=== PATIENT | male | born 1960 | race Caucasian/White ===

== ENCOUNTER 2019-06-29 22:23 | Inpatient (IN) | payer MEDICARE, SELFPAY ==
--- NOTE | ~2019-06-29 | US_ITS ---
EXAMINATION: US right upper quadrant DATE: 07/01/2019 13:09 INDICATION: Elevated liver function tests TECHNIQUE: Multiple grayscale and Doppler ultrasound images of the abdomen were obtained. COMPARISON: CT abdomen and pelvis dated 04/02/2013 FINDINGS: The region of the pancreas is obscured by shadowing gas in the stomach and bowels. Liver has normal e chogenicity and contour, with a smooth surface. No liver lesion identified. No intrahepatic biliary d uct dilation suspected. Portal venous flow was seen in the hepatopetal, normal direction and has norm al Doppler waveform. The gallbladder is not visualized and reportedly surgically absent. The common b ile duct measures 4 mm which is normal. The visualized proximal inferior vena cava is normal. IMPRESSION: 1. Status post cholecystectomy. Otherwise unremarkable right upper quadrant ultrasound. Reviewed, dictated and finalized at location A. IMPRESSION: 1. Status post cholecystectomy. Otherwise unremarkable right upper quadrant ult rasound.
--- NOTE | ~2019-06-29 | XR_ITS ---
EXAMINATION: XR chest 1V portable DATE: 06/29/2019 22:51 INDICATION: Shortness of breath TECHNIQUE: frontal view of the chest was obtained. COMPARISON: Chest radiograph dated 04/20/2019 FINDINGS: Megaly with pulmonary vascular congestion. Resolution of prior basilar pulmonary edema. Calcified nod ules in the left lower lung zone consistent with old granulomatous disease. No new airspace opacities , pleural effusion or pneumothorax. Median sternotomy wires and mediastinal surgical clips are seen, likely from prior coronary artery bypass grafting. IMPRESSION: 1. Cardiomegaly with pulmonary vascular congestion but without jose luis pulmonary edema. Reviewed, dictated and finalized at location A.
[2019-06-29 22:28] VITALS: BP 173/118; PULSE 117; RESP 40; TEMP 36.2; O2SAT 83
--- NOTE | 2019-06-29 22:33 | ECG_ITS ---
Measurements Intervals [place] Rate: 114 P: [place]: 0 QRS: -54 QRSD: 186 T: 144 QT: 306 QTc: 422 Interpretive Statements ATRIAL FLUTTER/TACHYCARDIA WITH RAPID VENTRICULAR RESPONSE LEFT BUNDLE BRANCH BLOCK BASELINE ARTIFACT- I, II, III, AVR, AVL, AVF, V1-V6 ABNORMAL ECG Electronically Signed On 06-30-2019 9:48:19 CDT by Ben Patton D.O.
--- NOTE | 2019-06-29 22:35 | ED.SOB ---
HPI - SOB/Dyspnea General Chief Complaint: Shortness of Breath/Dyspnea Stated Complaint: sob/extremitites going numb Time Seen by Provider: 06/29/19 22:33 Source: patient, family and RN notes reviewed Mode of arrival: other Limitations: no limitations History of Present Illness HPI Narrative: Pt is a 58 y/o male who presents to the ED with c/o dyspnea that worsened today. Pt states that his sx have improved when he came into the ED. Pt states that he does not feel well. Pt has been breathing 40 times per minute. Pt is a dialysis pt and his last treatment was on Sunday (06/27/19). Pt states that his diabetes mellitus is controlled by his diet so he does not check his blood glucose regularly. Pt states that his blood glucose will run high whenever he is in A-fib. Pt's family states the pt has had insurance troubles to refill his medication that helps the pt sleep. Pt has not taken the medication in about a week. Pt also reports difficulty sleeping for the past week and numbness in his extremities, but denies fever, cough, and chest pain. Pt's mine deputy is Dr. Graf and pt's industrial engineering intern is Dr. Marie. elicited complaint: shortness of breath Onset (ago): hour(s) Timing: constant Associated symptoms: other (difficulty sleeping, numbness in his extremities) Related Data Home Medications Medication Instructions Recorded Confirmed aspirin 81 mg PO DAILY 04/20/19 06/29/19 atorvastatin 20 mg PO DAILY 04/20/19 06/29/19 calcium acetate(phosphat bind) 667 mg PO TID 04/20/19 06/29/19 cholecalciferol (vitamin D3) 125 mcg PO DAILY 04/20/19 06/29/19 [Vitamin D3] lidocaine-prilocaine 1 applic TOPICAL ONCE 04/20/19 06/29/19 metoprolol tartrate 50 mg PO BID 04/20/19 06/29/19 polyethylene glycol 3350 [Miralax] 17 g PO DAILY 04/20/19 06/29/19 sennosides-docusate sodium 1 tab-cap PO HS 04/20/19 06/29/19 [Senna-S] amiodarone 200 mg tablet 200 mg PO DAILY 06/06/19 06/29/19 Allergies Allergy/AdvReac Type Severity Reaction Status Date / Time salmon oil Allergy Anaphylaxis Verified 06/29/19 23:24 Review of Systems Review of Systems: All systems reviewed & are unremarkable except as noted in HPI and below Constitutional: Constitutional: Reports difficulty sleeping and Denies fever(s) Cardiovascular: Cardiovascular: Denies chest pain Respiratory: Respiratory: Denies cough and Reports dyspnea Neurologic: Reports numbness (in his extremities) [facility] Social History Social History Smoking status: Never smoker Alcohol intake: current Drinks per week: 1 Substance use: never Gender identity (if verbalized by the patient): Male Spiritual care concerns: No Agree to blood products: Yes Exam Const: General: alert and ill appearing acutely and chronically Nutritional Appearance: well nourished Orientation/consciousness: patient oriented x3 HENMT: Head: normal to inspection Resp: Effort & Inspection: tachypneic Auscultation: clear to auscultation bilaterally Cardio: Rate: tachycardic Rhythm: abnormal rhythm irregularly irregular GI: GI Palp: Yes Soft to palpation and No Tenderness to palpation present (GI) Skin: Wounds: no wounds Neuro: General: patient oriented x3, moves all extremities and no focal motor deficits Speech: normal speech Extrem: General: edema bilateral (mild) Psych: Mental Status: mental status grossly normal Course Consultations Consultation #1: Discussed case with Dr. Hunter (Hospitalist). Accepts admission. Date: 06/29/19 Time: 23:04 Consultation #2: Discussed case with Dr. Bush (Nephrology). Accepts consult. Date: 06/30/19 Time: 00:22 Vital Signs Vital signs: Vital Signs Temperature 36.2 C L 06/29/19 22:28 Pulse Rate 117 H 06/29/19 22:28 Respiratory Rate 40 H 06/29/19 22:28 Blood Pressure 173/118 H 06/29/19 22:28 Pulse Oximetry 83 L 06/29/19 22:28 Temperature 36.7 C 06/30/19 01:10 Pulse Rate 94 06/29
[2019-06-29] MEDS: CALCIUM GLUCONATE 1,000 MG/10 ML VIAL 1000 MG (22:42)
[2019-06-29 22:43] LABS: Basophils Percent Auto 0.1 % (0.2-1.2); Eosinophils Percent Auto 0.1 % (0-4.4); Immature Granulocyte Absolute 0.09 K/mm3 (0.00-0.031); Immature Granulocyte Percent A 0.7 % (0-0.5); Lymphocytes Absolute Auto 0.53 K/mm3 (0.9-3.2); Lymphocytes Percent Auto 3.8 % (18.3-44.2); Mean Corpuscular HGB Conc 29.3 g/dl (32-36); Mean Corpuscular Hemoglobin 31.5 pg (26-34); Mean Corpuscular Volume 107.6 fl (80-100); Mean Platelet Volume 11.3 fl (7.4-10.4); Monocytes Absolute Auto 1.2 K/mm3 (0.1-0.6); Monocytes Percent Auto 8.9 % (2.6-8.5); Neutrophils Absolute Auto 11.9 K/mm3 (1.3-6.7); Neutrophils Percent Auto 86.4 % (45.5-73.1); Platelet Count Result 192 k/mm3 (150-375); Red Blood Count 3.81 M/mm3 (4.6-6.20); White Blood Count 13.8 K/mm3 (4.5-10.0)
[2019-06-29 22:53] LABS: INR 2.1; Prothrombin Time 23.5 Seconds (11.1-14.7)
[2019-06-29 22:54] LABS: Partial Thromboplastin Time 36.5 SECONDS (22.3-36.8)
[2019-06-29 22:58] LABS: Blood Urea Nitrogen 56 mg/dL (9-20); Calcium 10.6 mg/dL (8.4-10.2); Carbon Dioxide 14 mmol/L (22-30); Chloride 92 mmol/L (98-107); Estimated Glomerular Filt Rate 4; Glucose 118 mg/dL (75-110); Magnesium 2.5 mg/dL (1.6-2.3); Potassium 6.9 mmol/L (3.4-5.0); Sodium 139 mmol/L (137-145)
--- NOTE | 2019-06-29 23:10 | ECG_ITS ---
Measurements Intervals [place] Rate: 75 P: [place]: 0 QRS: -80 QRSD: 179 T: 93 QT: 509 QTc: 570 Interpretive Statements SINUS OR ECTOPIC ATRIAL RHYTHM WITH FIRST DEGREE AV BLOCK ATRIAL PREMATURE COMPLEX LEFT AXIS DEVIATION LEFT BUNDLE BRANCH BLOCK ANTEROSEPTAL INFARCT OR DUE TO LBBB BASELINE WANDER- I ABNORMAL ECG Electronically Signed On 06-30-2019 7:35:02 CDT by Ben Patton D.O.
[2019-06-29] MEDS: DEXTROSE 50% 25 GM/50 ML SYRINGE IV PUSH (23:14)
[2019-06-29 23:15] LABS: NT Pro B Type Natriuretic Pept > 35000 PG/ML (5-100)
[2019-06-29] MEDS: ALBUTEROL SULFATE NEB 2.5 MG/0.5 ML INH 10 MG INHALATION (23:18)
[2019-06-29] MEDS: SODIUM BICARBONATE 8.4% 50 MEQ/50 ML VIAL IV PUSH (23:19)
[2019-06-29] MEDS: INSULIN HUMAN REGULAR (*BKC) 100 UNITS/ML 10 UNITS IV PUSH (23:22)
[2019-06-29 23:23] VITALS: BP 136/70; PULSE 86; RESP 30; O2SAT 99
[2019-06-29 23:26] VITALS: PULSE 80; RESP 22
[2019-06-30] VITALS (34 sets, daily range): BP systolic 116–165; BP diastolic 66–109; PULSE 79–117; RESP 16–26; TEMP 36–36.8; O2SAT 94–100; BMI 34.8; BMI 35.1
--- NOTE | 2019-06-30 01:17 | ADMGEN ---
This patient, Beck Carney, was admitted to IMU Room 231-01. Patient/family oriented to hospital policies and general routines including ID bracelet, bed and alarms, visiting hours, pain management, procedures, bathroom and other care routines, personal items, smoking policy, room service/diet, and visiting hours. Valuables list has been completed. Information on how to activate the Rapid Response Team has been discussed. Patient/Family are encouraged to report perceived risks to care and to ask questions if they do not understand what they are told or what they should do.
--- NOTE | 2019-06-30 02:30 | PM.IMHP ---
H&P: HPI History of Present Illness Chief complaint: Shortness of breath+ Narrative: This is a 58 year old Diabetic male with known history of atrial flutter, CHF, and ESRD on HD on // for approximately 1 year now and presented to the hospital this evening with a complaint of severe shortness of breath. He states that his severe shortness of breath started just today. He denies any fever. He complains of a chronic dry cough that he has had for over 1 year now since he underwent a CABG x 3. He denies missing any dialysis sessions. He believes he is on dialysis because of taking nephrotoxic medications in the past. The patient was previously on Eliquis although he is no longer on any anticoagulants. Tonight in the ER the patient was found to have significant hyperkalemia and was treated in the ER w/ Sodium Bicarbonate, Insulin and Dextrose. ER provider has consulted the patient's video coordinator, Dr. Graf. The patient tonight is only complaining of insomnia and claims he hasn't been able to sleep for 4 days now. On further questioning he denies any palpitations, abdominal pain, dysuria, hematuria, nausea, vomiting, headache, focal neurological symptoms, lower extremity redness, pain or swelling. No other complaints. Review of Systems Review of Systems: All systems reviewed & are unremarkable except as noted in HPI and below PMFSH Past Medical History Medical History (Updated 06/30/19 @ 02:55 by Marcello Hunter MD) Anemia Anxiety Arthritis Atrial flutter CAD (coronary artery disease) CHF (congestive heart failure) Depression Diabetes Dialysis patient Diverticulitis Fistula HLD (hyperlipidemia) HTN (hypertension) Kidney failure Leg fracture bilateral, 2016 Myocardial infarct Surgical History Surgical History H/O heart bypass surgery end of July 2018 History of cholecystectomy History of orthopedic surgery 2016 Family History Family History Mother Family history of diabetes mellitus in first degree relative Family history of malignant neoplasm of breast in first degree relative Patient's mother is in good health Sibling Patient's sister is in good health Patient's brother is in good health Father Patient's father is Social History Social History Smoking status: Never smoker Alcohol intake: current Drinks per week: 1 Substance use: never Gender identity (if verbalized by the patient): Male Spiritual care concerns: No Agree to blood products: Yes Meds Home Medications and Allergies Home Medications Medication Instructions Recorded Confirmed Type aspirin 81 mg PO DAILY 04/20/19 06/29/19 History atorvastatin 20 mg PO DAILY 04/20/19 06/29/19 History calcium acetate(phosphat bind) 667 mg PO TID 04/20/19 06/29/19 History cholecalciferol (vitamin D3) 125 mcg PO DAILY 04/20/19 06/29/19 History [Vitamin D3] lidocaine-prilocaine 1 applic TOPICAL ONCE 04/20/19 06/29/19 History metoprolol tartrate 50 mg PO BID 04/20/19 06/29/19 History polyethylene glycol 3350 [Miralax] 17 g PO DAILY 04/20/19 06/29/19 History sennosides-docusate sodium 1 tab-cap PO HS 04/20/19 06/29/19 History [Senna-S] amiodarone 200 mg tablet 200 mg PO DAILY 06/06/19 06/29/19 History lisinopril 20 mg tablet 20 mg PO DAILY #90 tablet 06/06/19 06/29/19 Rx temazepam 15 mg capsule 15 mg PO ONCE #30 cap 06/06/19 06/29/19 Rx Allergies Allergy/AdvReac Type Severity Reaction Status Date / Time salmon oil Allergy Anaphylaxis Verified 06/29/19 23:24 Vital Signs Vital Signs - 24 hr 06/29/19 22:28 06/29/19 23:23 06/29/19 23:26 Temperature 36.2 C L Pulse Rate 117 H 86 80 Respiratory Rate 40 H 30 H 22 H Blood Pressure 173/118 H 136/70 Pulse Oximetry 83 L 99 06/30/19 00:24 06/30/19 00:32 06/30/19 00:55 Temperature Pulse
[2019-06-30] MEDS: METOPROLOL TARTRATE 50 MG TAB PO ×3 (03:02→20:28)
[2019-06-30 03:06] LABS: Blood Urea Nitrogen 65 mg/dL (9-20); Calcium 10.7 mg/dL (8.4-10.2); Carbon Dioxide 21 mmol/L (22-30); Chloride 93 mmol/L (98-107); Estimated CRCL calculation 7 ml/min; Estimated Glomerular Filt Rate 4; Glucose 208 mg/dL (75-110); Potassium 6.6 mmol/L (3.4-5.0); Sodium 137 mmol/L (137-145)
[2019-06-30 04:12] LABS: Hepatitis B Surface Antigen Negative (Negative)
[2019-06-30 04:17] LABS: HAV RESULT Negative (Negative); Hepatitis B Core IgM Result Negative (Negative)
[2019-06-30 04:29] LABS: Hepatitis B Surface Anti Res Negative; Hepatitis C Virus Antibody Negative (Negative)
--- NOTE | 2019-06-30 05:12 | PC.NURSE ---
Gave pt semaj to try to sleep at 033. He pushed his call light at 033 upset that he was given sleep medicine an 1.5hr before and still couldn't sleep. I reassured him it had only been 30min to try and get some rest. He was very Irate that a nurse would tell him to rest when he needs more sleeping medicine and had been waiting an 1.5hrs
[2019-06-30] MEDS: SODIUM BICARBONATE 8.4% 50 MEQ/50 ML VIAL IV PUSH (05:54)
[2019-06-30] MEDS: CALCIUM GLUCONATE 1,000 MG/10 ML VIAL 1000 MG IV PUSH (05:54)
[2019-06-30] MEDS: DEXTROSE 50% 25 GM/50 ML SYRINGE IV PUSH (05:54)
[2019-06-30] MEDS: INSULIN HUMAN REGULAR (*BKC) 100 UNITS/ML 10 UNITS IV PUSH (05:55)
[2019-06-30 07:15] LABS: Basophils Percent Auto 0.1 % (0.2-1.2); Eosinophils Percent Auto 0.1 % (0-4.4); Hematocrit 32.8 % (42.0-52.0); Hemoglobin 10.3 g/dL (14.0-18.0); Immature Granulocyte Absolute 0.04 K/mm3 (0.00-0.031); Immature Granulocyte Percent A 0.4 % (0-0.5); Lymphocytes Absolute Auto 0.87 K/mm3 (0.9-3.2); Lymphocytes Percent Auto 7.7 % (18.3-44.2); Mean Corpuscular HGB Conc 31.4 g/dl (32-36); Mean Corpuscular Hemoglobin 31.7 pg (26-34); Mean Corpuscular Volume 100.9 fl (80-100); Mean Platelet Volume 11.5 fl (7.4-10.4); Monocytes Absolute Auto 0.9 K/mm3 (0.1-0.6); Neutrophils Absolute Auto 9.4 K/mm3 (1.3-6.7); Neutrophils Percent Auto 83.7 % (45.5-73.1); Platelet Count Result 131 k/mm3 (150-375); Red Blood Count 3.25 M/mm3 (4.6-6.20); White Blood Count 11.3 K/mm3 (4.5-10.0)
[2019-06-30 07:31] LABS: Blood Urea Nitrogen 70 mg/dL (9-20); Calcium 10.5 mg/dL (8.4-10.2); Carbon Dioxide 24 mmol/L (22-30); Chloride 90 mmol/L (98-107); Estimated CRCL calculation 7 ml/min; Estimated Glomerular Filt Rate 4; Glucose 214 mg/dL (75-110); Potassium 6.6 mmol/L (3.4-5.0); Sodium 137 mmol/L (137-145)
[2019-06-30 07:42] LABS: Troponin I 0.206 ng/mL (0.000-0.034)
[2019-06-30 07:55] LABS: Glucose Point of Care 179 (65-105)
[2019-06-30 07:56] LABS: Glucose Point of Care 183 (65-105)
[2019-06-30] MEDS: LIDOCAINE/PRILOCAINE 2.5-2.5% KIT 1 EACH TOPICAL (07:59)
--- NOTE | 2019-06-30 08:00 | PC.NURSE ---
Pt to dialysis via bed
--- NOTE | 2019-06-30 08:42 | PM.CNNEP ---
Assessment and Plan Assessment and plan (1) End-stage renal disease (ESRD): Code(s): N18.6 - End stage renal disease Status: Chronic Assessment and Plan: Patient is end-stage renal disease. This is due to his diabetes and hypertension. He has been on dialysis. Does have some trouble with his diet, especially with phosphorus. Potassium has been a problem in the past as well. He does very well with the diabetic part of his diet. He is getting dialysis today (2) Essential hypertension with goal blood pressure less than 130/80: Code(s): I10 - Essential (primary) hypertension Status: Chronic Assessment and Plan: His blood pressure is pretty well controlled. (3) Secondary hyperparathyroidism, renal: Code(s): N25.81 - Secondary hyperparathyroidism of renal origin Status: Chronic Assessment and Plan: His phosphorus is chronically elevated. He cannot afford non calcium binders. And HIS Calcium limits how much he can take for phosphorus binding purposes. His income is limited in so it is hard for him to buy low phosphorus foods as well. Dietitian social human services assistants have been working with him at the dialysis unit to try to resolve or at least manage some of these problems. (4) Type 2 diabetes mellitus without complication, with no history of insulin use: Code(s): E11.9 - Type 2 diabetes mellitus without complications Status: Chronic Assessment and Plan: He is on Accu-Cheks and sliding-scale insulin His sugars are generally really good without any diabetic medications. (5) Hyperkalemia: Code(s): E87.5 - Hyperkalemia Status: Acute Assessment and Plan: Potassium is high. He is getting dialyzed today. He did receive meds yesterday to temporize. History of Present Illness Reason for Consult Consult date: 06/30/19 Chief Complaint Chief complaint: Shortness of breath+ History of Present Illness Narrative: Beck is a very pleasant 58-year-old gentleman who has multiple medical problems including end-stage renal disease on dialysis 3 times a week, hypertension, renal osteodystrophy, coronary disease status post bypass, who was fine until yesterday when he became short of breath. He came to the hospital. He was evaluated in the emergency room and found to have high potassium. He was treated with insulin and glucose his potassium came down from 6.9 to 6.6. Dialysis has been called. The patient says that he ate lots of tater tots over the weekend. He knows he should need them but they were left over from his ex 's meal when she was there visiting. His ex is very supportive in drops by every day to help take care of him. Patient does not have any fevers or chills. No cough or shortness of breath. Review of Systems Constitutional: Constitutional: Reports no additional constitutional complaints Eyes: Eyes: Reports no additional eye complaints ENT: Reports system reviewed and no additional complaints, except as documented Cardiovascular: Cardiovascular: Reports no additional cardiovascular complaints Respiratory: Respiratory: Reports no additional respiratory complaints Gastrointestinal: Gastrointestinal: Reports no additional gastrointestinal complaints Genitourinary: Genitourinary: Reports no additional male genitourinary complaints Musculoskeletal: Musculoskeletal: Reports no additional musculoskeletal complaints Integumentary/Breasts: Skin/Breast: Reports system reviewed and no additional complaints, except as docu Neurologic: Reports system reviewed and no additional complaints, except as documented Psychiatric: Psychiatric: Reports no additional psychiatric complaints PMFSH Past Medical History Medical History Anemia Anxiety Arthritis Atrial flutter CAD (coronary artery disease) CHF (congestive heart failure) Depression Diabetes Dialysis patient Divertic
--- NOTE | 2019-06-30 08:51 | PM.EVENT ---
Event Note Event Note Event Note: The patient is on dialysis and tolerating it well. We are removing some fluid. He is on a low-potassium bath. He was seen at 8:15 a.m.
--- NOTE | 2019-06-30 12:30 | PC.NURSE ---
Pt returned from dialysis
[2019-06-30 12:38] LABS: Glucose Point of Care 65 (65-105)
[2019-06-30] MEDS: CALCIUM ACETATE 667 MG TABLET PO ×2 (12:46→17:15)
[2019-06-30] MEDS: lisinopriL 20 MG TABLET PO (12:47)
[2019-06-30] MEDS: AMIODARONE HCL 200 MG TABLET PO (12:47)
[2019-06-30] MEDS: CHOLECALCIFEROL 1,000 UNIT TABLET 5000 UNITS PO (12:47)
[2019-06-30] MEDS: ATORVASTATIN 20 MG TABLET PO (12:47)
[2019-06-30] MEDS: ASPIRIN 81 MG ENTERIC TABLET PO (12:48)
[2019-06-30 13:09] LABS: Blood Urea Nitrogen 31 mg/dL (9-20); Calcium 10.7 mg/dL (8.4-10.2); Carbon Dioxide 32 mmol/L (22-30); Chloride 95 mmol/L (98-107); Estimated CRCL calculation 12 ml/min; Estimated Glomerular Filt Rate 8; Glucose 77 mg/dL (75-110); Potassium 4.4 mmol/L (3.4-5.0); Sodium 138 mmol/L (137-145)
[2019-06-30] MEDS: polyethylene glycoL 3350 17 GM POWD.PACK PO (13:24)
--- NOTE | 2019-06-30 14:04 | PM.IMPN ---
Progress Note: A&P Assessment and Plan (1) Hyperkalemia: Code(s): E87.5 - Hyperkalemia Status: Acute Assessment and Plan: Likely secondary to acute on chronic renal failure. Pt had sodium bicarbonate, dextrose and insulin. Pt had emergent dialysis this morning. Potassium is NL. Pt is feeling better. No specific compliants (2) Dyspnea: Qualifiers: Dyspnea type: unspecified Qualified Code(s): R06.00 - Dyspnea, unspecified Code(s): R06.00 - Dyspnea, unspecified Status: Acute Assessment and Plan: Pt is for dialysis today. Pt is on oxygen for fluid overload. (3) Acute on chronic renal failure: Qualifiers: Acute renal failure type: unspecified Chronic kidney disease stage: on chronic dialysis Qualified Code(s): N17.9 - Acute kidney failure, unspecified; N18.9 - Chronic kidney disease, unspecified; Z99.2 - Dependence on renal dialysis Code(s): N17.9 - Acute kidney failure, unspecified; N18.9 - Chronic kidney disease, unspecified Status: Acute Assessment and Plan: Continue nephrology recommendations. The patient is on dialysis on //.Creat is 7.2 today. (4) End-stage renal disease (ESRD): Code(s): N18.6 - End stage renal disease Status: Chronic Assessment and Plan: Continue Nephrology recommendations. (5) Type 2 diabetes mellitus without complication, with no history of insulin use: Code(s): E11.9 - Type 2 diabetes mellitus without complications Status: Chronic Assessment and Plan: Accuchecks, SSI Coverage, Hypoglycemic agents. Order hbaic, order dietican consultation for DM and renal diet. Pt states he does not have a good diet at home. (6) Anemia in stage 4 chronic kidney disease: Code(s): N18.4 - Chronic kidney disease, stage 4 (severe); D63.1 - Anemia in chronic kidney disease Status: Chronic Assessment and Plan: Anemia of chronic disease (7) Essential hypertension with goal blood pressure less than 130/80: Code(s): I10 - Essential (primary) hypertension Status: Chronic Assessment and Plan: Continue home antihypertensives. (8) HFrEF (heart failure with reduced ejection fraction): Qualifiers: Heart failure chronicity: chronic Qualified Code(s): I50.22 - Chronic systolic (congestive) heart failure Code(s): I50.20 - Unspecified systolic (congestive) heart failure Status: Chronic Assessment and Plan: Daily weights. (9) Hyperlipidemia LDL goal <70: Code(s): E78.5 - Hyperlipidemia, unspecified Status: Chronic Assessment and Plan: Continue atorvastatin PO. (10) Secondary hyperparathyroidism, renal: Code(s): N25.81 - Secondary hyperparathyroidism of renal origin Status: Chronic Assessment and Plan: Continue home meds. (11) Atrial flutter: Qualifiers: Atrial flutter type: unspecified Qualified Code(s): I48.92 - Unspecified atrial flutter Code(s): I48.92 - Unspecified atrial flutter Status: Chronic Assessment and Plan: Stable. Continue Amiodarone. The patient is not on any anticoagulants. Continue ASA therapy. Subjective Date/time seen: 06/30/19 14:04 Interval history: Pt admitted this morning seen history and physical. 58 year old Diabetic male with known history of atrial flutter, CAD, CHF, and ESRD on HD on M/W/ for approximately 1 year now and presented to the hospital this evening with a complaint of severe shortness of breath. Pt potassium was high on admission. Pt states he has been going for dialysis. Pt is not good with his diet and will need dietican counselling prior to discharge. Pt seen by nephrology, potassium has normalised after dialysis. Review of Systems Review of Systems: All systems reviewed & are unremarkable except as noted in HPI and below Cardiovascular: Cardiovascular: Denies no additional cardiovascular complaints Respi
[2019-06-30 17:02] LABS: Glucose Point of Care 119 (65-105)
[2019-06-30] MEDS: SENNA/DOCUSATE SODIUM TABLET 1 TAB PO (20:27)
[2019-06-30 20:38] LABS: Glucose Point of Care 135 (65-105)
[2019-07-01] VITALS (31 sets, daily range): BP systolic 106–159; BP diastolic 55–98; PULSE 69–117; RESP 14–20; TEMP 35.9–37; O2SAT 96–99
[2019-07-01 05:39] LABS: Albumin Level 4.5 g/dL (3.5-5.1); Alkaline Phosphatase 194 U/L (38-126); Bilirubin,Total 1.5 mg/dL (0.2-1.3); Blood Urea Nitrogen 56 mg/dL (9-20); Calcium 10.9 mg/dL (8.4-10.2); Carbon Dioxide 29 mmol/L (22-30); Chloride 91 mmol/L (98-107); Estimated CRCL calculation 9 ml/min; Estimated Glomerular Filt Rate 6; Glucose 116 mg/dL (75-110); Potassium 6.8 mmol/L (3.4-5.0); Sodium 133 mmol/L (137-145)
[2019-07-01 06:19] LABS: Glucose Point of Care 113 (65-105)
[2019-07-01] MEDS: DEXTROSE 50% 25 GM/50 ML SYRINGE IV PUSH (06:26)
[2019-07-01] MEDS: INSULIN HUMAN REGULAR (*BKC) 100 UNITS/ML 10 UNITS IV PUSH (06:29)
[2019-07-01 06:30] LABS: Aspartate Amino Transferase 2041 U/L (17-59)
[2019-07-01 06:31] LABS: Alanine Aminotransferase 3140 U/L (4-50)
--- NOTE | 2019-07-01 06:36 | PC.NURSE ---
[address] DR[address] JOHNSON AND DR. CENTENO INFORMED OF K+ OF 6.8 AND ORDERS RECEIVED TO TRANSFER TO IMU. PATIENT INFORMED.
--- NOTE | 2019-07-01 06:37 | PC.NURSE ---
0600 REPORT CALLED TO U SALOMON MARTIN.
--- NOTE | 2019-07-01 06:38 | PC.NURSE ---
pt transfered over from room 253. Report recieved from
--- NOTE | 2019-07-01 06:38 | PC.NURSE ---
0605 PATIENT TRANSFERRED TO ROOM 231 WITH BELONGINGS VERIFIED.
[2019-07-01 07:05] LABS: Potassium 6.5 mmol/L (3.4-5.0)
[2019-07-01 07:58] LABS: Glucose Point of Care 165 (65-105)
[2019-07-01] MEDS: LIDOCAINE/PRILOCAINE 2.5-2.5% KIT 1 EACH TOPICAL (08:04)
--- NOTE | 2019-07-01 08:05 | PC.NURSE ---
Pt to dialysis via bed
[2019-07-01 09:01] LABS: Basophils Percent Auto 0.2 % (0.2-1.2); Eosinophils Absolute Auto 0.1 K/mm3 (0-0.3); Eosinophils Percent Auto 0.8 % (0-4.4); Hematocrit 33.7 % (42.0-52.0); Hemoglobin 10.6 g/dL (14.0-18.0); Immature Granulocyte Absolute 0.05 K/mm3 (0.00-0.031); Immature Granulocyte Percent A 0.5 % (0-0.5); Lymphocytes Absolute Auto 0.61 K/mm3 (0.9-3.2); Lymphocytes Percent Auto 6.6 % (18.3-44.2); Mean Corpuscular HGB Conc 31.5 g/dl (32-36); Mean Corpuscular Hemoglobin 31.6 pg (26-34); Mean Corpuscular Volume 100.6 fl (80-100); Mean Platelet Volume 11.1 fl (7.4-10.4); Monocytes Absolute Auto 0.8 K/mm3 (0.1-0.6); Monocytes Percent Auto 8.3 % (2.6-8.5); Neutrophils Absolute Auto 7.7 K/mm3 (1.3-6.7); Neutrophils Percent Auto 83.6 % (45.5-73.1); Nucleated Red Blood Cells Perc 0.3 % (0.0-0.2); Platelet Count Result 118 k/mm3 (150-375); Red Blood Count 3.35 M/mm3 (4.6-6.20); Red Cell Distribution Width 14.7 % (11.5-14.5); White Blood Count 9.2 K/mm3 (4.5-10.0)
[2019-07-01 09:17] LABS: Creatine Kinase 79 U/L (55-170)
--- NOTE | 2019-07-01 09:57 | PM.PNNEP ---
Progress Note: A&P Assessment and Plan (1) End-stage renal disease (ESRD): Code(s): N18.6 - End stage renal disease Status: Chronic Assessment and Plan: Patient is end-stage renal disease. This is due to his diabetes and hypertension. He is getting dialysis again today. (2) Essential hypertension with goal blood pressure less than 130/80: Code(s): I10 - Essential (primary) hypertension Status: Chronic Assessment and Plan: His blood pressure is pretty well controlled. (3) Secondary hyperparathyroidism, renal: Code(s): N25.81 - Secondary hyperparathyroidism of renal origin Status: Chronic Assessment and Plan: His phosphorus is chronically elevated. Will check a phosphorus in the morning. He is getting calcium acetate. Calcium is high today. This could be because of his calcium supplements to try binding phosphorus or it could be because he got some calcium in the emergency room yesterday. Will change to sevelamer while here. (4) Type 2 diabetes mellitus without complication, with no history of insulin use: Code(s): E11.9 - Type 2 diabetes mellitus without complications Status: Chronic Assessment and Plan: He is on Accu-Cheks and sliding-scale insulin His sugars are generally really good without any diabetic medications. (5) Hyperkalemia: Code(s): E87.5 - Hyperkalemia Status: Acute Assessment and Plan: Potassium is high again today. I do not think we can blame it on the diet. He is on a renal diet. Apparently a low-potassium diet is even lower in potassium so we are switching to this as well. Will check a haptoglobin, CPK, and stool guaiacs look for endogenous sources of potassium. Subjective Date/time seen: 07/01/19 09:57 Interval history: Patient is alert. On dialysis and tolerating it well. He is on a low-potassium bath. He was seen at 9:30 a.m.. Potassium went back up again, mysteriously. He only ate hospital food. He is on a low-potassium diet. There are no visitors allowed because of covid. The patient has no chest pain or shortness of breath. No nausea or vomiting. He has not had a bowel movement but feels like he is going to today. Review of Systems Cardiovascular: Cardiovascular: Reports no additional cardiovascular complaints Respiratory: Respiratory: Reports no additional respiratory complaints Gastrointestinal: Gastrointestinal: Reports no additional gastrointestinal complaints Genitourinary: Genitourinary: Reports no additional male genitourinary complaints Exam Narrative: Exam Narrative: Well developed well-nourished in no acute distress Lungs clear Heart regular without rub Abdomen bowel sounds positive soft nontender Extremities no edema Skin no rash Objective Data Vital Signs Vital Signs: Vital Signs - 24 hr 06/30/19 10:00 06/30/19 10:15 06/30/19 10:30 Temperature Pulse Rate 115 H 114 H 115 H Respiratory Rate Blood Pressure 137/79 140/82 140/79 Pulse Oximetry 06/30/19 10:45 06/30/19 11:00 06/30/19 11:15 Temperature Pulse Rate 117 H 115 H 117 H Respiratory Rate Blood Pressure 120/94 H 143/96 H 136/66 Pulse Oximetry 06/30/19 11:30 06/30/19 11:45 06/30/19 12:00 Temperature Pulse Rate 111 H 117 H 115 H Respiratory Rate Blood Pressure 133/91 H 161/96 H Pulse Oximetry 06/30/19 12:16 06/30/19 12:40 06/30/19 12:47 Temperature 36.6 C 36.6 C Pulse Rate 116 H 114 H 117 H Respiratory Rate 18 20 Blood Pressure 141/96 H 116/68 Pulse Oximetry 98 06/30/19 14:00 06/30/19 14:21 06/30/19 16:00 Temperature Pulse Rate 104 H 79 116 H Respiratory Rate 16 Blood Pressure Pulse Oximetry 94 06/30/19 16:30 06/30/19 20:28 06/30/19 21:44 Temperature 36.6 C 36.7 C Pulse Rate 106 H 115 H 115 H Respiratory Rate 24 H 20 Blood Pressure 130/84 120/83 Pulse Oximetry 97 97 07/01/19 06:14 07/01/19 06:29 07/01/19 08:
--- NOTE | 2019-07-01 10:52 | PM.IMPN ---
Progress Note: A&P Assessment and Plan (1) Hyperkalemia: Code(s): E87.5 - Hyperkalemia Status: Acute Assessment and Plan: Likely secondary to diet and renal failure. Pt has received sodium bicarbonate, dextrose and insulin mutliple times. Pt had emergent dialysis on 06/30/19 and again this morning. Dietary to see. Continue to monitor potassium levels after HD. Potassium 4.6 now. (2) Elevated transaminase level: Code(s): R74.0 - Nonspecific elevation of levels of transaminase and lactic acid dehydrogenase [LDH] Status: Acute Assessment and Plan: Markedly elevated AST and ALT. Viral? Passive congestion? Medication? Atorvastatin already on hold. Check Echo. RUQ essentially normal. (3) End-stage renal disease (ESRD): Code(s): N18.6 - End stage renal disease Status: Chronic Assessment and Plan: Patient with fluid overload and hyperkalemia. Continue HD per nephrology instructions to improve these markers. Appreciate Nephrology input. (4) Dyspnea: Qualifiers: Dyspnea type: unspecified Qualified Code(s): R06.00 - Dyspnea, unspecified Code(s): R06.00 - Dyspnea, unspecified Status: Acute Assessment and Plan: BNP >35K. CXR showing CMG with pulmonary cascular congestion. Dyspnea related to the CHF/fluid overload. Continue HD to control fluid status. Wean O2 as tolerated. (5) Diabetes: Qualifiers: Chronic kidney disease stage: on chronic dialysis Diabetes mellitus complication detail: with chronic kidney disease Diabetes mellitus complication status: with kidney complications Diabetes mellitus half-way insulin use: without half-way use Diabetes mellitus type: type 2 Qualified Code(s): E11.22 - Type 2 diabetes mellitus with diabetic chronic kidney disease; N18.6 - End stage renal disease; Z99.2 - Dependence on renal dialysis Code(s): E11.9 - Type 2 diabetes mellitus without complications Status: Acute Assessment and Plan: Glucose reviewed on 07/01/19. Glucose well controlled Continue Accuchecks covering with SSI. Hypoglycemia protocol available as well. Research Chemist consultation for hyperkalemia, DM, ESRD. (6) Essential hypertension with goal blood pressure less than 130/80: Code(s): I10 - Essential (primary) hypertension Status: Chronic Assessment and Plan: BP reviewed on 07/01/19. BP well controlled. Continue home antihypertensives. (7) Atrial flutter: Qualifiers: Atrial flutter type: unspecified Qualified Code(s): I48.92 - Unspecified atrial flutter Code(s): I48.92 - Unspecified atrial flutter Status: Chronic Assessment and Plan: [id number] 4. Heart rate overall stable. Currently on Amiodarone and Lopressor. The patient is not on any anticoagulants for unclear reasons. Continue ASA therapy. (8) HFrEF (heart failure with reduced ejection fraction): Qualifiers: Heart failure chronicity: chronic Qualified Code(s): I50.22 - Chronic systolic (congestive) heart failure Code(s): I50.20 - Unspecified systolic (congestive) heart failure Status: Chronic Assessment and Plan: Fluid status better controlled with HD. No Echo listed in the chart. Continue HD to maintain euvolemia. (9) Hyperlipidemia LDL goal <70: Code(s): E78.5 - Hyperlipidemia, unspecified Status: Chronic Assessment and Plan: LFTs elevated. Atorvastatin on hold. Subjective Date/time seen: 07/01/19 10:52 Interval history: 58yo male with ESRD on HD here for SOB. Assuming care. Chart reviewed. Patient denies any chest pain or shortness of breath currently. He denies any nausea or vomiting. Has mild abdominal pain. He believes the abdominal pain is related to hernias. Abdominal pain is chronic. Patient complains of insomnia and states he has not slept for the past month. Patient was aga
[2019-07-01 13:16] LABS: Glucose Point of Care 85 (65-105)
--- NOTE | 2019-07-01 13:19 | PC.NURSE ---
Pt returned from dialysis and ultrasound
[2019-07-01] MEDS: AMIODARONE HCL 200 MG TABLET PO (13:20)
[2019-07-01] MEDS: CALCIUM ACETATE 667 MG TABLET PO ×2 (13:20→17:32)
[2019-07-01] MEDS: ASPIRIN 81 MG ENTERIC TABLET PO (13:21)
[2019-07-01] MEDS: METOPROLOL TARTRATE 50 MG TAB PO ×2 (13:21→21:02)
[2019-07-01] MEDS: CHOLECALCIFEROL 1,000 UNIT TABLET 5000 UNITS PO (13:21)
[2019-07-01] MEDS: lisinopriL 20 MG TABLET PO (13:22)
[2019-07-01] MEDS: polyethylene glycoL 3350 17 GM POWD.PACK PO (13:22)
[2019-07-01 16:47] LABS: Glucose Point of Care 173 (65-105)
[2019-07-01 16:49] LABS: Blood Urea Nitrogen 27 mg/dL (9-20); Calcium 9.8 mg/dL (8.4-10.2); Carbon Dioxide 31 mmol/L (22-30); Chloride 94 mmol/L (98-107); Estimated CRCL calculation 15 ml/min; Estimated Glomerular Filt Rate 10; Glucose 182 mg/dL (75-110); Potassium 4.6 mmol/L (3.4-5.0); Sodium 134 mmol/L (137-145)
[2019-07-01 17:37] LABS: IFOB Positive Control Positive; Immunochemical Fecal Occult Bl Negative (N)
[2019-07-01 20:21] LABS: Glucose Point of Care 119 (65-105)
[2019-07-01] MEDS: SENNA/DOCUSATE SODIUM TABLET 1 TAB PO (21:02)
[2019-07-01] MEDS: MELATONIN 3 MG TABLET PO (21:02)
[2019-07-01 21:42] LABS: Potassium 4.7 mmol/L (3.4-5.0)
[2019-07-02] VITALS (30 sets, daily range): BP systolic 103–153; BP diastolic 61–87; PULSE 42–112; RESP 14–22; TEMP 36–37.4; O2SAT 97–100; BMI 34.8
--- NOTE | 2019-07-02 | ECHO_ITS ---
Patient Info Name: Beck Carney Age: 58 years : 1960 Gender: Male Ht: 69 in Wt: 236 lbs BSA: 2.32 m2 HR: 79 bpm BP: 137 / 73 mmHg Heart Rhythm: Atrial Fibrillation Technical Quality: Good Exam Date: 07/02/2019 2:10 PM Exam Location: [facility] Patient Status: Inpatient Admit Date: 07/02/2019 Staff Ordering Physician: Schuyler Bowie MD Auto Clocks Repairer: Nathan Restrepo YING Attending Provider: Marcello Hunter MD Exam Type: CA echo dop color flow w con Study Info Indications I50.9 - Heart failure, unspecified Complete two-dimensional, color flow and Doppler transthoracic echocardiogram is performed with contrast to opacify the left ventrical and to improve the deliniation of the left ventrical endocarial boarders. Contrast/Agitated Saline Contrast/Ag. Saline: Definity Amount: 2.00 ml Administered By: Dona Barrera RN Existing IV Access: Yes History/Risk Factors Congestive heart failure; atrial flutter, CAD s/p 3vCABG, DM, HLD, HTN. Summary 1. Global left ventricular systolic function is severely reduced, estimated EF 25-30%, measured EF 27% with no focal wall motion abnormalities. There is moderate concentric hypertrophy present but no enlargement. Diastolic dysfunction is present. 2. Right is not clearly seen but appears moderate to severelyenlarged with severe global hypokinesis.. 3. Left atrial chamber dimension is moderately enlarged. 4. There is mild tricuspid valve regurgitation. 5. Mild pulmonary hypertension, estimated pulmonary arterial systolic pressure is 37 mmHg. 6. Dilated inferior vena cava with <50% collapse upon inspiration consistent with elevated right atrial pressure, 10 mmHg. 7. There is mild aortic atherosclerosis. 8. Technically difficult study, definity echo contrast used. 9. Underlying rhythm appears to be atrial fibrillation. Left Ventricle Left ventricular chamber dimension is normal. Global left ventricular systolic function is severely reduced, estimated EF 25-30%, measured EF 27% with no focal wall motion abnormalities. There is moderate concentric hypertrophy present but no enlargement. Diastolic dysfunction is present. There is moderately increased left ventricular wall thickness. Left ventricular septal wall motion is normal. The left ventricular diastolic function is abnormal. Right Ventricle Right is not clearly seen but appears moderate to severelyenlarged with severe global hypokinesis.. Right ventricular systolic function is reduced. Left Atria Left atrial chamber dimension is moderately enlarged. Right Atria Right atrial chamber dimension is normal. Aortic Valve The aortic valve is trileaflet. There is mild aortic valve sclerosis. There is no aortic valve stenosis. There is no aortic valve regurgitation. Pulmonic Valve The pulmonic valve is normal. There is no pulmonic valve stenosis. There is trace pulmonic regurgitation. Mitral Valve The mitral valve has thickened leaflets and calcified annulus. There is no mitral valve stenosis. There is no mitral valve regurgitation. Tricuspid Valve The tricuspid valve leaflets are normal. There is no significant tricuspid valve stenosis. There is mild tricuspid valve regurgitation. Mild pulmonary hypertension, estimated pulmonary arterial systolic pressure is 37 mmHg. Pericardium/Pleural The pericardium appears normal. There is no pericardial effusion. Inferior Vena Cava
[2019-07-02 04:52] LABS: Hematocrit 34.3 % (42.0-52.0); Hemoglobin 10.9 g/dL (14.0-18.0); Mean Corpuscular HGB Conc 31.8 g/dl (32-36); Mean Corpuscular Hemoglobin 31.7 pg (26-34); Mean Corpuscular Volume 99.7 fl (80-100); Mean Platelet Volume 11.5 fl (7.4-10.4); Platelet Count Result 134 k/mm3 (150-375); Red Blood Count 3.44 M/mm3 (4.6-6.20); Red Cell Distribution Width 14.6 % (11.5-14.5); White Blood Count 8.1 K/mm3 (4.5-10.0)
[2019-07-02 05:01] LABS: Hemoglobin A1C 6.4 % (<5.7)
[2019-07-02 05:08] LABS: Alkaline Phosphatase 178 U/L (38-126); Bilirubin,Total 1.5 mg/dL (0.2-1.3); Blood Urea Nitrogen 41 mg/dL (9-20); Calcium 9.9 mg/dL (8.4-10.2); Carbon Dioxide 30 mmol/L (22-30); Chloride 93 mmol/L (98-107); Estimated CRCL calculation 12 ml/min; Estimated Glomerular Filt Rate 7; Glucose 121 mg/dL (75-110); Phosphorus 6.7 mg/dL (2.5-4.5); Potassium 5.2 mmol/L (3.4-5.0); Sodium 133 mmol/L (137-145)
[2019-07-02 05:16] LABS: Alanine Aminotransferase 2180 U/L (4-50); Aspartate Amino Transferase 759 U/L (17-59)
[2019-07-02] MEDS: LIDOCAINE/PRILOCAINE 2.5-2.5% KIT 1 EACH TOPICAL (07:40)
[2019-07-02 08:16] LABS: Glucose Point of Care 126 (65-105)
--- NOTE | 2019-07-02 08:30 | PC.NURSE ---
Pt to dialysis via bed
--- NOTE | 2019-07-02 10:41 | PM.PNNEP ---
Progress Note: A&P Assessment and Plan (1) End-stage renal disease (ESRD): Code(s): N18.6 - End stage renal disease Status: Chronic Assessment and Plan: Patient is end-stage renal disease. This is due to his diabetes and hypertension. He is getting dialysis again today. Then back to Sunday schedule hopefully. (2) Essential hypertension with goal blood pressure less than 130/80: Code(s): I10 - Essential (primary) hypertension Status: Chronic Assessment and Plan: His blood pressure is pretty well controlled. (3) Secondary hyperparathyroidism, renal: Code(s): N25.81 - Secondary hyperparathyroidism of renal origin Status: Chronic Assessment and Plan: His phosphorus is chronically elevated. Phosphorus 6.7 today. On sevelamer (4) Type 2 diabetes mellitus without complication, with no history of insulin use: Code(s): E11.9 - Type 2 diabetes mellitus without complications Status: Chronic Assessment and Plan: He is on Accu-Cheks and sliding-scale insulin His sugars are generally really good without any diabetic medications. (5) Hyperkalemia: Code(s): E87.5 - Hyperkalemia Status: Acute Assessment and Plan: Potassium is high again today. But not quite as bad at 5.2. Dietitian is seeing the patient. CPK is okay. Haptoglobin is pending. Liver enzymes are better. Possibly related to volume overload. Hepatitis studies are pending. Ultrasound was unremarkable Discussed with Dr. Bowie Subjective Date/time seen: 07/02/19 10:41 Interval history: Patient is alert. On dialysis and tolerating it well. He was seen at 8:45 a.m. His fistula seems to look okay. Flows are good. Exam Narrative: Exam Narrative: Well developed well-nourished in no acute distress Lungs clear bilaterally Heart regular without rub Abdomen bowel sounds positive soft nontender Extremities no edema Skin no rash or subcu nodules Objective Data Vital Signs Vital Signs: Vital Signs - 24 hr 07/01/19 10:45 07/01/19 11:00 07/01/19 11:15 Temperature Pulse Rate 117 H 92 107 H Respiratory Rate Blood Pressure 142/78 H 152/65 H 154/70 H Pulse Oximetry 07/01/19 11:45 07/01/19 12:00 07/01/19 12:15 Temperature Pulse Rate 94 113 H 83 Respiratory Rate Blood Pressure 138/67 144/78 H 121/63 Pulse Oximetry 07/01/19 12:20 07/01/19 13:20 07/01/19 13:21 Temperature 36.6 C Pulse Rate 75 73 73 Respiratory Rate 16 Blood Pressure 145/84 H Pulse Oximetry 07/01/19 14:00 07/01/19 16:00 07/01/19 16:36 Temperature 35.9 C L Pulse Rate 77 71 72 Respiratory Rate 14 Blood Pressure 106/55 L Pulse Oximetry 98 07/01/19 18:00 07/01/19 20:00 07/01/19 20:22 Temperature 36.4 C Pulse Rate 74 74 69 Respiratory Rate 18 Blood Pressure 116/74 Pulse Oximetry 97 07/01/19 21:02 07/01/19 22:00 07/01/19 23:59 Temperature 36.2 C L Pulse Rate 73 79 77 Respiratory Rate 18 Blood Pressure 128/72 Pulse Oximetry 96 07/02/19 00:00 07/02/19 02:00 07/02/19 04:00 Temperature 36.4 C L Pulse Rate 68 65 68 Respiratory Rate 18 Blood Pressure 124/78 Pulse Oximetry 99 07/02/19 06:00 07/02/19 08:00 07/02/19 08:37 Temperature 36.6 C 36.7 C Pulse Rate 70 87 45 L Respiratory Rate 20 18 Blood Pressure 137/73 136/79 Pulse Oximetry 97 07/02/19 08:49 07/02/19 09:00 07/02/19 09:15 Temperature Pulse Rate 55 L 57 L 93 Respiratory Rate Blood Pressure 107/68 103/65 107/79 Pulse Oximetry 07/02/19 09:45 07/02/19 10:15 07/02/19 10:30 Temperature Pulse Rate 72 54 L 76 Respiratory Rate Blood Pressure 137/75 146/75 H 131/77 Pulse Oximetry Intake/Output Intake/Output: Intake & Output 06/29/19 06/30/19 07/01/19 07/02/19 23:59 23:59 23:59 23:59 Intake Total 1350 870 592 Output Total 3200 0 Balance -1850 870 592 Meds/Results Medica
--- NOTE | 2019-07-02 10:53 | PCDIET ---
Patient out of room at this time. Left informational handouts at bedside table with RD contact information. Will reattempt education at a later time. Would also suggest change from to non-calcium based phosphorus binder.
[2019-07-02 12:09] LABS: Blood Urea Nitrogen < 2 mg/dL (9-20)
--- NOTE | 2019-07-02 13:10 | PC.NURSE ---
Pt returned from diaysis
[2019-07-02] MEDS: CHOLECALCIFEROL 1,000 UNIT TABLET 5000 UNITS PO (13:11)
[2019-07-02] MEDS: CALCIUM ACETATE 667 MG TABLET PO ×2 (13:11→17:08)
[2019-07-02] MEDS: polyethylene glycoL 3350 17 GM POWD.PACK PO (13:12)
[2019-07-02] MEDS: AMIODARONE HCL 200 MG TABLET PO (13:12)
[2019-07-02] MEDS: METOPROLOL TARTRATE 50 MG TAB PO ×2 (13:12→21:13)
[2019-07-02] MEDS: ASPIRIN 81 MG ENTERIC TABLET PO (13:12)
[2019-07-02] MEDS: lisinopriL 20 MG TABLET PO (13:12)
[2019-07-02 13:17] LABS: Glucose Point of Care 91 (65-105)
--- NOTE | 2019-07-02 15:18 | PM.IMPN ---
Progress Note: A&P Assessment and Plan (1) Hyperkalemia: Code(s): E87.5 - Hyperkalemia Status: Acute Assessment and Plan: Likely secondary to diet and renal failure. Pt has received sodium bicarbonate, dextrose and insulin multiple times. Pt had emergent dialysis on 06/30/19 and 07/01/19. Potassium normal overnight but 5.2 this morning. He underwent HD today per his routine schedule. Dietary to see. Repeat potassium tonight. Continue to monitor potassium levels. Home tomorrow if potassium remains stable. Potassium 4.4 now. (2) Elevated transaminase level: Code(s): R74.0 - Nonspecific elevation of levels of transaminase and lactic acid dehydrogenase [LDH] Status: Acute Assessment and Plan: Markedly elevated AST and ALT to 2040 and 314 respectfully. Viral? Passive congestion? Medication? Atorvastatin already on hold. RUQ essentially normal. Levels better with aggressive HD. Suspect related to the fluid overload. Continue to monitor. (3) End-stage renal disease (ESRD): Code(s): N18.6 - End stage renal disease Status: Chronic Assessment and Plan: Patient with fluid overload and hyperkalemia. Continue HD per nephrology instructions to improve these markers. Appreciate Nephrology input. (4) HFrEF (heart failure with reduced ejection fraction): Qualifiers: Heart failure chronicity: acute on chronic Qualified Code(s): I50.23 - Acute on chronic systolic (congestive) heart failure Code(s): I50.20 - Unspecified systolic (congestive) heart failure Status: Chronic Assessment and Plan: BNP >35K. CXR showing CMG with pulmonary cascular congestion. Dyspnea related to the CHF/fluid overload. Fluid status better controlled with HD. Echo pending. Continue HD to maintain euvolemia. Weaned to room air. (5) Dyspnea: Qualifiers: Dyspnea type: unspecified Qualified Code(s): R06.00 - Dyspnea, unspecified Code(s): R06.00 - Dyspnea, unspecified Status: Acute Assessment and Plan: As above. (6) Diabetes: Qualifiers: Chronic kidney disease stage: on chronic dialysis Diabetes mellitus complication detail: with chronic kidney disease Diabetes mellitus complication status: with kidney complications Diabetes mellitus prison insulin use: without intermediate designer use Diabetes mellitus type: type 2 Qualified Code(s): E11.22 - Type 2 diabetes mellitus with diabetic chronic kidney disease; N18.6 - End stage renal disease; Z99.2 - Dependence on renal dialysis Code(s): E11.9 - Type 2 diabetes mellitus without complications Status: Acute Assessment and Plan: Glucose reviewed on 07/02/19. Glucose well controlled. Continue Accuchecks covering with SSI. Hypoglycemia protocol available as well. Glove Cleaner consultation for hyperkalemia, DM, and ESRD. (7) Essential hypertension with goal blood pressure less than 130/80: Code(s): I10 - Essential (primary) hypertension Status: Chronic Assessment and Plan: BP reviewed on 07/02/19. BP well controlled. Continue home Lopressor and lisinopril. Lisinopril should not cause hyperkalemia since he is ESRD. (8) Atrial flutter: Qualifiers: Atrial flutter type: unspecified Qualified Code(s): I48.92 - Unspecified atrial flutter Code(s): I48.92 - Unspecified atrial flutter Status: Chronic Assessment and Plan: [id number] 4. Heart rate overall stable. Currently on Amiodarone and Lopressor. The patient is not on any anticoagulantion. He states he was at [facility] one year ago when he had his bypass. He was tried on different anticoagulation medications but it caued a blood test to run 'dangerously high'. He denies that he was anemic. Continue ASA therapy. Requesst records but may not be able to obtain prir to discharge so I did encourage him to talk with his doctor about this fu
[2019-07-02 16:03] LABS: Blood Urea Nitrogen 22 mg/dL (9-20); Calcium 9.8 mg/dL (8.4-10.2); Carbon Dioxide 31 mmol/L (22-30); Chloride 94 mmol/L (98-107); Estimated CRCL calculation 19 ml/min; Estimated Glomerular Filt Rate 13; Glucose 174 mg/dL (75-110); Potassium 4.4 mmol/L (3.4-5.0); Sodium 135 mmol/L (137-145)
[2019-07-02 16:27] LABS: Glucose Point of Care 176 (65-105)
[2019-07-02 19:55] LABS: Haptoglobin 166 mg/dL (43-212)
[2019-07-02 20:17] LABS: Glucose Point of Care 186 (65-105)
[2019-07-02] MEDS: MELATONIN 3 MG TABLET PO (21:13)
[2019-07-03] VITALS (11 sets, daily range): BP systolic 104–151; BP diastolic 79–100; PULSE 68–110; RESP 18–20; TEMP 35.9–37.3; O2SAT 93–98
[2019-07-03 05:21] LABS: Albumin Level 4.1 g/dL (3.5-5.1); Alkaline Phosphatase 197 U/L (38-126); Aspartate Amino Transferase 298 U/L (17-59); Blood Urea Nitrogen 39 mg/dL (9-20); Calcium 9.8 mg/dL (8.4-10.2); Carbon Dioxide 29 mmol/L (22-30); Chloride 94 mmol/L (98-107); Estimated CRCL calculation 13 ml/min; Estimated Glomerular Filt Rate 8; Glucose 129 mg/dL (75-110); Phosphorus 5.4 mg/dL (2.5-4.5); Potassium 4.8 mmol/L (3.4-5.0); Sodium 133 mmol/L (137-145)
[2019-07-03 05:29] LABS: Alanine Aminotransferase 1546 U/L (4-50)
[2019-07-03] MEDS: ACETAMINOPHEN 325 MG TABLET 650 MG PO (07:45)
--- NOTE | 2019-07-03 09:16 | PM.PNNEP ---
Progress Note: A&P Assessment and Plan (1) End-stage renal disease (ESRD): Code(s): N18.6 - End stage renal disease Status: Chronic Assessment and Plan: Patient is end-stage renal disease. This is due to his diabetes and hypertension. Potassium was okay today so we can wait till tomorrow for dialysis. His fistula seems to look okay. Flows are good. However his pre post BUN ratio was less than 50%. I will try to get him set up for a fistulogram as an outpatient. (2) Essential hypertension with goal blood pressure less than 130/80: Code(s): I10 - Essential (primary) hypertension Status: Chronic Assessment and Plan: His blood pressure is pretty well controlled. (3) Secondary hyperparathyroidism, renal: Code(s): N25.81 - Secondary hyperparathyroidism of renal origin Status: Chronic Assessment and Plan: His phosphorus is chronically elevated. Phosphorus is better today on binders. On sevelamer (4) Type 2 diabetes mellitus without complication, with no history of insulin use: Code(s): E11.9 - Type 2 diabetes mellitus without complications Status: Chronic Assessment and Plan: He is on Accu-Cheks and sliding-scale insulin His sugars are generally really good without any diabetic medications. (5) Hyperkalemia: Code(s): E87.5 - Hyperkalemia Status: Acute Assessment and Plan: Potassium is normal today. I think we should start Kayexalate 15 g daily and keep him on this after discharge until he can get the fistulogram. Liver enzymes continue to improve. Subjective Date/time seen: 07/03/19 09:16 Interval history: Patient is alert. Feels okay. He had a mild headache this morning which was relieved by Review of Systems Cardiovascular: Cardiovascular: Reports no additional cardiovascular complaints Respiratory: Respiratory: Reports no additional respiratory complaints Gastrointestinal: Gastrointestinal: Reports no additional gastrointestinal complaints Genitourinary: Genitourinary: Reports no additional male genitourinary complaints Exam Narrative: Exam Narrative: Well developed well-nourished in no acute distress Lungs clear to auscultation Heart regular without rub or gallop. Abdomen bowel sounds positive soft nontender Extremities no edema Skin no rash Objective Data Vital Signs Vital Signs: Vital Signs - 24 hr 07/02/19 09:45 07/02/19 10:00 07/02/19 10:15 Temperature Pulse Rate 72 76 54 L Respiratory Rate Blood Pressure 137/75 146/75 H Pulse Oximetry 07/02/19 10:30 07/02/19 10:45 07/02/19 11:00 Temperature Pulse Rate 76 45 L 42 L Respiratory Rate Blood Pressure 131/77 148/67 H 142/61 H Pulse Oximetry 07/02/19 11:15 07/02/19 11:30 07/02/19 11:45 Temperature Pulse Rate 63 63 62 Respiratory Rate Blood Pressure 133/68 148/73 H 124/79 Pulse Oximetry 07/02/19 12:00 07/02/19 12:15 07/02/19 12:30 Temperature 36.7 C Pulse Rate 78 80 77 Respiratory Rate 16 Blood Pressure 130/77 143/73 H 153/77 H Pulse Oximetry 07/02/19 13:12 07/02/19 13:58 07/02/19 14:00 Temperature 36.0 C L Pulse Rate 87 82 80 Respiratory Rate 14 Blood Pressure 146/87 H Pulse Oximetry 97 07/02/19 16:00 07/02/19 19:57 07/02/19 20:00 Temperature 36.6 C 37.4 C Pulse Rate 81 99 109 H Respiratory Rate 20 22 H Blood Pressure 126/83 138/68 Pulse Oximetry 100 97 07/02/19 21:13 07/02/19 22:00 07/03/19 00:00 Temperature 37.1 C Pulse Rate 101 H 112 H 100 Respiratory Rate 18 Blood Pressure 104/88 Pulse Oximetry 94 07/03/19 02:00 07/03/19 04:00 07/03/19 08:00 Temperature 37.3 C 37.3 C Pulse Rate 97 99 110 H Respiratory Rate 18 20 Blood Pressure 148/82 H 151/100 H Pulse Oximetry 98 96 Intake/Output Intake/Output: Intake & Output 06/30/19 07/01/19 07/02/19 07/03/19 23:59 23:59 23:59 23:59 Intake Total 9230 072 2863 500 Outpu
[2019-07-03] MEDS: SODIUM POLYSTYRENE SULFONONATE 15 GM/60 ML BTL PO (09:41)
[2019-07-03] MEDS: CALCIUM ACETATE 667 MG TABLET PO ×3 (09:41→17:28)
[2019-07-03] MEDS: CHOLECALCIFEROL 1,000 UNIT TABLET 5000 UNITS PO (09:41)
[2019-07-03] MEDS: polyethylene glycoL 3350 17 GM POWD.PACK PO (09:41)
[2019-07-03] MEDS: lisinopriL 20 MG TABLET PO (09:41)
[2019-07-03] MEDS: METOPROLOL TARTRATE 50 MG TAB PO ×2 (09:42→21:07)
[2019-07-03] MEDS: ASPIRIN 81 MG ENTERIC TABLET PO (09:42)
[2019-07-03] MEDS: AMIODARONE HCL 200 MG TABLET PO (09:42)
--- NOTE | 2019-07-03 11:21 | PM.DS ---
DS: Diagnosis Admitting Diagnosis Admitting Diagnosis: Hyperkalemia Discharge Diagnosis (1) Hyperkalemia: Code(s): E87.5 - Hyperkalemia Status: Acute Assessment and Plan: Likely secondary to diet and renal failure. Pt has received sodium bicarbonate, dextrose and insulin multiple times. Pt had emergent dialysis on 06/30/19 and 07/01/19. Potassium normal after HD last night and potassium 4.8 this morning. Okay to hold HD and repeat HD tomorrow per his schedule. Kayexalate scheduled for daily. Risks/benefits discussed with the patient. All questions answered. He was instructed to hold Miralax if he develops diarrhea. (2) Elevated transaminase level: Code(s): R74.0 - Nonspecific elevation of levels of transaminase and lactic acid dehydrogenase [LDH] Status: Acute Assessment and Plan: Markedly elevated AST and ALT to 2041 and 3140 respectfully. Viral? Passive congestion? Medication? Atorvastatin already on hold. RUQ essentially normal. Levels better with aggressive HD with AST 298 and ALT 1546. Suspect related to the fluid overload. Continue to monitor as outpatient. (3) End-stage renal disease (ESRD): Code(s): N18.6 - End stage renal disease Status: Chronic Assessment and Plan: Patient with fluid overload and hyperkalemia. We continued HD per nephrology instructions that improved these markers. Appreciate Nephrology input. Continue HD -. BUN did not decrease by more than half after HD so concern for possibly clot in the fistula. Fistulogram planned as outpatient. (4) HFrEF (heart failure with reduced ejection fraction): Qualifiers: Heart failure chronicity: acute on chronic Qualified Code(s): I50.23 - Acute on chronic systolic (congestive) heart failure Code(s): I50.20 - Unspecified systolic (congestive) heart failure Status: Chronic Assessment and Plan: BNP >35K. CXR showing CMG with pulmonary cascular congestion. Dyspnea related to the CHF/fluid overload. Fluid status better controlled with HD. Echo showing EF 25-30% with diastolic dysfunction and severer right global hypokinesis but only mild pulmonary HTN. Continue HD to maintain euvolemia. Weaned to room air. Continue Lisinopril and Lopressor. No plans for spironolactone until hyperkalemia improved. (5) Dyspnea: Qualifiers: Dyspnea type: unspecified Qualified Code(s): R06.00 - Dyspnea, unspecified Code(s): R06.00 - Dyspnea, unspecified Status: Acute Assessment and Plan: As above. (6) Diabetes: Qualifiers: Chronic kidney disease stage: on chronic dialysis Diabetes mellitus complication detail: with chronic kidney disease Diabetes mellitus complication status: with kidney complications Diabetes mellitus residential insulin use: without residential use Diabetes mellitus type: type 2 Qualified Code(s): E11.22 - Type 2 diabetes mellitus with diabetic chronic kidney disease; N18.6 - End stage renal disease; Z99.2 - Dependence on renal dialysis Code(s): E11.9 - Type 2 diabetes mellitus without complications Status: Acute Assessment and Plan: A1c 6.4. Glucose monitored closely. Glucose well controlled. He was monitored with Accuchecks covering with SSI. Hypoglycemia protocol available as well. Chart Picker consultation for hyperkalemia, DM, and ESRD. (7) Essential hypertension with goal blood pressure less than 130/80: Code(s): I10 - Essential (primary) hypertension Status: Chronic Assessment and Plan: BP monitored closely. BP elevated at times but overall well controlled. Continue home Lopressor and lisinopril. Lisinopril should not cause hyperkalemia since he is ESRD. (8) Atrial flutter: Qualifiers: Atrial flutter type: unspecified Qualified Code(s): I48.92 - Unspecified atrial flutter Code(s): I48.92 - Unspecified atrial flutter
[2019-07-03 12:17] LABS: Glucose Point of Care 135 (65-105)
[2019-07-03 12:23] LABS: Glucose Point of Care 153 (65-105)
[2019-07-03] MEDS: CALCIUM CARBONATE (TUMS) 500 MG (200 MG ELEMENTAL) PO (14:16)
[2019-07-03 17:28] LABS: Glucose Point of Care 129 (65-105)
--- NOTE | 2019-07-03 17:35 | PC.NURSE ---
Pt has been discharged by Dr. Bowie. Pt does not have a ride until his gets off of work at 23:00. Dr. Bowie and Abeba Valentine, senior bi developer aware. IV and tele box have been removed per discharge protocol.
[2019-07-03] MEDS: SENNA/DOCUSATE SODIUM TABLET 1 TAB PO (21:07)
== END 2019-07-03 23:00 | disposition home or self-care (01) | DRG 291 ==
LOC: ANHED 06-30 00:13 → ANHIMU 06-30 02:32 → ANH2MED 06-30 20:13 → ANHIMU 07-01 06:29
PROVIDERS: Emergency Medicine; Family Medicine; Internal Medicine Nephrology; Admitting Provider Family Medicine; Emergency Provider Emergency Medicine; PCP Internal Medicine; Visit Provider Internal Medicine
DX: I13.2 Hypertensive heart and chronic kidney disease with heart failure and with stage 5 chronic kidney disease, or end stage renal disease (principal); N18.6 End stage renal disease; I50.23 Acute on chronic systolic (congestive) heart failure; I48.92 Unspecified atrial flutter; N17.9 Acute kidney failure, unspecified; N25.81 Secondary hyperparathyroidism of renal origin; E87.5 Hyperkalemia; E11.22 Type 2 diabetes mellitus with diabetic chronic kidney disease; D63.1 Anemia in chronic kidney disease; R74.0 Nonspecific elevation of levels of transaminase and lactic acid dehydrogenase [LDH]; E78.5 Hyperlipidemia, unspecified; F41.8 Other specified anxiety disorders; I25.10 Atherosclerotic heart disease of native coronary artery without angina pectoris; I25.2 Old myocardial infarction; Z99.2 Dependence on renal dialysis; Z90.49 Acquired absence of other specified parts of digestive tract; Z95.1 Presence of aortocoronary bypass graft
CPT/HCPCS: 36415; 71045; 76705; 80048; 80053; 80069; 80074; 80076; 82274; 82550; 83010; 83036; 83735; 83880; 84132; 84443; 84484; 84520; 85025; 85027; 85610; 85730; 86706; 93005; 93306; 94640; 96374; 96375; 99285; A9270; C8929; G0257; G0378; J0610; J1815; J7030; Q9957

== ENCOUNTER 2019-10-08 09:01 | Inpatient (IN) | payer MEDICARE, MEDICAID, SELFPAY ==
[2019-10-08] VITALS (32 sets, daily range): BP systolic 116–156; BP diastolic 73–117; PULSE 81–131; RESP 12–24; TEMP 36.5–37.3; O2SAT 90–98; BMI 31.1
--- NOTE | ~2019-10-08 | CT_ITS ---
EXAMINATION: CT brain wo con DATE: 10/08/2019 09:46 INDICATION: Weakness post dialysis TECHNIQUE: Computed tomography (CT) of the head was performed without intravenous contrast. Sagittal and coronal reconstructions were performed. The mA was adjusted according to patient size. Iterative reconstruction technique was employed. The dose-length product was 605.33 mGy-cm. COMPARISON: None FINDINGS: No acute intracranial hemorrhage, acute infarction or abnormal extra axial fluid collection. There is mild scattered white matter hypoattenuation consistent with chronic small vessel ischemic disease. S ymmetric prominence of the sulci consistent with mild age-appropriate diffuse cerebral volume loss. Ventricles are normal and symmetric. No mass/mass effect. The orbits, paranasal sinuses and mastoid a ir cells are normal. Intracranial calcified cerebral atherosclerosis is noted. IMPRESSION: 1. No acute intracranial process. 2. Age-related changes including mild diffuse volume loss and mild scattered white matter hypoattenua tion consistent with chronic small vessel ischemic disease. Reviewed, dictated and finalized at location A. IMPRESSION: 1. No acute intracranial process. 2. Age-related changes including mild diffuse volume loss and mild scattered wh ite matter hypoattenuation consistent with chronic small vessel ischemic diseas e.
--- NOTE | ~2019-10-08 | XR_ITS ---
XR chest 1V portable DATE: 10/08/2019 15:59 INDICATION: Fever TECHNIQUE: Portable upright AP chest on 10/08/2019 at 1546 hours COMPARISON: 06/29/2019 portable AP chest at 2246 hours FINDINGS: Status post sternotomy. Cardiomegaly. Aortic calcification. No pulmonary infiltrate or consolidation, pleural effusion or pulmonary vascular congestion or pneumo thorax is evident. Diffuse osteopenia. IMPRESSION: Cardiomegaly Aortic atherosclerosis. Reviewed, dictated and finalized at location B.
--- NOTE | ~2019-10-08 | US_ITS ---
EXAMINATION: US venous doppler [facility] DATE: 10/10/2019 14:07 INDICATION: Lower limb edema. TECHNIQUE: Grayscale ultrasound images without and with compression and Doppler ultrasound images of the bilateral lower extremity veins were obtained. COMPARISON: None. FINDINGS: The visualized portions of right common femoral vein, profunda (deep) femoral vein, femoral vein, pop liteal vein, peroneal veins, posterior tibial veins, and greater saphenous vein outflow are patent. The visualized portions of left common femoral vein, profunda femoral vein, femoral vein, popliteal v ein, peroneal veins, posterior tibial veins, and greater saphenous vein outflow are patent. IMPRESSION: 1. No deep venous thrombosis. Reviewed, dictated and finalized at location A.
[2019-10-08 09:19] LABS: Glucose Point of Care 83 (65-105)
--- NOTE | 2019-10-08 09:19 | ECG_ITS ---
Measurements Intervals [place] Rate: 128 P: OR: 0 QRS: 94 QRSD: 112 T: 75 QT: 351 QTc: 513 Interpretive Statements ATRIAL FLUTTER/TACHYCARDIA WITH RAPID VENTRICULAR RESPONSE RIGHT AXIS DEVIATION INCOMPLETE RIGHT BUNDLE BRANCH BLOCK CANNOT RULE OUT SEPTAL INFARCT, AGE INDETERMINATE BORDERLINE ST-T WAVE ABNORMALITY- INF/LAT LEADS BASELINE ARTIFACT- I, III, AVL ABNORMAL ECG Electronically Signed On 10-08-2019 9:28:44 CDT by Ben Patton D.O.
[2019-10-08 09:40] LABS: Basophils Percent Auto 0.2 % (0.2-1.2); Eosinophils Percent Auto 0.1 % (0-4.4); Hematocrit 34.6 % (42.0-52.0); Hemoglobin 10.4 g/dL (14.0-18.0); Immature Granulocyte Absolute 0.07 K/mm3 (0.00-0.031); Immature Granulocyte Percent A 0.7 % (0-0.5); Lymphocytes Absolute Auto 0.71 K/mm3 (0.9-3.2); Lymphocytes Percent Auto 6.7 % (18.3-44.2); Mean Corpuscular HGB Conc 30.1 g/dl (32-36); Mean Corpuscular Hemoglobin 29.7 pg (26-34); Mean Corpuscular Volume 98.9 fl (80-100); Mean Platelet Volume 10.9 fl (7.4-10.4); Neutrophils Absolute Auto 8.9 K/mm3 (1.3-6.7); Neutrophils Percent Auto 83.3 % (45.5-73.1); Platelet Count Result 202 k/mm3 (150-375); White Blood Count 10.6 K/mm3 (4.5-10.0)
[2019-10-08 09:51] LABS: Albumin Level 4.2 g/dL (3.5-5.1); Alkaline Phosphatase 138 U/L (38-126); Aspartate Amino Transferase 46 U/L (17-59); Bilirubin,Total 1.6 mg/dL (0.2-1.3); Blood Urea Nitrogen 27 mg/dL (9-20); Calcium 9.8 mg/dL (8.4-10.2); Carbon Dioxide 34 mmol/L (22-30); Chloride 86 mmol/L (98-107); Estimated CRCL calculation 15 ml/min; Estimated Glomerular Filt Rate 10; Glucose 88 mg/dL (75-110); INR 1.6; Potassium 5.2 mmol/L (3.4-5.0); Prothrombin Time 18.2 Seconds (11.1-14.7); Sodium 137 mmol/L (137-145)
[2019-10-08 09:57] LABS: Alanine Aminotransferase 23 U/L (4-50)
[2019-10-08 10:02] LABS: NT Pro B Type Natriuretic Pept > 35000 PG/ML (5-100); Troponin I 0.171 ng/mL (0.000-0.034)
[2019-10-08 10:44] LABS: Add Urine Microscopic? YES; Appearance Urine Clear (Clear); Bilirubin Urine Negative (Negative); Blood Urine Negative (Negative); Color Urine Yellow (Yellow); Glucose Urine UA 2+ mg/dL (Negative); Ketones Urine Negative (Negative); Leukocyte Esterase Ur Negative LEU/UL (Negative); Nitrate Urine Negative (Negative); Protein Urine 2+ mg/dL (Negative); RBC Urine 0-2 /hpf (0-2); Specific Grav Ur 1.013 (1.001-1.035); Squamous Epithelial Cell Urine Rare /hpf (Few); Urobilinogen Urine Negative mg/dL (<2.0); WBC Urine 0-3 /hpf
--- NOTE | 2019-10-08 11:21 | ED.GENADULT ---
HPI - General Adult General Chief complaint: Weakness Stated complaint: elevated hr/weak Time Seen by Provider: 10/08/19 09:08 Source: patient and family Mode of arrival: EMS Limitations: no limitations History of Present Illness HPI narrative: 58-year-old with a history of hypertension, Afib ,diabetes, ESRD on hemodialysis who was sent from dialysis center with complaints of sudden onset of chills associated with marked weakness. Patient states that he was unable to hold objects in his hand and also felt extremely shaky in his lower extremities. He denied any headache, chest pain, shortness of breath. However as per Dr. Graf at the dialysis center patient had a temperature of 101.2 patient denies any cough no history of nausea or vomiting Onset (ago): day(s) (1) Severity: moderate Exacerbating factors: none Associated symptoms: fever/chills Treatments prior to arrival: none Related Data Home Medications Medication Instructions Recorded Confirmed aspirin 81 mg PO DAILY 04/20/19 06/29/19 atorvastatin 20 mg PO DAILY 04/20/19 06/29/19 cholecalciferol (vitamin D3) 125 mcg PO DAILY 04/20/19 06/29/19 [Vitamin D3] lidocaine-prilocaine 1 applic TOPICAL ONCE 04/20/19 06/29/19 metoprolol tartrate 50 mg PO BID 04/20/19 06/29/19 sennosides-docusate sodium 1 tab-cap PO HS 04/20/19 06/29/19 [Senna-S] amiodarone 200 mg tablet 200 mg PO DAILY 06/06/19 06/29/19 Allergies Allergy/AdvReac Type Severity Reaction Status Date / Time salmon oil Allergy Anaphylaxis Verified 06/29/19 23:24 Review of Systems Review of Systems: All systems reviewed & are unremarkable except as noted in HPI and below Constitutional: Constitutional: Reports as per HPI Eyes: Eyes: Reports as per HPI ENT: Reports system reviewed and no additional complaints, except as documented Cardiovascular: Cardiovascular: Reports no additional cardiovascular complaints Respiratory: Respiratory: Reports no additional respiratory complaints Gastrointestinal: Gastrointestinal: Reports no additional gastrointestinal complaints Musculoskeletal: Musculoskeletal: Reports no additional musculoskeletal complaints Neurologic: Reports system reviewed and no additional complaints, except as documented [facility] Past Medical History Medical History Anemia Anxiety Arthritis Atrial flutter CAD (coronary artery disease) CHF (congestive heart failure) Depression Diabetes Dialysis patient Diverticulitis Fistula HLD (hyperlipidemia) HTN (hypertension) Kidney failure Leg fracture bilateral, 2016 Myocardial infarct Surgical History Surgical History H/O heart bypass surgery end of July 2018 History of cholecystectomy History of orthopedic surgery 2016 Family History Family History Mother Family history of diabetes mellitus in first degree relative Family history of malignant neoplasm of breast in first degree relative Patient's mother is in good health Sibling Patient's sister is in good health Patient's brother is in good health Father Patient's father is Social History Social History Smoking status: Never smoker Alcohol intake: current Drinks per week: 1 Substance use: never Gender identity (if verbalized by the patient): Male Spiritual care concerns: No Agree to blood products: Yes Exam Narrative: Exam Narrative: GENERAL: Well-appearing, well-nourished, and in no acute distress. HEAD: Normocephalic, atraumatic. EYES: PERRLA and EOMI. ENT: Nares clear, no rhinorrhea or epistaxis. Mucous membranes moist. NECK: Supple. CHEST: Clear to auscultation. No respiratory distress. HEART: Regular rate and rhythm. No murmur heard. Normal peripheral pulses. ABDOMEN: Soft, nontender, nondistended, normal a
--- NOTE | 2019-10-08 13:17 | PC.NURSE ---
This patient, Beck Carney, was admitted to Intensive Care Unit-1. Patient/family oriented to hospital policies and general routines including ID bracelet, bed and alarms, visiting hours, pain management, procedures, bathroom and other care routines, personal items, smoking policy, room service/diet, and visiting hours. Valuables list has been completed. Information on how to activate the Rapid Response Team has been discussed. Patient/Family are encouraged to report perceived risks to care and to ask questions if they do not understand what they are told or what they should do.
--- NOTE | 2019-10-08 15:11 | PM.IMHP ---
H&P: HPI History of Present Illness Chief complaint: Fever/weakness Narrative: Beck Carney is a 58 year old male the patient has a history of end-stage renal disease, atrial fibrillation and diet-controlled diabetes. The patient stated that his legs felt weak when he went to dialysis and then he sat for several hours. His dialysis treatment was cut IM hour today. He said that he could not get up out of the chair his legs were too weak. Patient was noted to have a 101.2 temperature. He has no cough no fever at home no chills that he was aware. The patient has not had any covid 19 exposure. His white count was noted to be 10.6. Potassium was 5.2. No acute intracranial process. Age-related changes including mild diffuse volume loss and mild scattered white matter hypoattenuation consistent with chronic small-vessel ischemic disease. Zofran and Tylenol in the emergency room he is now afebrile. Date of service 10/08/2019 Review of Systems Review of Systems: All systems reviewed & are unremarkable except as noted in HPI and below Constitutional: Constitutional: Reports as per HPI and Reports no additional constitutional complaints Eyes: Eyes: Reports as per HPI and Reports no additional eye complaints ENT: Reports system reviewed and no additional complaints, except as documented and Reports Normal hearing present Cardiovascular: Cardiovascular: Reports no additional cardiovascular complaints Respiratory: Respiratory: Reports no additional respiratory complaints and Reports no additional respiratory complaints Gastrointestinal: Gastrointestinal: Reports as per HPI and Reports no additional gastrointestinal complaints Musculoskeletal: Musculoskeletal: Reports no additional musculoskeletal complaints Integumentary/Breasts: Skin/Breast: Reports system reviewed and no additional complaints, except as docu and Reports as per HPI Neurologic: Reports system reviewed and no additional complaints, except as documented, Reports as per HPI and Reports Normal hearing present Psychiatric: Psychiatric: Reports no additional psychiatric complaints and Reports as per HPI Endocrine: Endocrine: Reports no additional endocrine complaints Hematologic/Lymphatic: Hematologic/Lymphatic: Reports no additional hematologic/lymphatic complaints Allergic/Immunologic: Allergic/Immunologic: Reports no additional allergic/immunologic complaints [facility] Past Medical History Medical History (Updated 10/08/19 @ 11:30 by Luc Michael MD) Anemia Anxiety Arthritis Atrial flutter CAD (coronary artery disease) CHF (congestive heart failure) Depression Diabetes Dialysis patient Diverticulitis Fistula HLD (hyperlipidemia) HTN (hypertension) Kidney failure Leg fracture bilateral, 2016 Myocardial infarct Surgical History Surgical History (Updated 10/08/19 @ 15:22 by Naa Walton NP) H/O heart bypass surgery end of July 2018 History of cholecystectomy History of orthopedic surgery 2016 bilateral legs that were fractured. Family History Family History (Updated 10/08/19 @ 15:23 by Naa Walton NP) Mother Family history of diabetes mellitus in first degree relative Family history of malignant neoplasm of breast in first degree relative Sibling Patient's sister is in good health Patient's brother is in good health Father Patient's father is Diabetes mellitus Social History Social History (Updated 10/08/19 @ 15:24 by Naa Walton NP) Social History: He lives alone and has 2 children 2 boys. His ex- is the durable power field sales associate for healthcare. The patient is disabled lifelong nonsmoker and denies any marijuana or illicit drugs. Smoking status: Never smoker Second hand tobacco smoke exposure: Yes Alcohol intake: current Drinks per week: 8 Substance use: never Gender identity (if verbalized by the patient): Male Spiritual care concerns: No Agree to blood products: Yes
--- NOTE | 2019-10-08 16:36 | PC.NURSE ---
Notified Naa Walton NP of elevated BP's. New order to give 2100 dose of metoprolol now.
[2019-10-08] MEDS: SEVELAMER CARBONATE 800 MG TABLET 3200 MG PO (17:23)
[2019-10-08] MEDS: METOPROLOL TARTRATE 50 MG TAB PO (17:24)
[2019-10-08 18:22] LABS: Glucose Point of Care 130 (65-105)
[2019-10-08] MEDS: INSULIN ASPART (*BKC) 100 UNITS/ML SUB-Q (19:13)
[2019-10-08] MEDS: TEMAZEPAM 15 MG CAPSULE PO (20:33)
[2019-10-08] MEDS: SENNA/DOCUSATE SODIUM TABLET 1 TAB PO (20:33)
[2019-10-08 22:55] LABS: SARS-CoV-2 RNA PCR Negative
[2019-10-09] VITALS (24 sets, daily range): BP systolic 98–172; BP diastolic 41–104; PULSE 56–113; RESP 12–22; TEMP 35.8–37; O2SAT 95–100; BMI 31.3
--- NOTE | 2019-10-09 | PC.NURSE ---
Patient transferred to Room 207 IMU. Patient already IMU status. Reprot given to Leola MARTIN. No further questions. Patient has all belongings.
--- NOTE | 2019-10-09 00:40 | PC.NURSE ---
This patient, Beck Carney, was received from [ICU 1 ] on 10/09/19 at 0000. Personal belongings list checked and signed. Patient/family oriented to unit policies and routines
[2019-10-09 06:45] LABS: Blood Urea Nitrogen 40 mg/dL (9-20); Calcium 9.8 mg/dL (8.4-10.2); Carbon Dioxide 33 mmol/L (22-30); Chloride 86 mmol/L (98-107); Estimated CRCL calculation 11 ml/min; Estimated Glomerular Filt Rate 7; Glucose 87 mg/dL (75-110); Potassium 4.9 mmol/L (3.4-5.0); Sodium 133 mmol/L (137-145)
[2019-10-09 07:17] LABS: Hemoglobin A1C 5.6 % (<5.7)
[2019-10-09 08:28] LABS: Glucose Point of Care 89 (65-105)
[2019-10-09 08:58] LABS: Hepatitis B Surface Antigen Negative (Negative)
[2019-10-09] MEDS: EPOETIN ALFA-EPBX 10,000 UNITS/ML VIAL 10000 UNITS IV PUSH (10:51)
--- NOTE | 2019-10-09 11:34 | PM.EVENT ---
Event Note Event Note Event Note: Patient is on dialysis and tolerating it well. At 1st he refused because he had some dialysis yesterday. It turns out he only had about an hour and a half yesterday. So he would agree to a 2 hour treatment. His blood pressure is doing well. He was seen at 10:50 a.m.
--- NOTE | 2019-10-09 11:35 | PM.CNNEP ---
Assessment and Plan Assessment and plan (1) End-stage renal disease (ESRD): Code(s): N18.6 - End stage renal disease Status: Chronic Assessment and Plan: the patient has end-stage renal disease due to diabetes. He is due for dialysis today Because he only got an hour and a half yesterday. He agreed to a 2 hour treatment today. (2) Fever: Qualifiers: Fever type: unspecified Qualified Code(s): R50.9 - Fever, unspecified Code(s): R50.9 - Fever, unspecified Status: Acute Assessment and Plan: The patient had a fever yesterday. COVID test is negative. Blood cultures are pending. (3) Weakness: Code(s): R53.1 - Weakness Status: Acute Assessment and Plan: Patient is generally weak yesterday. This might have been the fever or might have been his low sugar. (4) Diabetes: Qualifiers: Diabetes mellitus type: type 2 Diabetes mellitus exterminator termite insulin use: without residential use Diabetes mellitus complication status: with kidney complications Diabetes mellitus complication detail: with chronic kidney disease Chronic kidney disease stage: on chronic dialysis Qualified Code(s): E11.22 - Type 2 diabetes mellitus with diabetic chronic kidney disease; N18.6 - End stage renal disease; Z99.2 - Dependence on renal dialysis Code(s): E11.9 - Type 2 diabetes mellitus without complications Status: Acute Assessment and Plan: On Accu-Cheks and sliding-scale insulin. (5) Essential hypertension with goal blood pressure less than 130/80: Code(s): I10 - Essential (primary) hypertension Status: Chronic Assessment and Plan: His blood pressure is under pretty good control (6) Elevated transaminase level: Code(s): R74.0 - Nonspecific elevation of levels of transaminase and lactic acid dehydrogenase [LDH] Status: Acute Assessment and Plan: liver enzymes are a bit high. It is unclear why. Possibly fluid overload? We will remove fluid on dialysis today. (7) Anemia: Code(s): D64.9 - Anemia, unspecified Status: Acute Assessment and Plan: The patient has anemia. We will give him EPO on dialysis. History of Present Illness Reason for Consult Consult date: 10/09/19 Chief Complaint Chief complaint: Fever/weakness History of Present Illness Narrative: Beck is a very pleasant 59-year-old gentleman who has multiple medical problems including end-stage renal disease on dialysis 3 times a week, coronary disease status post bypass, diabetes, hypertension, anxiety, depression, hyperlipidemia, anemia of chronic kidney disease, vitamin-D deficiency, renal osteodystrophy. Beck came into dialysis yesterday. He was acting of bit strangely. They checked his blood sugar it was only 71 and so they gave him a half an amp of D50. He improved but did not get back to his usual. His sugar did come up to over 100. Later in the dialysis the patient started chilling. He had a temperature of 101.2 so they took him off dialysis after about 90 minutes and sent him to the emergency room. In the emergency room he looked better. His fever was better. His labs and x-rays were okay. However because of the chill and the high fever at [facility] he had blood cultures and a COVID test and was admitted. The patient did fairly well overnight And he feels better today. he denies any cough or shortness of breath. No skin rash, pain with urination, ear nose or throat issues. Review of Systems Constitutional: Constitutional: Reports no additional constitutional complaints Eyes: Eyes: Reports no additional eye complaints ENT: Reports system reviewed and no additional complaints, except as documented Cardiovascular: Cardiovascular: Reports no additional cardiovascular complaints Respiratory: Respiratory: Reports no additional respiratory complaints Gastrointestinal: Gastrointestinal: Reports no additi
[2019-10-09 12:39] LABS: Glucose Point of Care 86 (65-105)
[2019-10-09 12:47] LABS: D Dimer 0.98 ug/mL (<0.48)
[2019-10-09] MEDS: SEVELAMER CARBONATE 800 MG TABLET 3200 MG PO ×2 (13:04→17:53)
[2019-10-09 13:05] LABS: CRP 7.6 mg/dL (<1.0)
[2019-10-09] MEDS: ATORVASTATIN 20 MG TABLET PO (13:05)
[2019-10-09] MEDS: CHOLECALCIFEROL 1,000 UNIT TABLET 1000 UNITS PO (13:05)
[2019-10-09] MEDS: lisinopriL 20 MG TABLET PO (13:05)
[2019-10-09] MEDS: ASPIRIN 81 MG ENTERIC TABLET PO (13:05)
[2019-10-09] MEDS: AMIODARONE HCL 200 MG TABLET PO (13:05)
[2019-10-09] MEDS: METOPROLOL TARTRATE 50 MG TAB PO ×2 (13:06→22:16)
[2019-10-09] MEDS: polyethylene glycoL 3350 17 GM POWD.PACK PO (13:06)
--- NOTE | 2019-10-09 15:45 | PC.NURSE ---
This patient, Beck Carney, was received from IMU on 10/09/19 at 1545. Personal belongings list checked and signed. Patient/family oriented to unit policies and routines. Report received from VERONICA Madison.
--- NOTE | 2019-10-09 15:46 | PC.NURSE ---
This patient, Beck Carney, was transferred to [facility] on 10/09/19 at 1540. Personal belongings sent with patient. Belongings list checked and signed with receiving. Report given to VERONICA Thomas. Appropriate documentation sent with patient.
[2019-10-09 17:59] LABS: Glucose Point of Care 153 (65-105)
--- NOTE | 2019-10-09 18:04 | PM.IMPN ---
Progress Note: A&P Assessment and Plan (1) Weakness: Code(s): R53.1 - Weakness Status: Acute Assessment and Plan: PT OT evaluation. Unsure of the cause of the weakness. They did a straight cath urine that was negative. The patient did have a fever when he came in 101.1 unsure of etiology. Will get a chest x-ray as well. His potassium was slightly high he did have dialysis today. 10/09/19 18:04 Patient is a 59-year-old male with history of end-stage renal disease while getting his dialysis yesterday he developed the fever of 101.1 and fell chills as well as tremoring his lower extremity and shaking failed weak and tired, patient was brought to the ER for further evaluation, concern the patient may be positive COVID-19 which is negative, patient states is feeling much better the fever is resolved, still feels tired and weak in his lower extremities. Patient was seen by Dr. Graf patient had dialysis today, etiology of the fever is unclear his white count the slightly elevated, chest x-ray is benign so is his urine is clear, his fever has resolved will follow-up on the blood culture, will have a PT OT evaluate the patient, his D-dimer is slightly elevated, he does not appear to be short of breath unlikely pulmonary emboli however will do lower extremity Doppler to rule out DVT. (2) Fever: Qualifiers: Fever type: unspecified Qualified Code(s): R50.9 - Fever, unspecified Code(s): R50.9 - Fever, unspecified Status: Acute Assessment and Plan: Patient was to check for COVID and I ordered a chest x-ray patient's lungs sound clear [place] not been coughing. His fever is down now with the Tylenol. Blood cultures are pending in his urine is negative I did order chest x-ray. (3) Diabetes: Qualifiers: Diabetes mellitus type: type 2 Diabetes mellitus intermediate project manager insulin use: without residential use Diabetes mellitus complication status: with kidney complications Diabetes mellitus complication detail: with chronic kidney disease Chronic kidney disease stage: on chronic dialysis Qualified Code(s): E11.22 - Type 2 diabetes mellitus with diabetic chronic kidney disease; N18.6 - End stage renal disease; Z99.2 - Dependence on renal dialysis Code(s): E11.9 - Type 2 diabetes mellitus without complications Status: Acute Assessment and Plan: He is typically controlled with food with diet and I did Accu-Cheks AC and HS instructed A1c. He is not on any medication at this time. (4) Atrial flutter: Qualifiers: Atrial flutter type: unspecified Qualified Code(s): I48.92 - Unspecified atrial flutter Code(s): I48.92 - Unspecified atrial flutter Status: Chronic Assessment and Plan: With amiodarone (5) Hyperkalemia: Code(s): E87.5 - Hyperkalemia Status: Acute Assessment and Plan: Recheck basic metabolic panel and give Kayexalate and his potassium still remains high. He did have dialysis today he has not Sunday and his AV fistula right forearm had positive bruit and thrill. (6) End-stage renal disease (ESRD): Code(s): N18.6 - End stage renal disease Status: Chronic Assessment and Plan: Dr. Graf has been consulted he is on dialysis Sunday. Continue with his sevelamer. (7) BPH w/o urinary obs/LUTS: Code(s): N40.0 - Benign prostatic hyperplasia without lower urinary tract symptoms Status: Acute Assessment and Plan: Patient rarely urinates. He is on dialysis now. (8) Essential hypertension with goal blood pressure less than 130/80: Code(s): I10 - Essential (primary) hypertension Status: Chronic Assessment and Plan: Continue with lisinopril and metoprolol a and amiodarone. (9) HFrEF (heart failure with reduced ejection fraction): Qualifiers: Heart failure chronicity: acute on chronic Qualified Code(s): I50.23 - Acute on chronic
[2019-10-09] MEDS: SENNA/DOCUSATE SODIUM TABLET 1 TAB PO (22:16)
[2019-10-09] MEDS: TEMAZEPAM 15 MG CAPSULE PO (22:16)
[2019-10-10] VITALS (22 sets, daily range): BP systolic 114–153; BP diastolic 51–81; PULSE 68–88; RESP 16–20; TEMP 36.1–37; O2SAT 94–99
[2019-10-10 04:10] LABS: Glucose Point of Care 109 (65-105)
[2019-10-10 05:51] LABS: Hematocrit 30.7 % (42.0-52.0); Hemoglobin 9.3 g/dL (14.0-18.0); Mean Corpuscular HGB Conc 30.3 g/dl (32-36); Mean Corpuscular Hemoglobin 29.4 pg (26-34); Mean Corpuscular Volume 97.2 fl (80-100); Mean Platelet Volume 10.4 fl (7.4-10.4); Platelet Count Result 210 k/mm3 (150-375); Red Blood Count 3.16 M/mm3 (4.6-6.20); Red Cell Distribution Width 19.6 % (11.5-14.5); White Blood Count 8.9 K/mm3 (4.5-10.0)
[2019-10-10 06:09] LABS: Alanine Aminotransferase 20 U/L (4-50); Albumin Level 3.4 g/dL (3.5-5.1); Alkaline Phosphatase 125 U/L (38-126); Aspartate Amino Transferase 24 U/L (17-59); Bilirubin,Total 1.1 mg/dL (0.2-1.3); Blood Urea Nitrogen 35 mg/dL (9-20); Calcium 9.7 mg/dL (8.4-10.2); Carbon Dioxide 32 mmol/L (22-30); Chloride 89 mmol/L (98-107); Estimated CRCL calculation 12 ml/min; Estimated Glomerular Filt Rate 8; Glucose 118 mg/dL (75-110); Phosphorus 4.1 mg/dL (2.5-4.5); Potassium 4.3 mmol/L (3.4-5.0); Sodium 134 mmol/L (137-145)
[2019-10-10 07:47] LABS: Glucose Point of Care 118 (65-105)
--- NOTE | 2019-10-10 08:55 | PC.NURSE ---
Patient to dialysis via hospital bed.
[2019-10-10] MEDS: EPOETIN ALFA-EPBX 10,000 UNITS/ML VIAL 10000 UNITS IV PUSH (12:02)
--- NOTE | 2019-10-10 13:20 | PC.NURSE ---
Patient returned from dialysis via hospital bed.
[2019-10-10] MEDS: SEVELAMER CARBONATE 800 MG TABLET 3200 MG PO ×2 (14:31→17:32)
[2019-10-10] MEDS: polyethylene glycoL 3350 17 GM POWD.PACK PO (14:32)
[2019-10-10] MEDS: CHOLECALCIFEROL 1,000 UNIT TABLET 1000 UNITS PO (14:32)
[2019-10-10] MEDS: AMIODARONE HCL 200 MG TABLET PO (14:32)
[2019-10-10] MEDS: ASPIRIN 81 MG ENTERIC TABLET PO (14:33)
[2019-10-10] MEDS: METOPROLOL TARTRATE 50 MG TAB PO ×2 (14:33→21:05)
[2019-10-10] MEDS: ATORVASTATIN 20 MG TABLET PO (14:33)
[2019-10-10] MEDS: lisinopriL 20 MG TABLET PO (14:33)
--- NOTE | 2019-10-10 14:33 | WPDINFPN2 ---
Progress Note: A&P Assessment and Plan (1) Fever: Qualifiers: Fever type: unspecified Qualified Code(s): R50.9 - Fever, unspecified Code(s): R50.9 - Fever, unspecified Status: Acute Assessment and Plan: fever and rigors, suspect transient CNSS bacteremia as cause REC Vanc today, repeat next Sunday and Sunday -- see orders. Ok discharge. Subjective Date/time seen: 10/10/19 14:33 Objective Data Vital Signs Vital Signs: Vital Signs - 24 hr 10/09/19 22:00 10/09/19 22:16 10/10/19 05:50 Temperature 36.8 C 36.4 C Pulse Rate 109 H 110 H 82 Respiratory Rate 16 16 Blood Pressure 123/82 124/64 Pulse Oximetry 96 97 10/10/19 09:40 10/10/19 09:50 10/10/19 10:00 Temperature 36.9 C Pulse Rate 80 78 79 Respiratory Rate 20 Blood Pressure 135/78 140/65 130/74 Pulse Oximetry 10/10/19 10:15 10/10/19 10:30 10/10/19 10:45 Temperature Pulse Rate 81 81 86 Respiratory Rate Blood Pressure 153/71 H 153/71 H 142/74 H Pulse Oximetry 10/10/19 11:00 10/10/19 11:15 10/10/19 11:30 Temperature Pulse Rate 76 76 74 Respiratory Rate Blood Pressure 134/75 135/77 140/81 Pulse Oximetry 10/10/19 11:46 10/10/19 12:00 10/10/19 12:15 Temperature Pulse Rate 72 75 75 Respiratory Rate Blood Pressure 122/70 143/72 H 124/68 Pulse Oximetry 10/10/19 12:30 10/10/19 12:45 10/10/19 12:50 Temperature 36.8 C Pulse Rate 78 77 78 Respiratory Rate 20 Blood Pressure 120/65 118/66 136/57 L Pulse Oximetry Intake/Output Intake/Output: Intake & Output 10/07/19 10/08/19 10/09/19 10/10/19 23:59 23:59 23:59 23:59 Intake Total 360 1030 640 Output Total 2000 2500 Balance [phone] Meds/Results Medications: Active Medications Generic Name Dose Route Start Last Admin Trade Name Freq PRN Reason Stop Dose Admin Acetaminophen 650 mg 10/08/19 11:31 Tylenol Tablet PO Q4H PRN Mild Pain (1-3) or Fever Amiodarone HCl 200 mg 10/09/19 09:00 10/09/19 13:05 Pacerone PO 200 mg DAILY SUDHA Administration Aspirin 81 mg 10/09/19 09:00 10/09/19 13:05 Aspirin Ec PO 81 mg DAILY SUDHA Administration Atorvastatin Calcium 20 mg 10/09/19 09:00 10/09/19 13:05 Lipitor PO 20 mg DAILY SUDHA Administration Dextrose 12.5 gm 10/08/19 15:25 Dextrose 50% Syringe IV PUSH PRN PRN Hypoglycemia Protocol Glucagon 1 mg 10/08/19 15:25 Glucagon For Inj IM PRN PRN Hypoglycemia Protocol Glucose 15 gm 10/08/19 15:25 Glutose 15 PO PRN PRN Hypoglycemia Protocol Dextrose 1,000 mls @ 100 mls/hr 10/08/19 15:25 Dextrose 5% 1,000 Ml IVPB PRN PRN Hypoglycemia Protocol Insulin Aspart 3 - 6 units 10/08/19 12:00 10/10/19 08:07 Novolog SUB-Q Not Given TIDWM [facility] Protocol Lidocaine/Prilocaine 1 each 10/08/19 15:56 Emla/Tegaderm TOPICAL ONCE PRN Pain Lisinopril 20 mg 10/09/19 09:00 10/09/19 13:05 Prinivil PO 20 mg DAILY SUDHA Administration Metoprolol Tartrate 50 mg 10/08/19 21:00 10/09/19 22:16 Lopressor PO 50 mg Q12HR SUDHA Administration Ondansetron HCl 4 mg 10/08/19 11:31 Zofran Inj IV PUSH Q4H PRN Nausea Polyethylene Glycol 17 gm 10/09/19 09:00 10/09/19 13:06 Miralax PO 17 gm DAILY SUDHA Administration Senna/Docusate Sodium 1 tab 10/08/19 21:00 10/09/19 22:16 Senokot S Tablet PO 1 tab HS SUDHA Administration Sevelamer Carbonate 3,200 mg 10/08/19 17:00 10/10/19 14:31 Renvela PO Not Given TIDWM SUDHA Temazepam 15 mg 10/08/19 21:00 10/09/19 22:16 Restoril PO 15 mg HS SUDHA Administration Vancomycin HCl 750 mg 10/10/19 14:28 Vancomycin Hcl XX 10/10/19 14:29 ONCE ONE Vitamin D 1,000 unit 10/09/19 09:00 10/09/19 13:05 Vitamin D PO 1,000 unit DAILY SUDHA Administration Radiology Results: ITS Impressions Head CT 10/07
[2019-10-10 14:44] LABS: Glucose Point of Care 119 (65-105)
--- NOTE | 2019-10-10 15:54 | PM.IMPN ---
Progress Note: A&P Assessment and Plan (1) Weakness: Code(s): R53.1 - Weakness Status: Acute Assessment and Plan: 10/10/19 15:54 Patient is a 59-year-old male with history of end-stage renal disease while getting his dialysis yesterday he developed the fever of 101.1 and fell chills as well as tremoring his lower extremity and shaking failed weak and tired, patient was brought to the ER for further evaluation, concern the patient may be positive COVID-19 which is negative, patient states is feeling much better the fever is resolved, still feels tired and weak in his lower extremities. Patient was seen by Dr. Graf patient had dialysis today, etiology of the fever is unclear his white count the slightly elevated, chest x-ray is benign so is his urine is clear, his fever has resolved will follow-up on the blood culture, will have a PT OT evaluate the patient, his D-dimer is slightly elevated, he does not appear to be short of breath unlikely pulmonary emboli however will do lower extremity Doppler to rule out DVT. Today patient lower extremity Doppler is negative for DVT, patient blood culture is growing coagulase-negative staph patient was seen by Dr. Reid patient presentation with fever and regular and now blood culture is positive coagulase negative staph suspect transient CNSS bacteremia as cause, recommending vancomycin today Sunday and Sunday, will monitor patient overnight and may discharge the patient home, patient is participating in PT OT (2) Fever: Qualifiers: Fever type: unspecified Qualified Code(s): R50.9 - Fever, unspecified Code(s): R50.9 - Fever, unspecified Status: Acute Assessment and Plan: Patient was to check for COVID and I ordered a chest x-ray patient's lungs sound clear [place] not been coughing. His fever is down now with the Tylenol. Blood cultures are pending in his urine is negative I did order chest x-ray. (3) Diabetes: Qualifiers: Diabetes mellitus type: type 2 Diabetes mellitus custodial insulin use: without certification officer use Diabetes mellitus complication status: with kidney complications Diabetes mellitus complication detail: with chronic kidney disease Chronic kidney disease stage: on chronic dialysis Qualified Code(s): E11.22 - Type 2 diabetes mellitus with diabetic chronic kidney disease; N18.6 - End stage renal disease; Z99.2 - Dependence on renal dialysis Code(s): E11.9 - Type 2 diabetes mellitus without complications Status: Acute Assessment and Plan: He is typically controlled with food with diet and I did Accu-Cheks AC and HS instructed A1c. He is not on any medication at this time. (4) Atrial flutter: Qualifiers: Atrial flutter type: unspecified Qualified Code(s): I48.92 - Unspecified atrial flutter Code(s): I48.92 - Unspecified atrial flutter Status: Chronic Assessment and Plan: With amiodarone (5) Hyperkalemia: Code(s): E87.5 - Hyperkalemia Status: Acute Assessment and Plan: Recheck basic metabolic panel and give Kayexalate and his potassium still remains high. He did have dialysis today he has not Sunday and his AV fistula right forearm had positive bruit and thrill. (6) End-stage renal disease (ESRD): Code(s): N18.6 - End stage renal disease Status: Chronic Assessment and Plan: Dr. Graf has been consulted he is on dialysis Sunday. Continue with his sevelamer. (7) BPH w/o urinary obs/LUTS: Code(s): N40.0 - Benign prostatic hyperplasia without lower urinary tract symptoms Status: Acute Assessment and Plan: Patient rarely urinates. He is on dialysis now. (8) Essential hypertension with goal blood pressure less than 130/80: Code(s): I10 - Essential (primary) hypertension Status: Chronic Assessment and Plan: Continue with lisinopril and metoprolol a and amiodarone. (
--- NOTE | 2019-10-10 15:56 | PM.PNNEP ---
Progress Note: A&P Assessment and Plan (1) End-stage renal disease (ESRD): Code(s): N18.6 - End stage renal disease Status: Chronic Assessment and Plan: the patient has end-stage renal disease due to diabetes. He received his usual dialysis today. He tolerated this well. (2) Fever: Qualifiers: Fever type: unspecified Qualified Code(s): R50.9 - Fever, unspecified Code(s): R50.9 - Fever, unspecified Status: Acute Assessment and Plan: The patient had a fever yesterday. COVID test is negative. Blood cultures are positive for coag-negative staph. He is getting vancomycin. Dr. dial saw the patient and I discussed this with him. (3) Weakness: Code(s): R53.1 - Weakness Status: Acute Assessment and Plan: Patient is generally weak yesterday. Probably from the infection. However his sugar was low as well. Possibly low sugar was a sign of the infection. (4) Diabetes: Qualifiers: Diabetes mellitus type: type 2 Diabetes mellitus equipment operator intermodal yard insulin use: without equipment operator intermodal yard use Diabetes mellitus complication status: with kidney complications Diabetes mellitus complication detail: with chronic kidney disease Chronic kidney disease stage: on chronic dialysis Qualified Code(s): E11.22 - Type 2 diabetes mellitus with diabetic chronic kidney disease; N18.6 - End stage renal disease; Z99.2 - Dependence on renal dialysis Code(s): E11.9 - Type 2 diabetes mellitus without complications Status: Acute Assessment and Plan: On Accu-Cheks and sliding-scale insulin. (5) Essential hypertension with goal blood pressure less than 130/80: Code(s): I10 - Essential (primary) hypertension Status: Chronic Assessment and Plan: His blood pressure is under pretty good control (6) Elevated transaminase level: Code(s): R74.0 - Nonspecific elevation of levels of transaminase and lactic acid dehydrogenase [LDH] Status: Acute Assessment and Plan: liver enzymes are a bit high. Possibly due to the systemic effect of his infection. This has improved to normal. (7) Anemia: Code(s): D64.9 - Anemia, unspecified Status: Acute Assessment and Plan: The patient has anemia. He received EPO today. Subjective Date/time seen: 10/10/19 15:56 Interval history: Patient is alert. He feels better. Ex- is in the room. He grew coag negative staphylococci us in his blood. He is getting vancomycin. White count is okay and he is afebrile. He is eager for discharge. Review of Systems Cardiovascular: Cardiovascular: Reports no additional cardiovascular complaints Respiratory: Respiratory: Reports no additional respiratory complaints Gastrointestinal: Gastrointestinal: Reports no additional gastrointestinal complaints Genitourinary: Genitourinary: Reports no additional male genitourinary complaints Exam Narrative: Exam Narrative: WDWN in NAD skin no rash head ncat lungs clear cor reg no rub abd BS+ nontender and soft ext no edema. Objective Data Vital Signs Vital Signs: Vital Signs - 24 hr 10/09/19 22:00 10/09/19 22:16 10/10/19 05:50 Temperature 36.8 C 36.4 C Pulse Rate 109 H 110 H 82 Respiratory Rate 16 16 Blood Pressure 123/82 124/64 Pulse Oximetry 96 97 10/10/19 09:40 10/10/19 09:50 10/10/19 10:00 Temperature 36.9 C Pulse Rate 80 78 79 Respiratory Rate 20 Blood Pressure 135/78 140/65 130/74 Pulse Oximetry 10/10/19 10:15 10/10/19 10:30 10/10/19 10:45 Temperature Pulse Rate 81 81 86 Respiratory Rate Blood Pressure 153/71 H 153/71 H 142/74 H Pulse Oximetry 10/10/19 11:00 10/10/19 11:15 10/10/19 11:30 Temperature Pulse Rate 76 76 74 Respiratory Rate Blood Pressure 134/75 135/77 140/81 Pulse Oximetry 10/10/19 11:46 10/10/19 12:00 10/10/19 12:15 Temperature Pulse Rate 72 75 75 Respiratory Rate
[2019-10-10 17:26] LABS: Glucose Point of Care 145 (65-105)
--- NOTE | 2019-10-10 18:52 | CONS_ITS ---
DATE OF CONSULTATION: 10/10/2019 REASON FOR CONSULTATION: Fever and bacteremia. HISTORY OF PRESENT ILLNESS: The patient is a 59-year-old male with chronic renal failure. He has had a fistula in place in right upper extremity for several years. When he was here in the hospital in July with hyperkalemia, there was a concern over fistula malfunction and low flow. However, follow up with his vascular surgeon indicated no problems and the patient knows of no problems subjectively with the fistula or surrounding soft tissue. He was in dialysis 2 days ago when he had malaise followed by a fever into the 38 range along with rigors. He was evaluated and admitted to the hospital. Blood cultures were collected, are now positive and consult requested. He has been on no antibiotics today nor any received as an outpatient in recent weeks for any purpose. He has been on no immunosuppressants. The rigors have improved. Fever curve as noted below. No nausea, vomiting, skin rash, dyspnea, right arm edema. He also noted on the day of admission, marked weakness in both his legs such that he could barely control their use. However, today he is able to walk with minimal assist and feels like his leg strength is back to normal or nearly so. ALLERGIES: SALMON OIL. PRESENT MEDICATIONS: List reviewed. No immunosuppressants. HABITS: No tobacco. Social drinker. PAST MEDICAL HISTORY: In addition to the above, he fell off a loading dock years ago and had comminuted fractures in both his right and left lower extremities with metallic hardware still in place. He had a previous CABG, cholecystectomy, NE, hypertension, hyperlipidemia, distant past diverticulitis with incisional hernias now, diabetes, past depression, heart failure, AF, arthritis, anxiety, anemia. REVIEW OF SYSTEMS: A 14-point review otherwise negative. He does not urinate in general. FAMILY HISTORY: Not pertinent to his present illness. SOCIAL HISTORY: He is . Lives locally and disabled. PHYSICAL EXAMINATION: GENERAL: This is a pleasant male, appears his actual age. No acute distress. Family at the bedside. VITAL SIGNS: He has been afebrile here as an inpatient. 136/57, 78, 20. SKIN: The patient has noted a 1-month-old subcentimeter crusted papule over the nape of his neck. Exam today reveals no evidence of infection. Skin is warm and dry. No rashes. EENT: The pupils equal, round, and reactive to light. No conjunctival injection. The oropharynx, oral mucosa normal. NECK: No meningismus, mass, abnormal contour, thyromegaly. LUNGS: Clear to auscultation and percussion. CHEST: Equal expansion. Normal AP diameter. No indwelling vascular devices. CARDIAC: Regular rate and rhythm. No murmur, gallop, or rub. Pulses are 2+. ABDOMEN: Retraction scar over the abdominal wall. Longitudinal midline. Easily reducible hernias are present on either side. The abdomen is obese. No tenderness. No masses. EXTREMITIES: No clubbing, cyanosis, edema. He has a left antecubital Hep-Lock. He has a fistula in right upper extremity which is bandaged. No erythema, tenderness, warmth. LABORATORY DATA: Blood cultures 1 of 2 sets coagulase-negative Staph species. His white count 8.9, hemoglobin 9.3, platelets are 210. He has mild hyponatremia. BUN 35, creatinine 7.1. Liver function tests normal except for an albumin 3.4. RADIOLOGY: I personally reviewed his chest x-ray. He has left lower lobe atelectasis. Sternotomy changes. No active disease. He has just completed a venous Doppler study which showed no DVT in lower extremities. ASSESSMENT: 1. Fever and rigors with lower extremity weakness, suspect due to infection and not due to hypoglycemia by itself or other etiologies. Despite his single posit
[2019-10-10] MEDS: SENNA/DOCUSATE SODIUM TABLET 1 TAB PO (21:06)
[2019-10-10] MEDS: TEMAZEPAM 15 MG CAPSULE PO (21:09)
[2019-10-10 23:12] LABS: Glucose Point of Care 119 (65-105)
[2019-10-11 05:28] LABS: Mean Corpuscular HGB Conc 30.3 g/dl (32-36); Mean Corpuscular Hemoglobin 29.4 pg (26-34); Mean Corpuscular Volume 97.1 fl (80-100); Mean Platelet Volume 10.3 fl (7.4-10.4); Platelet Count Result 211 k/mm3 (150-375); Red Cell Distribution Width 20.1 % (11.5-14.5); White Blood Count 10.1 K/mm3 (4.5-10.0)
[2019-10-11 05:40] LABS: Albumin Level 3.5 g/dL (3.5-5.1); Blood Urea Nitrogen 32 mg/dL (9-20); Calcium 9.7 mg/dL (8.4-10.2); Carbon Dioxide 31 mmol/L (22-30); Chloride 90 mmol/L (98-107); Estimated CRCL calculation 15 ml/min; Estimated Glomerular Filt Rate 10; Glucose 115 mg/dL (75-110); Phosphorus 3.7 mg/dL (2.5-4.5); Potassium 4.4 mmol/L (3.4-5.0); Sodium 132 mmol/L (137-145)
[2019-10-11 06:00] VITALS: BP 137/84; PULSE 71; RESP 16; TEMP 36.2; O2SAT 98
[2019-10-11 07:49] LABS: Glucose Point of Care 117 (65-105)
[2019-10-11 08:40] VITALS: PULSE 86
[2019-10-11] MEDS: polyethylene glycoL 3350 17 GM POWD.PACK PO (08:40)
[2019-10-11] MEDS: ATORVASTATIN 20 MG TABLET PO (08:40)
[2019-10-11] MEDS: lisinopriL 20 MG TABLET PO (08:40)
[2019-10-11] MEDS: SEVELAMER CARBONATE 800 MG TABLET 3200 MG PO ×2 (08:40→11:37)
[2019-10-11] MEDS: AMIODARONE HCL 200 MG TABLET PO (08:40)
[2019-10-11 08:42] VITALS: PULSE 86
[2019-10-11] MEDS: CHOLECALCIFEROL 1,000 UNIT TABLET 1000 UNITS PO (08:42)
[2019-10-11] MEDS: METOPROLOL TARTRATE 50 MG TAB PO (08:42)
[2019-10-11] MEDS: ASPIRIN 81 MG ENTERIC TABLET PO (08:42)
--- NOTE | 2019-10-11 11:49 | PM.DS ---
DS: Admitting Diagnosis Admitting Diagnosis Admitting Diagnosis: Fever, unspecified DS: Discharge Diagnosis Discharge Diagnosis (1) Weakness: Code(s): R53.1 - Weakness Status: Acute Assessment and Plan: 10/10/19 15:54 Patient is a 59-year-old male with history of end-stage renal disease while getting his dialysis yesterday he developed the fever of 101.1 and fell chills as well as tremoring his lower extremity and shaking failed weak and tired, patient was brought to the ER for further evaluation, concern the patient may be positive COVID-19 which is negative, patient states is feeling much better the fever is resolved, still feels tired and weak in his lower extremities. Patient was seen by Dr. Graf patient had dialysis today, etiology of the fever is unclear his white count the slightly elevated, chest x-ray is benign so is his urine is clear, his fever has resolved will follow-up on the blood culture, will have a PT OT evaluate the patient, his D-dimer is slightly elevated, he does not appear to be short of breath unlikely pulmonary emboli however will do lower extremity Doppler to rule out DVT. Today patient lower extremity Doppler is negative for DVT, patient blood culture is growing coagulase-negative staph patient was seen by Dr. Reid patient presentation with fever and regular and now blood culture is positive coagulase negative staph suspect transient CNSS bacteremia as cause, recommending vancomycin today Sunday and Sunday, will monitor patient overnight and may discharge the patient home, patient is participating in PT OT (2) Fever: Qualifiers: Fever type: unspecified Qualified Code(s): R50.9 - Fever, unspecified Code(s): R50.9 - Fever, unspecified Status: Acute Assessment and Plan: Patient was to check for COVID and I ordered a chest x-ray patient's lungs sound clear [place] not been coughing. His fever is down now with the Tylenol. Blood cultures are pending in his urine is negative I did order chest x-ray. (3) Diabetes: Qualifiers: Diabetes mellitus type: type 2 Diabetes mellitus fci insulin use: without intermission coordinator use Diabetes mellitus complication status: with kidney complications Diabetes mellitus complication detail: with chronic kidney disease Chronic kidney disease stage: on chronic dialysis Qualified Code(s): E11.22 - Type 2 diabetes mellitus with diabetic chronic kidney disease; N18.6 - End stage renal disease; Z99.2 - Dependence on renal dialysis Code(s): E11.9 - Type 2 diabetes mellitus without complications Status: Acute Assessment and Plan: He is typically controlled with food with diet and I did Accu-Cheks AC and HS instructed A1c. He is not on any medication at this time. (4) Atrial flutter: Qualifiers: Atrial flutter type: unspecified Qualified Code(s): I48.92 - Unspecified atrial flutter Code(s): I48.92 - Unspecified atrial flutter Status: Chronic Assessment and Plan: With amiodarone (5) Hyperkalemia: Code(s): E87.5 - Hyperkalemia Status: Acute Assessment and Plan: Recheck basic metabolic panel and give Kayexalate and his potassium still remains high. He did have dialysis today he has not Sunday and his AV fistula right forearm had positive bruit and thrill. (6) End-stage renal disease (ESRD): Code(s): N18.6 - End stage renal disease Status: Chronic Assessment and Plan: Dr. Graf has been consulted he is on dialysis Sunday. Continue with his sevelamer. (7) BPH w/o urinary obs/LUTS: Code(s): N40.0 - Benign prostatic hyperplasia without lower urinary tract symptoms Status: Acute Assessment and Plan: Patient rarely urinates. He is on dialysis now. (8) Essential hypertension with goal blood pressure less than 130/80: Code(s): I10 - Essential (primary) hypertension Status:
[2019-10-11 12:01] LABS: Glucose Point of Care 140 (65-105)
--- NOTE | 2019-10-11 12:28 | PM.PNNEP ---
Progress Note: A&P Assessment and Plan (1) End-stage renal disease (ESRD): Code(s): N18.6 - End stage renal disease Status: Chronic Assessment and Plan: the patient has end-stage renal disease due to diabetes. He received his usual dialysis yesterday. Next dose tomorrow. (2) Fever: Qualifiers: Fever type: unspecified Qualified Code(s): R50.9 - Fever, unspecified Code(s): R50.9 - Fever, unspecified Status: Acute Assessment and Plan: The patient had a fever yesterday. COVID test is negative. Blood cultures are positive for coag-negative staph. He is getting vancomycin. Dr. dial saw the patient and I discussed this with him. He will get vancomycin after Mondays and Fridays dialyses as an outpatient. I called in the orders already. (3) Weakness: Code(s): R53.1 - Weakness Status: Acute Assessment and Plan: Patient is generally weak yesterday. He is feeling better.. (4) Diabetes: Qualifiers: Diabetes mellitus type: type 2 Diabetes mellitus continuous churn buttermaker insulin use: without continuous churn buttermaker use Diabetes mellitus complication status: with kidney complications Diabetes mellitus complication detail: with chronic kidney disease Chronic kidney disease stage: on chronic dialysis Qualified Code(s): E11.22 - Type 2 diabetes mellitus with diabetic chronic kidney disease; N18.6 - End stage renal disease; Z99.2 - Dependence on renal dialysis Code(s): E11.9 - Type 2 diabetes mellitus without complications Status: Acute Assessment and Plan: On Accu-Cheks and sliding-scale insulin. (5) Essential hypertension with goal blood pressure less than 130/80: Code(s): I10 - Essential (primary) hypertension Status: Chronic Assessment and Plan: His blood pressure is under pretty good control (6) Elevated transaminase level: Code(s): R74.0 - Nonspecific elevation of levels of transaminase and lactic acid dehydrogenase [LDH] Status: Acute Assessment and Plan: liver enzymes are a bit high. Possibly due to the systemic effect of his infection. This has improved to normal. (7) Anemia: Code(s): D64.9 - Anemia, unspecified Status: Acute Assessment and Plan: The patient has anemia. He received EPO yesterday Subjective Date/time seen: 10/11/19 12:28 Interval history: Patient is alert. He feels better. Ex- is in the room. Hoping for discharge. He had dialysis yesterday and did well. Review of Systems Cardiovascular: Cardiovascular: Reports no additional cardiovascular complaints Respiratory: Respiratory: Reports no additional respiratory complaints Gastrointestinal: Gastrointestinal: Reports no additional gastrointestinal complaints Genitourinary: Genitourinary: Reports no additional male genitourinary complaints Exam Narrative: Exam Narrative: WDWN in NAD skin no rash or subcu nodules head ncat lungs clear bilaterally cor reg no rub abd BS+ nontender and soft ext no edema. Objective Data Vital Signs Vital Signs: Vital Signs - 24 hr 10/10/19 12:30 10/10/19 12:45 10/10/19 12:50 Temperature 36.8 C Pulse Rate 78 77 78 Respiratory Rate 20 Blood Pressure 120/65 118/66 136/57 L Pulse Oximetry 10/10/19 14:30 10/10/19 14:32 10/10/19 14:33 Temperature 36.7 C Pulse Rate 76 88 88 Respiratory Rate 18 Blood Pressure 139/51 L Pulse Oximetry 98 10/10/19 17:46 10/10/19 21:05 10/10/19 22:00 Temperature 36.1 C L Pulse Rate 68 73 Respiratory Rate 16 Blood Pressure 114/66 Pulse Oximetry 94 99 10/11/19 06:00 10/11/19 08:40 10/11/19 08:42 Temperature 36.2 C L Pulse Rate 71 86 86 Respiratory Rate 16 Blood Pressure 137/84 Pulse Oximetry 98 Intake/Output Intake/Output: Intake & Output 10/08/19 10/09/19 10/10/19 10/11/19 23:59 23:59 23:59 23:59 Intake Total 360 1030 1690 450 Output T
== END 2019-10-11 13:08 | disposition home or self-care (01) | DRG 871 ==
LOC: ANHED 11:48 → ANHICU 12:10 → ANHIMU 23:55 → ANH2MED 10-09 15:45
PROVIDERS: Internal Medicine Nephrology; Nurse Practitioner; Admitting Provider Family Medicine; Emergency Provider Family Medicine; PCP Internal Medicine; Visit Provider Family Medicine
DX: R78.81 Bacteremia (principal); N18.6 End stage renal disease; I50.23 Acute on chronic systolic (congestive) heart failure; I48.92 Unspecified atrial flutter; I13.2 Hypertensive heart and chronic kidney disease with heart failure and with stage 5 chronic kidney disease, or end stage renal disease; E11.22 Type 2 diabetes mellitus with diabetic chronic kidney disease; Z99.2 Dependence on renal dialysis; D63.1 Anemia in chronic kidney disease; Z20.828 Contact with and (suspected) exposure to other viral communicable diseases; E87.5 Hyperkalemia; N40.0 Benign prostatic hyperplasia without lower urinary tract symptoms; E78.5 Hyperlipidemia, unspecified
CPT/HCPCS: 36415; 51701; 70450; 71045; 80048; 80053; 80069; 80076; 81001; 82948; 83036; 83880; 84443; 84484; 85025; 85027; 85380; 85610; 86140; 87040; 87077; 87186; 87340; 87635; 93005; 93970; 97161; 97165; 99285; A9270; C9803; G0257; G0378; J1644; J1815; J3370; J7030; Q5106; U0003

== ENCOUNTER 2019-11-02 13:12 | Emergency (ER) | payer MEDICARE, MEDICAID, SELFPAY ==
--- NOTE | ~2019-11-02 | XR_ITS ---
EXAMINATION: XR wrist RT min 3V EXAM DATE: 11/02/2019 14:13 INDICATION: Initial encounter following injury, with pain of the right wrist. TECHNIQUE: Right wrist frontal, frontal with ulnar deviation, oblique and lateral projections obtain ed and reviewed. There is no prior study for comparison. FINDINGS: There is acute closed posttraumatic fracture of the right radial distal metaphysis without displacement. Probably mild comminution with fracture line suspected into the radiocarpal joint. Slig ht dorsal angulation. There is acute closed posttraumatic right ulnar styloid base avulsion fracture with a few millimeters of displacement. There is disruption of the scapholunate ligament and probably volar intercalated segmental instabilit y (VISI). Extensive vascular calcifications. Scaphoid subchondral cyst. There is mild polyarticular p rimary osteoarthritis. IMPRESSION: 1. Acute right radial distal metaphyseal fracture probably into joints. 2. Acute ulnar styloid base fracture. 3. Disrupted scapholunate ligament and probably VISI. Reviewed, dictated and finalized at location A.
[2019-11-02 13:19] VITALS: BP 132/72; PULSE 89; RESP 16; TEMP 37.2; O2SAT 100
[2019-11-02] MEDS: ACETAMINOPHEN 500 MG TABLET 1000 MG PO (14:09)
--- NOTE | 2019-11-02 14:12 | PC.NURSE ---
Pt to XRAY via [facility].
[2019-11-02] MEDS: traMADol HCL 50 MG TABLET PO (15:02)
[2019-11-02 15:25] VITALS: BP 159/69; PULSE 85; RESP 16; TEMP 36.8; O2SAT 96
--- NOTE | 2019-11-02 16:17 | ED.UPPEXIN ---
HPI - Extremity Injury (Upper) General Chief Complaint: Extremity Injury, Upper <Lizzeth Collins PA-C - Last Filed: 11/02/19 16:25> Stated Complaint: right wrist pain <Lizzeth Collins PA-C - Last Filed: 11/02/19 16:25> Time Seen by Provider: 11/02/19 13:35 <Lizzeth Collins PA-C - Last Filed: 11/02/19 16:25> Source: patient and family <HERO Houser Last Filed: 11/02/19 16:25> Mode of arrival: wheelchair <HERO Houser Last Filed: 11/02/19 16:25> Limitations: no limitations <HERO Houser Last Filed: 11/02/19 16:25> History of Present Illness HPI narrative: Patient presents with chief complaint of right wrist pain that began prior to arrival after he slipped in mud and put out his wrist to brace his fall. Patient reports pain to the dorsal aspect of the right wrist that worsens when he tries to push with his hand or open and close his hand. He also reports discomfort with flexion of the wrist. Patient denies loss of sensation or range of motion to the fingers. Patient denies hitting his head, loss of consciousness, chest pain, shortness of breath or any other symptoms. Patient is requesting medication for pain. <Lizzeth Collins PA-C - Last Filed: 11/02/19 16:25> Related Data Home Medications: Home Medications Medication Instructions Recorded Confirmed aspirin 81 mg PO DAILY 04/20/19 10/08/19 atorvastatin 20 mg PO DAILY 04/20/19 10/08/19 cholecalciferol (vitamin D3) 125 mcg PO DAILY 04/20/19 10/08/19 [Vitamin D3] lidocaine-prilocaine 1 applic TOPICAL DIRECTED PRN 04/20/19 10/08/19 metoprolol tartrate 50 mg PO Q12H 04/20/19 10/08/19 sennosides-docusate sodium 1 tab-cap PO HS 04/20/19 10/08/19 [Senna-S] amiodarone 200 mg tablet 200 mg PO DAILY 06/06/19 10/08/19 sevelamer carbonate 3,200 mg PO TIDWM 10/08/19 10/08/19 <Lizzeth Collins PA-C - Last Filed: 11/02/19 16:25> Allergies/Adverse Reactions: Allergies Allergy/AdvReac Type Severity Reaction Status Date / Time salmon oil Allergy Anaphylaxis Verified 11/02/19 13:53 <Lizzeth Collins PA-C - Last Filed: 11/02/19 16:25> Review of Systems Review of Systems: Narrative: CONSTITUTIONAL: Denies fever, chills, or sweats. EYES: Denies visual changes, redness, or discharge. ENT: Denies rhinorrhea, congestion, sore throat, or otalgia. CARDIOVASCULAR: Denies chest pain, palpitations, or edema. RESPIRATORY: Denies cough or dyspnea. GASTROINTESTINAL: Denies abdominal pain, nausea, vomiting, or diarrhea. GENITOURINARY: Denies dysuria or hematuria. SKIN: Denies rash or itching. MUSCULOSKELETAL: Reports wrist pain denies back pain, joint pain, or myalgia. NEUROLOGIC: Denies headache, numbness, dizziness, or weakness. PSYCHIATRIC: Denies anxiety or depression. <Lizzeth Collins PA-C - Last Filed: 11/02/19 16:25> PMFSH Social History Social History: Social History Social History: He lives alone and has 2 children 2 boys. His ex- is the durable power reinforcing steel worker wire mesh for healthcare. The patient is disabled lifelong nonsmoker and denies any marijuana or illicit drugs. Smoking status: Never smoker Second hand tobacco smoke exposure: Yes Alcohol intake: current Drinks per week: 8 Substance use: never Gender identity (if verbalized by the patient): Male Spiritual care concerns: No Agree to blood products: Yes <Lizzeth Collins PA-C - Last Filed: 11/02/19 16:25> Exam Narrative: Exam Narrative: GENERAL: Well-appearing, well-nourished, and in no acute distress. HEAD: Normocephalic, atraumatic. EYES: PERRLA and EOMI. ENT: Nares clear, no rhinorrhea or epistaxis. Mucous membranes moist. Oropharynx without tonsillar hypertrophy exudate or other lesions. Bilateral TMs pearly charles nonbulging NECK: Supple. No adenopathy or masses. No carotid bruits or JVD CHEST: No respiratory distress or tachypnea. EXTREMITIES: Minimal brisin
[2019-11-02 16:24] VITALS: BP 159/69; PULSE 80; RESP 15; O2SAT 97
== END 2019-11-02 16:26 | disposition home or self-care (01) ==
PROVIDERS: Emergency Provider Emergency Medicine; PCP Internal Medicine
DX: S59.291A Other physeal fracture of lower end of radius, right arm, initial encounter for closed fracture (principal); S52.611A Displaced fracture of right ulna styloid process, initial encounter for closed fracture; Z79.82 Long term (current) use of aspirin; W01.0XXA Fall on same level from slipping, tripping and stumbling without subsequent striking against object, initial encounter
CPT/HCPCS: 29125; 73110; 99284; A4565; A9270

== ENCOUNTER 2019-11-06 | Inpatient (IN) | payer MEDICARE, MEDICAID, SELFPAY ==
[2019-11-06] VITALS (23 sets, daily range): BP systolic 93–162; BP diastolic 64–120; PULSE 61–132; RESP 14–22; TEMP 36.3–37.6; O2SAT 94–100; BMI 31.6
--- NOTE | ~2019-11-06 | XR_ITS ---
EXAMINATION: XR abdomen/kub 1V DATE: 11/09/2019 00:28 INDICATION: Nausea and vomiting TECHNIQUE: A supine view of the abdomen on 3 radiographs was obtained. COMPARISON: CT dated 11/06/2019 FINDINGS: Multiple dilated loops of small bowel consistent with bowel obstruction. Multiple surgical clips scat tered throughout the abdomen and pelvis including cholecystectomy clips in the right upper quadrant. Epicardial pacemaker leads projecting over the base of the heart. IMPRESSION: 1. Small bowel obstruction. Reviewed, dictated and finalized at location A. IMPRESSION: 1. Small bowel obstruction.
--- NOTE | ~2019-11-06 | CT_ITS ---
EXAMINATION: CT abdomen pelvis wo con DATE: 11/06/2019 02:16 INDICATION: Scrotal abscess TECHNIQUE: Computed tomography (CT) of the abdomen and pelvis was performed without intravenous contr ast. The dose-length product (DLP) was 1241.41 mGy-cm. Automated exposure control and iterative recon struction technique were employed. COMPARISON: 04/02/2013; ultrasound, 11/04/2015 FINDINGS: Minimal dependent atelectasis is present in the lung bases. The heart size is enlarged. A c alcified nodule of the left lower lobe is consistent with old granulomatous disease. Punctate calcifi cations in an otherwise normal spleen likely represent healed granulomatous disease. The liver, pancr eas, and adrenal glands are normal. The gallbladder is surgically absent. There is severe atrophy of the kidneys. There is calcified atherosclerosis of the aorta and many of the other arteries. There ar e multiple ventral hernias containing large and small bowel. Some small bowel loops are mildly disten ded and demonstrates air-fluid levels. There is no free intraperitoneal gas. No pathologically enlarg ed abdominal or pelvic lymph nodes are identified. There is moderate lumbar spondylosis. There is a complex right hydrocele containing multiple internal septations as well as a rim calcified component. A simple appearing left hydrocele is also present. Evaluation is somewhat limited by the absence of intravenous contrast. No definite scrotal abscess is identified. IMPRESSION: 1. Complex right hydrocele containing multiple internal septations and a rim calcified component, no definite scrotal abscess identified. 2. Moderate to large simple appearing left hydrocele. 3. Multiple ventral hernias containing large and small bowel with mild distention and air-fluid level seen in several of the small bowel loops, consistent with partial obstruction. Reviewed, dictated and finalized at location A. IMPRESSION: 1. Complex right hydrocele containing multiple internal septations and a rim ca lcified component, no definite scrotal abscess identified. 2. Moderate to large simple appearing left hydrocele. 3. Multiple ventral hernias containing large and small bowel with mild distenti on and air-fluid level seen in several of the small bowel loops, consistent wit h partial obstruction.
--- NOTE | ~2019-11-06 | XR_ITS ---
EXAMINATION: XR abdomen NG/feed tube insert DATE: 11/12/2019 14:54 INDICATION: Nasogastric tube placement. TECHNIQUE: An upright view of the abdomen was obtained. COMPARISON: Small bowel series 11/10/2019 FINDINGS: The lower abdomen is excluded. There is dilated small bowel in the upper abdomen. The nasog astric tube tip is in the stomach. Median sternotomy wires and mediastinal surgical clips are seen, l ikely from prior coronary artery bypass grafting. There is oral contrast in the colon, which is quinn l in caliber. IMPRESSION: 1. Nasogastric tube tip in the stomach. 2. Small bowel obstruction. Reviewed, dictated and finalized at location B.
--- NOTE | ~2019-11-06 | XR_ITS ---
EXAMINATION: XR UGI water soluble w sbs EXAM DATE: 11/10/2019 17:25 INDICATION: TECHNIQUE: Limited upper GI performed by Dr. Dinero, radiologist. Small bowel follow-through was then p erformed. The DAP for this procedure was70.1 Gycm2. FINDINGS: Esophagus has normal appearance, no stricture or diverticulum. No sizable gastroesophageal hiatal hernia. Unremarkable stomach. On the 15 minute image contrast is seen within mildly dilated proximal jejunum. On the 30 minute imag e, contrast has entered moderately distended segment of jejunum, with slow interval progression to a loop in the right upper quadrant which is severely distended. This severely distended loop of jejunum is the most severely dilated small bowel loop on CT, the 1st segment to enter a hernia. On the 2 hour and 30 minute image, some other loops of normal calibered small bowel have opacified. O n a 5 hour image, a much larger amount of contrast has made it to normal calibered ileal loops, and t he amount of distention of the severely dilated right right upper quadrant loop has decreased. On a 6 hour image, contrast has reached the rectum. The right upper quadrant loop of small bowel agai n severely distended, again up to 8-10 cm in size. IMPRESSION: High-grade, but incomplete, partial small bowel obstruction, with severely delayed transi t time about 5-6 hours and a right upper quadrant loop of jejunum that transiently dilates up to 8-10 cm. Reviewed, dictated and finalized at location A. IMPRESSION: High-grade, but incomplete, partial small bowel obstruction, with s everely delayed transit time about 5-6 hours and a right upper quadrant loop of jejunum that transiently dilates up to 8-10 cm.
--- NOTE | ~2019-11-06 | XR_ITS ---
EXAMINATION: XR abdomen NG/feed tube insert DATE: 11/09/2019 06:13 INDICATION: Nausea and vomiting. Nasogastric tube placement. TECHNIQUE: A supine view of the abdomen and lower chest was obtained for evaluation of feeding tube placement. COMPARISON: 11/09/2019 at 12:23 AM FINDINGS: Interval placement of a nasogastric tube with tip in proximal side port in the body of the stomach. D ilated gas-filled loops of small bowel in the visualized upper abdomen consistent with small bowel ob struction. Cholecystectomy clips in the right upper quadrant. Cardiomegaly. Median sternotomy wires a nd mediastinal surgical clips are seen, likely from prior coronary artery bypass grafting. Retained e picardial pacemaker leads projecting over the base of the heart. IMPRESSION: 1. Nasogastric tube in the stomach. 2. Small bowel obstruction. 3. Cardiomegaly. Reviewed, dictated and finalized at location A.
--- NOTE | ~2019-11-06 | CT_ITS ---
EXAMINATION: CT abdomen pelvis wo con DATE: 11/09/2019 07:21 INDICATION: Nausea, vomiting and abdominal pain TECHNIQUE: Computed tomography (CT) of the abdomen and pelvis was performed without intravenous contr ast. Automated exposure control and iterative reconstruction technique were employed. The dose-length product was 1205.86 mGy-cm. COMPARISON: 11/06/2019 FINDINGS: Scattered atelectasis in the bilateral lower lungs. Cardiomegaly. Atherosclerotic coronary artery charli cifications unchanged prior median sternotomy and coronary artery bypass grafting. Cholecystectomy cl ips at the gallbladder fossa. Liver, pancreas and bilateral adrenal glands are normal. Several spleni c calcifications consistent with old granulomatous disease. Severe bilateral renal atrophy. 1.5 cm le ft renal cyst. Bladder is decompressed around a Waddell catheter which limits evaluation. Prostatomegal y. No free intraperitoneal gas or fluid. No pathologically enlarged abdominal or pelvic lymphadenopat hy. There is extensive circumferential calcification of the rand of the aorta and numerous other art eries. Prominent skin thickening and edema at the incompletely visualized scrotum. There is some gas surrounding a partially visualized surgical drain at the right side of the scrotum. Moderate thoracol umbar spondylosis. Nasogastric tube tip in the distended stomach. There are 3 larger hernias situated to the left, right and cephalad to a small to moderate sized umbilical hernia, each containing segments of small bowel. Extending is more distal along the small bowel from the stomach a segment of dilated jejunum extends into the largest and widest mouthed hernia which is on the left. There is no obstruction at this poi nt with dilated bowel continuing to enter a second ventral hernia on the right side of the abdomen. T his point the bowel immediately proximal to the entrance of the hernia is dilated to 8.0 cm. A very s hort segment is present within the hernia but obstructs where it makes a 180 degrees turn as it exits the hernia sac with the remainder of the more distal small bowel remaining decompressed. 2 loops of the more distal decompressed small bowel 3 into the hernia sac on the right, a short segment of decom pressed bowel extends into the umbilical hernia and distal loops of small bowel extend into the large st on the right as well as the fourth moderate-sized ventral hernia near the midline immediately ceph alad to the umbilical hernia. Status post partial colectomy with anastomotic suture line along the si gmoid colon. The portion of the transverse colon extends into the largest left-sided hernia sac witho ut obstruction. Appendix is normal. IMPRESSION: 1. Umbilical and 3 separate additional ventral hernias each containing small bowel with high-grade ob struction occurring is one of the loops of bowel exits the hernia to the right of the umbilical herni a. 2. Cardiomegaly. 3. Severe bilateral renal atrophy. 4. Cellulitis and cast surrounding a surgical drain at the right side of the scrotum. Reviewed, dictated and finalized at location A. IMPRESSION: 1. Umbilical and 3 separate additional ventral hernias each containing small lynnette wel with high-grade obstruction occurring is one of the loops of bowel exits th e hernia to the right of the umbilical hernia. 2. Cardiomegaly. 3. Severe bilateral renal atrophy. 4. Cellulitis and cast surrounding a surgical drain at the right side of the sc rotum.
--- NOTE | 2019-11-06 00:34 | ED.GENADULT ---
HPI - General Adult General Chief complaint: Urogenital-Male Stated complaint: hole in bottom of testicle Time Seen by Provider: 11/06/19 00:06 History of Present Illness HPI narrative: He reports that his scrotum has been swollen for years. He thinks that he had it drained here in the distant past. He came in tonight because he believes that his testicle has a hole in it. He is not sure what happened but he believes that something tore a hole and it is now draining brown fluid. Related Data Home Medications Medication Instructions Recorded Confirmed aspirin 81 mg PO DAILY 04/20/19 10/08/19 atorvastatin 20 mg PO DAILY 04/20/19 10/08/19 cholecalciferol (vitamin D3) 125 mcg PO DAILY 04/20/19 10/08/19 [Vitamin D3] lidocaine-prilocaine 1 applic TOPICAL DIRECTED PRN 04/20/19 10/08/19 metoprolol tartrate 50 mg PO Q12H 04/20/19 10/08/19 sennosides-docusate sodium 1 tab-cap PO HS 04/20/19 10/08/19 [Senna-S] amiodarone 200 mg tablet 200 mg PO DAILY 06/06/19 10/08/19 sevelamer carbonate 3,200 mg PO TIDWM 10/08/19 10/08/19 temazepam [Restoril] 30 mg PO HS 11/06/19 Allergies Allergy/AdvReac Type Severity Reaction Status Date / Time salmon oil Allergy Anaphylaxis Verified 11/05/19 10:58 Review of Systems Review of Systems: All systems reviewed & are unremarkable except as noted in HPI and below Constitutional: Constitutional: Denies fever(s) ENT: Denies sore throat Cardiovascular: Cardiovascular: Denies chest pain Respiratory: Respiratory: Denies dyspnea Gastrointestinal: Gastrointestinal: Denies abdominal pain Genitourinary: Genitourinary: Reports testicular pain PMFSH Past Medical History Medical History Anemia Anxiety Arthritis Atrial flutter CAD (coronary artery disease) CHF (congestive heart failure) Depression Diabetes Dialysis patient Distal radius fracture, right Diverticulitis Fistula Food allergy HLD (hyperlipidemia) HTN (hypertension) Kidney failure Leg fracture bilateral, 2016 Myocardial infarct Seasonal allergies Shortness of breath Surgical History Surgical History H/O heart bypass surgery end of July 2018 History of cholecystectomy History of orthopedic surgery 2016 bilateral legs that were fractured. Family History Family History Mother Family history of diabetes mellitus in first degree relative Family history of malignant neoplasm of breast in first degree relative Sibling Patient's sister is in good health Patient's brother is in good health Father Patient's father is Diabetes mellitus Social History Social History Social History: He lives alone and has 2 children 2 boys. His ex- is the durable power commercial attorney for healthcare. The patient is disabled lifelong nonsmoker and denies any marijuana or illicit drugs. Smoking status: Never smoker Second hand tobacco smoke exposure: Yes Alcohol intake: current Drinks per week: 8 Substance use: never Gender identity (if verbalized by the patient): Male Spiritual care concerns: No Agree to blood products: Yes Exam Const: General: no acute distress, alert and ill appearing Orientation/consciousness: patient oriented x3 HENMT: Head: normal to inspection Resp: Effort & Inspection: normal respiratory effort Auscultation: clear to auscultation bilaterally, no rales, no rhonchi and no wheezes Cardio: Jugular venous distension: no JVD Rhythm: regular rhythm and abnormal rhythm irregularly irregular Heart sounds: no murmurs GI: Inspection: non-distended GI Palp: Yes Soft to palpation and No Tenderness to palpation present (GI) : Other: Scrotum very swollen and firm, especially on the right. Small area of purulent drainage on the posterior scrotu
[2019-11-06 01:19] LABS: Basophils Percent Auto 0.1 % (0.2-1.2); Eosinophils Absolute Auto 0.1 K/mm3 (0-0.3); Eosinophils Percent Auto 1.4 % (0-4.4); Hematocrit 30.1 % (42.0-52.0); Hemoglobin 9.2 g/dL (14.0-18.0); Immature Granulocyte Absolute 0.03 K/mm3 (0.00-0.031); Immature Granulocyte Percent A 0.4 % (0-0.5); Lymphocytes Absolute Auto 0.96 K/mm3 (0.9-3.2); Lymphocytes Percent Auto 12.5 % (18.3-44.2); Mean Corpuscular HGB Conc 30.6 g/dl (32-36); Mean Corpuscular Volume 101.3 fl (80-100); Mean Platelet Volume 10.3 fl (7.4-10.4); Monocytes Percent Auto 12.5 % (2.6-8.5); Neutrophils Absolute Auto 5.6 K/mm3 (1.3-6.7); Neutrophils Percent Auto 73.1 % (45.5-73.1); Platelet Count Result 170 k/mm3 (150-375); Red Blood Count 2.97 M/mm3 (4.6-6.20); Red Cell Distribution Width 20.2 % (11.5-14.5); White Blood Count 7.7 K/mm3 (4.5-10.0)
[2019-11-06 01:24] LABS: INR 1.4; Prothrombin Time 16.7 Seconds (11.1-14.7)
[2019-11-06 01:27] LABS: Alanine Aminotransferase 13 U/L (4-50); Albumin Level 3.4 g/dL (3.5-5.1); Alkaline Phosphatase 221 U/L (38-126); Anion Gap 17.5 mmol/L (7-16); Aspartate Amino Transferase 19 U/L (17-59); Bilirubin,Total 0.7 mg/dL (0.2-1.3); Blood Urea Nitrogen 26 mg/dL (9-20); Calcium 9.8 mg/dL (8.4-10.2); Carbon Dioxide 31 mmol/L (22-30); Chloride 91 mmol/L (98-107); Estimated CRCL calculation 16 ml/min; Estimated Glomerular Filt Rate 12; Glucose 120 mg/dL (75-110); Potassium 4.5 mmol/L (3.4-5.0); Sodium 135 mmol/L (137-145)
--- NOTE | 2019-11-06 02:01 | PC.NURSE ---
Per [facility] Reji verbal order read-back, no urine sample needed.
[2019-11-06 02:23] LABS: Lactic Acid Reflex 3.2 mmol/L (0.7-2.1)
--- NOTE | 2019-11-06 03:30 | ADMGEN ---
This patient, Beck Carney, was admitted to Medical Room 248-. Patient/family oriented to hospital policies and general routines including ID bracelet, bed and alarms, visiting hours, pain management, procedures, bathroom and other care routines, personal items, smoking policy, room service/diet, and visiting hours. Valuables list has been completed. Information on how to activate the Rapid Response Team has been discussed. Patient/Family are encouraged to report perceived risks to care and to ask questions if they do not understand what they are told or what they should do.
[2019-11-06 05:08] LABS: Reflex Lactic Acid Yes or No Add Lactic
[2019-11-06 05:36] LABS: Basophils Percent Auto 0.1 % (0.2-1.2); Eosinophils Absolute Auto 0.1 K/mm3 (0-0.3); Eosinophils Percent Auto 1.6 % (0-4.4); Hematocrit 30.1 % (42.0-52.0); Hemoglobin 9.3 g/dL (14.0-18.0); Immature Granulocyte Absolute 0.03 K/mm3 (0.00-0.031); Immature Granulocyte Percent A 0.4 % (0-0.5); Lymphocytes Absolute Auto 1.04 K/mm3 (0.9-3.2); Lymphocytes Percent Auto 15.4 % (18.3-44.2); Mean Corpuscular HGB Conc 30.9 g/dl (32-36); Mean Corpuscular Hemoglobin 31.2 pg (26-34); Monocytes Absolute Auto 0.8 K/mm3 (0.1-0.6); Monocytes Percent Auto 11.8 % (2.6-8.5); Neutrophils Absolute Auto 4.8 K/mm3 (1.3-6.7); Neutrophils Percent Auto 70.7 % (45.5-73.1); Platelet Count Result 155 k/mm3 (150-375); Red Blood Count 2.98 M/mm3 (4.6-6.20); Red Cell Distribution Width 20.1 % (11.5-14.5); White Blood Count 6.8 K/mm3 (4.5-10.0)
[2019-11-06 05:41] LABS: Lactic Acid 1.7 mmol/L (0.7-2.1)
[2019-11-06 05:47] LABS: Anion Gap 13.2 mmol/L (7-16); Blood Urea Nitrogen 26 mg/dL (9-20); Calcium 9.6 mg/dL (8.4-10.2); Carbon Dioxide 34 mmol/L (22-30); Chloride 90 mmol/L (98-107); Estimated CRCL calculation 15 ml/min; Estimated Glomerular Filt Rate 11; Glucose 81 mg/dL (75-110); Potassium 4.2 mmol/L (3.4-5.0); Sodium 133 mmol/L (137-145)
[2019-11-06] MEDS: SODIUM CHLORIDE 0.9% IV 1,000 ML 100 ML IV CONT (06:30)
--- NOTE | 2019-11-06 08:20 | PM.CNNEP ---
Assessment and Plan Assessment and plan (1) End-stage renal disease (ESRD): Code(s): N18.6 - End stage renal disease Status: Chronic Assessment and Plan: The patient has end-stage kidney disease. He received dialysis yesterday. We will do another treatment tomorrow. (2) Diabetes: Qualifiers: Diabetes mellitus type: type 2 Diabetes mellitus shelter insulin use: without shelter use Diabetes mellitus complication status: with kidney complications Diabetes mellitus complication detail: with chronic kidney disease Chronic kidney disease stage: on chronic dialysis Qualified Code(s): E11.22 - Type 2 diabetes mellitus with diabetic chronic kidney disease; N18.6 - End stage renal disease; Z99.2 - Dependence on renal dialysis Code(s): E11.9 - Type 2 diabetes mellitus without complications Status: Acute Assessment and Plan: He is on Accu-Cheks and sliding-scale insulin (3) Bilateral hydrocele: Code(s): N43.3 - Hydrocele, unspecified Status: Acute Assessment and Plan: Dr. Whyte is seeing the patient. (4) Anemia: Code(s): D64.9 - Anemia, unspecified Status: Acute Assessment and Plan: Hemoglobin is 9.3. He will get EPO on dialysis tomorrow. (5) HTN (hypertension): Code(s): I10 - Essential (primary) hypertension Status: Acute Assessment and Plan: Blood pressure is doing fairly well. History of Present Illness Reason for Consult Consult date: 11/06/19 Chief Complaint Chief complaint: Scrotal abscess, Dialysis patient History of Present Illness Narrative: Beck is a very pleasant 59-year-old gentleman who has multiple medical problems including end-stage renal disease on dialysis 3 times a w renal osteodystrophy, anemia of chronic kidney disease, atrial flutter, congestive heart failure, hyperlipidemiaeek, coronary disease status post bypass, hypertension, diabetes, right wrist fracture, and depression. Day before yesterday the patient sat funny on his scrotum . He went to dialysis yesterday and did okay. He went to see Dr. hill for his broken wrist yesterday which checked out fine. Then his scrotum began to give him trouble so he decided to go to the emergency room. Blood work showed anemia, and typical labs for a dialysis patient. His lactic acid level was a little high but then improved on repeat. CT scan was done which showed a complex right hydrocele, simple left hydrocele, and multiple ventral hernias containing bowel. He was admitted. He denies any nausea vomiting diarrhea or constipation. Review of Systems Constitutional: Constitutional: Reports no additional constitutional complaints Eyes: Eyes: Reports no additional eye complaints ENT: Reports system reviewed and no additional complaints, except as documented Cardiovascular: Cardiovascular: Reports no additional cardiovascular complaints Respiratory: Respiratory: Reports no additional respiratory complaints Gastrointestinal: Gastrointestinal: Reports no additional gastrointestinal complaints Genitourinary: Genitourinary: Reports no additional male genitourinary complaints Musculoskeletal: Musculoskeletal: Reports no additional musculoskeletal complaints Integumentary/Breasts: Skin/Breast: Reports system reviewed and no additional complaints, except as docu Neurologic: Reports system reviewed and no additional complaints, except as documented Psychiatric: Psychiatric: Reports no additional psychiatric complaints Endocrine: Endocrine: Reports no additional endocrine complaints [facility] Past Medical History Medical History Anemia Anxiety Arthritis Atrial flutter CAD (coronary artery disease) CHF (congestive heart failure) Depression Diabetes Dialysis patient Distal radius fracture, right Diverticulitis Fistula Food allergy HLD (hyperlipidemia) HTN (hy
--- NOTE | 2019-11-06 08:25 | WPDURCON ---
Assessment and Plan Assessment and plan (1) Abscess of scrotum: Code(s): N49.2 - Inflammatory disorders of scrotum Status: Acute (2) Bilateral hydrocele: Code(s): N43.3 - Hydrocele, unspecified Status: Acute Assessment and Plan: Incision/drainage small scrotal wall abscess. Bilat. hydrocelectomy. - Risk of scrotal hematoma (particularly since he's on ASA), recurrent abscesses, recurrent hydrocele accumulation explained. Urology Consult Note HPI Date Seen: 11/06/19 Requesting Physician: Myrna Boucher PA-C Primary Care Provider: Song Lindsey DO Consult Narrative Narrative: Beck Carney is a 59 year old male known to me from large bilat. hydrocelectomy in 2016. He's admitted thru ER with reaccumulation of hydrocele (R>>L) and small (1-2cm) spontaneously drained scrotal wall abscess. He denies fever/chills or significant voiding symptoms. Review of Systems Cardiovascular: Cardiovascular: Denies chest pain, Denies lightheadedness, Denies palpitations and Denies dyspnea Respiratory: Respiratory: Denies dyspnea Gastrointestinal: Gastrointestinal: Denies diarrhea, Denies nausea and Denies vomiting Genitourinary: Genitourinary: Denies hematuria, Denies dysuria and Reports scrotal swelling Endocrine: Endocrine: Denies palpitations PMFSH Past Medical History Medical History Anemia Anxiety Arthritis Atrial flutter CAD (coronary artery disease) CHF (congestive heart failure) Depression Diabetes Dialysis patient Distal radius fracture, right Diverticulitis Fistula Food allergy HLD (hyperlipidemia) HTN (hypertension) Kidney failure Leg fracture bilateral, 2016 Myocardial infarct Seasonal allergies Shortness of breath Surgical History Surgical History H/O heart bypass surgery end of July 2018 History of cholecystectomy History of orthopedic surgery 2016 bilateral legs that were fractured. Family History Family History Mother Family history of diabetes mellitus in first degree relative Family history of malignant neoplasm of breast in first degree relative Sibling Patient's sister is in good health Patient's brother is in good health Father Patient's father is Diabetes mellitus Social History Social History Social History: He lives alone and has 2 children 2 boys. His ex- is the durable power trial attorney for healthcare. The patient is disabled lifelong nonsmoker and denies any marijuana or illicit drugs. Smoking status: Never smoker Second hand tobacco smoke exposure: Yes Alcohol intake: current Drinks per week: 1 Substance use: never Gender identity (if verbalized by the patient): Male Spiritual care concerns: No Agree to blood products: Yes Meds Home Medications and Allergies Home Medications Medication Instructions Recorded Confirmed Type aspirin 81 mg PO DAILY 04/20/19 11/06/19 History atorvastatin 20 mg PO DAILY 04/20/19 11/06/19 History cholecalciferol (vitamin D3) 125 mcg PO DAILY 04/20/19 11/06/19 History [Vitamin D3] lidocaine-prilocaine 1 applic TOPICAL DIRECTED PRN 04/20/19 11/06/19 History metoprolol tartrate 50 mg PO Q12H 04/20/19 11/06/19 History sennosides-docusate sodium 1 tab-cap PO HS 04/20/19 11/06/19 History [Senna-S] amiodarone 200 mg tablet 200 mg PO BID 06/06/19 11/06/19 History lisinopril 20 mg tablet 20 mg PO DAILY #90 tablet 06/06/19 11/06/19 Rx sevelamer carbonate 3,200 mg PO TIDWM 10/08/19 11/06/19 History sodium polystyrene sulf-sorbtl 27.5 ml PO DAILY 11/06/19 11/06/19 History [SPS (with sorbitol)] temazepam [Restoril] 30 mg PO HS 11/06/19 11/06/19 History Allergies Allergy/AdvReac Type Severity Reaction Status Date / Time
[2019-11-06 09:45] LABS: Glucose Point of Care 76 (65-105)
--- NOTE | 2019-11-06 09:51 | WPDANESEPPF ---
Anes - Initial Pre Proc Eval Procedure: Operation Date: 11/06/19 10:00 Proposed Procedures p Incision and Drainage Scrotal Abscess - Parish Whyte MD s Bilateral Hydrocelectomy - Parish Whyte MD Date/Time: 11/06/19 09:51 Surgeon: Myrna Boucher PA-C Pre Op Diagnosis: Scrotal abscess, Dialysis patient Patient Data Age: 59 Gender: M Height: 1.73 m Weight: 94.5 kg Last Vital Signs Temp 36.3 C L 11/06/19 06:00 Pulse 84 11/06/19 06:00 Resp 21 H 11/06/19 06:00 BP 154/92 H 11/06/19 06:00 Pulse Ox 100 11/06/19 06:00 Allergies Allergy/AdvReac Type Severity Reaction Status Date / Time salmon oil Allergy Anaphylaxis Verified 11/05/19 10:58 Home Medications Medication Instructions Recorded Confirmed Type aspirin 81 mg PO DAILY 04/20/19 11/06/19 History atorvastatin 20 mg PO DAILY 04/20/19 11/06/19 History cholecalciferol (vitamin D3) 125 mcg PO DAILY 04/20/19 11/06/19 History [Vitamin D3] lidocaine-prilocaine 1 applic TOPICAL DIRECTED PRN 04/20/19 11/06/19 History metoprolol tartrate 50 mg PO Q12H 04/20/19 11/06/19 History sennosides-docusate sodium 1 tab-cap PO HS 04/20/19 11/06/19 History [Senna-S] amiodarone 200 mg tablet 200 mg PO BID 06/06/19 11/06/19 History lisinopril 20 mg tablet 20 mg PO DAILY #90 tablet 06/06/19 11/06/19 Rx sevelamer carbonate 3,200 mg PO TIDWM 10/08/19 11/06/19 History sodium polystyrene sulf-sorbtl 27.5 ml PO DAILY 11/06/19 11/06/19 History [SPS (with sorbitol)] temazepam [Restoril] 30 mg PO HS 11/06/19 11/06/19 History Laboratory Tests 11/06/19 11/06/19 11/06/19 01:02 01:02 01:02 WBC 7.7 K/mm3 K/mm3 (4.5-10.0) RBC 2.97 M/mm3 L M/mm3 (4.6-6.20) Hgb 9.2 g/dL L g/dL (14.0-18.0) Hct 30.1 % L % (42.0-52.0) MCV 101.3 fl H fl (80-100) MCH 31.0 pg pg (26-34) MCHC 30.6 g/dl L g/dl (32-36) RDW 20.2 % H % (11.5-14.5) Plt Count 170 k/mm3 k/mm3 (150-375) MPV 10.3 fl fl (7.4-10.4) Immature Gran % (Auto) 0.4 % % (0-0.5) Neut % (Auto) 73.1 % % (45.5-73.1) Lymph % (Auto) 12.5 % L % (18.3-44.2) [place] % (Auto) 12.5 % H % (2.6-8.5) Eos % (Auto) 1.4 % % (0-4.4) Baso % (Auto) 0.1 % L % (0.2-1.2) Lymph # (Auto) 0.96 K/mm3 K/mm3 (0.9-3.2) [place] # (Auto) 1.0 K/mm3 H K/mm3 (0.1-0.6) Eos # (Auto) 0.1 K/mm3 K/mm3 (0-0.3) Baso # (Auto) 0.0 K/mm3 K/mm3 (0.0-0.1) Abs Immat Gran (auto) 0.03 K/mm3 K/mm3 (0.00-0.031) Absolute Neuts (auto) 5.6 K/mm3 K/mm3 (1.3-6.7) Absolute Nucleated RBC 0.0 K/mm3 K/mm3 (0.0-0.012) Nucleated RBC % 0.0 % % (0.0-0.2) PT 16.7 Seconds H Seconds (11.1-14.7) INR 1.4 APTT 36.0 SECONDS SECONDS (22.3-36.8) Sodium 135 mmol/L L mmol/L (137-145) Potassium 4.5 mmol/L mmol/L (3.4-5.0) Chloride 91 mmol/L L mmol/L (98-107) Carbon Dioxide 31 mmol/L H mmol/L (22-30) Anion Gap 17.5 mmol/L H mmol/L (7-16) BUN 26 mg/dL H mg/dL (9-20) Creatinine 5.10 mg/dL H mg/dL (0.7-1.3) Estim Creat Clear Calc 16 ml/min ml/min Estimated GFR 12 L (59 - ) Glucose 120 mg/dL H mg/dL (75-110) POC Capillary Glucose Lactic Acid Calcium 9.8 mg/dL mg/dL (8.4-10.2) Total Bilirubin 0.7 mg/dL mg/dL (0.2-1.3) AST 19 U/L U/L (17-59) ALT 13 U/L U/L (4-50) Alkaline Phosphatase 221 U/L H U/L (38-126) Total Protein 7.0 g/dL g/dL (6.3-8.2) Albumin 3.4 g/dL L g/dL (3.5-5.1) 11/06/19 11/06/19 11/06/19 02:00 04:56 04:56 WBC 6.8 K/mm3 K/mm3 (4.5-10.0) RBC 2.98 M/mm3 L M/mm3 (4.6-6.20) Hgb 9.3 g/dL L g/dL (14.0-18.0
[2019-11-06] MEDS: LACTATED RINGERS 1,000 ML 30 ML IV CONT ×2 (10:08→12:27)
[2019-11-06 10:20] LABS: Glucose Point of Care 78 (65-105)
[2019-11-06] MEDS: LIDO 1%/EPINEPHRINE 1:100,000 20 ML VIAL INFILTRATE (11:25)
[2019-11-06 12:37] LABS: Glucose Point of Care 88 (65-105)
--- NOTE | 2019-11-06 12:48 | P.OP_ITS ---
Procedure Note - Detailed Date of procedure: 11/06/19 Pre-op diagnosis: Scrotal abscess, Dialysis patient Post-op diagnosis: same Procedure performed: 1. Incision/drainage scrotal abscess and excision scrotal mass 2. Left hydrocelectomy Description of procedure: Patient is brought to the operative suite was prepped and draped in routine sterile fashion while in a supine position after the uneventful induction of a general anesthetic. Culture is obtained from the site of the purulent drainage. Exploration with a Q-tip through that site the leads to a very large cavity filled with pus. Opened neck cavity via a midline scrotal incision. About 1 L of pus was drained and the scrotum was copiously irrigated with saline. There is some loculated hydroceles on the right side which were also drain. Has a moderate-sized left hydrocele which is treated by opening the tunica vaginalis widely. In addition to the pus on the right side of the hemiscrotum has a very large, 7 date cm well-organized, partially calcified phlegmon. This is excised in its entirety care taken to avoid any injury or compromise to the scrotal wall itself. I again irrigated the right hemiscrotum copiously. I placed 2-1/2 [place] drains and secured them with chromic sutures. I closed the dartos muscle very loosely with interrupted 4 0 chromic and closed the skin in a similar fashion. Blood loss about 50 cc. Anesthesia: GLMA Surgeon: Parish Whyte MD Estimated blood loss (mL): 50 Drains: Yes (1/2 [place] drains x2) Packing: No Pathology: yes Complications: No immediate complications Condition: stable Disposition: PACU
--- NOTE | 2019-11-06 13:48 | PM.IMHP ---
H&P: HPI History of Present Illness Date/Time: 11/06/19 13:48 Chief complaint: Scrotal abscess, Dialysis patient Narrative: Date of admission: 11/05/2019 Date of service: 11/06/2019 Beck Carney is a 59 year old male with a history of CKD on dialysis, CAD, CHF, and multiple other comorbidities who presented to the emergency department on 11/05/2019 with complaints of pain in his scrotum. He said he tore a hole in his scrotum 2 days ago. He was lifting himself up from the couch and caught his scrotum on a section of velcro and he believes this ripped the skin. He described this pain as 10/10. The following day, he noted maroon to brown drainage from the scrotum which prompted him to seek emergency care. He reports chronic scrotal swelling for approximately 2 years and has been followed by Dr. Whyte. He had a hydrocelectomy in 2016. CT showed a complex right hydrocele without definite scrotal abscess as well as a moderate to large simple appearing left hydrocele. He underwent incision and drainage of scrotal abscess and excision of scotal mass as well as left hydrocelectomy by Dr. Whyte today. He tolerated the procedure well and his pain is currently 3/10. He denies fever, chills, nausea, vomiting, abdominal pain, shortness of breath, cough, chest pain, weakness, dizziness, lightheadedness, headache, or confusion. Review of Systems Review of Systems: Narrative: A 12 point review of systems was reviewed with pertinent positives and negatives as per HPI. [facility] Past Medical History Medical History (Updated 11/06/19 @ 17:53 by Myrna Boucher PA-C) Anemia Anxiety Arthritis Atrial flutter CAD (coronary artery disease) CHF (congestive heart failure) EF 47% Depression Diabetes Diet controlled Dialysis patient MWF Distal radius fracture, right 11/02/19 Diverticulitis End-stage renal disease (ESRD) Fistula HLD (hyperlipidemia) HTN (hypertension) Leg fracture bilateral, 2016 Myocardial infarct Seasonal allergies Surgical History Surgical History (Updated 11/06/19 @ 17:27 by Myrna Boucher PA-C) H/O heart bypass surgery end of July 2018 History of cholecystectomy History of orthopedic surgery 2016 bilateral legs that were fractured. History of partial colectomy Family History Family History (Updated 11/06/19 @ 17:28 by Myrna Boucher PA-C) Mother Family history of diabetes mellitus in first degree relative Family history of malignant neoplasm of breast in first degree relative Father Patient's father is Diabetes mellitus Social History Social History (Updated 11/06/19 @ 17:30 by Myrna Boucher PA-C) Social History: The patient lives alone. He has two sons who check in on him. He designates his ex- Keke as his surrogate decision maker. He would like to be a full code. 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 Smoking status: Never smoker Second hand tobacco smoke exposure: Yes Alcohol intake: current Alcohol use details: 1 shot of liquor per day Substance use: never Living arrangements: alone Gender identity (if verbalized by the patient): Male Spiritual care concerns: No Agree to blood products: Yes Meds Home Medications and Allergies Home Medications Medication Instructions Recorded Confirmed Type aspirin 81 mg PO DAILY 04/20/19 11/06/19 History atorvastatin 20 mg PO DAILY 04/20/19 11/06/19 History cholecalciferol (vitamin D3) 125 mcg PO DAILY 04/20/19 11/06/19 History [Vitamin D3] lidocaine-prilocaine 1 applic TOPICAL DIRECTED PRN 04/20/19 11/06/19 History metoprolol tartrate 50 mg PO Q12H 04/20/19 11/06/19 History sennosides-docusate sodium 1 tab-cap PO HS 04/20/19 11/06/19 History [Senna-S] amiodarone 200 mg tablet 200 mg PO BID 06/06/19 11/06/19 History lisinopril 20 mg tablet 20 mg PO DAILY #90 tablet 06/06/19 11/06/19 Rx sevelamer carbonate 3,200 mg PO TIDWM 10/08/19 11/06/19 History sodium po
--- NOTE | 2019-11-06 14:32 | SUR.PHASEI ---
6350 REPORT FAXED TO [address] [place] [address].
[2019-11-06] MEDS: IMIPENEM/CILASTATIN SODIUM 200 MG in DEXTROSE 5% 100 ML 300 MG IVPB ×2 (14:52→21:49)
--- NOTE | 2019-11-06 16:02 | SUR.PHASEI ---
1340 DR CROWDER AWARE OF BP 149/109 HR 131- NO ORDERS RECEIVED AT THIS TIME.
[2019-11-06 18:03] LABS: Glucose Point of Care 116 (65-105)
[2019-11-06 18:56] LABS: Glucose Point of Care 119 (65-105)
[2019-11-06] MEDS: METOPROLOL TARTRATE 50 MG TAB PO (21:42)
[2019-11-06] MEDS: SENNA/DOCUSATE SODIUM TABLET 1 TAB PO (22:24)
[2019-11-07] VITALS (29 sets, daily range): BP systolic 55–159; BP diastolic 20–86; PULSE 56–111; RESP 18–20; TEMP 35.9–37; O2SAT 97–99
[2019-11-07 00:05] LABS: Glucose Point of Care 130 (65-105)
[2019-11-07] MEDS: IMIPENEM/CILASTATIN SODIUM 200 MG in DEXTROSE 5% 100 ML 300 MG IVPB ×4 (03:56→21:15)
[2019-11-07 05:29] LABS: Basophils Percent Auto 0.2 % (0.2-1.2); Hematocrit 33.5 % (42.0-52.0); Hemoglobin 9.9 g/dL (14.0-18.0); Immature Granulocyte Absolute 0.09 K/mm3 (0.00-0.031); Immature Granulocyte Percent A 0.8 % (0-0.5); Lymphocytes Absolute Auto 0.78 K/mm3 (0.9-3.2); Lymphocytes Percent Auto 7.1 % (18.3-44.2); Mean Corpuscular HGB Conc 29.6 g/dl (32-36); Mean Corpuscular Hemoglobin 30.8 pg (26-34); Mean Corpuscular Volume 104.4 fl (80-100); Mean Platelet Volume 10.6 fl (7.4-10.4); Monocytes Absolute Auto 0.9 K/mm3 (0.1-0.6); Neutrophils Absolute Auto 9.2 K/mm3 (1.3-6.7); Neutrophils Percent Auto 83.9 % (45.5-73.1); Platelet Count Result 193 k/mm3 (150-375); Red Blood Count 3.21 M/mm3 (4.6-6.20); Red Cell Distribution Width 20.5 % (11.5-14.5)
[2019-11-07 05:34] LABS: Hemoglobin A1C 4.7 % (<5.7)
[2019-11-07 05:49] LABS: Albumin Level 3.6 g/dL (3.5-5.1); Anion Gap 27.9 mmol/L (7-16); Blood Urea Nitrogen 37 mg/dL (9-20); Calcium 9.8 mg/dL (8.4-10.2); Carbon Dioxide 21 mmol/L (22-30); Chloride 89 mmol/L (98-107); Estimated CRCL calculation 12 ml/min; Estimated Glomerular Filt Rate 8; Glucose 101 mg/dL (75-110); Phosphorus 8.1 mg/dL (2.5-4.5); Potassium 6.9 mmol/L (3.4-5.0); Sodium 131 mmol/L (137-145)
[2019-11-07 06:30] LABS: Anisocytosis 2+ (NORMAL); Platelet Estimate Adequate (Adequate)
--- NOTE | 2019-11-07 06:43 | PC.NURSE ---
Dr Bush notified of critical K level stated to call director of early childhood to have them do dialysis earlier.
--- NOTE | 2019-11-07 06:46 | PC.NURSE ---
superintendent [facility] returned call and stated would get pt earlier.
--- NOTE | 2019-11-07 06:51 | WPDUROPN2 ---
Progress Note: A&P Assessment and Plan (1) Abscess of scrotum: Code(s): N49.2 - Inflammatory disorders of scrotum Status: Acute Assessment and Plan: Drainage of large amount of puss and excision of large, chronically inflamed tissue 11/05 should provide the bulk of treatment for his chronically infected scrotum -> should give him significant relief. Once cultures are complete, I anticipate discharge on oral abx. x2 weeks with daily dressing changes (just fresh 4x4's held in place by jock/compression shorts). If patient or caregiver (his ex-) can't provide, then home health care nurses may be in order. If cultures don't provide guidance, then I'd suggest Cipro 250mg bid (renal dosing). Has [address] If discharged this weekend, should f/u 5-7 days for drain removal. Subjective Subjective Date/Time Seen: 11/07/19 06:51 Comfortable, no complaints Review of Systems Cardiovascular: Cardiovascular: Denies chest pain, Denies lightheadedness, Denies palpitations and Denies dyspnea Respiratory: Respiratory: Denies dyspnea Gastrointestinal: Gastrointestinal: Denies diarrhea, Denies nausea and Denies vomiting Genitourinary: Genitourinary: Denies hematuria and Denies dysuria Endocrine: Endocrine: Denies palpitations Exam Const: General: no acute distress Resp: Effort & Inspection: normal respiratory effort GI: Inspection: non-distended GI Palp: No abdominal tenderness and No Guarding due to palpation present (GI) Auscultation: normal bowel sounds : Male General Exam: No tenderness and Yes other (scant serous drainage, scrotal incision clean and dry) Urinary Catheter: Urinary Catheter: patent and draining Objective Data Vital Signs Vital Signs: Vital Signs - 24 hr 11/06/19 09:27 11/06/19 12:27 11/06/19 12:40 Temperature 97.5 F L 99.7 F H Pulse Rate 98 107 H 85 Respiratory Rate 20 21 H 18 Blood Pressure 147/93 H 93/80 L 100/66 Pulse Oximetry 100 99 100 11/06/19 12:55 11/06/19 13:10 11/06/19 13:25 Temperature Pulse Rate 126 H 129 H 131 H Respiratory Rate 18 20 16 Blood Pressure 118/76 134/120 H 144/100 H Pulse Oximetry 100 100 94 11/06/19 13:40 11/06/19 13:55 11/06/19 14:10 Temperature Pulse Rate 131 H 132 H 99 Respiratory Rate 16 20 22 H Blood Pressure 149/109 H 151/86 H 162/86 H Pulse Oximetry 100 100 100 11/06/19 14:25 11/06/19 14:45 11/06/19 15:00 Temperature 99.0 F 98.3 F 98.6 F Pulse Rate 114 H 116 H 109 H Respiratory Rate 22 H 16 14 Blood Pressure 145/101 H 126/64 143/70 H Pulse Oximetry 96 100 100 11/06/19 15:30 11/06/19 16:00 11/06/19 16:30 Temperature 98.1 F 98.3 F Pulse Rate 93 110 H 125 H Respiratory Rate 18 16 Blood Pressure 143/86 H 149/99 H Pulse Oximetry 96 100 11/06/19 20:00 11/06/19 20:30 11/06/19 21:42 Temperature 97.7 F Pulse Rate 117 H 107 H 120 H Respiratory Rate 21 H Blood Pressure 149/92 H Pulse Oximetry 100 11/06/19 22:00 11/07/19 00:00 11/07/19 04:00 Temperature 97.7 F Pulse Rate 107 H 111 H 80 Respiratory Rate 21 H Blood Pressure 149/92 H Pulse Oximetry 100 11/07/19 06:00 Temperature 96.6 F L Pulse Rate 86 Respiratory Rate 20 Blood Pressure 135/71 Pulse Oximetry 99 Intake/Output Intake/Output: Intake & Output 11/04/19 11/05/19 11/06/19 11/07/19 23:59 23:59 23:59 23:59 Intake Total 1069 1171 Output Total 40 Balance 1029 1171 Meds/Results Medications: Active Medications Generic Name Dose Route Start Last Admin Trade Name Freq PRN Reason Stop Dose Admin Acetaminophen 650 mg 11/06/19 17:40 Tylenol Tablet PO Q4H PRN Pain 1-3 Hydrocodone Bitart/Acetaminophen 1 tab 11/06/19 17:41 Kodak 5-325 Mg PO Q4H PRN Pain Rated 4-6 Amiodarone HCl 200 mg 11/07/19 08:00 Pacerone PO [facility] Atorvastatin Calcium 20 mg 11/07/19 09:00 Lipitor PO DAILY [facility] Dextrose 12.5 gm 11/06/19 04:18
[2019-11-07] MEDS: GLUCOSE ORAL GEL 15 GM OF GLUCSE IN 37.5 GM TUBE PO (07:55)
--- NOTE | 2019-11-07 08:00 | WPDANESPN ---
Anes - Prog Note Post-Op Date/Time: 11/07/19 08:00 Cardiovascular status: normal Respiratory status: normal Airway patency: baseline Mental status: baseline Post-Op hydration status: normal Vital Signs: Last Vital Signs Temp 35.9 C L 11/07/19 06:00 Pulse 86 11/07/19 06:00 Resp 20 11/07/19 06:00 BP 135/71 11/07/19 06:00 Pulse Ox 99 11/07/19 06:00 I/O: Intake & Output 11/06/19 11/07/19 11/07/19 23:59 07:59 15:59 Intake Total 469 1171 Balance 469 1171 Laboratory Tests 11/07/19 04:54 11/06/19 11/06/19 11/06/19 06:33 10:17 12:34 WBC RBC Hgb Hct MCV MCH MCHC RDW Plt Count MPV Immature Gran % (Auto) Neut % (Auto) Lymph % (Auto) [place] % (Auto) Eos % (Auto) Baso % (Auto) Lymph # (Auto) [place] # (Auto) Eos # (Auto) Baso # (Auto) Abs Immat Gran (auto) Absolute Neuts (auto) Absolute Nucleated RBC Nucleated RBC % Platelet Estimate Anisocytosis Sodium Potassium Chloride Carbon Dioxide Anion Gap BUN Creatinine Estim Creat Clear Calc Estimated GFR Glucose POC Capillary Glucose 76 78 88 Hemoglobin A1c Calcium Phosphorus Albumin 11/06/19 11/06/19 11/06/19 18:00 18:53 22:02 WBC RBC Hgb Hct MCV MCH MCHC RDW Plt Count MPV Immature Gran % (Auto) Neut % (Auto) Lymph % (Auto) [place] % (Auto) Eos % (Auto) Baso % (Auto) Lymph # (Auto) [place] # (Auto) Eos # (Auto) Baso # (Auto) Abs Immat Gran (auto) Absolute Neuts (auto) Absolute Nucleated RBC Nucleated RBC % Platelet Estimate Anisocytosis Sodium Potassium Chloride Carbon Dioxide Anion Gap BUN Creatinine Estim Creat Clear Calc Estimated GFR Glucose POC Capillary Glucose 116 H 119 H 130 H Hemoglobin A1c Calcium Phosphorus Albumin 11/07/19 11/07/19 11/07/19 04:54 04:54 04:54 WBC 11.0 H RBC 3.21 L Hgb 9.9 L Hct 33.5 L MCV 104.4 H MCH 30.8 MCHC 29.6 L RDW 20.5 H Plt Count 193 MPV 10.6 H Immature Gran % (Auto) 0.8 H Neut % (Auto) 83.9 H Lymph % (Auto) 7.1 L [place] % (Auto) 8.0 Eos % (Auto) 0.0 Baso % (Auto) 0.2 Lymph # (Auto) 0.78 L [place] # (Auto) 0.9 H Eos # (Auto) 0.0 Baso # (Auto) 0.0 Abs Immat Gran (auto) 0.09 H Absolute Neuts (auto) 9.2 H Absolute Nucleated RBC 0.0 Nucleated RBC % 0.0 Platelet Estimate Adequate Anisocytosis 2+ Sodium 131 L Potassium 6.9 H* Chloride 89 L Carbon Dioxide 21 L Anion Gap 27.9 H BUN 37 H D Creatinine 6.80 H Estim Creat Clear Calc 12 Estimated GFR 8 L Glucose 101 POC Capillary Glucose Hemoglobin A1c 4.7 Calcium 9.8 Phosphorus 8.1 H Albumin 3.6 11/07/19 07:54 WBC RBC Hgb Hct MCV MCH MCHC RDW Plt Count MPV Immature Gran % (Auto) Neut % (Auto) Lymph % (Auto) [place] % (Auto) Eos % (Auto) Baso % (Auto) Lymph # (Auto) [place] # (Auto) Eos # (Auto) Baso # (Auto) Abs Immat Gran (auto) Absolute Neuts (auto) Absolute Nucleated RBC Nucleated RBC % Platelet Estimate Anisocytosis Sodium Potassium Pending Chloride Carbon Dioxide Anion Gap BUN Creatinine Estim Creat Clear Calc Estimated GFR Glucose POC Capillary Glucose Hemoglobin A1c Calcium Phosphorus Albumin Post-procedural complaints: none Patient Feedback: Patient satisfied with anesthetic care.
--- NOTE | 2019-11-07 08:10 | PHAR ---
RETACRIT INFO GUIDE SENT
[2019-11-07 08:12] LABS: Potassium 7.2 mmol/L (3.4-5.0)
[2019-11-07] MEDS: DEXTROSE 50% 25 GM/50 ML SYRINGE IV PUSH (08:20)
[2019-11-07 08:42] LABS: Glucose Point of Care 100 (65-105)
[2019-11-07] MEDS: EPOETIN ALFA-EPBX 10,000 UNITS/ML VIAL 10000 UNITS IV PUSH (10:04)
[2019-11-07] MEDS: CALCIUM GLUC 1,000 MG/NS 50 ML 1,000 MG/50 ML BAG 100 MG IVPB (10:10)
[2019-11-07 10:12] LABS: Glucose Point of Care 59 (65-105)
[2019-11-07 10:12] LABS: Glucose Point of Care 170 (65-105)
[2019-11-07 10:12] LABS: Glucose Point of Care 56 (65-105)
--- NOTE | 2019-11-07 11:06 | PM.IMPN ---
Progress Note: A&P Assessment and Plan (1) Abscess of scrotum: Code(s): N49.2 - Inflammatory disorders of scrotum Status: Acute Assessment and Plan: He underwent incision and drainage of scrotal abscess and excision of scotal mass as well as left hydrocelectomy by Dr. Whyte on 11/06/19. He tolerated the procedure well and his pain has been well controlled. continue IV Primaxin. will await results of cultures to guide further antibiotic therapy. Preliminary blood cultures with NGTD. Preliminary anaerobic cultures with no organism seen. Aerobic cultures are pending. analgesics as needed urology is following and recommendations are appreciated. Dressing changes and drain care per Urology. (2) Bilateral hydrocele: Code(s): N43.3 - Hydrocele, unspecified Status: Acute Assessment and Plan: s/p hydrocelectomy by Dr. Whyte as noted above. Urology recommendations are appreciated. Continue care as noted above (3) End-stage renal disease (ESRD): Code(s): N18.6 - End stage renal disease Status: Chronic Assessment and Plan: He is followed by Dr. Graf and receives hemodialysis on Sunday, Sunday, and Sunday. He had dialysis today. Renal function appears to be consistent with baseline. Nephrology has been consulted and recommendations are appreciated. Continue MWF schedule. (4) Hyperkalemia: Code(s): E87.5 - Hyperkalemia Status: Acute Assessment and Plan: Potassium was elevated this morning up to 7.2. He received IV calcium gluconate and he had hemodialysis. Repeat potassium this afternoon. Continue to monitor potassium closely. (5) HTN (hypertension): Code(s): I10 - Essential (primary) hypertension Status: Acute Assessment and Plan: Blood pressures have been generally well controlled. Antihypertensives were held prior to procedure. Continue metoprolol and lisinopril monitor blood pressures (6) Anemia: Qualifiers: Anemia type: due to chronic kidney disease Chronic kidney disease stage: on chronic dialysis Qualified Code(s): N18.6 - End stage renal disease; D63.1 - Anemia in chronic kidney disease; Z99.2 - Dependence on renal dialysis Code(s): D64.9 - Anemia, unspecified Status: Acute Assessment and Plan: Chronic, likely related to ESRD. H&H stable and consistent with baseline. Continue to monitor H&H and transfuse as needed (7) Type 2 diabetes mellitus without complication, with no history of insulin use: Code(s): E11.9 - Type 2 diabetes mellitus without complications Status: Chronic Assessment and Plan: A1c is 4.7. patient is not on any hypoglycemic agents and reports his diabetes is diet controlled. he had an episode of hypoglycemia this morning which improved with an amp of D50. Check updated A1c Continue Accu-Cheks ACHS, low dose sliding-scale insulin, and hypoglycemia protocol. He has not received any insulin during his stay. (8) CHF (congestive heart failure): Code(s): I50.9 - Heart failure, unspecified Status: Acute Assessment and Plan: Appears clinically compensated. Last known EF was 47%. IV fluids have been discontinued. Continue to closely monitor volume status. Monitor daily weights, I&Os, and heart healthy diet Subjective Date/time seen: 11/07/19 11:06 Interval history: Date of service: 11/07/2019 Mr. Carney is seen today while in dialysis and reports he is doing okay. His scrotal pain is well controlled /10. he feels very fatigued this morning. He reports he ate all of his breakfast, but he did have an episode of hypoglycemia this morning. He was noted to be confused and speaking somewhat nonsensically. This has resolved. He is bit tearful today and reports he feels somewhat overwhelmed by his multiple medical conditions. He was disappointed in him
[2019-11-07 11:28] LABS: Hepatitis B Surface Antigen Negative (Negative)
[2019-11-07 11:48] LABS: Hepatitis B Surface Anti Res Positive
[2019-11-07] MEDS: AMIODARONE HCL 200 MG TABLET PO ×2 (13:49→18:50)
[2019-11-07] MEDS: CHOLECALCIFEROL 1,000 UNIT TABLET 5000 UNITS PO (13:50)
[2019-11-07] MEDS: ATORVASTATIN 20 MG TABLET PO (13:50)
[2019-11-07] MEDS: METOPROLOL TARTRATE 50 MG TAB PO ×2 (13:51→21:15)
[2019-11-07] MEDS: EUCERIN CREAM 120 GM JAR 1 APPLIC TOPICAL (13:51)
[2019-11-07] MEDS: SEVELAMER CARBONATE 800 MG TABLET 3200 MG PO (13:52)
[2019-11-07 14:09] LABS: Glucose Point of Care 115 (65-105)
--- NOTE | 2019-11-07 16:52 | PM.PNNEP ---
Progress Note: A&P Assessment and Plan (1) End-stage renal disease (ESRD): Code(s): N18.6 - End stage renal disease Status: Chronic Assessment and Plan: The patient has end-stage kidney disease. He got dialysis this morning. His potassium was high. (2) Diabetes: Qualifiers: Diabetes mellitus type: type 2 Diabetes mellitus chcf insulin use: without chcf use Diabetes mellitus complication status: with kidney complications Diabetes mellitus complication detail: with chronic kidney disease Chronic kidney disease stage: on chronic dialysis Qualified Code(s): E11.22 - Type 2 diabetes mellitus with diabetic chronic kidney disease; N18.6 - End stage renal disease; Z99.2 - Dependence on renal dialysis Code(s): E11.9 - Type 2 diabetes mellitus without complications Status: Acute Assessment and Plan: He is on Accu-Cheks and sliding-scale insulin (3) Bilateral hydrocele: Code(s): N43.3 - Hydrocele, unspecified Status: Acute Assessment and Plan: Dr. Whyte Drained the hydrocele. (4) Anemia: Qualifiers: Anemia type: due to chronic kidney disease Chronic kidney disease stage: on chronic dialysis Qualified Code(s): N18.6 - End stage renal disease; D63.1 - Anemia in chronic kidney disease; Z99.2 - Dependence on renal dialysis Code(s): D64.9 - Anemia, unspecified Status: Acute Assessment and Plan: Hemoglobin is 9.3. He will get EPO on dialysis tomorrow. (5) HTN (hypertension): Code(s): I10 - Essential (primary) hypertension Status: Acute Assessment and Plan: Blood pressure is doing fairly well. Subjective Date/time seen: 11/07/19 16:52 Interval history: Paola is feeling better today. Much better since Dr Whyte drained the hydrocele. Review of Systems Cardiovascular: Cardiovascular: Reports no additional cardiovascular complaints Respiratory: Respiratory: Reports no additional respiratory complaints Gastrointestinal: Gastrointestinal: Reports no additional gastrointestinal complaints Genitourinary: Genitourinary: Reports no additional male genitourinary complaints Exam Narrative: Exam Narrative: WDWN in NAD skin no rash head ncat lungs clear cor reg no rub abd BS+ nontender and soft ext no edema. Objective Data Vital Signs Vital Signs: Vital Signs - 24 hr 11/06/19 20:00 11/06/19 20:30 11/06/19 21:42 Temperature 36.5 C Pulse Rate 117 H 107 H 120 H Respiratory Rate 21 H Blood Pressure 149/92 H Pulse Oximetry 100 11/06/19 22:00 11/07/19 00:00 11/07/19 04:00 Temperature 36.5 C Pulse Rate 107 H 111 H 80 Respiratory Rate 21 H Blood Pressure 149/92 H Pulse Oximetry 100 11/07/19 06:00 11/07/19 08:00 11/07/19 09:00 Temperature 35.9 C L 37.0 C Pulse Rate 86 89 104 H Respiratory Rate 20 20 Blood Pressure 135/71 137/77 Pulse Oximetry 99 11/07/19 09:04 11/07/19 09:15 11/07/19 09:30 Temperature 37.0 C Pulse Rate 94 98 89 Respiratory Rate 20 Blood Pressure 159/53 H 120/58 L 106/52 L Pulse Oximetry 11/07/19 10:00 11/07/19 10:15 11/07/19 10:30 Temperature Pulse Rate 70 81 73 Respiratory Rate Blood Pressure 88/30 L 98/44 L 123/53 L Pulse Oximetry 11/07/19 10:45 11/07/19 11:00 11/07/19 11:15 Temperature Pulse Rate 60 76 72 Respiratory Rate Blood Pressure 55/26 L 90/20 L 102/61 Pulse Oximetry 11/07/19 11:45 11/07/19 12:00 11/07/19 12:15 Temperature Pulse Rate 73 77 75 Respiratory Rate Blood Pressure 129/45 L 148/39 H 146/69 H Pulse Oximetry 11/07/19 12:30 11/07/19 12:35 11/07/19 12:38 Temperature 37.0 C Pulse Rate 77 84 80 Respiratory Rate 20 Blood Pressure 139/77 148/72 H 147/69 H Pulse Oximetry 11/07/19 13:03 11/07/19 13:49 11/07/19 13:51 Temperature 37.0 C Pulse Rate 88 88 Respiratory Rate Blood Pressure Pulse Oximetry 11/07/19
[2019-11-07 18:22] LABS: Potassium 4.7 mmol/L (3.4-5.0)
[2019-11-07 18:48] LABS: Vancomycin Trough 12.6 ug/mL (10.0-20.0)
[2019-11-07 19:02] LABS: Glucose Point of Care 87 (65-105)
[2019-11-07 20:43] LABS: Glucose Point of Care 131 (65-105)
[2019-11-07] MEDS: SENNA/DOCUSATE SODIUM TABLET 1 TAB PO (21:15)
[2019-11-08] VITALS (10 sets, daily range): BP systolic 143–166; BP diastolic 74–81; PULSE 77–94; RESP 18–20; TEMP 35.6–36.6; O2SAT 93–99
[2019-11-08] MEDS: IMIPENEM/CILASTATIN SODIUM 200 MG in DEXTROSE 5% 100 ML 300 MG IVPB ×4 (02:35→21:16)
[2019-11-08 05:33] LABS: Hematocrit 29.6 % (42.0-52.0); Hemoglobin 9.2 g/dL (14.0-18.0); Mean Corpuscular HGB Conc 31.1 g/dl (32-36); Mean Corpuscular Hemoglobin 30.7 pg (26-34); Mean Corpuscular Volume 98.7 fl (80-100); Mean Platelet Volume 10.3 fl (7.4-10.4); Platelet Count Result 174 k/mm3 (150-375); Red Cell Distribution Width 20.3 % (11.5-14.5); White Blood Count 9.3 K/mm3 (4.5-10.0)
[2019-11-08 05:51] LABS: Albumin Level 3.3 g/dL (3.5-5.1); Anion Gap 11 mmol/L (8-16); Blood Urea Nitrogen 26 mg/dL (9-20); Calcium 9.8 mg/dL (8.4-10.2); Carbon Dioxide 31 mmol/L (22-30); Chloride 87 mmol/L (98-107); Estimated CRCL calculation 17 ml/min; Estimated Glomerular Filt Rate 12; Glucose 150 mg/dL (75-110); Potassium 4.6 mmol/L (3.4-5.0); Sodium 129 mmol/L (137-145)
[2019-11-08] MEDS: ONDANSETRON INJ 4 MG/2 ML VIAL IV PUSH ×2 (06:26→21:17)
[2019-11-08 07:47] LABS: Glucose Point of Care 148 (65-105)
--- NOTE | 2019-11-08 08:14 | PM.IMPN ---
Progress Note: A&P Assessment and Plan (1) Abscess of scrotum: Code(s): N49.2 - Inflammatory disorders of scrotum Status: Acute Assessment and Plan: He underwent incision and drainage of scrotal abscess and excision of scotal mass as well as left hydrocelectomy by Dr. Whyte on 11/06/19. He tolerated the procedure well and his pain has been well controlled. continue IV Primaxin. will await results of cultures to guide further antibiotic therapy. Preliminary blood cultures with NGTD. Preliminary anaerobic cultures with no organism seen. Aerobic cultures are pending. analgesics as needed urology is following and recommendations are appreciated. Dressing changes and drain care per Urology. (2) Bilateral hydrocele: Code(s): N43.3 - Hydrocele, unspecified Status: Acute Assessment and Plan: s/p hydrocelectomy by Dr. Whyte as noted above. Urology recommendations are appreciated. Continue care as noted above (3) End-stage renal disease (ESRD): Code(s): N18.6 - End stage renal disease Status: Chronic Assessment and Plan: He is followed by Dr. Graf and receives hemodialysis on Sunday, Sunday, and Sunday. He had dialysis yesterday. Renal function appears to be consistent with baseline. Nephrology has been consulted and recommendations are appreciated. Continue MWF schedule. (4) Hyperkalemia: Code(s): E87.5 - Hyperkalemia Status: Acute Assessment and Plan: Potassium was elevated yesterday morning prior to dialysis but improved after hemodialysis. He received IV calcium gluconate and was monitored on telemetry. Continue to monitor potassium closely. (5) HTN (hypertension): Code(s): I10 - Essential (primary) hypertension Status: Acute Assessment and Plan: Blood pressures have been generally well controlled. Antihypertensives were held prior to procedure. Continue metoprolol and lisinopril Monitor blood pressures (6) Anemia: Qualifiers: Anemia type: due to chronic kidney disease Chronic kidney disease stage: on chronic dialysis Qualified Code(s): N18.6 - End stage renal disease; D63.1 - Anemia in chronic kidney disease; Z99.2 - Dependence on renal dialysis Code(s): D64.9 - Anemia, unspecified Status: Acute Assessment and Plan: Chronic, likely related to ESRD. H&H stable and consistent with baseline. Continue to monitor H&H and transfuse as needed (7) Type 2 diabetes mellitus without complication, with no history of insulin use: Code(s): E11.9 - Type 2 diabetes mellitus without complications Status: Chronic Assessment and Plan: A1c is 4.7. patient is not on any hypoglycemic agents and reports his diabetes is diet controlled. he had an episode of hypoglycemia 11/06 which improved with an amp of D50. Check updated A1c Continue Accu-Cheks ACHS, low dose sliding-scale insulin, and hypoglycemia protocol. He has not received any insulin during his stay. (8) CHF (congestive heart failure): Code(s): I50.9 - Heart failure, unspecified Status: Acute Assessment and Plan: Appears clinically compensated. Last known EF was 47%. IV fluids have been discontinued. Continue to closely monitor volume status. Monitor daily weights, I&Os, and heart healthy diet (9) Hyponatremia: Code(s): E87.1 - Hypo-osmolality and hyponatremia Status: Acute Assessment and Plan: Sodium levels have steadily declined. 129 today. Monitor sodium q4. Check urine sodium Subjective Date/time seen: 11/08/19 08:14 Interval history: Date of service: 11/08/2019 He is feeling okay today. He reports he had an episode of emesis this morning. Last night he had abdominal fullness and nausea. He believes that he ate too much too fast and felt quite bloated. He is feeling better this morning and eddy
[2019-11-08] MEDS: EUCERIN CREAM 120 GM JAR 1 APPLIC TOPICAL (08:18)
[2019-11-08] MEDS: ATORVASTATIN 20 MG TABLET PO (08:18)
[2019-11-08] MEDS: SEVELAMER CARBONATE 800 MG TABLET 3200 MG PO ×3 (08:18→17:43)
[2019-11-08] MEDS: CHOLECALCIFEROL 1,000 UNIT TABLET 5000 UNITS PO (08:18)
[2019-11-08] MEDS: AMIODARONE HCL 200 MG TABLET PO ×2 (08:19→17:19)
[2019-11-08] MEDS: METOPROLOL TARTRATE 50 MG TAB PO ×2 (08:20→21:22)
--- NOTE | 2019-11-08 10:58 | P.PNNP_ITS ---
Progress Note: A&P Assessment and Plan (1) End-stage renal disease (ESRD): Code(s): N18.6 - End stage renal disease Status: Chronic Assessment and Plan: * HD yesterday and continue // schedule * follow electrolytes, volume status, and clearance (2) Abscess of scrotum: Code(s): N49.2 - Inflammatory disorders of scrotum Status: Acute Assessment and Plan: * s/p I & D and lefft hydrocelectomy on 11/06/19 by Urology * on IV antibiotics * follow cultures * pain control * Urology following (3) HTN (hypertension): Code(s): I10 - Essential (primary) hypertension Status: Chronic Assessment and Plan: * reasonable control * suspect pain issues causing fluctuations * follow trend of hemodynamics (4) Anemia: Qualifiers: Anemia type: due to chronic kidney disease Chronic kidney disease stage: on chronic dialysis Qualified Code(s): N18.6 - End stage renal disease; D63.1 - Anemia in chronic kidney disease; Z99.2 - Dependence on renal dialysis Code(s): D64.9 - Anemia, unspecified Status: Chronic Assessment and Plan: * due to ESRD and recent procedures * Epogen with HD * follow trend of H/H (5) Hyperkalemia: Code(s): E87.5 - Hyperkalemia Status: Acute Assessment and Plan: * resolved with dialysis yesterday * follow trend (6) Hyponatremia: Code(s): E87.1 - Hypo-osmolality and hyponatremia Status: Acute Assessment and Plan: * related to ESRD * will try to compensate with dialysis prescription * asymptomatic (7) Diabetes: Qualifiers: Chronic kidney disease stage: on chronic dialysis Diabetes mellitus co mplication detail: with chronic kidney disease Diabetes mellitus complication status: with kidney complications Diabetes mellitus usp insulin use: without ferry terminal agent use Diabetes mellitus type: type 2 Qualified Code(s): E11.22 - Type 2 diabetes mellitus with diabetic chronic kidney disease; N18.6 - End stage renal disease; Z99.2 - Dependence on renal dialysis Code(s): E11.9 - Type 2 diabetes mellitus without complications Status: Acute Assessment and Plan: * follow accuchecks * on SSI Will continue to follow. Subjective Date/time seen: 11/08/19 10:58 Some nausea and vomiting along with abdominal bloating overnight/this AM which he attributes to eating too much to fast; tolerated dialysis treatment yesterday without any issues or problems; pain control appears satisfactory. Exam Narrative: Exam Narrative: General: WD/WN male in NAD Heart: normal S1 and S2; no rub Lungs: clear to auscultation Abdomen: soft, nontender, nondistended, positive bowel sounds Extremities: no cyanosis or clubbing; no edema Skin: warm and dry Objective Data Vital Signs Vital Signs: Vital Signs Temp Pulse Resp BP Pulse Ox 11/08/19 08:20 80 11/08/19 08:19 80 11/08/19 08:00 80 11/08/19 05:58 35.6 C L 77 20 143/74 H 93 11/08/19 04:00 90 11/08/19 00:00 94 11/07/19 21:15 96 11/07/19 20:00 36.1 C L 88 20 131/52 L 98 11/07/19 18:50 95 11/07/19 16:00 95 11/07/19 13:59 36.4 C L 56 L 18 132/86 97 11/07/19 13:51 88 11/07/19 13:49 88 11/07/19 13:03 37.0 C 11/07/19 12:38 37.0 C 80 2
--- NOTE | 2019-11-08 10:58 | PM.PNNEP ---
Progress Note: A&P Assessment and Plan (1) End-stage renal disease (ESRD): Code(s): N18.6 - End stage renal disease Status: Chronic Assessment and Plan: HD yesterday and continue M/W/ schedule follow electrolytes, volume status, and clearance (2) Abscess of scrotum: Code(s): N49.2 - Inflammatory disorders of scrotum Status: Acute Assessment and Plan: s/p I & D and lefft hydrocelectomy on 11/06/19 by Urology on IV antibiotics follow cultures pain control Urology following (3) HTN (hypertension): Code(s): I10 - Essential (primary) hypertension Status: Chronic Assessment and Plan: reasonable control suspect pain issues causing fluctuations follow trend of hemodynamics (4) Anemia: Qualifiers: Anemia type: due to chronic kidney disease Chronic kidney disease stage: on chronic dialysis Qualified Code(s): N18.6 - End stage renal disease; D63.1 - Anemia in chronic kidney disease; Z99.2 - Dependence on renal dialysis Code(s): D64.9 - Anemia, unspecified Status: Chronic Assessment and Plan: due to ESRD and recent procedures Epogen with HD follow trend of H/H (5) Hyperkalemia: Code(s): E87.5 - Hyperkalemia Status: Acute Assessment and Plan: resolved with dialysis yesterday follow trend (6) Hyponatremia: Code(s): E87.1 - Hypo-osmolality and hyponatremia Status: Acute Assessment and Plan: related to ESRD will try to compensate with dialysis prescription asymptomatic (7) Diabetes: Qualifiers: Chronic kidney disease stage: on chronic dialysis Diabetes mellitus complication detail: with chronic kidney disease Diabetes mellitus complication status: with kidney complications Diabetes mellitus long term care pharmacist insulin use: without retirement use Diabetes mellitus type: type 2 Qualified Code(s): E11.22 - Type 2 diabetes mellitus with diabetic chronic kidney disease; N18.6 - End stage renal disease; Z99.2 - Dependence on renal dialysis Code(s): E11.9 - Type 2 diabetes mellitus without complications Status: Acute Assessment and Plan: follow accuchecks on SSI Will continue to follow. Subjective Date/time seen: 11/08/19 10:58 Some nausea and vomiting along with abdominal bloating overnight/this AM which he attributes to eating too much to fast; tolerated dialysis treatment yesterday without any issues or problems; pain control appears satisfactory. Exam Narrative: Exam Narrative: General: WD/WN male in NAD Heart: normal S1 and S2; no rub Lungs: clear to auscultation Abdomen: soft, nontender, nondistended, positive bowel sounds Extremities: no cyanosis or clubbing; no edema Skin: warm and dry Objective Data Vital Signs Vital Signs: Vital Signs Temp Pulse Resp BP Pulse Ox 11/08/19 08:20 80 11/08/19 08:19 80 11/08/19 08:00 80 11/08/19 05:58 35.6 C L 77 20 143/74 H 93 11/08/19 04:00 90 11/08/19 00:00 94 11/07/19 21:15 96 11/07/19 20:00 36.1 C L 88 20 131/52 L 98 11/07/19 18:50 95 11/07/19 16:00 95 11/07/19 13:59 36.4 C L 56 L 18 132/86 97 11/07/19 13:51 88 11/07/19 13:49 88 11/07/19 13:03 37.0 C 11/07/19 12:38 37.0 C 80 20 147/69 H 11/07/19 12:35 84 148/72 H 11/07/19 12:30 77 139/77 11/07/19 12:15 75 146/69 H 11/07/19 12:00 77 148/39 H 11/07/19 11:45 73 129/45 L 11/07/19 11:15 72 102/61 11/07/19 11:00 76 90/20 L Intake/Output Intake/Output: Intake & Output 11/05/19 11/06/19 11/07/19 11/08/19 23:59 23:59 23:59 23:59 Intake Total 1069 1861 1040 Output Total 40 400 Balance 1029 1861 640 Meds/Results Medications: Active Medications Generic Name Dose Route Start Last Admin Trade Name Freq PRN Reason Stop Dose Admin Acetaminophen 650 mg 11/06/19 17:40 Tylenol Tablet PO
[2019-11-08 11:49] LABS: Glucose Point of Care 111 (65-105)
[2019-11-08] MEDS: CALCIUM CARBONATE (TUMS) 500 MG (200 MG ELEMENTAL) PO (12:12)
[2019-11-08] MEDS: SODIUM CHLORIDE 0.9% IV 1,000 ML 100 ML IV CONT (12:42)
[2019-11-08 14:01] LABS: Sodium 128 mmol/L (137-145)
[2019-11-08 17:46] LABS: Glucose Point of Care 112 (65-105)
[2019-11-08 18:13] LABS: Sodium 130 mmol/L (137-145)
[2019-11-08] MEDS: SENNA/DOCUSATE SODIUM TABLET 1 TAB PO (21:16)
[2019-11-08 21:45] LABS: Glucose Point of Care 123 (65-105)
[2019-11-08 22:42] LABS: Sodium 128 mmol/L (137-145)
[2019-11-09] VITALS (11 sets, daily range): BP systolic 131–149; BP diastolic 78–97; PULSE 80–94; RESP 12–20; TEMP 36.1–36.6; O2SAT 95–100
[2019-11-09 01:06] LABS: Sodium 126 mmol/L (137-145)
[2019-11-09] MEDS: IMIPENEM/CILASTATIN SODIUM 200 MG in DEXTROSE 5% 100 ML 300 MG IVPB ×4 (03:18→23:16)
[2019-11-09 03:29] LABS: Sodium Urine Random 102 meq/L
[2019-11-09 03:43] LABS: Creatinine Urine 39.4 mg/dL
[2019-11-09 05:38] LABS: Hematocrit 31.2 % (42.0-52.0); Hemoglobin 9.8 g/dL (14.0-18.0); Mean Corpuscular HGB Conc 31.4 g/dl (32-36); Mean Corpuscular Hemoglobin 30.6 pg (26-34); Mean Corpuscular Volume 97.5 fl (80-100); Mean Platelet Volume 10.1 fl (7.4-10.4); Platelet Count Result 179 k/mm3 (150-375); Red Cell Distribution Width 20.1 % (11.5-14.5); White Blood Count 9.4 K/mm3 (4.5-10.0)
[2019-11-09 06:01] LABS: Anion Gap 12 mmol/L (8-16); Blood Urea Nitrogen 38 mg/dL (9-20); Calcium 9.3 mg/dL (8.4-10.2); Carbon Dioxide 30 mmol/L (22-30); Chloride 85 mmol/L (98-107); Estimated CRCL calculation 15 ml/min; Estimated Glomerular Filt Rate 10; Glucose 119 mg/dL (75-110); Potassium 4.7 mmol/L (3.4-5.0); Sodium 127 mmol/L (137-145)
[2019-11-09 07:55] LABS: Glucose Point of Care 120 (65-105)
[2019-11-09 08:33] LABS: Glucose Point of Care 124 (65-105)
[2019-11-09] MEDS: METOPROLOL TARTRATE INJ 5 MG/5 ML VIAL IV PUSH ×3 (09:40→20:14)
[2019-11-09] MEDS: EUCERIN CREAM 120 GM JAR 1 APPLIC TOPICAL (09:40)
--- NOTE | 2019-11-09 10:30 | PC.NURSE ---
I called and left a message for pharmacy that I am still missing the 1000 dose of Primaxin.
--- NOTE | 2019-11-09 11:43 | PM.IMPN ---
Progress Note: A&P Assessment and Plan (1) Abscess of scrotum: Code(s): N49.2 - Inflammatory disorders of scrotum Status: Acute Assessment and Plan: He underwent incision and drainage of scrotal abscess and excision of scotal mass as well as left hydrocelectomy by Dr. Whyte on 11/06/19. He tolerated the procedure well and his pain has been well controlled. Continue IV Primaxin. Plan to transition to p.o. Cipro per urology recs when patient is no longer NPO. Preliminary BCx with NGTD. Wound cultures showed normal skin true in aerobic culture and no growth in anaerobic. uUrology is following and recommendations are appreciated. Dressing changes and drain care per Urology. (2) Bilateral hydrocele: Code(s): N43.3 - Hydrocele, unspecified Status: Acute Assessment and Plan: s/p hydrocelectomy by Dr. Whyte as noted above. Urology recommendations are appreciated. Continue care as noted above (3) Small bowel obstruction: Code(s): K56.609 - Unspecified intestinal obstruction, unspecified as to partial versus complete obstruction Status: Acute Assessment and Plan: CT shows umbilical and 3 separate ventral hernias each containing small bowel with high-grade obstruction in 1 of the loops of bowel. He has had several abdominal surgeries and hernia repairs in the past. Continue NG decompression General surgery is following and recommendations are appreciated. Plan for possible small bowel follow-through tomorrow. Transition medications to IV (4) End-stage renal disease (ESRD): Code(s): N18.6 - End stage renal disease Status: Chronic Assessment and Plan: He is followed by Dr. Graf and receives hemodialysis on Sunday, Sunday, and Sunday. He had dialysis yesterday. Renal function appears to be consistent with baseline. Nephrology has been consulted and recommendations are appreciated. Continue MWF schedule. (5) Hyperkalemia: Code(s): E87.5 - Hyperkalemia Status: Acute Assessment and Plan: Potassium was elevated 8/7 prior to dialysis but improved after hemodialysis. He received IV calcium gluconate and was monitored on telemetry. Continue to monitor potassium closely. (6) HTN (hypertension): Qualifiers: Hypertension type: essential hypertension Qualified Code(s): I10 - Essential (primary) hypertension Code(s): I10 - Essential (primary) hypertension Status: Chronic Assessment and Plan: Blood pressures have been generally well controlled. Antihypertensives were held prior to procedure. Hold lisinopril while NPO. Transition to IV Lopressor q.6 (7) Anemia: Qualifiers: Anemia type: due to chronic kidney disease Chronic kidney disease stage: on chronic dialysis Qualified Code(s): N18.6 - End stage renal disease; D63.1 - Anemia in chronic kidney disease; Z99.2 - Dependence on renal dialysis Code(s): D64.9 - Anemia, unspecified Status: Chronic Assessment and Plan: Chronic, likely related to ESRD. H&H stable and consistent with baseline. Continue to monitor H&H and transfuse as needed Plan to administer Epogen with next dialysis per nephrology (8) Type 2 diabetes mellitus without complication, with no history of insulin use: Code(s): E11.9 - Type 2 diabetes mellitus without complications Status: Chronic Assessment and Plan: A1c is 4.7. patient is not on any hypoglycemic agents and reports his diabetes is diet controlled. he had an episode of hypoglycemia 11/06 which improved with an amp of D50. Continue Accu-Cheks ACHS, low dose sliding-scale insulin, and hypoglycemia protocol. He has not received any insulin during his stay. (9) CHF (congestive heart failure): Code(s): I50.9 - Heart failure, unspecified Status: Acute Assessment and Plan: Appears clinically co
[2019-11-09 11:51] LABS: Glucose Point of Care 135 (65-105)
--- NOTE | 2019-11-09 14:08 | PM.CNGS ---
Assessment and Plan Assessment and plan (1) Incisional hernia of anterior abdominal wall with obstruction: Code(s): K43.0 - Incisional hernia with obstruction, without gangrene Status: Acute Assessment and Plan: patient has had these hernias for a very long time. I am pretty sure that I reduced the hernia where the small-bowel obstruction was occurring. Continue NG suction as he still has a lot of bowel dilatation and gastric content. Possibly get upper GI small-bowel follow-through tomorrow. Patient is a very poor candidate for surgery. Should he need surgery I would probably recommend transfer to a tertiary care facility as he has an extremely wide abdominal wall defect and some loss of abdominal domain. With his multiple medical problems and very difficult hernia repair, I think this should be done elsewhere. I will continue to follow the patient but hopefully this will resolve. (2) End-stage renal disease (ESRD): Code(s): N18.6 - End stage renal disease Status: Chronic (3) Type 2 diabetes mellitus without complication, with no history of insulin use: Code(s): E11.9 - Type 2 diabetes mellitus without complications Status: Chronic (4) CHF (congestive heart failure): Code(s): I50.9 - Heart failure, unspecified Status: Acute (5) ESRD (end stage renal disease): Code(s): N18.6 - End stage renal disease Status: Acute (6) Abscess of scrotum: Code(s): N49.2 - Inflammatory disorders of scrotum Status: Acute (7) Anemia in stage 4 chronic kidney disease: Code(s): N18.4 - Chronic kidney disease, stage 4 (severe); D63.1 - Anemia in chronic kidney disease Status: Chronic History of Present Illness Consult details Consult date: 11/09/19 Reason for consult: abdominal pain ( Bowel obstruction and hernias) Narrative: the patient is a 59-year-old man with multiple medical problems. He has end-stage renal disease and is on hemodialysis. He also has had coronary bypass grafting in carries a diagnosis of atrial fibrillation with rapid ventricular rate, congestive heart failure. He sees Dr. Marie for this. He was on Eliquis but is currently not on anticoagulants. He also has a history of ahi-hmlahsy-anohnjirk diabetes mellitus. He was admitted 3 days ago with a large scrotal abscess. He underwent drainage of this as well as excision of a large phlegmon and drainage of some hydroceles by on 11/06/19. patient had some nausea and vomiting yesterday. He felt he ate too much too fast. He has a history of diverticulitis in the . He had resection and colostomy. He then had colostomy closure. He went on to developed hernias after this surgery which she has had for many years. He had more emesis last night and an NG tube was placed. I was consulted for evaluation of small-bowel obstruction. A CT scan of the abdomen and pelvis was done and showed evidence of a small-bowel obstruction. It appeared that the point of obstruction was in 1 of the hernias just to the right of the umbilicus on the CT scan. I reviewed his CT scan and the patient has very significant abdominal hernias. He has a significant abdominal wall defect in the lower abdomen of at least 17 cm. It appears he has loss of abdominal domain. The point of obstruction is higher than the wide defect described previously. The patient does tell me that he feels quite a bit better since he has had the NG tube in place. He is no longer nauseated and is not having any crampy abdominal pain.He is seen now in consultation. It should also be noted that just last September, the patient developed a transient bacteremia while on dialysis and was treated with 7 or 10 days of vancomycin. Review of Systems Review of Systems: All systems reviewed & are unremarkable except as noted in HPI and below Constitutional: Constitutional: Denies chills and Denies fever(s) Cardiovascular: Cardiovascular: Denies amanda
--- NOTE | 2019-11-09 15:33 | P.PNNP_ITS ---
Progress Note: A&P Assessment and Plan (1) End-stage renal disease (ESRD): Code(s): N18.6 - End stage renal disease Status: Chronic Assessment and Plan: * HD tomorrow and continue // schedule * follow electrolytes, volume status, and clearance (2) Abscess of scrotum: Code(s): N49.2 - Inflammatory disorders of scrotum Status: Acute Assessment and Plan: * s/p I & D and lefft hydrocelectomy on 11/06/19 by Urology * on IV antibiotics * follow cultures * pain control * Urology following (3) HTN (hypertension): Qualifiers: Hypertension type: essential hypertension Qualified Code(s): I10 - Essential (primary) hypertension Code(s): I10 - Essential (primary) hypertension Status: Chronic Assessment and Plan: * reasonable control * suspect pain issues causing fluctuations * follow trend of hemodynamics (4) Anemia: Qualifiers: Anemia type: due to chronic kidney disease Chronic kidney disease stage: on chronic dialysis Qualified Code(s): N18.6 - End stage renal disease; D63.1 - Anemia in chronic kidney disease; Z99.2 - Dependence on renal dialysis Code(s): D64.9 - Anemia, unspecified Status: Chronic Assessment and Plan: * due to ESRD and recent procedures * Epogen with HD * follow trend of H/H (5) Hyperkalemia: Code(s): E87.5 - Hyperkalemia Status: Acute Assessment and Plan: * resolved with dialysis * follow trend (6) Hyponatremia: Code(s): E87.1 - Hypo-osmolality and hyponatremia Status: Acute Assessment and Plan: * related to ESRD * will try to compensate with dialysis prescription * asymptomatic (7) Diabetes: Qualifiers: Diabetes mellitus type: type 2 Diabetes mellitus termite control servicer insulin use: without termite control servicer use Diabetes mellitus complication status: with kidney complications Diabetes mellitus complication detail: with chronic kidney disease Chronic kidney disease stage: on chronic dialysis Qualified Code(s): E11.22 - Type 2 diabetes mellitus with diabetic chronic kidney disease; N18.6 - End stage renal disease; Z99.2 - Dependence on renal dialysis Code(s): E11.9 - Type 2 diabetes mellitus without complications Status: Acute Assessment and Plan: * follow accuchecks * on SSI Will continue to follow. Subjective Date/time seen: 11/09/19 15:33 Due to ongoing abdominal discomfort associated with nausea and vomiting, CT of abdomen/pelvis done today which demonstrated evidence of small bowel obstruction due his hernia; seen by Surgery who was able to reduce hernia. Exam Narrative: Exam Narrative: General: WD/WN male in NAD Heart: normal S1 and S2; no rub Lungs: clear to auscultation Abdomen: soft, nontender, nondistended, positive bowel sounds Extremities: no cyanosis or clubbing; no edema Skin: warm and intact Objective Data Vital Signs Vital Signs: Vital Signs Temp Pulse Resp BP Pulse Ox 11/09/19 14:00 36.3 C L 88 18 131/84 98 11/09/19 12:00 82 11/09/19 10:00 36.4 C 89 20 147/97 H 98 11/09/19 09:40 82 11/09/19 05:49 36.1 C L 94 16 148/79 H 96 11/08/19 22:00 36.3 C L 82 20 146/81 H 99 11/08/19 21:22 88 11/08/19 17:19 88 Intake/Output Intake/Output: Intake & Output
--- NOTE | 2019-11-09 15:33 | PM.PNNEP ---
Progress Note: A&P Assessment and Plan (1) End-stage renal disease (ESRD): Code(s): N18.6 - End stage renal disease Status: Chronic Assessment and Plan: HD tomorrow and continue M/W/F schedule follow electrolytes, volume status, and clearance (2) Abscess of scrotum: Code(s): N49.2 - Inflammatory disorders of scrotum Status: Acute Assessment and Plan: s/p I & D and lefft hydrocelectomy on 11/06/19 by Urology on IV antibiotics follow cultures pain control Urology following (3) HTN (hypertension): Qualifiers: Hypertension type: essential hypertension Qualified Code(s): I10 - Essential (primary) hypertension Code(s): I10 - Essential (primary) hypertension Status: Chronic Assessment and Plan: reasonable control suspect pain issues causing fluctuations follow trend of hemodynamics (4) Anemia: Qualifiers: Anemia type: due to chronic kidney disease Chronic kidney disease stage: on chronic dialysis Qualified Code(s): N18.6 - End stage renal disease; D63.1 - Anemia in chronic kidney disease; Z99.2 - Dependence on renal dialysis Code(s): D64.9 - Anemia, unspecified Status: Chronic Assessment and Plan: due to ESRD and recent procedures Epogen with HD follow trend of H/H (5) Hyperkalemia: Code(s): E87.5 - Hyperkalemia Status: Acute Assessment and Plan: resolved with dialysis follow trend (6) Hyponatremia: Code(s): E87.1 - Hypo-osmolality and hyponatremia Status: Acute Assessment and Plan: related to ESRD will try to compensate with dialysis prescription asymptomatic (7) Diabetes: Qualifiers: Diabetes mellitus type: type 2 Diabetes mellitus half-way insulin use: without manager terminal use Diabetes mellitus complication status: with kidney complications Diabetes mellitus complication detail: with chronic kidney disease Chronic kidney disease stage: on chronic dialysis Qualified Code(s): E11.22 - Type 2 diabetes mellitus with diabetic chronic kidney disease; N18.6 - End stage renal disease; Z99.2 - Dependence on renal dialysis Code(s): E11.9 - Type 2 diabetes mellitus without complications Status: Acute Assessment and Plan: follow accuchecks on SSI Will continue to follow. Subjective Date/time seen: 11/09/19 15:33 Due to ongoing abdominal discomfort associated with nausea and vomiting, CT of abdomen/pelvis done today which demonstrated evidence of small bowel obstruction due his hernia; seen by Surgery who was able to reduce hernia. Exam Narrative: Exam Narrative: General: WD/WN male in NAD Heart: normal S1 and S2; no rub Lungs: clear to auscultation Abdomen: soft, nontender, nondistended, positive bowel sounds Extremities: no cyanosis or clubbing; no edema Skin: warm and intact Objective Data Vital Signs Vital Signs: Vital Signs Temp Pulse Resp BP Pulse Ox 11/09/19 14:00 36.3 C L 88 18 131/84 98 11/09/19 12:00 82 11/09/19 10:00 36.4 C 89 20 147/97 H 98 11/09/19 09:40 82 11/09/19 05:49 36.1 C L 94 16 148/79 H 96 11/08/19 22:00 36.3 C L 82 20 146/81 H 99 11/08/19 21:22 88 11/08/19 17:19 88 Intake/Output Intake/Output: Intake & Output 11/06/19 11/07/19 11/08/19 11/09/19 23:59 23:59 23:59 23:59 Intake Total 1069 1861 2530 500 Output Total 40 420 25 Balance 1029 1861 2110 475 Meds/Results Medications: Active Medications Generic Name Dose Route Start Last Admin Trade Name Freq PRN Reason Stop Dose Admin Dextrose 12.5 gm 11/06/19 04:18 11/07/19 08:20 Dextrose 50% Syringe IV PUSH 12.5 gm PRN PRN Administration Hypoglycemia Protocol Glucagon 1 mg 11/06/19 04:18 Glucagon For Inj IM PRN PRN Hypoglycemia Protocol Glucose 15 gm 11/06/19 04:18 11/07/19 07:55 Glutose 15 PO 15 gm PRN PRN A
[2019-11-09] MEDS: MORPHINE SULFATE 2 MG/ML INJ IV PUSH ×2 (16:20→20:14)
[2019-11-09 16:33] LABS: Sodium 128 mmol/L (137-145)
[2019-11-09 18:09] LABS: Glucose Point of Care 109 (65-105)
[2019-11-09 22:38] LABS: Sodium 127 mmol/L (137-145)
[2019-11-10] VITALS (35 sets, daily range): BP systolic 126–185; BP diastolic 45–94; PULSE 75–95; RESP 12–20; TEMP 36.3–37; O2SAT 95–100
[2019-11-10 00:24] LABS: Glucose Point of Care 104 (65-105)
[2019-11-10] MEDS: METOPROLOL TARTRATE INJ 5 MG/5 ML VIAL IV PUSH ×4 (02:39→20:19)
[2019-11-10] MEDS: IMIPENEM/CILASTATIN SODIUM 200 MG in DEXTROSE 5% 100 ML 300 MG IVPB ×4 (03:03→22:06)
[2019-11-10 05:36] LABS: Basophils Percent Auto 0.1 % (0.2-1.2); Eosinophils Absolute Auto 0.1 K/mm3 (0-0.3); Eosinophils Percent Auto 1.4 % (0-4.4); Hematocrit 30.5 % (42.0-52.0); Hemoglobin 9.6 g/dL (14.0-18.0); Immature Granulocyte Absolute 0.02 K/mm3 (0.00-0.031); Immature Granulocyte Percent A 0.3 % (0-0.5); Lymphocytes Absolute Auto 0.59 K/mm3 (0.9-3.2); Lymphocytes Percent Auto 8.1 % (18.3-44.2); Mean Corpuscular HGB Conc 31.5 g/dl (32-36); Mean Corpuscular Hemoglobin 31.2 pg (26-34); Mean Platelet Volume 10.2 fl (7.4-10.4); Monocytes Absolute Auto 0.6 K/mm3 (0.1-0.6); Monocytes Percent Auto 8.6 % (2.6-8.5); Neutrophils Absolute Auto 5.9 K/mm3 (1.3-6.7); Neutrophils Percent Auto 81.5 % (45.5-73.1); Platelet Count Result 148 k/mm3 (150-375); Red Blood Count 3.08 M/mm3 (4.6-6.20); Red Cell Distribution Width 20.4 % (11.5-14.5); White Blood Count 7.3 K/mm3 (4.5-10.0)
[2019-11-10 05:53] LABS: Anion Gap 14 mmol/L (8-16); Blood Urea Nitrogen 45 mg/dL (9-20); Calcium 9.2 mg/dL (8.4-10.2); Carbon Dioxide 29 mmol/L (22-30); Chloride 84 mmol/L (98-107); Estimated CRCL calculation 11 ml/min; Estimated Glomerular Filt Rate 7; Glucose 93 mg/dL (75-110); Potassium 4.9 mmol/L (3.4-5.0); Sodium 127 mmol/L (137-145)
[2019-11-10 06:26] LABS: Glucose Point of Care 88 (65-105)
--- NOTE | 2019-11-10 06:39 | PC.NURSE ---
Patient pulled NG tube out between 0400 and 0600. Attempted to call Dr. Valerio's exchange and inform him of the condition update. Dr. Valerio came to the floor for rounds and this nurse informed Dr. Valerio face to face about the patient removing the NG tube. Per Dr. Valerio at this time okay to keep the NG tube out.
--- NOTE | 2019-11-10 07:10 | PM.PNGS ---
Progress Note: A&P Assessment and Plan (1) Incisional hernia of anterior abdominal wall with obstruction: Code(s): K43.0 - Incisional hernia with obstruction, without gangrene Status: Acute Assessment and Plan: Hernias reducible again this morning. Patient took in over a 1000 cc p.o. even with his NG tube in place. Will get Gastrografin upper GI small-bowel follow-through today. I suspect the obstruction has resolved. Hernia repair to be avoided if possible. (2) End-stage renal disease (ESRD): Code(s): N18.6 - End stage renal disease Status: Chronic (3) CHF (congestive heart failure): Code(s): I50.9 - Heart failure, unspecified Status: Acute (4) Abscess of scrotum: Code(s): N49.2 - Inflammatory disorders of scrotum Status: Acute Assessment and Plan: Drained on November 05 (5) Type 2 diabetes mellitus without complication, with no history of insulin use: Code(s): E11.9 - Type 2 diabetes mellitus without complications Status: Chronic Subjective Subjective Date/Time Seen: 11/10/19 07:10 Patient reports: no new complaints, feels better, pain is less and afebrile Review of Systems Constitutional: Constitutional: Denies chills, Denies fever(s) and Reports increased appetite Gastrointestinal: Gastrointestinal: Denies abdominal pain, Denies nausea and Denies vomiting Exam Const: General: comfortable and no acute distress; No confusion Orientation/consciousness: patient oriented x3 and No confusion GI: Inspection: scar, visible herniation ( multiple large hernias as before) and other ( Patient pulled his NG tube out early this morning.) GI Palp: Yes Soft to palpation, No Tenderness to palpation present (GI), No Guarding due to palpation present (GI), Yes Hernia present ( all hernias are reducible.) and No Rebound tenderness present Auscultation: normal bowel sounds Neuro: General: patient oriented x3, no focal motor deficits and No confusion Extrem: General: no calf tenderness and no edema Psych: Affect: normal affect Insight: Good insight present (Psych) Judgement: Good judgement present (Psych) Objective Data Vital Signs Vital Signs: Vital Signs - 24 hr 11/09/19 09:40 11/09/19 10:00 11/09/19 12:00 Temperature 36.4 C Pulse Rate 82 89 82 Respiratory Rate 20 Blood Pressure 147/97 H Pulse Oximetry 98 11/09/19 14:00 11/09/19 15:42 11/09/19 16:00 Temperature 36.3 C L Pulse Rate 88 80 88 Respiratory Rate 18 Blood Pressure 131/84 Pulse Oximetry 98 11/09/19 17:30 11/09/19 20:00 11/09/19 20:14 Temperature 36.6 C Pulse Rate 80 82 86 Respiratory Rate 20 Blood Pressure 148/78 H Pulse Oximetry 95 11/09/19 22:00 11/10/19 00:00 11/10/19 02:39 Temperature 36.5 C 36.6 C Pulse Rate 94 78 89 Respiratory Rate 12 16 Blood Pressure 149/83 H 141/52 H Pulse Oximetry 100 98 11/10/19 03:55 11/10/19 04:00 Temperature 36.5 C Pulse Rate 87 95 Respiratory Rate 12 Blood Pressure 126/94 H Pulse Oximetry 100 Intake/Output Intake/Output: Intake & Output 11/07/19 11/08/19 11/09/19 11/10/19 23:59 23:59 23:59 23:59 Intake Total 1861 2530 700 0 Output Total 420 50 180 Balance 1861 2110 650 -180 Meds/Results Medications: Active Medications Generic Name Dose Route Start Last Admin Trade Name Freq PRN Reason Stop Dose Admin Dextrose 12.5 gm 11/06/19 04:18 11/07/19 08:20 Dextrose 50% Syringe IV PUSH 12.5 gm PRN PRN Administration Hypoglycemia Protocol Epoetin Richard-epbx 10,000 units 11/10/19 18:28 Retacrit IV PUSH 11/10/19 18:29 ONCE ONE Glucagon 1 mg 11/06/19 04:18 Glucagon For Inj IM PRN PRN Hypoglycemia Protocol Glucose 15 gm 11/06/19 04:18 11/07/19 07:55 Glutose 15 PO 15 gm PRN PRN Administration Hypoglycemia Protocol Dextrose 1,000 mls @ 100 mls/hr 11/06/19 04:18 Dextrose 5% 1,000 Ml IVPB
--- NOTE | 2019-11-10 07:38 | WPDUROPN2 ---
Progress Note: A&P Assessment and Plan (1) Abscess of scrotum: Code(s): N49.2 - Inflammatory disorders of scrotum Status: Acute Assessment and Plan: Scrotum looks great - at least as good as a scrotum can look. Incision healing nicely, swelling/induration markedly improved. Scant serous drainage - one Jesse removed. Subjective Subjective Date/Time Seen: 11/10/19 07:38 Confused but in no apparent distress Review of Systems Review of Systems: ROS unobtainable: Yes unobtainable due to mental status Objective Data Vital Signs Vital Signs: Vital Signs - 24 hr 11/09/19 09:40 11/09/19 10:00 11/09/19 12:00 Temperature 97.6 F Pulse Rate 82 89 82 Respiratory Rate 20 Blood Pressure 147/97 H Pulse Oximetry 98 11/09/19 14:00 11/09/19 15:42 11/09/19 16:00 Temperature 97.3 F L Pulse Rate 88 80 88 Respiratory Rate 18 Blood Pressure 131/84 Pulse Oximetry 98 11/09/19 17:30 11/09/19 20:00 11/09/19 20:14 Temperature 97.8 F Pulse Rate 80 82 86 Respiratory Rate 20 Blood Pressure 148/78 H Pulse Oximetry 95 11/09/19 22:00 11/10/19 00:00 11/10/19 02:39 Temperature 97.7 F 97.9 F Pulse Rate 94 78 89 Respiratory Rate 12 16 Blood Pressure 149/83 H 141/52 H Pulse Oximetry 100 98 11/10/19 03:55 11/10/19 04:00 Temperature 97.7 F Pulse Rate 87 95 Respiratory Rate 12 Blood Pressure 126/94 H Pulse Oximetry 100 Intake/Output Intake/Output: Intake & Output 11/07/19 11/08/19 11/09/19 11/10/19 23:59 23:59 23:59 23:59 Intake Total 1861 2530 700 0 Output Total 420 50 180 Balance 1861 2110 650 -180 Meds/Results Medications: Active Medications Generic Name Dose Route Start Last Admin Trade Name Freq PRN Reason Stop Dose Admin Dextrose 12.5 gm 11/06/19 04:18 11/07/19 08:20 Dextrose 50% Syringe IV PUSH 12.5 gm PRN PRN Administration Hypoglycemia Protocol Epoetin Richard-epbx 10,000 units 08/10/20 18:28 Retacrit IV PUSH 11/10/19 18:29 ONCE ONE Glucagon 1 mg 11/06/19 04:18 Glucagon For Inj IM PRN PRN Hypoglycemia Protocol Glucose 15 gm 11/06/19 04:18 11/07/19 07:55 Glutose 15 PO 15 gm PRN PRN Administration Hypoglycemia Protocol Dextrose 1,000 mls @ 100 mls/hr 11/06/19 04:18 Dextrose 5% 1,000 Ml IVPB PRN PRN Hypoglycemia Protocol Vancomycin HCl 1,500 mg in 500 mls @ 333.333 mls/hr 11/06/19 05:05 Vancomycin 1,500 Mg/D5w 500 Ml IVPB PRN PRN DRUG LEVELS Imipenem/Cilastatin Sodium 200 100 mls @ 300 mls/hr 11/06/19 22:00 11/10/19 03:03 mg/ Dextrose IVPB 300 mls/hr Q6H SUDHA Administration Acetaminophen 1,000 mg in 100 mls @ 400 mls/hr 11/09/19 15:59 Ofirmev 1,000 Mg Ivpb IVPB 11/10/19 16:00 Q6H PRN Pain Rated 4-6, Fever Albumin Human 50 mls @ 999 mls/hr 11/10/19 06:28 Albutein IVPB 12/10/19 06:29 Q10M PRN HYPOTENSION Insulin Aspart 2 - 5 units 11/09/19 18:00 11/10/19 02:38 Novolog SUB-Q Not Given Q6HR [facility] Protocol Metoprolol Tartrate 5 mg 11/09/19 09:00 11/10/19 02:39 Lopressor Inj IV PUSH 5 mg Q6H SUDHA Administration Morphine Sulfate 2 mg 11/09/19 15:59 11/09/19 20:14 Morphine Sulfate Inj IV PUSH 2 mg Q4H PRN Administration Pain Rated 7-10 Multi-Ingred Cream/Lotion/Oil/Oint 1 applic 11/07/19 09:00 11/09/19 09:40 Minerin Creme TOPICAL 1 applic QAM SUDHA Administration Ondansetron HCl 4 mg 11/08/19 06:15 11/08/19 21:17 Zofran Inj IV PUSH 4 mg Q6H PRN Administration Nausea And Vomiting Radiology Results: ITS Impressions Abdomen/Pelvis CT 11/09/19 08:03 IMPRESSION: 1. Umbilical and 3 separate additional ventral hernias each containing small bowel with high-grade obstruction occurring is one of the loops of bowel exits the hernia to the right of the umbilical hernia. 2. Cardiomegaly. 3. Severe bilateral renal atrophy. 4
[2019-11-10] MEDS: EUCERIN CREAM 120 GM JAR 1 APPLIC TOPICAL (08:22)
--- NOTE | 2019-11-10 08:30 | PC.NURSE ---
I called the dialysis nurse to ask when they were going to do dialysis on the patient. They informed the charge nurse yesterday that the patient would be taken around 8 am. There was no answer. I will attempt again.
--- NOTE | 2019-11-10 09:30 | PCDIET ---
The patient is supposed to go down for a small bowel follow through, so I attempted to call the dialysis nurse again. There was no answer so we paged the water control station engineer dialysis nurse who stated that she would get ahold of the nurse who is supposed to be performing the dialysis on this patient and see what time he is going to take the patient for dialysis.
--- NOTE | 2019-11-10 11:08 | PM.IMPN ---
Progress Note: A&P Assessment and Plan (1) Abscess of scrotum: Code(s): N49.2 - Inflammatory disorders of scrotum Status: Acute Assessment and Plan: He underwent incision and drainage of scrotal abscess and excision of scotal mass as well as left hydrocelectomy by Dr. Whyte on 11/06/19. He tolerated the procedure well and his pain has been well controlled. Continue IV Primaxin. Plan to transition to p.o. Cipro per urology recs when patient is no longer NPO. Preliminary BCx with NGTD. Wound cultures showed normal skin true in aerobic culture and no growth in anaerobic. Urology is following and recommendations are appreciated. Dressing changes and drain care per Urology. (2) Bilateral hydrocele: Code(s): N43.3 - Hydrocele, unspecified Status: Acute Assessment and Plan: s/p hydrocelectomy by Dr. Whyte as noted above. Urology recommendations are appreciated. Continue care as noted above (3) Small bowel obstruction: Code(s): K56.609 - Unspecified intestinal obstruction, unspecified as to partial versus complete obstruction Status: Acute Assessment and Plan: CT shows umbilical and 3 separate ventral hernias each containing small bowel with high-grade obstruction in 1 of the loops of bowel. He has had several abdominal surgeries and hernia repairs in the past. He self discontinued his NG tube early this morning. General surgery is following and recommendations are appreciated. Believes that hernia causing obstruction was successfully reduced. He underwent small-bowel follow-through today and will await results. Continue NPO diet while awaiting results. (4) End-stage renal disease (ESRD): Code(s): N18.6 - End stage renal disease Status: Chronic Assessment and Plan: He is followed by Dr. Graf and receives hemodialysis on Sunday, Sunday, and Sunday. Renal function appears to be consistent with baseline. Nephrology has been consulted and recommendations are appreciated. Continue MWF schedule. Dialysis today. (5) Hyperkalemia: Code(s): E87.5 - Hyperkalemia Status: Acute Assessment and Plan: Potassium was elevated 8/7 prior to dialysis but improved after hemodialysis. He received IV calcium gluconate and was monitored on telemetry. Continue to monitor potassium closely. (6) HTN (hypertension): Qualifiers: Hypertension type: essential hypertension Qualified Code(s): I10 - Essential (primary) hypertension Code(s): I10 - Essential (primary) hypertension Status: Chronic Assessment and Plan: Blood pressures have been generally well controlled. Antihypertensives were held prior to procedure. Hold lisinopril while NPO. Continue IV Lopressor q.6 (7) Anemia: Qualifiers: Anemia type: due to chronic kidney disease Chronic kidney disease stage: on chronic dialysis Qualified Code(s): N18.6 - End stage renal disease; D63.1 - Anemia in chronic kidney disease; Z99.2 - Dependence on renal dialysis Code(s): D64.9 - Anemia, unspecified Status: Chronic Assessment and Plan: Chronic, likely related to ESRD. H&H stable and consistent with baseline. Continue to monitor H&H and transfuse as needed (8) Type 2 diabetes mellitus without complication, with no history of insulin use: Code(s): E11.9 - Type 2 diabetes mellitus without complications Status: Chronic Assessment and Plan: A1c is 4.7. patient is not on any hypoglycemic agents and reports his diabetes is diet controlled. he had an episode of hypoglycemia 11/06 which improved with an amp of D50. Continue Accu-Cheks ACHS, low dose sliding-scale insulin, and hypoglycemia protocol. He has not received any insulin during his stay. (9) CHF (congestive heart failure): Code(s): I50.9 - Heart failure, unspecified Status: Acute Assess
[2019-11-10 12:30] LABS: Glucose Point of Care 96 (65-105)
--- NOTE | 2019-11-10 14:00 | PCOTNOTE ---
Attempted OT evaluation. Patient in dialysis. will continue to attempt.
--- NOTE | 2019-11-10 14:01 | PCPTNOTE ---
Attempted PT evaluation. Patient in dialysis-unable to attempt eval. Jeannette Stoner PT
[2019-11-10] MEDS: EPOETIN ALFA-EPBX 10,000 UNITS/ML VIAL 10000 UNITS IV PUSH (16:40)
--- NOTE | 2019-11-10 16:50 | P.PNNP_ITS ---
Progress Note: A&P Assessment and Plan (1) End-stage renal disease (ESRD): Code(s): N18.6 - End stage renal disease Status: Chronic Assessment and Plan: * HD today and continue // schedule * follow electrolytes, volume status, and clearance (2) Abscess of scrotum: Code(s): N49.2 - Inflammatory disorders of scrotum Status: Acute Assessment and Plan: * s/p I & D and lefft hydrocelectomy on 11/06/19 by Urology * on IV antibiotics * follow cultures * pain control * Urology following (3) HTN (hypertension): Qualifiers: Hypertension type: essential hypertension Qualified Code(s): I10 - Essential (primary) hypertension Code(s): I10 - Essential (primary) hypertension Status: Chronic Assessment and Plan: * reasonable control * suspect pain issues causing fluctuations * follow trend of hemodynamics (4) Anemia: Qualifiers: Anemia type: due to chronic kidney disease Chronic kidney disease stage: on chronic dialysis Qualified Code(s): N18.6 - End stage renal disease; D63.1 - Anemia in chronic kidney disease; Z99.2 - Dependence on renal dialysis Code(s): D64.9 - Anemia, unspecified Status: Chronic Assessment and Plan: * due to ESRD and recent procedures * Epogen with HD * follow trend of H/H (5) Hyperkalemia: Code(s): E87.5 - Hyperkalemia Status: Acute Assessment and Plan: * resolved with dialysis * follow trend (6) Hyponatremia: Code(s): E87.1 - Hypo-osmolality and hyponatremia Status: Acute Assessment and Plan: * related to ESRD * will try to compensate with dialysis prescription * asymptomatic (7) Small bowel obstruction: Code(s): K56.609 - Unspecified intestinal obstruction, unspecified as to partial versus complete obstruction Status: Acute Assessment and Plan: * as noted by imaging * General Surgery following * manually reduced at bedside * NPO and follow-up on repeat imaging (8) Diabetes: Qualifiers: Diabetes mellitus type: type 2 Diabetes mellitus computer terminal operator insulin use: without fdc use Diabetes mellitus complication status: with kidney complications Diabetes mellitus complication detail: with chronic kidney disease Chronic kidney disease stage: on chronic dialysis Qualified Code(s): E11.22 - Type 2 diabetes mellitus with diabetic chronic kidney disease; N18.6 - End stage renal disease; Z99.2 - Dependence on renal dialysis Code(s): E11.9 - Type 2 diabetes mellitus without complications Status: Acute Assessment and Plan: * follow accuchecks * on SSI Will continue to follow. Subjective Date/time seen: 11/10/19 16:50 Tolerating dialysis treatment at this time without any issues or problems (seen on HD ~ 4:40PM); sleeping comfortably currently; no apparent distress voiced; no events overnight or earlier this AM. Exam Narrative: Exam Narrative: General: WD/WN male in NAD Heart: normal S1 and S2; no rub Lungs: clear to auscultation Abdomen: soft, nontender, nondistended, positive bowel sounds Extremities: no cyanosis or clubbing; no edema Skin: no rash Objective Data Vital Signs Vital Signs: Vital Signs Temp Pulse Resp BP Pulse Ox 11/10/19 16:45 82 161/51 H 11/10/19 16:28 78 126/58 L 11/10/19 16:15 85 153/51 H 11/10/19 16:00
--- NOTE | 2019-11-10 16:50 | PM.PNNEP ---
Progress Note: A&P Assessment and Plan (1) End-stage renal disease (ESRD): Code(s): N18.6 - End stage renal disease Status: Chronic Assessment and Plan: HD today and continue M/W/ schedule follow electrolytes, volume status, and clearance (2) Abscess of scrotum: Code(s): N49.2 - Inflammatory disorders of scrotum Status: Acute Assessment and Plan: s/p I & D and lefft hydrocelectomy on 11/06/19 by Urology on IV antibiotics follow cultures pain control Urology following (3) HTN (hypertension): Qualifiers: Hypertension type: essential hypertension Qualified Code(s): I10 - Essential (primary) hypertension Code(s): I10 - Essential (primary) hypertension Status: Chronic Assessment and Plan: reasonable control suspect pain issues causing fluctuations follow trend of hemodynamics (4) Anemia: Qualifiers: Anemia type: due to chronic kidney disease Chronic kidney disease stage: on chronic dialysis Qualified Code(s): N18.6 - End stage renal disease; D63.1 - Anemia in chronic kidney disease; Z99.2 - Dependence on renal dialysis Code(s): D64.9 - Anemia, unspecified Status: Chronic Assessment and Plan: due to ESRD and recent procedures Epogen with HD follow trend of H/H (5) Hyperkalemia: Code(s): E87.5 - Hyperkalemia Status: Acute Assessment and Plan: resolved with dialysis follow trend (6) Hyponatremia: Code(s): E87.1 - Hypo-osmolality and hyponatremia Status: Acute Assessment and Plan: related to ESRD will try to compensate with dialysis prescription asymptomatic (7) Small bowel obstruction: Code(s): K56.609 - Unspecified intestinal obstruction, unspecified as to partial versus complete obstruction Status: Acute Assessment and Plan: as noted by imaging General Surgery following manually reduced at bedside NPO and follow-up on repeat imaging (8) Diabetes: Qualifiers: Diabetes mellitus type: type 2 Diabetes mellitus senior living insulin use: without terminal press operator use Diabetes mellitus complication status: with kidney complications Diabetes mellitus complication detail: with chronic kidney disease Chronic kidney disease stage: on chronic dialysis Qualified Code(s): E11.22 - Type 2 diabetes mellitus with diabetic chronic kidney disease; N18.6 - End stage renal disease; Z99.2 - Dependence on renal dialysis Code(s): E11.9 - Type 2 diabetes mellitus without complications Status: Acute Assessment and Plan: follow accuchecks on SSI Will continue to follow. Subjective Date/time seen: 11/10/19 16:50 Tolerating dialysis treatment at this time without any issues or problems (seen on HD ~ 4:40PM); sleeping comfortably currently; no apparent distress voiced; no events overnight or earlier this AM. Exam Narrative: Exam Narrative: General: WD/WN male in NAD Heart: normal S1 and S2; no rub Lungs: clear to auscultation Abdomen: soft, nontender, nondistended, positive bowel sounds Extremities: no cyanosis or clubbing; no edema Skin: no rash Objective Data Vital Signs Vital Signs: Vital Signs Temp Pulse Resp BP Pulse Ox 11/10/19 16:45 82 161/51 H 11/10/19 16:28 78 126/58 L 11/10/19 16:15 85 153/51 H 11/10/19 16:00 80 171/61 H 11/10/19 15:45 82 142/71 H 11/10/19 15:30 81 165/61 H 11/10/19 15:15 78 144/78 H 11/10/19 15:00 83 131/67 11/10/19 14:45 87 168/55 H 11/10/19 14:30 89 152/49 H 11/10/19 14:15 90 135/57 L 11/10/19 14:10 87 185/45 H 11/10/19 13:45 36.7 C 87 20 152/51 H 11/10/19 12:30 36.9 C 82 18 146/68 H 98 11/10/19 12:00 84 11/10/19 10:29 36.9 C 86 20 142/76 H 98 11/10/19 08:22 88 11/10/19 08:19 37.0 C 84 20 147/64 H 97 11/10/19 08:00 87 11/10/19 04:00 95 11/10/19 0
--- NOTE | 2019-11-10 18:17 | PC.NURSE ---
Patient returned from dialysis. Medications given late due to being off the floor.
[2019-11-10] MEDS: AMIODARONE HCL 200 MG TABLET PO (18:18)
--- NOTE | 2019-11-10 18:31 | PC.NURSE ---
patient refused the oral glucose gel for a blood sugar of 68. Apple juice was given. Will recheck blood sugar in 15 minutes.
[2019-11-10] MEDS: DEXTROSE 50% 25 GM/50 ML SYRINGE IV PUSH (18:36)
[2019-11-10 18:38] LABS: Glucose Point of Care 68 (65-105)
[2019-11-10 18:55] LABS: Glucose Point of Care 140 (65-105)
[2019-11-10 20:57] LABS: Vancomycin Random 17.6 ug/mL (10-20)
[2019-11-10 23:24] LABS: Glucose Point of Care 83 (65-105)
[2019-11-11] VITALS (15 sets, daily range): BP systolic 114–147; BP diastolic 50–89; PULSE 75–92; RESP 18–22; TEMP 36.1–36.6; O2SAT 96–100
[2019-11-11] MEDS: MORPHINE SULFATE 2 MG/ML INJ IV PUSH ×2 (00:40→17:05)
[2019-11-11] MEDS: IMIPENEM/CILASTATIN SODIUM 200 MG in DEXTROSE 5% 100 ML 300 MG IVPB ×2 (03:35→10:53)
[2019-11-11] MEDS: METOPROLOL TARTRATE INJ 5 MG/5 ML VIAL IV PUSH ×2 (03:35→08:35)
[2019-11-11 05:17] LABS: Hematocrit 31.3 % (42.0-52.0); Hemoglobin 9.7 g/dL (14.0-18.0); Mean Corpuscular Hemoglobin 31.2 pg (26-34); Mean Corpuscular Volume 100.6 fl (80-100); Mean Platelet Volume 10.4 fl (7.4-10.4); Platelet Count Result 141 k/mm3 (150-375); Red Blood Count 3.11 M/mm3 (4.6-6.20); Red Cell Distribution Width 20.6 % (11.5-14.5); White Blood Count 8.2 K/mm3 (4.5-10.0)
[2019-11-11 05:39] LABS: Anion Gap 10 mmol/L (8-16); Blood Urea Nitrogen 28 mg/dL (9-20); Calcium 9.2 mg/dL (8.4-10.2); Carbon Dioxide 28 mmol/L (22-30); Chloride 93 mmol/L (98-107); Estimated CRCL calculation 16 ml/min; Estimated Glomerular Filt Rate 12; Glucose 88 mg/dL (75-110); Potassium 4.2 mmol/L (3.4-5.0); Sodium 131 mmol/L (137-145)
[2019-11-11 05:46] LABS: Glucose Point of Care 90 (65-105)
--- NOTE | 2019-11-11 07:15 | PM.PNGS ---
Progress Note: A&P Assessment and Plan (1) Incisional hernia of anterior abdominal wall with obstruction: Code(s): K43.0 - Incisional hernia with obstruction, without gangrene Status: Acute Assessment and Plan: Despite abnormal upper GI small-bowel follow-through, I suspect these hernias have been creating partial narrowing of the small bowel for a long time. Hernia repair would be quite difficult and in fact should it be necessary I would recommend transfer to a tertiary care center to have this done. He has significant abdominal wall defect and repair would be very high risk. For now would just recommend starting a diet and hopefully he will tolerated. I suspect his current state of herniation and partial bowel obstruction has been his baseline for some time. (2) CHF (congestive heart failure): Code(s): I50.9 - Heart failure, unspecified Status: Acute (3) End-stage renal disease (ESRD): Code(s): N18.6 - End stage renal disease Status: Chronic (4) Abscess of scrotum: Code(s): N49.2 - Inflammatory disorders of scrotum Status: Acute (5) Type 2 diabetes mellitus without complication, with no history of insulin use: Code(s): E11.9 - Type 2 diabetes mellitus without complications Status: Chronic (6) Anemia in stage 4 chronic kidney disease: Code(s): N18.4 - Chronic kidney disease, stage 4 (severe); D63.1 - Anemia in chronic kidney disease Status: Chronic Subjective Subjective Date/Time Seen: 11/11/19 07:15 Patient reports: feels better, pain is less ( no more abdominal pain, no nausea) and bowel movement ( several bowel movements after upper GI small-bowel series yesterday) Interval history: no abdominal pain or nausea. Wants to eat. Review of Systems Review of Systems: All systems reviewed & are unremarkable except as noted in HPI and below Constitutional: Constitutional: Denies chills, Reports daytime sleepiness, Denies fever(s) and Reports increased appetite Cardiovascular: Cardiovascular: Denies chest pain and Denies dyspnea Respiratory: Respiratory: Denies cough and Denies dyspnea Gastrointestinal: Gastrointestinal: Reports as per HPI, Denies abdominal pain, Denies nausea and Denies vomiting Neurologic: Denies confusion and Denies headache(s) Exam Const: General: comfortable and no acute distress; No confusion Orientation/consciousness: patient oriented x3 and No confusion GI: Inspection: non-distended, obesity, scar and visible herniation ( large hernias as before, very prominent.) GI Palp: Yes Soft to palpation, Yes Tenderness to palpation present (GI), No Guarding due to palpation present (GI), Yes Hernia present ( Hernias soft and reducible, no tenderness) and No Rebound tenderness present Auscultation: normal bowel sounds Neuro: General: patient oriented x3, no focal motor deficits and No confusion Extrem: General: no calf tenderness and no edema Objective Data Vital Signs Vital Signs: Vital Signs - 24 hr 11/10/19 08:00 11/10/19 08:19 11/10/19 08:22 Temperature 37.0 C Pulse Rate 87 84 88 Respiratory Rate 20 Blood Pressure 147/64 H Pulse Oximetry 97 11/10/19 10:29 11/10/19 12:00 11/10/19 12:30 Temperature 36.9 C 36.9 C Pulse Rate 86 84 82 Respiratory Rate 20 18 Blood Pressure 142/76 H 146/68 H Pulse Oximetry 98 98 11/10/19 13:45 11/10/19 14:10 11/10/19 14:15 Temperature 36.7 C Pulse Rate 87 87 90 Respiratory Rate 20 Blood Pressure 152/51 H 185/45 H 135/57 L Pulse Oximetry 11/10/19 14:30 11/10/19 14:45 11/10/19 15:00 Temperature Pulse Rate 89 87 83 Respiratory Rate Blood Pressure 152/49 H 168/55 H 131/67 Pulse Oximetry 11/10/19 15:15 11/10/19 15:30 11/10/19 15:45 Temperature Pulse Rate 78 81 82 Respiratory Rate Blood Pressure 144/78 H 165/61 H 142/71 H Pulse Oximetry 11/10/19 16:00 11/10/19 16:15 11/10/19 16:30 Temperature Pulse Rate 8
[2019-11-11] MEDS: AMIODARONE HCL 200 MG TABLET PO ×2 (08:36→17:03)
[2019-11-11] MEDS: EUCERIN CREAM 120 GM JAR 1 APPLIC TOPICAL (08:43)
--- NOTE | 2019-11-11 09:24 | P.PNNP_ITS ---
Progress Note: A&P Assessment and Plan (1) End-stage renal disease (ESRD): Code(s): N18.6 - End stage renal disease Status: Chronic Assessment and Plan: * HD tomorrow and continue // schedule * follow electrolytes, volume status, and clearance (2) Abscess of scrotum: Code(s): N49.2 - Inflammatory disorders of scrotum Status: Acute Assessment and Plan: * s/p I & D and left hydrocelectomy on 11/06/19 by Urology * on IV antibiotics * follow cultures * pain control * Urology following (3) HTN (hypertension): Qualifiers: Hypertension type: essential hypertension Qualified Code(s): I10 - Essential (primary) hypertension Code(s): I10 - Essential (primary) hypertension Status: Chronic Assessment and Plan: * reasonable control * suspect pain issues causing fluctuations * follow trend of hemodynamics (4) Anemia: Qualifiers: Anemia type: due to chronic kidney disease Chronic kidney disease stage: on chronic dialysis Qualified Code(s): N18.6 - End stage renal disease; D63.1 - Anemia in chronic kidney disease; Z99.2 - Dependence on renal dialysis Code(s): D64.9 - Anemia, unspecified Status: Chronic Assessment and Plan: * due to ESRD and recent procedures * Epogen with HD * follow trend of H/H (5) Hyperkalemia: Code(s): E87.5 - Hyperkalemia Status: Acute Assessment and Plan: * resolved with dialysis * follow trend (6) Hyponatremia: Code(s): E87.1 - Hypo-osmolality and hyponatremia Status: Acute Assessment and Plan: * related to ESRD * compensating with dialysis prescription * asymptomatic (7) Small bowel obstruction: Code(s): K56.609 - Unspecified intestinal obstruction, unspecified as to partial versus complete obstruction Status: Acute Assessment and Plan: * as noted by imaging * General Surgery following and recommendations noted * advance diet today (8) Diabetes: Qualifiers: Diabetes mellitus type: type 2 Diabetes mellitus intermediate insulin use: without intermediate use Diabetes mellitus complication status: with kidney complications Diabetes mellitus complication detail: with chronic kidney disease Chronic kidney disease stage: on chronic dialysis Qualified Code(s): E11.22 - Type 2 diabetes mellitus with diabetic chronic kidney disease; N18.6 - End stage renal disease; Z99.2 - Dependence on renal dialysis Code(s): E11.9 - Type 2 diabetes mellitus without complications Status: Acute Assessment and Plan: * follow accuchecks * on SSI Will continue to follow. Subjective Date/time seen: 11/11/19 09:24 Tolerated dialysis yesterday without any issues or problems; abdominal pain is better and has had several bowel movements; diet being advanced at this time. Exam Narrative: Exam Narrative: General: WD/WN male in NAD Heart: normal S1 and S2; no rub Lungs: clear to auscultation Abdomen: soft, nontender, nondistended, positive bowel sounds Extremities: no cyanosis or clubbing; no edema Skin: no nodules Objective Data Vital Signs Vital Signs: Vital Signs Temp Pulse Resp BP Pulse Ox 11/11/19 08:36 76 11/11/19 08:35 76 11/11/19 04:00 36.2 C L 76 18 138/83 96 11/11/19 03:35 77 11/11/19 00:00 36.2 C L 92 20 141/66 H 100
--- NOTE | 2019-11-11 09:24 | PM.PNNEP ---
Progress Note: A&P Assessment and Plan (1) End-stage renal disease (ESRD): Code(s): N18.6 - End stage renal disease Status: Chronic Assessment and Plan: HD tomorrow and continue M/W/F schedule follow electrolytes, volume status, and clearance (2) Abscess of scrotum: Code(s): N49.2 - Inflammatory disorders of scrotum Status: Acute Assessment and Plan: s/p I & D and left hydrocelectomy on 11/06/19 by Urology on IV antibiotics follow cultures pain control Urology following (3) HTN (hypertension): Qualifiers: Hypertension type: essential hypertension Qualified Code(s): I10 - Essential (primary) hypertension Code(s): I10 - Essential (primary) hypertension Status: Chronic Assessment and Plan: reasonable control suspect pain issues causing fluctuations follow trend of hemodynamics (4) Anemia: Qualifiers: Anemia type: due to chronic kidney disease Chronic kidney disease stage: on chronic dialysis Qualified Code(s): N18.6 - End stage renal disease; D63.1 - Anemia in chronic kidney disease; Z99.2 - Dependence on renal dialysis Code(s): D64.9 - Anemia, unspecified Status: Chronic Assessment and Plan: due to ESRD and recent procedures Epogen with HD follow trend of H/H (5) Hyperkalemia: Code(s): E87.5 - Hyperkalemia Status: Acute Assessment and Plan: resolved with dialysis follow trend (6) Hyponatremia: Code(s): E87.1 - Hypo-osmolality and hyponatremia Status: Acute Assessment and Plan: related to ESRD compensating with dialysis prescription asymptomatic (7) Small bowel obstruction: Code(s): K56.609 - Unspecified intestinal obstruction, unspecified as to partial versus complete obstruction Status: Acute Assessment and Plan: as noted by imaging General Surgery following and recommendations noted advance diet today (8) Diabetes: Qualifiers: Diabetes mellitus type: type 2 Diabetes mellitus senior living insulin use: without senior living use Diabetes mellitus complication status: with kidney complications Diabetes mellitus complication detail: with chronic kidney disease Chronic kidney disease stage: on chronic dialysis Qualified Code(s): E11.22 - Type 2 diabetes mellitus with diabetic chronic kidney disease; N18.6 - End stage renal disease; Z99.2 - Dependence on renal dialysis Code(s): E11.9 - Type 2 diabetes mellitus without complications Status: Acute Assessment and Plan: follow accuchecks on SSI Will continue to follow. Subjective Date/time seen: 11/11/19 09:24 Tolerated dialysis yesterday without any issues or problems; abdominal pain is better and has had several bowel movements; diet being advanced at this time. Exam Narrative: Exam Narrative: General: WD/WN male in NAD Heart: normal S1 and S2; no rub Lungs: clear to auscultation Abdomen: soft, nontender, nondistended, positive bowel sounds Extremities: no cyanosis or clubbing; no edema Skin: no nodules Objective Data Vital Signs Vital Signs: Vital Signs Temp Pulse Resp BP Pulse Ox 11/11/19 08:36 76 11/11/19 08:35 76 11/11/19 04:00 36.2 C L 76 18 138/83 96 11/11/19 03:35 77 11/11/19 00:00 36.2 C L 92 20 141/66 H 100 11/10/19 20:19 76 11/10/19 20:00 36.3 C L 75 18 126/54 L 95 11/10/19 18:47 36.6 C 84 18 148/76 H 96 11/10/19 18:40 36.6 C 86 20 148/76 H 100 11/10/19 18:19 95 11/10/19 18:18 95 11/10/19 18:00 36.6 C 85 18 161/68 H 11/10/19 17:40 82 150/64 H 11/10/19 17:30 82 167/81 H 11/10/19 17:15 82 142/82 H 11/10/19 17:00 85 154/82 H 11/10/19 16:45 82 161/51 H 11/10/19 16:30 78 126/58 L 11/10/19 16:15 85 153/51 H 11/10/19 16:00 82 171/61 H 11/10/19 15:45 82 142/71 H 11/10/19 15:30 81 165/6
[2019-11-11 11:07] LABS: Glucose Point of Care 113 (65-105)
--- NOTE | 2019-11-11 13:52 | PM.IMPN ---
Progress Note: A&P Assessment and Plan (1) Abscess of scrotum: Code(s): N49.2 - Inflammatory disorders of scrotum Status: Acute Assessment and Plan: He underwent incision and drainage of scrotal abscess and excision of scotal mass as well as left hydrocelectomy by Dr. Whyte on 11/06/19. He tolerated the procedure well and his pain has been well controlled. Will transition to Doxy Q12 and Cefdinir (nightly) today. Patient takes amiodarone and will refrain from cipro at this time. Likely continue antibiotics to complete 10 days total or per Urology recommendations Will defer urinary cath management to Urology Preliminary BCx with NGTD. Wound cultures showed normal skin true in aerobic culture and no growth in anaerobic. Urology is following and recommendations are appreciated. Dressing changes and drain care per Urology. (2) Bilateral hydrocele: Code(s): N43.3 - Hydrocele, unspecified Status: Acute Assessment and Plan: s/p hydrocelectomy by Dr. Whyte as noted above. Urology recommendations are appreciated. Continue care as noted above (3) Small bowel obstruction: Code(s): K56.609 - Unspecified intestinal obstruction, unspecified as to partial versus complete obstruction Status: Acute Assessment and Plan: CT shows umbilical and 3 separate ventral hernias each containing small bowel with high-grade obstruction in 1 of the loops of bowel. He has had several abdominal surgeries and hernia repairs in the past. General Surgery following and appreciate recommendations. Several BMs, no abd pain, tolerating diet thus far. General surgery is following and recommendations are appreciated. Diet advanced per General Surgery (4) End-stage renal disease (ESRD): Code(s): N18.6 - End stage renal disease Status: Chronic Assessment and Plan: He is followed by Dr. Graf and receives hemodialysis on Sunday, Sunday, and Sunday. Renal function appears to be consistent with baseline. Nephrology has been consulted and recommendations are appreciated. Continue MWF schedule. Dialysis today. (5) Hyperkalemia: Code(s): E87.5 - Hyperkalemia Status: Acute Assessment and Plan: Potassium was elevated 8/ prior to dialysis but improved after hemodialysis. He received IV calcium gluconate and was monitored on telemetry. Continue to monitor potassium closely. (6) HTN (hypertension): Qualifiers: Hypertension type: essential hypertension Qualified Code(s): I10 - Essential (primary) hypertension Code(s): I10 - Essential (primary) hypertension Status: Chronic Assessment and Plan: Blood pressures have been generally well controlled. Antihypertensives were held prior to procedure. Will resume home PO antihypertensives as patient tolerating diet (7) Anemia: Qualifiers: Anemia type: due to chronic kidney disease Chronic kidney disease stage: on chronic dialysis Qualified Code(s): N18.6 - End stage renal disease; D63.1 - Anemia in chronic kidney disease; Z99.2 - Dependence on renal dialysis Code(s): D64.9 - Anemia, unspecified Status: Chronic Assessment and Plan: Chronic, likely related to ESRD. H&H stable and consistent with baseline. Continue to monitor H&H and transfuse as needed Epogen per Nephrology recommendations (8) Type 2 diabetes mellitus without complication, with no history of insulin use: Code(s): E11.9 - Type 2 diabetes mellitus without complications Status: Chronic Assessment and Plan: A1c is 4.7. patient is not on any hypoglycemic agents and reports his diab
[2019-11-11] MEDS: CEFDINIR 300 MG CAPSULE PO (17:03)
[2019-11-11 17:56] LABS: Glucose Point of Care 94 (65-105)
[2019-11-11] MEDS: METOPROLOL TARTRATE 50 MG TAB PO (20:54)
[2019-11-11] MEDS: DOXYCYCLINE HYCLATE 100 MG TABLET PO (20:54)
[2019-11-11] MEDS: ACETAMINOPHEN 325 MG TABLET 650 MG PO (21:30)
[2019-11-11 21:34] LABS: Glucose Point of Care 160 (65-105)
[2019-11-12] VITALS (32 sets, daily range): BP systolic 122–178; BP diastolic 42–89; PULSE 62–97; RESP 16–22; TEMP 35.7–36.9; O2SAT 98–100
[2019-11-12] MEDS: ACETAMINOPHEN 325 MG TABLET 650 MG PO ×2 (03:37→08:45)
[2019-11-12 05:15] LABS: Hematocrit 30.2 % (42.0-52.0); Hemoglobin 9.4 g/dL (14.0-18.0); Mean Corpuscular HGB Conc 31.1 g/dl (32-36); Mean Corpuscular Hemoglobin 30.8 pg (26-34); Mean Platelet Volume 9.7 fl (7.4-10.4); Platelet Count Result 141 k/mm3 (150-375); Red Blood Count 3.05 M/mm3 (4.6-6.20); Red Cell Distribution Width 20.4 % (11.5-14.5)
[2019-11-12] MEDS: ONDANSETRON INJ 4 MG/2 ML VIAL IV PUSH (05:34)
[2019-11-12 05:35] LABS: Albumin Level 3.1 g/dL (3.5-5.1); Anion Gap 11 mmol/L (8-16); Blood Urea Nitrogen 32 mg/dL (9-20); Calcium 9.1 mg/dL (8.4-10.2); Carbon Dioxide 30 mmol/L (22-30); Chloride 91 mmol/L (98-107); Estimated CRCL calculation 12 ml/min; Estimated Glomerular Filt Rate 8; Glucose 79 mg/dL (75-110); Magnesium 2.1 mg/dL (1.6-2.3); Phosphorus 5.9 mg/dL (2.5-4.5); Potassium 4.3 mmol/L (3.4-5.0); Sodium 132 mmol/L (137-145)
[2019-11-12] MEDS: MORPHINE SULFATE 2 MG/ML INJ IV PUSH ×2 (06:09→10:55)
--- NOTE | 2019-11-12 07:02 | PM.PNGS ---
Progress Note: A&P Assessment and Plan (1) Incisional hernia of anterior abdominal wall with obstruction: Code(s): K43.0 - Incisional hernia with obstruction, without gangrene Status: Acute Assessment and Plan: Abdominal exam seems back to baseline. I would let the patient go ahead and he had again today. If has further vomiting, probably needs NG tube placed and transfer to tertiary care facility for repair of complicated hernias with partial small-bowel obstruction. (2) CHF (congestive heart failure): Code(s): I50.9 - Heart failure, unspecified Status: Chronic (3) Atrial fibrillation: Qualifiers: Atrial fibrillation type: unspecified Qualified Code(s): I48.91 - Unspecified atrial fibrillation Code(s): I48.91 - Unspecified atrial fibrillation Status: Chronic (4) Type 2 diabetes mellitus without complication, with no history of insulin use: Code(s): E11.9 - Type 2 diabetes mellitus without complications Status: Chronic (5) Anemia in stage 4 chronic kidney disease: Code(s): N18.4 - Chronic kidney disease, stage 4 (severe); D63.1 - Anemia in chronic kidney disease Status: Chronic (6) ESRD (end stage renal disease): Code(s): N18.6 - End stage renal disease Status: Chronic Subjective Subjective Date/Time Seen: 11/12/19 07:02 Patient reports: pain is less ( Denies abdominal pain.) and vomiting ( Had projectile emesis last night of large volume. No nausea or preceding symptoms. Not nauseated at present.) Review of Systems Review of Systems: All systems reviewed & are unremarkable except as noted in HPI and below Constitutional: Constitutional: Denies anorexia, Denies chills and Denies fever(s) Cardiovascular: Cardiovascular: Denies chest pain and Denies dyspnea Respiratory: Respiratory: Denies cough and Denies dyspnea Gastrointestinal: Gastrointestinal: Reports as per HPI, Denies abdominal pain, Denies GI cramping and Reports vomiting Neurologic: Denies confusion and Denies headache(s) Exam Const: General: comfortable and no acute distress; No confusion Orientation/consciousness: patient oriented x3 and No confusion GI: Inspection: non-distended, obesity, scar and visible herniation ( hernias obviously present. No observational changes.) GI Palp: Yes Soft to palpation, No Tenderness to palpation present (GI), No Guarding due to palpation present (GI), Yes Hernia present ( Hernias all reducible and nontender.) and No Rebound tenderness present Auscultation: normal bowel sounds Neuro: General: patient oriented x3, no focal motor deficits and No confusion Extrem: General: no calf tenderness and no edema Psych: Affect: normal affect Insight: Good insight present (Psych) Judgement: Good judgement present (Psych) Objective Data Vital Signs Vital Signs: Vital Signs - 24 hr 11/11/19 08:00 11/11/19 08:35 11/11/19 08:36 Temperature Pulse Rate 81 76 76 Respiratory Rate Blood Pressure Pulse Oximetry 11/11/19 10:00 11/11/19 12:00 11/11/19 14:00 Temperature 36.3 C L 36.4 C L Pulse Rate 75 79 76 Respiratory Rate 22 H 20 Blood Pressure 114/50 L 147/75 H Pulse Oximetry 97 99 11/11/19 16:00 11/11/19 17:03 11/11/19 18:00 Temperature 36.6 C Pulse Rate 88 79 81 Respiratory Rate 20 Blood Pressure 145/89 H Pulse Oximetry 99 11/11/19 20:00 11/11/19 20:54 11/11/19 22:00 Temperature 36.1 C L Pulse Rate 83 88 79 Respiratory Rate 20 Blood Pressure 120/58 L Pulse Oximetry 99 11/12/19 00:00 11/12/19 02:00 11/12/19 04:00 Temperature 36.2 C L Pulse Rate 79 87 78 Respiratory Rate 20 Blood Pressure 137/78 Pulse Oximetry 98 11/12/19 06:00 Temperature 35.7 C L Pulse Rate 85 Respiratory Rate 22 H Blood Pressure 158/89 H Pulse Oximetry 100 Intake/Output Intake/Output: Intake & Output 11/09/19 11/10/19 11/11/19 11/12/19 23:59 23:59 23:59 23:59 Inta
[2019-11-12 07:58] LABS: Glucose Point of Care 70 (65-105)
--- NOTE | 2019-11-12 08:00 | PC.NURSE ---
Waddell and pinrose drain removed by Evie Levin, ESPERANZA with urology. Patient tolerated procedure well. Will continue to monitor for pain, signs of infection and drainage to surgical/drain site.
[2019-11-12] MEDS: IMIPENEM/CILASTATIN SODIUM 200 MG in DEXTROSE 5% 100 ML 300 MG IVPB ×3 (08:45→20:38)
[2019-11-12] MEDS: AMIODARONE HCL 200 MG TABLET PO ×2 (08:46→20:31)
[2019-11-12] MEDS: METOPROLOL TARTRATE INJ 5 MG/5 ML VIAL IV PUSH ×3 (08:46→20:32)
[2019-11-12] MEDS: EUCERIN CREAM 120 GM JAR 1 APPLIC TOPICAL (08:47)
--- NOTE | 2019-11-12 10:27 | PCOTNOTE ---
Attempted to see patient this am, however patient declined stating he was nauseated and just vomited. Pt reported severe pain and waiting for pain pill. Family at bedside reported notifying nursing. Pt apologized, I'm sorry. Explained to patient no apologies necessary.
[2019-11-12 11:46] LABS: Glucose Point of Care 97 (65-105)
--- NOTE | 2019-11-12 12:10 | WPDUROPN2 ---
Progress Note: A&P Assessment and Plan (1) Abscess of scrotum: Code(s): N49.2 - Inflammatory disorders of scrotum Status: Acute Assessment and Plan: Catheter removed without difficutly, consuelo drain removed without difficutly. Incision continues to drain sanguinous drainage, no purulence present, sutures intact. Apply dry dressing daily and PRN, follow up in one week with Dr. Whyte. No further evaluation. Ok to discharge when otherwise stable. Subjective Subjective Date/Time Seen: 11/12/19 12:10 POD #6 Scrotal Abscess I&D Review of Systems Cardiovascular: Cardiovascular: Denies chest pain Respiratory: Respiratory: Reports no additional respiratory complaints Gastrointestinal: Gastrointestinal: Denies abdominal pain, Denies nausea and Denies vomiting Genitourinary: Genitourinary: Denies hematuria, Reports genital pain and Denies flank pain Exam Resp: Effort & Inspection: normal respiratory effort Cardio: Rate: regular rate GI: GI Palp: Yes Soft to palpation and No Tenderness to palpation present (GI) : General: Yes no CVA tenderness Meatus: Blood at meatus present Scrotum: edematous (improved) bilateral, erythematous (improved) bilateral and other (Incision is draining sanguinous drainage, no purulence, sutures intact) Testes: other (consuelo drain sutured in place, removed stich and drain without difficulty) Urinary Catheter: Urinary Catheter: patent and draining and urine clear Extrem: General: no edema Objective Data Vital Signs Vital Signs: Vital Signs - 24 hr 11/11/19 14:00 11/11/19 16:00 11/11/19 17:03 Temperature 97.5 F L Pulse Rate 76 88 79 Respiratory Rate 20 Blood Pressure 147/75 H Pulse Oximetry 99 11/11/19 18:00 11/11/19 20:00 11/11/19 20:54 Temperature 97.8 F Pulse Rate 81 83 88 Respiratory Rate 20 Blood Pressure 145/89 H Pulse Oximetry 99 11/11/19 22:00 11/12/19 00:00 11/12/19 02:00 Temperature 97.0 F L 97.2 F L Pulse Rate 79 79 87 Respiratory Rate 20 20 Blood Pressure 120/58 L 137/78 Pulse Oximetry 99 98 11/12/19 04:00 11/12/19 06:00 11/12/19 08:00 Temperature 96.3 F L Pulse Rate 78 85 90 Respiratory Rate 22 H Blood Pressure 158/89 H Pulse Oximetry 100 11/12/19 08:46 11/12/19 09:50 Temperature 97.8 F Pulse Rate 85 73 Respiratory Rate 20 Blood Pressure 144/88 H Pulse Oximetry 100 Intake/Output Intake/Output: Intake & Output 11/09/19 11/10/19 11/11/19 11/12/19 23:59 23:59 23:59 23:59 Intake Total 295 363 1058 890 Output Total 50 3230 50 Balance 650 -2730 1470 890 Meds/Results Medications: Active Medications Generic Name Dose Route Start Last Admin Trade Name Freq PRN Reason Stop Dose Admin Acetaminophen 650 mg 11/11/19 21:19 11/12/19 08:45 Tylenol Tablet PO 650 mg Q4H PRN Administration Mild Pain (1-3) Amiodarone HCl 200 mg 11/10/19 17:00 11/12/19 08:46 Pacerone PO 200 mg BID SUDHA Administration Dextrose 12.5 gm 11/06/19 04:18 11/10/19 18:36 Dextrose 50% Syringe IV PUSH 12.5 gm PRN PRN Administration Hypoglycemia Protocol Epoetin Richard-epbx 10,000 units 11/12/19 18:00 Retacrit IV PUSH 11/12/19 18:01 ONCE ONE Glucagon 1 mg 11/06/19 04:18 Glucagon For Inj IM PRN PRN Hypoglycemia Protocol Glucose 15 gm 11/06/19 04:18 11/07/19 07:55 Glutose 15 PO 15 gm PRN PRN Administration Hypoglycemia Protocol Dextrose 1,000 mls @ 100 mls/hr 11/06/19 04:18 Dextrose 5% 1,000 Ml IVPB PRN PRN Hypoglycemia Protocol Albumin Human 50 mls @ 999 mls/hr 11/10/19 06:28 Albutein IVPB 12/10/19 06:29 Q10M PRN HYPOTENSION Imipenem/Cilastatin Sodium 200 100 mls @ 300 mls/hr 11/12/19 08:00 11/12/19 09:05 mg/ Dextrose IVPB Infused Q6H SUDHA Infusion Vancomycin HCl 1,500 mg in 500 mls @ 333.333 mls/hr 11/12/19 07:33 Vancomycin 1,500 Mg/D5w 500 Ml IVPB
--- NOTE | 2019-11-12 14:56 | PM.IMPN ---
Progress Note: A&P Assessment and Plan (1) Small bowel obstruction: Code(s): K56.609 - Unspecified intestinal obstruction, unspecified as to partial versus complete obstruction Status: Acute Assessment and Plan: CT shows umbilical and 3 separate ventral hernias each containing small bowel with high-grade obstruction in 1 of the loops of bowel. He has had several abdominal surgeries and hernia repairs in the past. General Surgery following and appreciate recommendations. Given multiple episodes of emesis today and failed conservative treatment, General Surgery recommended transfer to tertiary care center. [facility] contacted and Dr. Whittaker, General Surgery, graciously accepts patient for further care; awaiting bed. General surgery is following and recommendations are appreciated. NGT placed per General Surgery rec NPO diet; may have amiodarone with sips of water (2) Abscess of scrotum: Code(s): N49.2 - Inflammatory disorders of scrotum Status: Acute Assessment and Plan: He underwent incision and drainage of scrotal abscess and excision of scrotal mass as well as left hydrocelectomy by Dr. Whyte on 11/06/19. He tolerated the procedure well and his pain has been well controlled. Waddell and consuelo drain removed per Urology; okay for discharge from Urology standpoint. Final BCx with negative. Wound cultures showed normal skin true in aerobic culture and no growth in anaerobic. Urology is following and recommendations are appreciated. Dressing changes and drain care per Urology. Switched over to IV vanc and primaxin today as patient was vomiting and not tolerating diet due to SBO; plan to complete 10 days total of antibiotics (day 10/09, plan to finish 11/14) Follow up with Urology as outpatient (3) Bilateral hydrocele: Code(s): N43.3 - Hydrocele, unspecified Status: Acute Assessment and Plan: s/p hydrocelectomy by Dr. Whyte as noted above. Urology recommendations are appreciated. Continue care as noted above (4) End-stage renal disease (ESRD): Code(s): N18.6 - End stage renal disease Status: Chronic Assessment and Plan: He is followed by Dr. Graf and receives hemodialysis on Sunday, Sunday, and Sunday. Renal function appears to be consistent with baseline. Nephrology has been consulted and recommendations are appreciated. Continue MWF schedule. Dialysis today. (5) Hyperkalemia: Code(s): E87.5 - Hyperkalemia Status: Acute Assessment and Plan: Potassium was elevated 11/06 prior to dialysis but improved after hemodialysis. He received IV calcium gluconate and was monitored on telemetry. Continue to monitor potassium closely. (6) HTN (hypertension): Qualifiers: Hypertension type: essential hypertension Qualified Code(s): I10 - Essential (primary) hypertension Code(s): I10 - Essential (primary) hypertension Status: Chronic Assessment and Plan: Blood pressures have been generally well controlled. Will hold PO home antihypertensives due to NPO status Switch to IV lopressor 5 mg Q6 for BP and a. fib (7) Anemia: Qualifiers: Anemia type: due to chronic kidney disease Chronic kidney disease stage: on chronic dialysis Qualified Code(s): N18.6 - End stage renal disease; D63.1 - Anemia in chronic kidney disease; Z99.2 - Dependence on renal dialysis Code(s): D64.9 - Anemia, unspecified Status: Chronic Assessment and Plan: Chronic, likely related to ESRD. H&H stable and consistent with baseline. Continue to monitor H&H and transfuse as needed Epogen per Nephrology recommendations
--- NOTE | 2019-11-12 15:30 | PC.NURSE ---
Patient to dialysis via hospital bed.
--- NOTE | 2019-11-12 16:30 | P.PNNP_ITS ---
Progress Note: A&P Assessment and Plan (1) End-stage renal disease (ESRD): Code(s): N18.6 - End stage renal disease Status: Chronic Assessment and Plan: * HD todayand continue // schedule * follow electrolytes, volume status, and clearance (2) Abscess of scrotum: Code(s): N49.2 - Inflammatory disorders of scrotum Status: Acute Assessment and Plan: * s/p I & D and left hydrocelectomy on 11/06/19 by Urology * on IV antibiotics * follow cultures * pain control * Urology following (3) HTN (hypertension): Qualifiers: Hypertension type: essential hypertension Qualified Code(s): I10 - Essential (primary) hypertension Code(s): I10 - Essential (primary) hypertension Status: Chronic Assessment and Plan: * reasonable control * suspect pain issues causing fluctuations * follow trend of hemodynamics (4) Anemia: Qualifiers: Anemia type: due to chronic kidney disease Chronic kidney disease stage: on chronic dialysis Qualified Code(s): N18.6 - End stage renal disease; D63.1 - Anemia in chronic kidney disease; Z99.2 - Dependence on renal dialysis Code(s): D64.9 - Anemia, unspecified Status: Chronic Assessment and Plan: * due to ESRD and recent procedures * Epogen with HD * follow trend of H/H (5) Hyperkalemia: Code(s): E87.5 - Hyperkalemia Status: Acute Assessment and Plan: * resolved with dialysis * follow trend (6) Hyponatremia: Code(s): E87.1 - Hypo-osmolality and hyponatremia Status: Acute Assessment and Plan: * related to ESRD * compensating with dialysis prescription * asymptomatic (7) Small bowel obstruction: Code(s): K56.609 - Unspecified intestinal obstruction, unspecified as to partial versus complete obstruction Status: Acute Assessment and Plan: * as noted by imaging * General Surgery following and recommendations noted * plan transfer to [facility] for further evaluation (8) Diabetes: Qualifiers: Diabetes mellitus type: type 2 Diabetes mellitus correction insulin use: without correction use Diabetes mellitus complication status: with kidney complications Diabetes mellitus complication detail: with chronic kidney disease Chronic kidney disease stage: on chronic dialysis Qualified Code(s): E11.22 - Type 2 diabetes mellitus with diabetic chronic kidney disease; N18.6 - End stage renal disease; Z99.2 - Dependence on renal dialysis Code(s): E11.9 - Type 2 diabetes mellitus without complications Status: Acute Assessment and Plan: * follow accuchecks * on SSI Will continue to follow. Subjective Date/time seen: 11/12/19 16:30 Tolerating dialysis at the time of my visit (seen on HD at 4:15PM); was doing better earlier today but then started having vomiting again; NG tube replaced and awaiting transfer to [facility] for definitive surgical intervention regarding his hernias and small bowel obstruction. Exam Narrative: Exam Narrative: General: WD/WN male in NAD Heart: normal S1 and S2; no rub Lungs: clear to auscultation Abdomen: soft, nontender, mild distended, hypoactive positive bowel sounds Extremities: no cyanosis or clubbing; no edema Skin: warm and dry Objective Data Vital Signs Vital Signs: Vital Signs Temp Pulse Resp BP Pulse Ox 11/12/19 14:00 36.3 C L 62 20 132/68 100 11/11
--- NOTE | 2019-11-12 16:30 | PM.PNNEP ---
Progress Note: A&P Assessment and Plan (1) End-stage renal disease (ESRD): Code(s): N18.6 - End stage renal disease Status: Chronic Assessment and Plan: HD todayand continue M/W/F schedule follow electrolytes, volume status, and clearance (2) Abscess of scrotum: Code(s): N49.2 - Inflammatory disorders of scrotum Status: Acute Assessment and Plan: s/p I & D and left hydrocelectomy on 11/06/19 by Urology on IV antibiotics follow cultures pain control Urology following (3) HTN (hypertension): Qualifiers: Hypertension type: essential hypertension Qualified Code(s): I10 - Essential (primary) hypertension Code(s): I10 - Essential (primary) hypertension Status: Chronic Assessment and Plan: reasonable control suspect pain issues causing fluctuations follow trend of hemodynamics (4) Anemia: Qualifiers: Anemia type: due to chronic kidney disease Chronic kidney disease stage: on chronic dialysis Qualified Code(s): N18.6 - End stage renal disease; D63.1 - Anemia in chronic kidney disease; Z99.2 - Dependence on renal dialysis Code(s): D64.9 - Anemia, unspecified Status: Chronic Assessment and Plan: due to ESRD and recent procedures Epogen with HD follow trend of H/H (5) Hyperkalemia: Code(s): E87.5 - Hyperkalemia Status: Acute Assessment and Plan: resolved with dialysis follow trend (6) Hyponatremia: Code(s): E87.1 - Hypo-osmolality and hyponatremia Status: Acute Assessment and Plan: related to ESRD compensating with dialysis prescription asymptomatic (7) Small bowel obstruction: Code(s): K56.609 - Unspecified intestinal obstruction, unspecified as to partial versus complete obstruction Status: Acute Assessment and Plan: as noted by imaging General Surgery following and recommendations noted plan transfer to [facility] for further evaluation (8) Diabetes: Qualifiers: Diabetes mellitus type: type 2 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 Subjective Date/time seen: 11/12/19 16:30 Tolerating dialysis at the time of my visit (seen on HD at 4:15PM); was doing better earlier today but then started having vomiting again; NG tube replaced and awaiting transfer to [facility] for definitive surgical intervention regarding his hernias and small bowel obstruction. Exam Narrative: Exam Narrative: General: WD/WN male in NAD Heart: normal S1 and S2; no rub Lungs: clear to auscultation Abdomen: soft, nontender, mild distended, hypoactive positive bowel sounds Extremities: no cyanosis or clubbing; no edema Skin: warm and dry Objective Data Vital Signs Vital Signs: Vital Signs Temp Pulse Resp BP Pulse Ox 11/12/19 14:00 36.3 C L 62 20 132/68 100 11/12/19 13:25 89 11/12/19 12:00 105 H 11/12/19 09:50 36.6 C 73 20 144/88 H 100 11/12/19 08:46 85 11/12/19 08:00 90 11/12/19 06:00 35.7 C L 85 22 H 158/89 H 100 11/12/19 04:00 78 11/12/19 02:00 36.2 C L 87 20 137/78 98 11/12/19 00:00 79 11/11/19 22:00 36.1 C L 79 20 120/58 L 99 11/11/19 20:54 88 11/11/19 20:00 83 11/11/19 18:00 36.6 C 81 20 145/89 H 99 11/11/19 17:03 79 Intake/Output Intake/Output: Intake & Output 11/09/19 11/10/19 11/11/19 11/12/19 23:
[2019-11-12] MEDS: EPOETIN ALFA-EPBX 10,000 UNITS/ML VIAL 10000 UNITS IV PUSH (17:03)
[2019-11-12 20:45] LABS: Vancomycin Random 22.8 ug/mL (10-20)
[2019-11-12] MEDS: DEXTROSE 50% 25 GM/50 ML SYRINGE IV PUSH (20:46)
--- NOTE | 2019-11-12 22:22 | PC.NURSE ---
TRANSPORTED PT FROM DIALYSIS AT APPROXIMATELY 1999. PT'S VITALS 142/58, PULSE 86. PT HAD 2L OF FLUID TAKEN OFF
[2019-11-12 22:42] LABS: Glucose Point of Care 59 (65-105)
[2019-11-12 22:42] LABS: Glucose Point of Care 145 (65-105)
--- NOTE | 2019-11-13 06:48 | PM.TDS ---
Transfer Discharge Sum: Prov Provider Date of admission: 11/06/19 01:49 Date of Transfer: 11/12/2019 at roughly 22:15 Accepting physician at hospital: Dr. Alisia Whittaker - General Surgery Primary care physician: Song Lindsey DO Admitting clinician: Marcello Hunter MD Consults: 11/06/19 Consult to Physician Routine Comment: Consulting Provider: Parish Whyte Reason for consultation: Scrotal abscess Has provider been notified: Yes 11/06/19 01:51 Consult to Physician Routine Comment: Consulting Provider: Kel Graf Reason for consultation: dialysis Has provider been notified: Yes 11/07/19 Wound/ET Consult Routine Reason for Consult:: feet dry and scaley 11/09/19 Consult to Physician Routine Comment: Consulting Provider: Ab Valerio Reason for consultation: N/V, possible bowel obstruction Has provider been notified: Yes DS: Admitting Diagnosis Admitting Diagnosis Admitting Diagnosis: abscess of scrotum, bilateral hydrocele DS: Discharge Diagnosis Discharge Diagnosis (1) Small bowel obstruction: Code(s): K56.609 - Unspecified intestinal obstruction, unspecified as to partial versus complete obstruction Status: Acute Assessment and Plan: CT shows umbilical and 3 separate ventral hernias each containing small bowel with high-grade obstruction in 1 of the loops of bowel. He has had several abdominal surgeries and hernia repairs in the past. General Surgery following and appreciate recommendations. Given multiple episodes of emesis today and failed conservative treatment, General Surgery recommended transfer to tertiary care center. [facility] and Dr. Whittaker, General Surgery, accepts patient for further care; Patient transferred on 11/12/2019 at roughly 22:15 General surgery is following and recommendations are appreciated. NGT placed per General Surgery rec NPO diet; may have amiodarone with sips of water (2) Abscess of scrotum: Code(s): N49.2 - Inflammatory disorders of scrotum Status: Acute Assessment and Plan: He underwent incision and drainage of scrotal abscess and excision of scrotal mass as well as left hydrocelectomy by Dr. Whyte on 11/06/19. He tolerated the procedure well and his pain has been well controlled. Waddell and consuelo drain removed per Urology; okay for discharge from Urology standpoint. Final BCx with negative. Wound cultures showed normal skin true in aerobic culture and no growth in anaerobic. Urology is following and recommendations are appreciated. Dressing changes and drain care per Urology. Switched over to IV vanc and primaxin today as patient was vomiting and not tolerating diet due to SBO; plan to complete 10 days total of antibiotics (day 10/09, plan to finish 11/14) Follow up with Urology as outpatient (3) Bilateral hydrocele: Code(s): N43.3 - Hydrocele, unspecified Status: Acute Assessment and Plan: s/p hydrocelectomy by Dr. Whyte as noted above. Urology recommendations are appreciated. Continue care as noted above (4) End-stage renal disease (ESRD): Code(s): N18.6 - End stage renal disease Status: Chronic Assessment and Plan: He is followed by Dr. Graf and receives hemodialysis on Sunday, Sunday, and Sunday. Renal function appears to be consistent with baseline. Nephrology has been consulted and recommendations are appreciated. Continue MWF schedule. Dialysis today. (5) Hyperkalemia: Code(s): E87.5 - Hyperkalemia Status: Acute Assessment and Plan: Potassium was elevated 11/06 prior to dialysis but improved after hemodialysis. He received IV calcium gluconate and was monitored on telemetry. Continue to monitor potassium closely.
== END 2019-11-12 21:30 | disposition short-term general hospital (02) | DRG 711 ==
LOC: ANHED 02:52 → ANH2MED 06:21
PROVIDERS: Internal Medicine Nephrology; Physician Assistant; Urology; Admitting Provider Family Medicine; Emergency Provider Emergency Medicine; PCP Internal Medicine; Visit Provider Physician Assistant
PROC: 0VB90ZZ Excision of Right Testis, Open Approach (ICD-10-PCS; CPT 54700; principal; 2019-11-06 10:00)
PROC: 0VB90ZZ Excision of Right Testis, Open Approach (ICD-10-PCS; CPT 55040; 2019-11-06 10:00)
DX: N49.2 Inflammatory disorders of scrotum (principal); N18.6 End stage renal disease; I13.2 Hypertensive heart and chronic kidney disease with heart failure and with stage 5 chronic kidney disease, or end stage renal disease; E87.1 Hypo-osmolality and hyponatremia; K43.0 Incisional hernia with obstruction, without gangrene; E87.2 Acidosis; I48.92 Unspecified atrial flutter; N43.3 Hydrocele, unspecified; I50.9 Heart failure, unspecified; N25.0 Renal osteodystrophy; I25.10 Atherosclerotic heart disease of native coronary artery without angina pectoris; E87.5 Hyperkalemia; E11.649 Type 2 diabetes mellitus with hypoglycemia without coma; E11.22 Type 2 diabetes mellitus with diabetic chronic kidney disease; D63.1 Anemia in chronic kidney disease; M19.90 Unspecified osteoarthritis, unspecified site; E78.5 Hyperlipidemia, unspecified; I25.2 Old myocardial infarction; Z90.49 Acquired absence of other specified parts of digestive tract; Z99.2 Dependence on renal dialysis; Z95.1 Presence of aortocoronary bypass graft; E66.9 Obesity, unspecified; Z68.30 Body mass index [BMI] 30.0-30.9, adult
CPT/HCPCS: 36415; 74018; 74176; 74240; 74248; 80048; 80053; 80069; 80202; 82570; 83036; 83605; 83735; 84132; 84295; 84300; 85025; 85027; 85610; 85730; 86706; 87040; 87070; 87075; 87205; 87340; 88304; 88305; 96365; 97161; 97165; 99285; A9270; G0257; J0131; J0610; J0743; J1100; J1170; J2001; J2270; J2370; J2405; J2704; J2710; J3010; J3370; J7030; J7120; Q5106

== ENCOUNTER 2020-05-07 08:46 | Inpatient (IN) | payer MEDICARE, MEDICAID, SELFPAY ==
[2020-05-07] VITALS (10 sets, daily range): BP systolic 153–212; BP diastolic 51–86; PULSE 65–76; RESP 15–30; TEMP 36.4–36.7; O2SAT 87–100; BMI 32.3
--- NOTE | ~2020-05-07 | XR_ITS ---
EXAMINATION: XR abdomen obstructive series DATE: 05/12/2020 08:55 INDICATION: Small bowel obstruction TECHNIQUE: Supine and upright views of the abdomen. FINDINGS: 05/11/2020 The visualized lung parenchyma is normal.. NG tube in the stomach. There is residual contrast in the bowel. There is dilated small bowel loop in the left mid abdomen, consistent with obstruction. There is atherosclerosis of the chest and abdomen. Status post median sternotomy for CABG. IMPRESSION: 1. Persistent small bowel obstruction. Reviewed, dictated and finalized at location B. SLATER
--- NOTE | ~2020-05-07 | CT_ITS ---
EXAMINATION: CT abdomen pelvis wo con DATE: 05/07/2020 09:17 INDICATION: Left lower quadrant abdominal pain. TECHNIQUE: Computed tomography (CT) of the abdomen and pelvis was performed without intravenous contr ast. Automated exposure control and iterative reconstruction technique were employed. The dose-length product was 1266.08 mGy-cm. COMPARISON: CT abdomen and pelvis 11/09/2019 FINDINGS: The visualized portions of the lung bases demonstrate mild atelectasis. Calcified left lung nodules are consistent with old granulomatous disease. No pleural effusion. There is left atrial and left ventricular enlargement of the heart. There are coronary artery calcifications. There are [place] es of coronary artery bypass grafting. No pericardial effusion. There are widespread arterial calcifi cations. The liver is normal. Calcifications in the spleen are consistent with old granulomatous dise ase. The pancreas and adrenal glands are normal. There is severe atrophy of the kidneys. There is a 1 6 mm cyst in left kidney. The prostate is mildly enlarged. There is an anastomosis in the sigmoid col on. There are multiple ventral hernias containing small and large bowel. Bowel enters and exits the h ernias at multiple locations with dilated loops of bowel with multiple transition points. Some of the dilated small bowel loops have proximal and distal transition points, consistent with closed-loop ob structions. The largest small bowel loop is dilated to 9.0 cm with mesenteric edema, worsened from 7. 5 cm on 11/09/19. There are no pathologically enlarged lymph nodes. There is no free intraperitoneal fl uid. There is moderate thoracolumbar spondylosis. IMPRESSION: 1. Multiple ventral hernias causing multiple foci of small bowel obstruction including closed-loop ob structions. I called this result to Alisia Banerjee. Reviewed, dictated and finalized at location A. SECURITIES IMPRESSION: 1. Multiple ventral hernias causing multiple foci of small bowel obstruction in cluding closed-loop obstructions. I called this result to Alisia Banerjee.
--- NOTE | ~2020-05-07 | XR_ITS ---
EXAMINATION: XR abdomen obstructive series DATE: 05/11/2020 08:50 INDICATION: Small bowel obstruction. TECHNIQUE: Upright and supine views of the abdomen on 3 radiographs were obtained. COMPARISON: CT abdomen and pelvis 05/07/2020, small bowel series 05/10/2020 FINDINGS: There are multiple dilated loops of small bowel. There is oral contrast in small and large bowel. The large bowel is normal in caliber. The nasogastric tube tip is in the stomach. No free intr aperitoneal gas. Median sternotomy wires and mediastinal surgical clips are seen, likely from prior c oronary artery bypass grafting. IMPRESSION: 1. Persistent small bowel obstruction. Reviewed, dictated and finalized at location A. CONTROL PRODUCT LIABILITY DIRECTOR
--- NOTE | ~2020-05-07 | XR_ITS ---
EXAMINATION: XR sm bowel follow through WS DATE: 05/10/2020 13:59 INDICATION: Small bowel obstruction TECHNIQUE: Die Mounter radiograph(s) of the abdomen was/were obtained. Water-soluble contrast was administe red to the indwelling nasogastric tube. No fluoroscopic images were obtained. COMPARISON: CT, 05/07/2020; abdominal radiographs, 05/08/2020 FINDINGS: Die Mounter radiograph demonstrates the nasogastric tube within the stomach. There are surgical c lips in the right upper quadrant. Multiple dilated loops of small bowel are present in the right mid abdomen as well as the left lower quadrant. No contrast is seen in the colon at the four hour time po int and there is minimal progression of contrast between the three and four hour time point. IMPRESSION: 1. Small bowel obstruction. Reviewed, dictated and finalized at location A. UNICATIONS ASSISTANT IMPRESSION: 1. Small bowel obstruction.
--- NOTE | ~2020-05-07 | XR_ITS ---
EXAMINATION: XR abdomen/kub 1V DATE: 05/08/2020 13:03 INDICATION: Bowel obstruction. TECHNIQUE: A supine view of the abdomen on 2 radiographs was obtained. COMPARISON: Abdomen radiographs 05/07/2020, CT abdomen and pelvis 05/07/2020 FINDINGS: There is dilated small bowel in the midabdomen. The colon is decompressed. The nasogastric tube tip is in the stomach. There are surgical clips in the abdomen. IMPRESSION: 1. Persistently dilated small bowel, consistent with small bowel obstruction. Reviewed, dictated and finalized at location A. TAL ACCOUNT COORDINATOR
--- NOTE | ~2020-05-07 | XR_ITS ---
EXAMINATION: XR abdomen NG/feed tube insert EXAM DATE: 05/07/2020 11:17 INDICATION: Nasogastric tube placement. TECHNIQUE: Frontal projection(s) of the abdomen for interpretation. Comparison is made to prior exami nation from 11/12/2019. FINDINGS: Feeding tube tip and side-port project over left upper quadrant, adequate. Nonspecific upp er abdominal bowel gas pattern. Sternotomy wires. Lung bases unremarkable. IMPRESSION: Feeding tube in position. Reviewed, dictated and finalized at location B. USION SPECIAL EDUCATOR IMPRESSION: Feeding tube in position.
--- NOTE | 2020-05-07 08:55 | ECG_ITS ---
Measurements Intervals [place] Rate: 72 P: 38 DE: 172 QRS: 7 QRSD: 89 T: 98 QT: 447 QTc: 491 Interpretive Statements SINUS RHYTHM ANTEROSEPTAL INFARCT, AGE INDETERMINATE ST-T WAVE ABNORMALITY IN HIGH LATERAL LEADS- CONSIDER ISCHEMIA ABNORMAL ECG Electronically Signed On 05-07-2020 9:49:51 EXPERIMENTAL ROCKETSLED MECHANIC by Ben Patton D.O.
--- NOTE | 2020-05-07 08:57 | ED.ABDPAIN ---
HPI - Abdominal Pain General Chief Complaint: Abdominal Pain Stated Complaint: SOB,ABD PAIN Time Seen by Provider: 05/07/20 08:50 History of Present Illness HPI narrative: 59 yo male w/ h/o DM, ESRD, multiple hernias presents to the ED from dialysis for abdominal pain. He reports mild abdominal pain for the past 2 days. Suddenly worse this morning, /. Associated with nausea. Nearly completed dialysis before coming. No fever, chills, vomiting. Related Data Home Medications Medication Instructions Recorded Confirmed aspirin 81 mg PO DAILY 04/20/19 11/06/19 atorvastatin 20 mg PO DAILY 04/20/19 11/06/19 cholecalciferol (vitamin D3) 125 mcg PO DAILY 04/20/19 11/06/19 [Vitamin D3] lidocaine-prilocaine 1 applic TOPICAL DIRECTED PRN 04/20/19 11/06/19 metoprolol tartrate 50 mg PO Q12H 04/20/19 11/06/19 sennosides-docusate sodium 1 tab-cap PO HS 04/20/19 11/06/19 [Senna-S] amiodarone 200 mg tablet 200 mg PO BID 06/06/19 11/06/19 sevelamer carbonate 3,200 mg PO TIDWM 10/08/19 11/06/19 sodium polystyrene sulf-sorbtl 27.5 ml PO DAILY 11/06/19 11/06/19 [SPS (with sorbitol)] temazepam [Restoril] 30 mg PO HS 11/06/19 11/06/19 Allergies Allergy/AdvReac Type Severity Reaction Status Date / Time salmon oil Allergy Anaphylaxis Verified 11/05/19 10:58 Review of Systems Review of Systems: All systems reviewed & are unremarkable except as noted in HPI and below Constitutional: Constitutional: Denies chills, Denies fever(s) and Denies weakness Eyes: Eyes: Reports no additional eye complaints Cardiovascular: Cardiovascular: Denies chest pain Respiratory: Respiratory: Reports dyspnea Gastrointestinal: Gastrointestinal: Reports abdominal pain, Denies nausea and Denies vomiting Neurologic: Denies dizziness and Denies weakness [facility] Past Medical History Medical History (Updated 05/07/20 @ 12:14 by Magdaleno Mendoza MD) Anemia Anxiety Arthritis CAD (coronary artery disease) CHF (congestive heart failure) EF 47% Depression Diabetes Diet controlled Dialysis patient MWF Distal radius fracture, right 11/02/19 Diverticulitis End-stage renal disease (ESRD) Fistula HLD (hyperlipidemia) HTN (hypertension) Leg fracture bilateral, 2016 Myocardial infarct Seasonal allergies Surgical History Surgical History H/O heart bypass surgery end of July 2018 History of cholecystectomy History of orthopedic surgery 2016 bilateral legs that were fractured. History of partial colectomy Family History Family History Mother Family history of diabetes mellitus in first degree relative Family history of malignant neoplasm of breast in first degree relative Father Patient's father is Diabetes mellitus Social History Social History Social History: The patient lives alone. He has two sons who check in on him. He designates his ex- Keke as his surrogate decision maker. He would like to be a full code. 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 Smoking status: Never smoker Second hand tobacco smoke exposure: Yes Alcohol intake: current Substance use: never Gender identity (if verbalized by the patient): Male Spiritual care concerns: No Agree to blood products: Yes Exam Const: General: no acute distress, alert and ill appearing chronically Orientation/consciousness: patient oriented x3 HENMT: Head: normal to inspection Resp: Effort & Inspection: tachypneic Auscultation: clear to auscultation bilaterally Cardio: Rate: regular rate Rhythm: regular rhythm GI: Inspection: distended GI Palp: Yes Tenderness to palpation present (GI) Other: palpable LLQ hernia Skin: General skin exam: normal color Neuro: General: patient oriented x3, moves all extremities, no focal motor deficits and CN's II-
[2020-05-07 09:11] LABS: Basophils Percent Auto 0.2 % (0.2-1.2); Eosinophils Absolute Auto 0.1 K/mm3 (0-0.3); Eosinophils Percent Auto 1.2 % (0-4.4); Hematocrit 36.3 % (42.0-52.0); Hemoglobin 12.2 g/dL (14.0-18.0); Immature Granulocyte Absolute 0.03 K/mm3 (0.00-0.031); Immature Granulocyte Percent A 0.4 % (0-0.5); Lymphocytes Absolute Auto 1.11 K/mm3 (0.9-3.2); Lymphocytes Percent Auto 13.7 % (18.3-44.2); Mean Corpuscular HGB Conc 33.6 g/dl (32-36); Mean Corpuscular Hemoglobin 33.2 pg (26-34); Mean Corpuscular Volume 98.9 fl (80-100); Mean Platelet Volume 10.5 fl (7.4-10.4); Monocytes Percent Auto 12.7 % (2.6-8.5); Neutrophils Absolute Auto 5.8 K/mm3 (1.3-6.7); Neutrophils Percent Auto 71.8 % (45.5-73.1); Platelet Count Result 179 k/mm3 (150-375); Red Blood Count 3.67 M/mm3 (4.6-6.20); Red Cell Distribution Width 13.2 % (11.5-14.5); White Blood Count 8.1 K/mm3 (4.5-10.0)
[2020-05-07 09:21] LABS: Prothrombin Time 13.9 Seconds (11.1-14.7)
[2020-05-07 09:26] LABS: Partial Thromboplastin Time 28.1 SECONDS (22.3-36.8)
[2020-05-07 09:29] LABS: Alanine Aminotransferase 20 U/L (4-50); Albumin Level 4.7 g/dL (3.5-5.1); Alkaline Phosphatase 292 U/L (38-126); Anion Gap 15 mmol/L (8-16); Aspartate Amino Transferase 25 U/L (17-59); Bilirubin,Total 0.6 mg/dL (0.2-1.3); Blood Urea Nitrogen 37 mg/dL (9-20); Calcium 10.3 mg/dL (8.4-10.2); Carbon Dioxide 33 mmol/L (22-30); Chloride 93 mmol/L (98-107); Estimated CRCL calculation 13 ml/min; Estimated Glomerular Filt Rate 8; Glucose 192 mg/dL (75-110); Lipase 427 U/L (23-300); Potassium 4.9 mmol/L (3.4-5.0); Sodium 141 mmol/L (137-145)
[2020-05-07 09:30] LABS: Lactic Acid Reflex 3.5 mmol/L (0.7-2.1)
--- NOTE | 2020-05-07 09:43 | PC.NURSE ---
Pt placed on 2 L NC O2, pt 84-87% on room air.
[2020-05-07] MEDS: fentaNYL CITRATE INJ (*CRX) 100 MCG/2 ML VIAL IV PUSH (09:48)
[2020-05-07] MEDS: LORazepam INJ (*CRX) 2 MG/ML VIAL 1 MG IV PUSH (09:49)
--- NOTE | 2020-05-07 10:00 | PC.NURSE ---
EDP at bedside at this time in attempt to reduce hernia. Pt and friend at bedside updated w/ plan of care per EDP.
[2020-05-07 12:09] LABS: Reflex Lactic Acid Yes or No Add Lactic
[2020-05-07 12:38] LABS: Lactic Acid 2.1 mmol/L (0.7-2.1)
--- NOTE | 2020-05-07 12:45 | ADMGEN ---
This patient, Beck Carney, was admitted to Medical Room 251-01. Patient/family oriented to hospital policies and general routines including ID bracelet, bed and alarms, visiting hours, pain management, procedures, bathroom and other care routines, personal items, smoking policy, room service/diet, and visiting hours. Information on how to activate the Rapid Response Team has been discussed. Patient/Family are encouraged to report perceived risks to care and to ask questions if they do not understand what they are told or what they should do.
--- NOTE | 2020-05-07 12:51 | PM.CNGS ---
Assessment and Plan Assessment and plan (1) Incisional hernia of anterior abdominal wall with obstruction: Code(s): K43.0 - Incisional hernia with obstruction, without gangrene Status: Acute Assessment and Plan: I have reviewed the abdominal CT and x-ray from the emergency department this morning. The patient has a potentially life-threatening serious condition. He has multiple large incisional hernias with likely loss of domain. These hernias are chronic but now present with a small bowel obstruction. He has previously been treated appropriately with NG decompression and bowel obstruction has resolved. Will continue NG decompression and monitor the patient carefully for any worsening signs. Will tried to allow time for bowel obstruction to resolve without requiring any urgent surgery, but in the past he has required transfer to tertiary care facility due to how high risk surgery could be. If he is showing signs of improvement, will try to get a Gastrografin small-bowel follow-through within the next 2-3 days. He would not likely be a good candidate for elective hernia repair due to his large size of the hernia, complexity of surgery, and his significant comorbidities. (2) SBO (small bowel obstruction): Code(s): K56.609 - Unspecified intestinal obstruction, unspecified as to partial versus complete obstruction Status: Acute Assessment and Plan: NG placed in ED, will continue to monitor output and serial abdominal exams. (3) Atrial fibrillation: Qualifiers: Atrial fibrillation type: unspecified Qualified Code(s): I48.91 - Unspecified atrial fibrillation Code(s): I48.91 - Unspecified atrial fibrillation Status: Chronic Assessment and Plan: Not on any anticoagulation other than baby aspirin. (4) CHF (congestive heart failure): Code(s): I50.9 - Heart failure, unspecified Status: Chronic (5) End-stage renal disease (ESRD): Code(s): N18.6 - End stage renal disease Status: Chronic Assessment and Plan: Patient currently gets hemodialysis 3 times weekly. This condition significantly increases major surgical risks. Additional Plan Thank you very much for allowing us to aid in the care of this patient. History of Present Illness Consult details Consult date: 05/07/20 Reason for consult: other (Bowel obstruction) Requesting physician: Magdaleno Mendoza MD Narrative: This is a 59-year-old man who I am asked to see by the ED physician for a bowel obstruction. He presents to the emergency department today with abdominal pain and bloating that has worsened over the past 2-3 days. He states that his pain this morning became more severe therefore he presented to the emergency department. He last had a bowel movement last night. He is not currently passing any flatus. He has had multiple episodes like this in the past. His last episode of a bowel obstruction was in November of 2019. He was treated with NG decompression at that time, and was eventually transferred to [facility] due to high risk if he were to need surgery. He has a history of multiple previous abdominal surgeries and has had chronic large incisional hernias that have caused obstruction then the past. He underwent a colectomy for a bowel perforation many years ago and had a temporary colostomy. The colostomy was eventually reversed and he then developed an incisional hernia which was fixed once but recurred. He has also had an open cholecystectomy that was done here at this hospital about [address] was performed in the emergency department today and multiple incisional hernias were identified containing bowel and he also had evidence of bowel obstruction caused by the hernias. The hernias were able to be reduced by the ED physician and they appeared soft and not significantly tender. NG tube was then placed in the ED. I evaluated him in the ED and he is going
--- NOTE | 2020-05-07 13:55 | PM.IMHP ---
H&P: HPI History of Present Illness Date/Time: 05/07/20 13:55 Chief Complaint: Abdominal pain. Narrative: Beck Carney is a 59 year old male with PMHx significant for colostomy which has been reversed, multiple surgical hernias, SBO recurrent, T2DM, ESRD on HD. Patient presented to ED due to abdominal distention, nausea without vomiting, constipation for the last 2 days or so, patient states that he has been in usual state of health up until 2 days ago, denies any fevers, rigors or chills, no hematemesis, no melena, no abdominal pain, abdominal discomfort, no cough, no sputum production, no fevers, no rigors, no chills. Patient was found to have SBO and has been admitted for further evaluation and treatment. Review of Systems Review of Systems: Narrative: Abdominal discomfort and distention. Constitutional: Comments: no fevers, no rigors, no chills. ENT: Comments: no throat pain. Cardiovascular: Comments: no chest pain, no leg swelling, Respiratory: Comments: no sob, no cough, no sputum production. Gastrointestinal: Gastrointestinal: Reports bloating, Reports constipation and Reports nausea Musculoskeletal: Comments: no joint enlargement Integumentary/Breasts: Comments: no rashes Neurologic: Comments: no sensory motor deficit [facility] Past Medical History Medical History Anemia Anxiety Arthritis CAD (coronary artery disease) CHF (congestive heart failure) EF 47% Depression Diabetes Diet controlled Dialysis patient MWF Distal radius fracture, right 11/02/19 Diverticulitis End-stage renal disease (ESRD) Fistula HLD (hyperlipidemia) HTN (hypertension) Leg fracture bilateral, 2016 Myocardial infarct Seasonal allergies Surgical History Surgical History (Updated 05/07/20 @ 13:03 by Marvin Gautam DO) H/O heart bypass surgery end of July 2018 History of cholecystectomy History of colostomy reversal History of incisional hernia repair History of orthopedic surgery 2016 bilateral legs that were fractured. History of partial colectomy Hx of arteriovenostomy for renal dialysis Hx of colostomy Family History Family History Mother Family history of diabetes mellitus in first degree relative Family history of malignant neoplasm of breast in first degree relative Father Patient's father is Diabetes mellitus Social History Social History Social History: The patient lives alone. He has two sons who check in on him. He designates his ex- Keke as his surrogate decision maker. He would like to be a full code. 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 Smoking status: Never smoker Second hand tobacco smoke exposure: Yes Additional smoking assessment comments: patient smokes marijuana occasionally Alcohol intake: current Drinks per week: 14 Substance use: never Substance use type: marijuana Other substance usage details: A couple of shots of burboun a day but not everyday Last use: 05/05/20 Gender identity (if verbalized by the patient): Male Sexual Orientation (if Verbalized by the Patient): Straight or Heterosexual Spiritual care concerns: No Agree to blood products: Yes Meds Home Medications and Allergies Home Medications Medication Instructions Recorded Confirmed Type aspirin 81 mg PO DAILY 04/20/19 05/07/20 History atorvastatin 40 mg PO DAILY 04/20/19 05/07/20 History lidocaine-prilocaine 1 applic TOPICAL DIRECTED PRN 04/20/19 05/07/20 History sennosides-docusate sodium 1 tab-cap PO HS 04/20/19 05/07/20 History [Senna-S] amiodarone 200 mg tablet 200 mg PO DAILY 06/06/19 05/07/20 History lisinopril 20 mg tablet 20 mg PO DAILY #90 tablet 06/06/19 05/07/20 Rx sevelamer carbonate See Rx Instructions .ROUTE .COMPLEX 10/08/19 05/07/20 History temazep
[2020-05-07] MEDS: DEXTROSE 5%/LACTATED RINGERS 1,000 ML 75 ML IV CONT (14:26)
[2020-05-07] MEDS: MORPHINE SULFATE (*CRX) 2 MG/ML INJ IV PUSH ×2 (14:27→19:28)
[2020-05-07 17:54] LABS: Glucose Point of Care 108 (65-105)
[2020-05-08] VITALS (9 sets, daily range): BP systolic 140–141; BP diastolic 44–78; PULSE 71–81; RESP 16–18; TEMP 36.3–36.6; O2SAT 97–99
[2020-05-08] MEDS: DEXTROSE 5%/LACTATED RINGERS 1,000 ML 75 ML IV CONT (04:48)
[2020-05-08] MEDS: MORPHINE SULFATE (*CRX) 2 MG/ML INJ IV PUSH ×2 (05:03→12:06)
[2020-05-08] MEDS: ONDANSETRON INJ 4 MG/2 ML VIAL IV PUSH (08:00)
--- NOTE | 2020-05-08 12:27 | PM.PNGS ---
Progress Note: A&P Assessment and Plan (1) SBO (small bowel obstruction): Code(s): K56.609 - Unspecified intestinal obstruction, unspecified as to partial versus complete obstruction Status: Acute Assessment and Plan: The much coming out of NG tube. Will get a KUB this morning to ensure NG is in proper position. Await return of bowel function Possible SBFT tomorrow (2) Incisional hernia of anterior abdominal wall with obstruction: Code(s): K43.0 - Incisional hernia with obstruction, without gangrene Status: Acute (3) Atrial fibrillation: Qualifiers: Atrial fibrillation type: unspecified Qualified Code(s): I48.91 - Unspecified atrial fibrillation Code(s): I48.91 - Unspecified atrial fibrillation Status: Chronic (4) CHF (congestive heart failure): Code(s): I50.9 - Heart failure, unspecified Status: Chronic (5) End-stage renal disease (ESRD): Code(s): N18.6 - End stage renal disease Status: Chronic Subjective Subjective Date/Time Seen: 05/08/20 12:27 Interval history: Patient has passed flatus a couple times. Pain somewhat improved, but he still is having occasional nausea. No bowel movement yet. He feels that his abdomen is much softer than it was yesterday. Exam GI: GI Palp: Yes Soft to palpation, No Guarding due to palpation present (GI), Yes Hernia present (Multiple incisional hernias containing bowel and stomach), No Rebound tenderness present and Yes Other GI palpation findings present (Hernias are soft and at least partially reducible) Objective Data Vital Signs Vital Signs: Vital Signs - 24 hr 05/07/20 12:28 05/07/20 12:45 05/07/20 12:57 Temperature 36.4 C Pulse Rate 65 70 67 Respiratory Rate 20 16 Blood Pressure 189/86 H 165/60 H Pulse Oximetry 94 99 05/07/20 14:00 05/07/20 16:00 05/07/20 20:00 Temperature 36.6 C Pulse Rate 72 74 76 Respiratory Rate 20 Blood Pressure 175/68 H Pulse Oximetry 94 05/07/20 22:00 05/08/20 00:00 05/08/20 06:00 Temperature 36.6 C 36.3 C L Pulse Rate 74 74 71 Respiratory Rate 18 16 Blood Pressure 153/53 H 141/54 H Pulse Oximetry 95 98 05/08/20 08:00 Temperature Pulse Rate 74 Respiratory Rate Blood Pressure Pulse Oximetry Intake/Output Intake/Output: Intake & Output 05/05/20 05/06/20 05/07/20 05/08/20 23:59 23:59 23:59 23:59 Intake Total 0 1010 Output Total 205 150 Balance -205 860 Meds/Results Medications: Active Medications Generic Name Dose Route Start Last Admin Trade Name Freq PRN Reason Stop Dose Admin Acetaminophen 650 mg 05/08/20 12:26 Acetaminophen 650 Mg Suppository RECTAL Q6H PRN Mild Pain (1-3) or Fever Hydralazine HCl 10 mg 05/07/20 19:06 Hydralazine Hcl 20 Mg/Ml Vial IV PUSH Q8H PRN Blood Pressure - High Hydromorphone HCl 0.5 mg 05/08/20 12:25 Hydromorphone Hcl Inj (*Crx) 1 Mg/Ml Syr IV PUSH Q2H PRN Pain Rated 4-6 Hydromorphone HCl 1 mg 05/08/20 12:25 Hydromorphone Hcl Inj (*Crx) 1 Mg/Ml Syr IV PUSH Q2H PRN Pain Rated 7-10 Dextrose/Lactated Ringer's 1,000 mls @ 75 mls/hr 05/07/20 14:05 05/08/20 04:48 Dextrose 5%/Lactated Ringers IV CONT 75 mls/hr .[id number] SUDHA Administration Metoprolol Tartrate 5 mg 05/07/20 17:24 Metoprolol Tartrate Inj 5 Mg/5 Ml Vial IV PUSH Q4HR PRN Heart Rate greater than 120 Naloxone HCl 0.1 mg 05/07/20 14:05 Naloxone Hcl 0.4 Mg/Ml Vial IV PUSH Q2M PRN Opiate Reversal Ondansetron HCl 4 mg 05/07/20 14:05 05/08/20 08:00 Ondansetron Inj 4 Mg/2 Ml Vial IV PUSH 4 mg Q6H PRN Administration Nausea And Vomiting Radiology Results: ITS Impressions Abdomen/Pelvis CT 05/07/20 09:24 IMPRESSION: 1. Multiple ventral hernias causing multiple foci of small bowel obstruction including closed-loop obstructions. I called this result to Alisia Banerjee. Abdomen X-
--- NOTE | 2020-05-08 18:07 | PM.IMPN ---
Progress Note: A&P Assessment and Plan (1) SBO (small bowel obstruction): Code(s): K56.609 - Unspecified intestinal obstruction, unspecified as to partial versus complete obstruction Status: Acute Assessment and Plan: NPO Intermittent low suction Appreciate Surgery note (2) Ventral hernia: Code(s): K43.9 - Ventral hernia without obstruction or gangrene Status: Acute Assessment and Plan: Reducible (3) Atrial fibrillation: Qualifiers: Atrial fibrillation type: unspecified Qualified Code(s): I48.91 - Unspecified atrial fibrillation Code(s): I48.91 - Unspecified atrial fibrillation Status: Chronic Assessment and Plan: Stable Lopressor prn Will consider Cardizem drip if RVR (4) Incisional hernia of anterior abdominal wall with obstruction: Code(s): K43.0 - Incisional hernia with obstruction, without gangrene Status: Acute Assessment and Plan: Surgery on board (5) End-stage renal disease (ESRD): Code(s): N18.6 - End stage renal disease Status: Chronic Assessment and Plan: On HD Subjective Date/time seen: 05/08/20 18:07 'I'm very thirsty Review of Systems Review of Systems: Narrative: No new issues states that he is very thirsty Constitutional: Comments: no fevers, no rigors, no chills. Cardiovascular: Comments: no chest pain Respiratory: Comments: no sob, no pnd, no orthopnea Gastrointestinal: Comments: abdominal distention. Musculoskeletal: Comments: no muscle pain. Integumentary/Breasts: Comments: no rashes Exam Narrative: Exam Narrative: lying in bed Const: General: no acute distress, alert, awake and Physically active Nutritional Appearance: average body habitus Orientation/consciousness: patient oriented x3 HENMT: Head: normocephalic Ears: hearing grossly normal bilaterally Face and sinus: normal facial exam Eyes: General: appearance normal, both eyes and all related structures Pupils: Equal, round and reactive pupils present EOM: EOMs intact bilaterally Neck: Neck: no lymphadenopathy, supple and no JVD Resp: Effort & Inspection: able to speak in complete sentences Auscultation: clear to auscultation bilaterally Cardio: Rate: regular rate Rhythm: regular rhythm GI: Inspection: distended GI Palp: Yes Soft to palpation and Yes No hepatosplenomegaly present Skin: Rashes: no rashes Neuro: General: patient oriented x3 and CN's II-XI intact bilaterally Cranial nerves: Yes CN's II-XII intact bilaterally and Yes Equal, round and reactive pupils present Cognition (Neuro): normal cognition Speech: normal speech Gait exam (Neuro): Normal gait present Motor exam (neuro): 5/5 motor strength present throughout Extrem: General: no pedal edema Objective Data Vital Signs Vital Signs: Vital Signs - 24 hr 05/07/20 20:00 05/07/20 22:00 05/08/20 00:00 Temperature 97.9 F Pulse Rate 76 74 74 Respiratory Rate 18 Blood Pressure 153/53 H Pulse Oximetry 95 05/08/20 06:00 05/08/20 08:00 05/08/20 12:00 Temperature 97.4 F L Pulse Rate 71 74 79 Respiratory Rate 16 Blood Pressure 141/54 H Pulse Oximetry 98 05/08/20 13:07 05/08/20 14:00 Temperature 97.9 F Pulse Rate 74 78 Respiratory Rate 18 16 Blood Pressure 141/44 H Pulse Oximetry 97 99 Intake/Output Intake/Output: Intake & Output 05/05/20 05/06/20 05/07/20 05/08/20 23:59 23:59 23:59 23:59 Intake Total 0 1010 Output Total 205 150 Balance -205 860 Meds/Results Medications: Active Medications Generic Name Dose Route Start Last Admin Trade Name Freq PRN Reason Stop Dose Admin Acetaminophen 650 mg 05/08/20 12:26 Acetaminophen 650 Mg Suppository RECTAL Q6H PRN Mild Pain (1-3) or Fever Hydralazine HCl 10 mg 05/07/20 19:06 Hydralazine Hcl 20 Mg/Ml Vial IV PUSH Q8H PRN Blood Pressure - High Hydromorphone HCl 0.5 mg 05/08/20 12:25 Hydromorphone
[2020-05-08] MEDS: HYDROmorphone HCL INJ (*CRX) 1 MG/ML SYR 0.5 MG IV PUSH (19:59)
[2020-05-09] VITALS (9 sets, daily range): BP systolic 139–156; BP diastolic 62–72; PULSE 73–82; RESP 18; TEMP 36.1–36.6; O2SAT 97–99
[2020-05-09] MEDS: HYDROmorphone HCL INJ (*CRX) 1 MG/ML SYR 0.5 MG IV PUSH ×2 (08:15→20:59)
[2020-05-09] MEDS: ONDANSETRON INJ 4 MG/2 ML VIAL IV PUSH (08:15)
--- NOTE | 2020-05-09 11:07 | PM.PNGS ---
Progress Note: A&P Assessment and Plan (1) SBO (small bowel obstruction): Code(s): K56.609 - Unspecified intestinal obstruction, unspecified as to partial versus complete obstruction Status: Acute Assessment and Plan: Not much improvement yet, but hernias are soft and pain improved. Stimulate bowels with Dulcolax suppository and Milk of Mag today Will plan to get a SBFT tomorrow (2) Incisional hernia of anterior abdominal wall with obstruction: Code(s): K43.0 - Incisional hernia with obstruction, without gangrene Status: Acute (3) Atrial fibrillation: Qualifiers: Atrial fibrillation type: unspecified Qualified Code(s): I48.91 - Unspecified atrial fibrillation Code(s): I48.91 - Unspecified atrial fibrillation Status: Chronic (4) CHF (congestive heart failure): Code(s): I50.9 - Heart failure, unspecified Status: Chronic (5) End-stage renal disease (ESRD): Code(s): N18.6 - End stage renal disease Status: Chronic Subjective Subjective Date/Time Seen: 05/09/20 11:07 Interval history: no flatus or BM. Not having much abdominal pain, and abdomen is soft. Exam GI: GI Palp: Yes Soft to palpation, No Guarding due to palpation present (GI), Yes Hernia present (Multiple incisional hernias containing bowel and stomach), No Rebound tenderness present and Yes Other GI palpation findings present (Hernias are soft and at least partially reducible) Objective Data Vital Signs Vital Signs: Vital Signs - 24 hr 05/08/20 12:00 05/08/20 13:07 05/08/20 14:00 Temperature 36.6 C Pulse Rate 79 74 78 Respiratory Rate 18 16 Blood Pressure 141/44 H Pulse Oximetry 97 99 05/08/20 16:00 05/08/20 20:00 05/08/20 21:40 Temperature 36.4 C L Pulse Rate 79 76 81 Respiratory Rate 18 Blood Pressure 140/78 Pulse Oximetry 98 05/09/20 00:00 05/09/20 04:00 05/09/20 05:08 Temperature 36.2 C L Pulse Rate 82 77 75 Respiratory Rate 18 Blood Pressure 139/67 Pulse Oximetry 97 05/09/20 08:00 Temperature Pulse Rate 74 Respiratory Rate Blood Pressure Pulse Oximetry Intake/Output Intake/Output: Intake & Output 05/06/20 05/07/20 05/08/20 05/09/20 23:59 23:59 23:59 23:59 Intake Total 0 1010 0 Output Total 205 150 300 Balance -205 860 -300 Meds/Results Medications: Active Medications Generic Name Dose Route Start Last Admin Trade Name Freq PRN Reason Stop Dose Admin Acetaminophen 650 mg 05/08/20 12:26 Acetaminophen 650 Mg Suppository RECTAL Q6H PRN Mild Pain (1-3) or Fever Bisacodyl 10 mg 05/09/20 11:05 Bisacodyl 10 Mg Suppository RECTAL 05/09/20 11:06 ONCE ONE Hydralazine HCl 10 mg 05/07/20 19:06 Hydralazine Hcl 20 Mg/Ml Vial IV PUSH Q8H PRN Blood Pressure - High Hydromorphone HCl 0.5 mg 05/08/20 12:25 05/09/20 08:15 Hydromorphone Hcl Inj (*Crx) 1 Mg/Ml Syr IV PUSH 0.5 mg Q2H PRN Administration Pain Rated 4-6 Hydromorphone HCl 1 mg 05/08/20 12:25 Hydromorphone Hcl Inj (*Crx) 1 Mg/Ml Syr IV PUSH Q2H PRN Pain Rated 7-10 Dextrose/Lactated Ringer's 1,000 mls @ 75 mls/hr 05/07/20 14:05 05/08/20 04:48 Dextrose 5%/Lactated Ringers IV CONT 75 mls/hr .[id number] SUDHA Administration Magnesium Hydroxide 30 ml 05/09/20 11:05 Magnesium Hydroxide Susp 30 Ml Udc FEED TUBE 05/09/20 11:06 ONCE ONE Metoprolol Tartrate 5 mg 05/07/20 17:24 Metoprolol Tartrate Inj 5 Mg/5 Ml Vial IV PUSH Q4HR PRN Heart Rate greater than 120 Naloxone HCl 0.1 mg 05/07/20 14:05 Naloxone Hcl 0.4 Mg/Ml Vial IV PUSH Q2M PRN Opiate Reversal Ondansetron HCl 4 mg 05/07/20 14:05 05/09/20 08:15 Ondansetron Inj 4 Mg/2 Ml Vial IV PUSH 4 mg Q6H PRN Administration Nausea And Vomiting Radiology Results: ITS Impressions Abdomen/Pelvis CT 05/07/20 09:24 IMPRESSION: 1. Multiple ventral hernias causing multip
[2020-05-09] MEDS: BISACODYL 10 MG SUPPOSITORY RECTAL (12:37)
[2020-05-09] MEDS: MAGNESIUM HYDROXIDE SUSP 30 ML UDC FEED TUBE (12:37)
[2020-05-09] MEDS: DEXTROSE 5%/LACTATED RINGERS 1,000 ML 75 ML IV CONT (12:38)
--- NOTE | 2020-05-09 17:09 | PM.IMPN ---
Progress Note: A&P Assessment and Plan (1) SBO (small bowel obstruction): Code(s): K56.609 - Unspecified intestinal obstruction, unspecified as to partial versus complete obstruction Status: Acute Assessment and Plan: SBFT in am NPO Low intermittent suction (2) Ventral hernia: Code(s): K43.9 - Ventral hernia without obstruction or gangrene Status: Acute Assessment and Plan: Reducible (3) Atrial fibrillation: Qualifiers: Atrial fibrillation type: unspecified Qualified Code(s): I48.91 - Unspecified atrial fibrillation Code(s): I48.91 - Unspecified atrial fibrillation Status: Chronic (4) Incisional hernia of anterior abdominal wall with obstruction: Code(s): K43.0 - Incisional hernia with obstruction, without gangrene Status: Acute Assessment and Plan: Rate controlled Lopresor prn (5) Small bowel obstruction: Code(s): K56.609 - Unspecified intestinal obstruction, unspecified as to partial versus complete obstruction Status: Acute (6) Hyponatremia: Code(s): E87.1 - Hypo-osmolality and hyponatremia Status: Acute Assessment and Plan: Receiving LRD5 Continue to monitor (7) End-stage renal disease (ESRD): Code(s): N18.6 - End stage renal disease Status: Chronic Assessment and Plan: On HD Nephrology consulted (8) HTN (hypertension): Qualifiers: Hypertension type: essential hypertension Qualified Code(s): I10 - Essential (primary) hypertension Code(s): I10 - Essential (primary) hypertension Status: Chronic Assessment and Plan: Stable continue to monitor Hydralazine prn. Subjective Date/time seen: 05/09/20 17:09 I feel ok. Review of Systems Review of Systems: Narrative: Denies any complains, no issues overnight. Constitutional: Comments: no fevers, no rigors, no chills. Cardiovascular: Comments: no chest pain, no leg swelling. Respiratory: Comments: no sob. Gastrointestinal: Comments: distention, constipation. Musculoskeletal: Comments: no joint pain. Exam Narrative: Exam Narrative: Lying in bed. Const: General: comfortable, no acute distress, alert, awake and Physically active Nutritional Appearance: average body habitus Orientation/consciousness: patient oriented x3 HENMT: Head: normal to inspection and normocephalic Ears: hearing grossly normal bilaterally General nose exam: Normal external nose present Face and sinus: normal facial exam Eyes: General: appearance normal, both eyes and all related structures Pupils: Equal, round and reactive pupils present EOM: EOMs intact bilaterally Neck: Neck: no lymphadenopathy, supple and no JVD Resp: Auscultation: clear to auscultation bilaterally Cardio: Jugular venous distension: no JVD Rate: regular rate Rhythm: regular rhythm GI: Inspection: distended GI Palp: Yes Soft to palpation and Yes No hepatosplenomegaly present Skin: Rashes: no rashes Neuro: General: patient oriented x3 and CN's II-XI intact bilaterally Cranial nerves: Yes CN's II-XII intact bilaterally and Yes Equal, round and reactive pupils present Cognition (Neuro): normal cognition Speech: normal speech Motor exam (neuro): 5/5 motor strength present throughout Extrem: General: no joint enlargement and no pedal edema Objective Data Vital Signs Vital Signs: Vital Signs - 24 hr 05/08/20 20:00 05/08/20 21:40 05/09/20 00:00 Temperature 97.5 F L Pulse Rate 76 81 82 Respiratory Rate 18 Blood Pressure 140/78 Pulse Oximetry 98 05/09/20 04:00 05/09/20 05:08 05/09/20 08:00 Temperature 97.1 F L Pulse Rate 77 75 74 Respiratory Rate 18 Blood Pressure 139/67 Pulse Oximetry 97 05/09/20 12:00 05/09/20 14:00 05/09/20 16:00 Temperature 97.9 F Pulse Rate 75 73 77 Respiratory Rate 18 Blood Pressure 156/72 H Pulse Oximetry 98 Intake/Output Intake/Output: Intake & Output
[2020-05-10] VITALS (26 sets, daily range): BP systolic 92–192; BP diastolic 27–98; PULSE 66–128; RESP 16–20; TEMP 36.1–37.8; O2SAT 96–98
[2020-05-10] MEDS: HYDROmorphone HCL INJ (*CRX) 1 MG/ML SYR 0.5 MG IV PUSH ×2 (00:25→05:27)
[2020-05-10] MEDS: DEXTROSE 5%/LACTATED RINGERS 1,000 ML 75 ML IV CONT (02:25)
[2020-05-10] MEDS: HYDROmorphone HCL INJ (*CRX) 1 MG/ML SYR IV PUSH ×5 (08:23→21:47)
--- NOTE | 2020-05-10 09:15 | PC.NURSE ---
Pt to Xray per wheelchair for SBFT.
[2020-05-10] MEDS: ONDANSETRON INJ 4 MG/2 ML VIAL IV PUSH ×2 (11:12→14:08)
[2020-05-10 12:39] LABS: Basophils Percent Auto 0.1 % (0.2-1.2); Eosinophils Absolute Auto 0.1 K/mm3 (0-0.3); Eosinophils Percent Auto 1.2 % (0-4.4); Hematocrit 33.6 % (42.0-52.0); Hemoglobin 11.2 g/dL (14.0-18.0); Immature Granulocyte Absolute 0.02 K/mm3 (0.00-0.031); Immature Granulocyte Percent A 0.2 % (0-0.5); Lymphocytes Absolute Auto 0.42 K/mm3 (0.9-3.2); Lymphocytes Percent Auto 4.9 % (18.3-44.2); Mean Corpuscular HGB Conc 33.3 g/dl (32-36); Mean Corpuscular Hemoglobin 33.1 pg (26-34); Mean Corpuscular Volume 99.4 fl (80-100); Mean Platelet Volume 10.5 fl (7.4-10.4); Monocytes Percent Auto 11.3 % (2.6-8.5); Neutrophils Absolute Auto 7.1 K/mm3 (1.3-6.7); Neutrophils Percent Auto 82.3 % (45.5-73.1); Platelet Count Result 175 k/mm3 (150-375); Red Blood Count 3.38 M/mm3 (4.6-6.20); White Blood Count 8.6 K/mm3 (4.5-10.0)
[2020-05-10 13:00] LABS: Albumin Level 4.3 g/dL (3.5-5.1); Anion Gap 18 mmol/L (8-16); Blood Urea Nitrogen 88 mg/dL (9-20); Calcium 10.4 mg/dL (8.4-10.2); Carbon Dioxide 33 mmol/L (22-30); Chloride 91 mmol/L (98-107); Estimated CRCL calculation 6 ml/min; Estimated Glomerular Filt Rate 4; Glucose 129 mg/dL (75-110); Phosphorus 11.2 mg/dL (2.5-4.5); Potassium 7.3 mmol/L (3.4-5.0); Sodium 142 mmol/L (137-145)
--- NOTE | 2020-05-10 14:05 | PM.IMPN ---
Progress Note: A&P Assessment and Plan (1) SBO (small bowel obstruction): Code(s): K56.609 - Unspecified intestinal obstruction, unspecified as to partial versus complete obstruction Status: Acute Assessment and Plan: Completed SBFT today NPO Low intermittent suction LRD5% iv fluids (2) Ventral hernia: Code(s): K43.9 - Ventral hernia without obstruction or gangrene Status: Acute Assessment and Plan: Reducible (3) Atrial fibrillation: Qualifiers: Atrial fibrillation type: unspecified Qualified Code(s): I48.91 - Unspecified atrial fibrillation Code(s): I48.91 - Unspecified atrial fibrillation Status: Chronic Assessment and Plan: Rate controlled. (4) Incisional hernia of anterior abdominal wall with obstruction: Code(s): K43.0 - Incisional hernia with obstruction, without gangrene Status: Acute Assessment and Plan: Surgery following. (5) Small bowel obstruction: Code(s): K56.609 - Unspecified intestinal obstruction, unspecified as to partial versus complete obstruction Status: Acute Assessment and Plan: Supportive care Surgery on board. (6) End-stage renal disease (ESRD): Code(s): N18.6 - End stage renal disease Status: Chronic Assessment and Plan: Will get dialysis today (7) Hyperkalemia: Code(s): E87.5 - Hyperkalemia Status: Acute Assessment and Plan: Calcium Gluconate Insulin/Dextrose Telemetry monitoring Will get HD today. (8) Type 2 diabetes mellitus without complication, with no history of insulin use: Code(s): E11.9 - Type 2 diabetes mellitus without complications Status: Chronic Assessment and Plan: NPO ISS as needed LRD5% running. Subjective Date/time seen: 05/10/20 14:05 Patient states that he feels well, has a sore throat. Review of Systems Review of Systems: Narrative: Sore throat, dry mouth. Constitutional: Comments: no fevers, no rigors, no chills. Cardiovascular: Comments: no chest pain. Respiratory: Comments: no sob. Gastrointestinal: Comments: abdominal distention, constipation. Musculoskeletal: Comments: no joint enlargement. Integumentary/Breasts: Comments: no rashes Neurologic: Comments: no sensory motor deficit. Exam Narrative: Exam Narrative: Lying in bed Const: General: comfortable, no acute distress, alert and awake Nutritional Appearance: average body habitus Orientation/consciousness: patient oriented x3 HENMT: Head: normocephalic Ears: hearing grossly normal bilaterally General nose exam: Normal external nose present Face and sinus: normal facial exam Eyes: General: appearance normal, both eyes and all related structures Pupils: Equal, round and reactive pupils present EOM: EOMs intact bilaterally Neck: Neck: no lymphadenopathy, supple and no JVD Resp: Effort & Inspection: normal respiratory effort and able to speak in complete sentences Auscultation: clear to auscultation bilaterally Cardio: Rate: regular rate Rhythm: regular rhythm GI: Inspection: distended GI Palp: Yes Soft to palpation and Yes No hepatosplenomegaly present Skin: Rashes: no rashes Neuro: General: patient oriented x3 and CN's II-XI intact bilaterally Cranial nerves: Yes CN's II-XII intact bilaterally and Yes Bilaterally intact EOM present Cognition (Neuro): normal cognition Speech: normal speech Motor exam (neuro): 5/5 motor strength present throughout Extrem: General: no pedal edema Objective Data Vital Signs Vital Signs: Vital Signs - 24 hr 05/09/20 16:00 05/09/20 20:00 05/09/20 21:43 Temperature 97.0 F L Pulse Rate 77 78 77 Respiratory Rate 18 Blood Pressure 142/62 H Pulse Oximetry 99 05/10/20 00:00 05/10/20 04:00 05/10/20 06:00 Temperature 97.4 F L Pulse Rate 79 76 73 Respiratory Rate 20 Blood Pressure 149/53 H Pulse Oximetry 98 05/10/20 08:00 Temperature Pulse R
[2020-05-10] MEDS: hydrALAZINE HCL 20 MG/ML VIAL 10 MG IV PUSH (14:08)
--- NOTE | 2020-05-10 14:11 | PC.NURSE ---
Dr Medrano notified of potassium 7.3 and new orders given. Dr Medrano wanted to see if dialysis could be started earlier then [address] Bush of request and he was going to call Nathan underpresser hand to see id he had another Rn ti come and start diaysis sooner.
--- NOTE | 2020-05-10 14:17 | PM.CNNEP ---
Assessment and Plan Assessment and plan (1) End-stage renal disease (ESRD): Code(s): N18.6 - End stage renal disease Status: Chronic Assessment and Plan: HD today and continue M/W/F schedule follow electrolytes, volume status, and clearance (2) Hyperkalemia: Code(s): E87.5 - Hyperkalemia Status: Acute Assessment and Plan: etiology?? HD today for correction follow repeat labs (3) SBO (small bowel obstruction): Code(s): K56.609 - Unspecified intestinal obstruction, unspecified as to partial versus complete obstruction Status: Acute Assessment and Plan: as noted by admission imaging General Surgery following follow-up on SBFT (4) HTN (hypertension): Qualifiers: Hypertension type: essential hypertension Qualified Code(s): I10 - Essential (primary) hypertension Code(s): I10 - Essential (primary) hypertension Status: Chronic Assessment and Plan: reasonable control follow trend of hemodynamics (5) Anemia: Qualifiers: Anemia type: due to chronic kidney disease Chronic kidney disease stage: on chronic dialysis Qualified Code(s): N18.6 - End stage renal disease; D63.1 - Anemia in chronic kidney disease; Z99.2 - Dependence on renal dialysis Code(s): D64.9 - Anemia, unspecified Status: Chronic Assessment and Plan: due to ESRD follow trend of H/H Epogen with HD as needed Will continue to follow. History of Present Illness Reason for Consult Consult date: 05/10/20 Reason for consult: end stage renal disease and hyperkalemia Chief Complaint Chief complaint: SBO/ multiple ventral abdominal hernias History of Present Illness Narrative: The patient is a 59-year-old male with the extensive past medical history as outlined below who presented to [facility] Emergency room with complaints of nausea associated with abdominal distension. Along with the abdominal distention and nausea, he has also complained of constipation for the last 2-3 days as well. He had been in his usual state of health prior to the symptoms and gave no other subjective complaints of fevers chills I met emesis, melena or cough. On the morning of admission, his abdominal pain became quite severe which led to his presentation he did have a bowel movement the night before but has not had any since his arrival to the emergency room. He is known to have an extensive history of multiple abdominal surgeries and bowel obstructions in the past and his concern was this was what was going on at this time and hence his presentation to the ER for further evaluation. Workup and evaluation emergency room demonstrated the patient to be hemodynamically stable with routine blood tests that were significant for his known history of end-stage renal disease. A CT scan was performed which demonstrated multiple incisional hernias contain bowel and evidence of obstruction caused by the hernias. The hernias were reduced in the ER and subsequently an NG-tube was placed for decompression. General surgery was consulted as well and he was subsequent admitted the hospital for further evaluation and therapy. Since his admission, he has been followed by General surgery and he schedule have a small bowel follow-through all sometime today for further evaluation of his obstruction. Routine blood test done earlier today demonstrated severe hyperkalemia although the patient was otherwise asymptomatic as far as I am aware. Renal consultation was requested due to his end-stage renal disease and hyperkalemia. The patient normally dialyzes on a Sunday schedule at [facility] under the care of Dr. Kel Graf. I am unclear on how stable his monthly labs are but he does tell me that he has had issues and problems with hyperkalemia before and this has been discussed with him by the dialysis dietitian on review of his monthly labs. It
[2020-05-10] MEDS: INSULIN HUMAN REGULAR (*BKC) 100 UNITS/ML 10 UNITS SUB-Q (14:20)
[2020-05-10] MEDS: DEXTROSE 50% 25 GM/50 ML SYRINGE IV PUSH (14:24)
[2020-05-10] MEDS: CALCIUM GLUC 1,000 MG/NS 50 ML 1,000 MG/50 ML BAG 100 MG IVPB (14:29)
--- NOTE | 2020-05-10 14:32 | PM.PNGS ---
Progress Note: A&P Assessment and Plan (1) Incisional hernia of anterior abdominal wall with obstruction: Code(s): K43.0 - Incisional hernia with obstruction, without gangrene Status: Acute Assessment and Plan: Continue NG decompression Will follow up with another abdominal x-ray tomorrow AM. (2) Small bowel obstruction: Code(s): K56.609 - Unspecified intestinal obstruction, unspecified as to partial versus complete obstruction Status: Acute (3) End-stage renal disease (ESRD): Code(s): N18.6 - End stage renal disease Status: Chronic (4) CHF (congestive heart failure): Code(s): I50.9 - Heart failure, unspecified Status: Chronic Subjective Subjective Date/Time Seen: 05/10/20 14:32 Interval history: Awaiting results of SBFT today. NG has been clamped several hours and patient is having some nausea now. No BM or flatus. Exam GI: GI Palp: Yes Soft to palpation, No Guarding due to palpation present (GI), Yes Hernia present (Multiple incisional hernias containing bowel and stomach), No Rebound tenderness present and Yes Other GI palpation findings present (Hernias are soft and at least partially reducible) Objective Data Vital Signs Vital Signs: Vital Signs - 24 hr 05/09/20 16:00 05/09/20 20:00 05/09/20 21:43 Temperature 36.1 C L Pulse Rate 77 78 77 Respiratory Rate 18 Blood Pressure 142/62 H Pulse Oximetry 99 05/10/20 00:00 05/10/20 04:00 05/10/20 06:00 Temperature 36.3 C L Pulse Rate 79 76 73 Respiratory Rate 20 Blood Pressure 149/53 H Pulse Oximetry 98 05/10/20 08:00 05/10/20 13:54 Temperature 36.5 C Pulse Rate 74 83 Respiratory Rate 20 Blood Pressure 169/61 H Pulse Oximetry 97 Intake/Output Intake/Output: Intake & Output 05/07/20 05/08/20 05/09/20 05/10/20 23:59 23:59 23:59 23:59 Intake Total 0 1010 1420 1000 Output Total 205 150 550 300 Balance -205 860 870 700 Meds/Results Medications: Active Medications Generic Name Dose Route Start Last Admin Trade Name Freq PRN Reason Stop Dose Admin Acetaminophen 650 mg 05/08/20 12:26 Acetaminophen 650 Mg Suppository RECTAL Q6H PRN Mild Pain (1-3) or Fever Hydralazine HCl 10 mg 05/07/20 19:06 05/10/20 14:08 Hydralazine Hcl 20 Mg/Ml Vial IV PUSH 10 mg Q8H PRN Administration Blood Pressure - High Hydromorphone HCl 0.5 mg 05/08/20 12:25 05/10/20 05:27 Hydromorphone Hcl Inj (*Crx) 1 Mg/Ml Syr IV PUSH 0.5 mg Q2H PRN Administration Pain Rated 4-6 Hydromorphone HCl 1 mg 05/08/20 12:25 05/10/20 14:17 Hydromorphone Hcl Inj (*Crx) 1 Mg/Ml Syr IV PUSH 1 mg Q2H PRN Administration Pain Rated 7-10 Dextrose/Lactated Ringer's 1,000 mls @ 75 mls/hr 05/07/20 14:05 05/10/20 02:25 Dextrose 5%/Lactated Ringers IV CONT 75 mls/hr .[id number] SUDHA Administration Albumin Human 50 mls @ 999 mls/hr 05/10/20 06:53 Albutein IVPB 06/09/20 06:54 Q10M PRN HYPOTENSION Lidocaine/Prilocaine 1 each 05/10/20 09:46 Lidocaine/Prilocaine Cream 2.5-2.5% Tube TOPICAL ONCE PRN Pain Metoprolol Tartrate 5 mg 05/07/20 17:24 Metoprolol Tartrate Inj 5 Mg/5 Ml Vial IV PUSH Q4HR PRN Heart Rate greater than 120 Naloxone HCl 0.1 mg 05/07/20 14:05 Naloxone Hcl 0.4 Mg/Ml Vial IV PUSH Q2M PRN Opiate Reversal Ondansetron HCl 4 mg 05/07/20 14:05 05/10/20 14:08 Ondansetron Inj 4 Mg/2 Ml Vial IV PUSH 4 mg Q6H PRN Administration Nausea And Vomiting Radiology Results: ITS Impressions Abdomen/Pelvis CT 05/07/20 09:24 IMPRESSION: 1. Multiple ventral hernias causing multiple foci of small bowel obstruction including closed-loop obstructions. I called this result to Alisia Banerjee. Abdomen X-Ray 05/08/20 13:06 IMPRESSION: 1. Persistently dilated small bowel, consistent with small bowel obstruction. Small Bowel X-Ray 05/10/20 14:05 IMPRESSION
[2020-05-10 15:10] LABS: Glucose Point of Care 120 (65-105)
[2020-05-10] MEDS: LIDOCAINE/PRILOCAINE CREAM 2.5-2.5% TUBE 1 EACH TOPICAL (16:28)
[2020-05-10 16:29] LABS: Albumin Level 4.4 g/dL (3.5-5.1); Blood Urea Nitrogen 92 mg/dL (9-20); Carbon Dioxide 32 mmol/L (22-30)
[2020-05-10 17:21] LABS: Anion Gap 18 mmol/L (8-16); Calcium 10.7 mg/dL (8.4-10.2); Chloride 92 mmol/L (98-107); Estimated CRCL calculation 6 ml/min; Estimated Glomerular Filt Rate 4; Glucose 178 mg/dL (75-110); Potassium 7.2 mmol/L (3.4-5.0); Sodium 142 mmol/L (137-145)
--- NOTE | 2020-05-10 18:42 | PC.NURSE ---
Patient to dialysis per bed 1710 05/10/2020.
[2020-05-10] MEDS: METOPROLOL TARTRATE INJ 5 MG/5 ML VIAL IV PUSH (22:38)
[2020-05-11] VITALS (32 sets, daily range): BP systolic 77–155; BP diastolic 29–87; PULSE 56–137; RESP 16–20; TEMP 36–38.3; O2SAT 96–100
[2020-05-11] MEDS: HYDROmorphone HCL INJ (*CRX) 1 MG/ML SYR IV PUSH ×2 (01:37→04:39)
[2020-05-11] MEDS: METOPROLOL TARTRATE INJ 5 MG/5 ML VIAL IV PUSH ×2 (02:40→06:44)
[2020-05-11] MEDS: ONDANSETRON INJ 4 MG/2 ML VIAL IV PUSH ×2 (07:54→19:12)
[2020-05-11 08:09] LABS: Albumin Level 4.6 g/dL (3.5-5.1); Anion Gap 18 mmol/L (8-16); Blood Urea Nitrogen 50 mg/dL (9-20); Calcium 11.1 mg/dL (8.4-10.2); Carbon Dioxide 24 mmol/L (22-30); Chloride 99 mmol/L (98-107); Estimated CRCL calculation 9 ml/min; Estimated Glomerular Filt Rate 5; Glucose 126 mg/dL (75-110); Phosphorus 10.7 mg/dL (2.5-4.5); Potassium 7.3 mmol/L (3.4-5.0); Sodium 141 mmol/L (137-145)
--- NOTE | 2020-05-11 08:24 | PC.NURSE ---
Addendum entered by Jamila Melgar RN 05/11/20 08:26: time notified was 0750 Original Note: Dr Castro notified of pt on tele with significant run of vtach with rate in 140's. She will be up to see patient. Pt c/o of nausea was his only complaint.
--- NOTE | 2020-05-11 08:31 | PC.NURSE ---
Dr Bush notified of pt potassium 7.3 today and pt had run of vta. intensive care unit nurse here in hospital and need orders for treatment.
[2020-05-11] MEDS: LIDOCAINE/PRILOCAINE CREAM 2.5-2.5% TUBE 1 EACH TOPICAL (09:00)
--- NOTE | 2020-05-11 10:00 | PC.NURSE ---
This patient, Beck Carney, was received from [[id number]] on 05/11/20 at 1000. Patient/family oriented to unit policies and routines REPORT RECEIVED FROM HAY MARTIN. PATIENT CURRENTLY IN DIALYSIS. JUVENILE COUNSELOR WAS SWAPPED OUT WITH [facility]. PATIENT ALERT AND ORIENTED X4 AND C/O PAIN IN FEET.
[2020-05-11] MEDS: HYDROmorphone HCL INJ (*CRX) 1 MG/ML SYR 0.5 MG IV PUSH ×2 (10:18→23:52)
--- NOTE | 2020-05-11 11:49 | PM.PNGS ---
Progress Note: A&P Assessment and Plan (1) Incisional hernia of anterior abdominal wall with obstruction: Code(s): K43.0 - Incisional hernia with obstruction, without gangrene Status: Acute Assessment and Plan: Gastrografin SBFT yesterday showed no contrast in the colon at 4 hours. Abdominal x-ray this morning shows some contrast in the colon. Having flatus but no BM yet. Will give patient a fleets enema this afternoon. Repeat abdominal x-ray tomorrow morning. Continue NG tube decompression and bowel rest. (2) Small bowel obstruction: Code(s): K56.609 - Unspecified intestinal obstruction, unspecified as to partial versus complete obstruction Status: Acute (3) End-stage renal disease (ESRD): Code(s): N18.6 - End stage renal disease Status: Chronic (4) CHF (congestive heart failure): Code(s): I50.9 - Heart failure, unspecified Status: Chronic Additional Plan Discussed the plan of care with Dr. Gautam. Subjective Subjective Date/Time Seen: 05/11/20 11:49 Patient reports: no new complaints, feels better, pain is less, flatus and no bowel movement Interval history: Patient seen in dialysis. He denies any abdominal pain at this time. Still feels bloated. Reports some flatus today, but denies BM since gastrografin study. 1,100 cc recorded output from NG overnight. Transferred to IMU today due to possible ectopy on telemetry with hyperkalemia. Review of Systems Review of Systems: All systems reviewed & are unremarkable except as noted in HPI and below Exam Const: General: No acute distress Orientation/consciousness: patient oriented x3 GI: GI Palp: Yes Soft to palpation, No Tenderness to palpation present (GI) and No Rebound tenderness present Auscultation: normal bowel sounds Other: Multiple incisional hernias containing bowel with the largest in the LLQ with visible and palpable peristalsis. Hernias are soft, non-tender, and partially reducible. Neuro: General: moves all extremities and no focal motor deficits Extrem: General: normal to inspection Objective Data Vital Signs Vital Signs: Vital Signs - 24 hr 05/10/20 13:54 05/10/20 16:00 05/10/20 17:25 Temperature 97.7 F 98.1 F Pulse Rate 83 79 84 Respiratory Rate 20 18 Blood Pressure 169/61 H 192/75 H Pulse Oximetry 97 05/10/20 17:37 05/10/20 17:45 05/10/20 18:00 Temperature Pulse Rate 79 75 91 Respiratory Rate Blood Pressure 182/98 H 159/59 H 132/58 L Pulse Oximetry 05/10/20 18:15 05/10/20 18:22 05/10/20 18:30 Temperature Pulse Rate 96 97 101 H Respiratory Rate Blood Pressure 106/64 124/50 L 154/41 H Pulse Oximetry 05/10/20 18:45 05/10/20 19:00 05/10/20 19:15 Temperature Pulse Rate 102 H 104 H 105 H Respiratory Rate Blood Pressure 133/42 L 101/40 L 116/36 L Pulse Oximetry 05/10/20 19:30 05/10/20 19:45 05/10/20 20:00 Temperature Pulse Rate 88 81 128 H Respiratory Rate Blood Pressure 118/36 L 111/59 L 111/51 L Pulse Oximetry 05/10/20 20:15 05/10/20 20:30 05/10/20 20:40 Temperature Pulse Rate 87 86 79 Respiratory Rate Blood Pressure 97/27 L 118/59 L 94/34 L Pulse Oximetry 05/10/20 20:55 05/10/20 22:00 05/10/20 22:38 Temperature 97.8 F 97.0 F L Pulse Rate 79 66 122 H Respiratory Rate 16 18 Blood Pressure 92/42 L 96/45 L Pulse Oximetry 96 05/11/20 00:00 05/11/20 02:40 05/11/20 04:00 Temperature Pulse Rate 100 126 H 108 H Respiratory Rate Blood Pressure Pulse Oximetry 05/11/20 06:00 05/11/20 06:44 05/11/20 08:00 Temperature 97.3 F L Pulse Rate 94 122 H 126 H Respiratory Rate 18 Blood Pressure 138/87 Pulse Oximetry 97 05/11/20 08:24 05/11/20 09:30 Temperature 97.8 F 98.8 F Pulse Rate 98 132 H Respiratory Rate 17 16 Blood Pressure 94/48 L 135/70 Pulse Oximetry 96 Intake/Output Intake/Output: Intake & Output 05/08/20 05/09/20 05/10/20 05/11/20 23:59 23:
--- NOTE | 2020-05-11 11:56 | PM.PNNEP ---
Progress Note: A&P Assessment and Plan (1) End-stage renal disease (ESRD): Code(s): N18.6 - End stage renal disease Status: Chronic Assessment and Plan: HD today given elevated K+ follow electrolytes, volume status, and clearance (2) Hyperkalemia: Code(s): E87.5 - Hyperkalemia Status: Acute Assessment and Plan: etiology?? HD today AGAIN for correction follow repeat labs (3) SBO (small bowel obstruction): Code(s): K56.609 - Unspecified intestinal obstruction, unspecified as to partial versus complete obstruction Status: Acute Assessment and Plan: as noted by admission imaging General Surgery following SBFT results noted (4) HTN (hypertension): Qualifiers: Hypertension type: essential hypertension Qualified Code(s): I10 - Essential (primary) hypertension Code(s): I10 - Essential (primary) hypertension Status: Chronic Assessment and Plan: reasonable control follow trend of hemodynamics (5) Anemia: Qualifiers: Anemia type: due to chronic kidney disease Chronic kidney disease stage: on chronic dialysis Qualified Code(s): N18.6 - End stage renal disease; D63.1 - Anemia in chronic kidney disease; Z99.2 - Dependence on renal dialysis Code(s): D64.9 - Anemia, unspecified Status: Chronic Assessment and Plan: due to ESRD follow trend of H/H Epogen with HD as needed Will continue to follow. Subjective Date/time seen: 05/11/20 11:56 Tolerating hemodialysis treatment at the time of my visit (seen on HD at 11:40AM); K+ this AM was just as high as it was yesterday despite dialysis treatment yesterday (not sure why); otherwise, does not appears in any distress; NG tube still in place Exam Narrative: Exam Narrative: General: WD/WN male in NAD Heart: normal S1 and S2; tachycardic (seem irregular) Lungs: clear to auscultation Abdomen: soft, some distension noted; hypoactive bowel sounds Extremities: no cyanosis or clubbing; no edema Skin: warm and dry Objective Data Vital Signs Vital Signs: Vital Signs Temp Pulse Resp BP Pulse Ox 05/11/20 09:30 37.1 C 132 H 16 135/70 05/11/20 08:24 36.6 C 98 17 94/48 L 96 05/11/20 08:00 126 H 05/11/20 06:44 122 H 05/11/20 06:00 36.3 C L 94 18 138/87 97 05/11/20 04:00 108 H 05/11/20 02:40 126 H 05/11/20 00:00 100 05/10/20 22:38 122 H 05/10/20 22:00 36.1 C L 66 18 96/45 L 96 05/10/20 20:55 36.6 C 79 16 92/42 L 05/10/20 20:40 79 94/34 L 05/10/20 20:30 86 118/59 L 05/10/20 20:15 87 97/27 L 05/10/20 20:00 128 H 111/51 L 05/10/20 19:45 81 111/59 L 05/10/20 19:30 88 118/36 L 05/10/20 19:15 105 H 116/36 L 05/10/20 19:00 104 H 101/40 L 05/10/20 18:45 102 H 133/42 L 05/10/20 18:30 101 H 154/41 H 05/10/20 18:22 97 124/50 L 05/10/20 18:15 96 106/64 05/10/20 18:00 91 132/58 L 05/10/20 17:45 75 159/59 H 05/10/20 17:37 79 182/98 H 05/10/20 17:25 36.7 C 84 18 192/75 H 05/10/20 16:00 79 05/10/20 13:54 36.5 C 83 20 169/61 H 97 Intake/Output Intake/Output: Intake & Output 05/08/20 05/09/20 05/10/20 05/11/20 23:59 23:59 23:59 23:59 Intake Total 1010 1420 1950 450 Output Total 238 947 9843 1200 Balance 860 870 -450 -750 Meds/Results Medications: Active Medications Generic Name Dose Route Start Last Admin Trade Name Freq PRN Reason Stop Dose Admin Acetaminophen 650 mg 05/08/20 12:26 Acetaminophen 650 Mg Suppository RECTAL Q6H PRN Mild Pain (1-3) or Fever Hydralazine HCl 10 mg 05/07/20 19:06 05/10/20 14:08 Hydralazine Hcl 20 Mg/Ml Vial IV PUSH 10 mg Q8H PRN Administration Blood Pressure - High Hydromorphone HCl 0.5 mg 05/08/20 12:25 05/11/20 10:18 Hydromorphone Hcl Inj (*Crx) 1 Mg/Ml Syr IV PUSH 0.5 mg Q2H PRN Administ
--- NOTE | 2020-05-11 12:20 | PM.IMPN ---
Progress Note: A&P Assessment and Plan (1) SBO (small bowel obstruction): Code(s): K56.609 - Unspecified intestinal obstruction, unspecified as to partial versus complete obstruction Status: Acute Assessment and Plan: Completed SBFT on slow suction and fluids general rounding (2) Ventral hernia: Code(s): K43.9 - Ventral hernia without obstruction or gangrene Status: Acute Assessment and Plan: Reducible (3) Atrial fibrillation: Qualifiers: Atrial fibrillation type: unspecified Qualified Code(s): I48.91 - Unspecified atrial fibrillation Code(s): I48.91 - Unspecified atrial fibrillation Status: Chronic Assessment and Plan: Rate controlled. (4) Incisional hernia of anterior abdominal wall with obstruction: Code(s): K43.0 - Incisional hernia with obstruction, without gangrene Status: Acute Assessment and Plan: Surgery following. (5) End-stage renal disease (ESRD): Code(s): N18.6 - End stage renal disease Status: Chronic Assessment and Plan: Will get dialysis today, potassium 7.3 today needs urgently dialysis. (6) Hyperkalemia: Code(s): E87.5 - Hyperkalemia Status: Acute Assessment and Plan: Calcium Gluconate Insulin/Dextrose Telemetry monitoring transfer to IMU for closer observation (7) Type 2 diabetes mellitus without complication, with no history of insulin use: Code(s): E11.9 - Type 2 diabetes mellitus without complications Status: Chronic Assessment and Plan: NPO secondary to SBO Accuchecks, SSI Subjective Date/time seen: 05/11/20 12:20 Interval history: Rommel is a 59 year old male with PMHx significant for colostomy which has been reversed, multiple surgical hernias, SBO recurrent, T2DM, ESRD on HD. Patient presented to ED due to abdominal distention,pt is fund to have SBO. Pt is a dialysis patient, potassium levels have been high 7.3 today. Pt has run of SVT this morning. Pt to have urgent dialysis and transfer to IMU for further monitoring. Pt seen by surgery and nephrology Review of Systems Review of Systems: All systems reviewed & are unremarkable except as noted in HPI and below Exam Narrative: Exam Narrative: Lying in bed wit Ng tube in situ with good GI output Const: General: comfortable Resp: Effort & Inspection: normal respiratory effort Auscultation: clear to auscultation bilaterally Cardio: Rate: regular rate Rhythm: regular rhythm GI: Inspection: distended and other (Hernia present in the LLQ ) Neuro: General: patient oriented x3 and CN's II-XI intact bilaterally Cranial nerves: Yes CN's II-XII intact bilaterally, Yes Equal, round and reactive pupils present and Yes Bilaterally intact EOM present Cognition (Neuro): normal cognition Speech: normal speech Gait exam (Neuro): Normal gait present Motor exam (neuro): 5/5 motor strength present throughout Sensory Exam: normal sensation Extrem: General: normal to inspection, no joint enlargement and no pedal edema Objective Data Vital Signs Vital Signs: Vital Signs - 24 hr 05/10/20 13:54 05/10/20 16:00 05/10/20 17:25 Temperature 36.5 C 36.7 C Pulse Rate 83 79 84 Respiratory Rate 20 18 Blood Pressure 169/61 H 192/75 H Pulse Oximetry 97 05/10/20 17:37 05/10/20 17:45 05/10/20 18:00 Temperature Pulse Rate 79 75 91 Respiratory Rate Blood Pressure 182/98 H 159/59 H 132/58 L Pulse Oximetry 05/10/20 18:15 05/10/20 18:22 05/10/20 18:30 Temperature Pulse Rate 96 97 101 H Respiratory Rate Blood Pressure 106/64 124/50 L 154/41 H Pulse Oximetry 05/10/20 18:45 05/10/20 19:00 05/10/20 19:15 Temperature Pulse Rate 102 H 104 H 105 H Respiratory Rate Blood Pressure 133/42 L 101/40 L 116/36 L Pulse Oximetry 05/10/20 19:30 05/10/20 19:45 05/10/20 20:00 Temperature Pulse Rate 88 81 128 H Respiratory Rate Blood Pressure 118/36 L 111
--- NOTE | 2020-05-11 14:10 | PC.NURSE ---
PATIENT RETURNED BACK FROM DIALYSIS. VITALS STABLE. PAIN IMPROVED.
[2020-05-11 17:05] LABS: Anion Gap 14 mmol/L (8-16); Blood Urea Nitrogen 22 mg/dL (9-20); Calcium 10.7 mg/dL (8.4-10.2); Carbon Dioxide 25 mmol/L (22-30); Chloride 102 mmol/L (98-107); Estimated CRCL calculation 15 ml/min; Estimated Glomerular Filt Rate 11; Glucose 89 mg/dL (75-110); Potassium 5.2 mmol/L (3.4-5.0); Sodium 141 mmol/L (137-145)
[2020-05-12] VITALS (14 sets, daily range): BP systolic 108–154; BP diastolic 53–90; PULSE 77–119; RESP 16–20; TEMP 36.1–36.5; O2SAT 98–100; BMI 32.0
[2020-05-12] MEDS: HYDROmorphone HCL INJ (*CRX) 1 MG/ML SYR 0.5 MG IV PUSH (08:32)
--- NOTE | 2020-05-12 09:56 | PM.PNGS ---
Progress Note: A&P Assessment and Plan (1) Incisional hernia of anterior abdominal wall with obstruction: Code(s): K43.0 - Incisional hernia with obstruction, without gangrene Status: Acute Assessment and Plan: Abdominal x-ray this morning shows contrast in the colon. He has now had 3 bowel movements and his abdominal exam is benign. Will try an NG clamping trial today. Continue bowel rest. Encouraged to walk the halls when clamped. (2) Small bowel obstruction: Code(s): K56.609 - Unspecified intestinal obstruction, unspecified as to partial versus complete obstruction Status: Acute Assessment and Plan: See plan above. (3) End-stage renal disease (ESRD): Code(s): N18.6 - End stage renal disease Status: Chronic Assessment and Plan: Dialysis yesterday and Sunday with now improvement in his hyperkalemia and Cr. (4) CHF (congestive heart failure): Code(s): I50.9 - Heart failure, unspecified Status: Chronic Additional Plan Discussed the plan of care with Dr. Gautam. Subjective Subjective Date/Time Seen: 05/12/20 09:56 Patient reports: no new complaints, feels better, flatus and bowel movement Interval history: Patient states he feels much better today. Denies abdominal pain, bloating, or nausea. NG output yesterday was 200 cc and overnight 600 cc. He has had 3 BMs since yesterday evening. Patient states his only complaint today is throat pain from NG. Review of Systems Review of Systems: All systems reviewed & are unremarkable except as noted in HPI and below Exam Const: General: alert; No acute distress Orientation/consciousness: patient oriented x3 GI: Inspection: non-distended GI Palp: Yes Soft to palpation, No Tenderness to palpation present (GI) and No Rebound tenderness present Auscultation: normal bowel sounds Other: Multiple incisional hernias containing bowel with the largest in the LLQ with visible and palpable peristalsis. Hernias are soft, non-tender, and at least partially reducible. Neuro: General: moves all extremities and no focal motor deficits Extrem: General: capillary refill normal, no clubbing, cyanosis or edema and no calf tenderness Psych: Mental Status: mental status grossly normal Insight: Good insight present (Psych) Judgement: Good judgement present (Psych) Objective Data Vital Signs Vital Signs: Vital Signs - 24 hr 02/09/21 10:00 05/11/20 10:15 05/11/20 10:30 Temperature Pulse Rate 137 H 89 79 Respiratory Rate Blood Pressure 134/72 91/62 L 92/31 L Pulse Oximetry 05/11/20 10:45 05/11/20 11:00 05/11/20 11:15 Temperature Pulse Rate 81 100 102 H Respiratory Rate Blood Pressure 77/29 L 100/31 L 102/50 L Pulse Oximetry 05/11/20 11:30 05/11/20 11:45 05/11/20 12:00 Temperature Pulse Rate 90 84 104 H Respiratory Rate Blood Pressure 107/49 L 101/54 L 121/54 L Pulse Oximetry 05/11/20 12:15 05/11/20 12:30 05/11/20 12:45 Temperature Pulse Rate 72 90 90 Respiratory Rate Blood Pressure 109/47 L 89/48 L 105/36 L Pulse Oximetry 05/11/20 12:51 05/11/20 13:00 05/11/20 13:15 Temperature Pulse Rate 71 99 100 Respiratory Rate Blood Pressure 99/45 L 103/52 L 120/38 L Pulse Oximetry 05/11/20 13:20 05/11/20 13:22 05/11/20 14:10 Temperature 98.5 F 97.6 F Pulse Rate 84 56 L 95 Respiratory Rate 16 18 Blood Pressure 155/69 H 118/56 L 126/56 L Pulse Oximetry 98 05/11/20 16:00 05/11/20 18:00 05/11/20 20:00 Temperature 97.9 F 97.3 F L Pulse Rate 92 127 H 111 H Respiratory Rate 18 20 Blood Pressure 139/65 112/73 Pulse Oximetry 100 96 05/11/20 22:00 05/12/20 00:00 05/12/20 02:00 Temperature 97.7 F Pulse Rate 98 109 H 119 H Respiratory Rate 20 Blood Pressure 128/66 Pulse Oximetry 98 05/12/20 04:00 05/12/20 06:00 05/12/20 08:00 Temperature 97.4 F L 97.2 F L Pulse Rate 106 H 102 H 101 H Respiratory Rate 20 16 Blood
--- NOTE | 2020-05-12 12:52 | PM.PNNEP ---
Progress Note: A&P Assessment and Plan (1) End-stage renal disease (ESRD): Code(s): N18.6 - End stage renal disease Status: Chronic Assessment and Plan: HD tomorrow and eventually transition him back to // schedule follow electrolytes, volume status, and clearance (2) Hyperkalemia: Code(s): E87.5 - Hyperkalemia Status: Acute Assessment and Plan: etiology?? HD Sunday and yesterday to correct this issue follow repeat labs (3) SBO (small bowel obstruction): Code(s): K56.609 - Unspecified intestinal obstruction, unspecified as to partial versus complete obstruction Status: Acute Assessment and Plan: as noted by admission imaging General Surgery following SBFT results noted NG clamped today (4) HTN (hypertension): Qualifiers: Hypertension type: essential hypertension Qualified Code(s): I10 - Essential (primary) hypertension Code(s): I10 - Essential (primary) hypertension Status: Chronic Assessment and Plan: reasonable control follow trend of hemodynamics (5) Anemia: Qualifiers: Anemia type: due to chronic kidney disease Chronic kidney disease stage: on chronic dialysis Qualified Code(s): N18.6 - End stage renal disease; D63.1 - Anemia in chronic kidney disease; Z99.2 - Dependence on renal dialysis Code(s): D64.9 - Anemia, unspecified Status: Chronic Assessment and Plan: due to ESRD follow trend of H/H Epogen with HD as needed Will continue to follow. Subjective Date/time seen: 05/12/20 12:52 NG clamped today as patinet having bowel movement and SBFT demonstrated contrast in his colon; tolerated dialysis yesterday with noted improvement in his potassium level; no events overnight or earlier this AM. Exam Narrative: Exam Narrative: General: WD/WN male in NAD Heart: normal S1 and S2; tachycardic (seems irregular) Lungs: clear to auscultation Abdomen: soft, mild distension noted; hypoactive bowel sounds Extremities: no cyanosis or clubbing; no edema Skin: warm and intact Objective Data Vital Signs Vital Signs: Vital Signs Temp Pulse Resp BP Pulse Ox 05/12/20 12:00 36.2 C L 104 H 16 152/75 H 100 05/12/20 10:00 111 H 05/12/20 08:00 36.2 C L 101 H 16 154/90 H 100 05/12/20 06:00 102 H 05/12/20 04:00 36.3 C L 106 H 20 136/64 100 05/12/20 02:00 119 H 05/12/20 00:00 36.5 C 109 H 20 128/66 98 05/11/20 22:00 98 05/11/20 20:00 36.3 C L 111 H 20 112/73 96 05/11/20 18:00 127 H Intake/Output Intake/Output: Intake & Output 05/09/20 05/10/20 05/11/20 05/12/20 23:59 23:59 23:59 23:59 Intake Total 1420 1950 570 Output Total 550 2400 1400 625 Balance 171 -058 -420 -067 Meds/Results Medications: Active Medications Generic Name Dose Route Start Last Admin Trade Name Freq PRN Reason Stop Dose Admin Acetaminophen 650 mg 05/08/20 12:26 Acetaminophen 650 Mg Suppository RECTAL Q6H PRN Mild Pain (1-3) or Fever Hydralazine HCl 10 mg 05/07/20 19:06 05/10/20 14:08 Hydralazine Hcl 20 Mg/Ml Vial IV PUSH 10 mg Q8H PRN Administration Blood Pressure - High Hydromorphone HCl 0.5 mg 05/08/20 12:25 05/12/20 08:32 Hydromorphone Hcl Inj (*Crx) 1 Mg/Ml Syr IV PUSH 0.5 mg Q2H PRN Administration Pain Rated 4-6 Albumin Human 50 mls @ 999 mls/hr 05/10/20 06:53 Albutein IVPB 06/09/20 06:54 Q10M PRN HYPOTENSION Lidocaine/Prilocaine 1 each 05/10/20 09:46 05/11/20 09:00 Lidocaine/Prilocaine Cream 2.5-2.5% Tube TOPICAL 1 each ONCE PRN Administration Pain Metoprolol Tartrate 5 mg 05/07/20 17:24 05/11/20 06:44 Metoprolol Tartrate Inj 5 Mg/5 Ml Vial IV PUSH 5 mg Q4HR PRN Administration Heart Rate greater than 120 Naloxone HCl 0.1 mg 05/07/20 14:05 Naloxone Hcl 0.4 Mg/Ml Vial IV PUSH Q2M PRN Opiate Reversal Ond
--- NOTE | 2020-05-12 14:19 | PM.IMPN ---
Progress Note: A&P Assessment and Plan (1) SBO (small bowel obstruction): Code(s): K56.609 - Unspecified intestinal obstruction, unspecified as to partial versus complete obstruction Status: Acute Assessment and Plan: Pt to have NG tube clamped and removed tomorrow (2) Ventral hernia: Code(s): K43.9 - Ventral hernia without obstruction or gangrene Status: Acute Assessment and Plan: Reducible (3) Atrial fibrillation: Qualifiers: Atrial fibrillation type: unspecified Qualified Code(s): I48.91 - Unspecified atrial fibrillation Code(s): I48.91 - Unspecified atrial fibrillation Status: Chronic Assessment and Plan: Rate controlled. (4) Incisional hernia of anterior abdominal wall with obstruction: Code(s): K43.0 - Incisional hernia with obstruction, without gangrene Status: Acute Assessment and Plan: Surgery following. (5) End-stage renal disease (ESRD): Code(s): N18.6 - End stage renal disease Status: Chronic Assessment and Plan: Will get dialysis today, potassium 7.3 today needs urgently dialysis. (6) Hyperkalemia: Code(s): E87.5 - Hyperkalemia Status: Acute Assessment and Plan: Calcium Gluconate Insulin/Dextrose Telemetry monitoring transfer to IMU for closer observation (7) Type 2 diabetes mellitus without complication, with no history of insulin use: Code(s): E11.9 - Type 2 diabetes mellitus without complications Status: Chronic Assessment and Plan: NPO secondary to SBO Accuchecks, SSI Subjective Date/time seen: 05/12/20 14:19 Interval history: Rommel is a 59 year old male with PMHx significant for colostomy which has been reversed, multiple surgical hernias, SBO recurrent, T2DM, ESRD on HD. Patient presented to ED due to abdominal distention, pt is found to have SBO. Pt is doing well NG tube can be clamped today and hopeful removed tomorrow. Pts abdomen feels softer today and pt has passed gas and had a bowel movement. Review of Systems Review of Systems: All systems reviewed & are unremarkable except as noted in HPI and below Exam Narrative: Exam Narrative: Lying in bed wit Ng tube in situ clamped Const: General: comfortable Orientation/consciousness: patient oriented x3 Eyes: Pupils: Equal, round and reactive pupils present EOM: EOMs intact bilaterally Neck: Neck: supple Resp: Effort & Inspection: normal respiratory effort Auscultation: clear to auscultation bilaterally Cardio: Jugular venous distension: no JVD Rate: regular rate Rhythm: regular rhythm GI: Inspection: other (Hernia present in the LLQ ) Auscultation: normal bowel sounds Skin: Rashes: no rashes Neuro: General: patient oriented x3 and CN's II-XI intact bilaterally Cranial nerves: Yes CN's II-XII intact bilaterally, Yes Equal, round and reactive pupils present and Yes Bilaterally intact EOM present Cognition (Neuro): normal cognition Speech: normal speech Gait exam (Neuro): Normal gait present Motor exam (neuro): 5/5 motor strength present throughout Sensory Exam: normal sensation Extrem: General: normal to inspection, no joint enlargement and no pedal edema Objective Data Vital Signs Vital Signs: Vital Signs - 24 hr 05/11/20 16:00 05/11/20 18:00 05/11/20 20:00 Temperature 36.6 C 36.3 C L Pulse Rate 92 127 H 111 H Respiratory Rate 18 20 Blood Pressure 139/65 112/73 Pulse Oximetry 100 96 05/11/20 22:00 05/12/20 00:00 05/12/20 02:00 Temperature 36.5 C Pulse Rate 98 109 H 119 H Respiratory Rate 20 Blood Pressure 128/66 Pulse Oximetry 98 05/12/20 04:00 05/12/20 06:00 05/12/20 08:00 Temperature 36.3 C L 36.2 C L Pulse Rate 106 H 102 H 101 H Respiratory Rate 20 16 Blood Pressure 136/64 154/90 H Pulse Oximetry 100 100 05/12/20 10:00 05/12/20 12:00 05/12/20 14:00 Temperature 36.2 C L Pulse Rate 111 H 104 H 105 H Respiratory Rate
[2020-05-13] VITALS (28 sets, daily range): BP systolic 83–187; BP diastolic 42–73; PULSE 67–89; RESP 16–220; TEMP 36–37.2; O2SAT 95–100
--- NOTE | 2020-05-13 00:05 | PC.NURSE ---
pts bp ia 85/52 darin ordered 250 saline bolus
[2020-05-13 05:41] LABS: Anion Gap 17 mmol/L (8-16); Blood Urea Nitrogen 55 mg/dL (9-20); Calcium 10.2 mg/dL (8.4-10.2); Carbon Dioxide 24 mmol/L (22-30); Chloride 99 mmol/L (98-107); Estimated CRCL calculation 9 ml/min; Estimated Glomerular Filt Rate 6; Glucose 81 mg/dL (75-110); Potassium 4.8 mmol/L (3.4-5.0); Sodium 140 mmol/L (137-145)
--- NOTE | 2020-05-13 11:48 | PM.PNGS ---
Progress Note: A&P Assessment and Plan (1) Small bowel obstruction: Code(s): K56.609 - Unspecified intestinal obstruction, unspecified as to partial versus complete obstruction Status: Acute Assessment and Plan: Seems to be resolving. Bowels continue to move and he is tolerating a clear liquid diet. Will advance to full liquids today. Encouraged walking the halls. (2) Incisional hernia of anterior abdominal wall with obstruction: Code(s): K43.0 - Incisional hernia with obstruction, without gangrene Status: Acute Assessment and Plan: High risk surgical candidate who would not be a candidate for elective hernia repair due to the size of the hernias, co-morbidities, and complexity of surgery. (3) End-stage renal disease (ESRD): Code(s): N18.6 - End stage renal disease Status: Chronic Assessment and Plan: Hyperkalemia improved. Nephrology following and managing his hemodialysis. (4) CHF (congestive heart failure): Code(s): I50.9 - Heart failure, unspecified Status: Chronic Additional Plan Discussed the plan of care with Dr. Gautam. Subjective Subjective Date/Time Seen: 05/13/20 11:48 Patient reports: no new complaints, feels better, tolerating liquids well, flatus and bowel movement Interval history: Patient reports feeling good today. Has tolerated 3 clear liquid trays at this point. Denies nausea, vomiting, or significant bloating. He reports having 2 large BMs overnight and one small one this morning. No other complaints at this time. Review of Systems Review of Systems: All systems reviewed & are unremarkable except as noted in HPI and below Exam Const: General: No acute distress Orientation/consciousness: patient oriented x3 GI: Inspection: non-distended GI Palp: Yes Soft to palpation, No Tenderness to palpation present (GI) and No Rigid due to palpation Other: Multiple incisional hernias containing bowel with the largest in the LLQ. Hernias are soft, non-tender, and at least partially reducible. Neuro: General: moves all extremities and no focal motor deficits Extrem: General: normal to inspection and no clubbing, cyanosis or edema Psych: Mental Status: mental status grossly normal Insight: Good insight present (Psych) Judgement: Good judgement present (Psych) Objective Data Vital Signs Vital Signs: Vital Signs - 24 hr 05/12/20 12:00 05/12/20 14:00 05/12/20 15:49 Temperature 97.2 F L 96.9 F L Pulse Rate 104 H 105 H 106 H Respiratory Rate 16 16 Blood Pressure 152/75 H 108/53 L Pulse Oximetry 100 100 05/12/20 16:00 05/12/20 17:41 05/12/20 18:54 Temperature 97.5 F L Pulse Rate 117 H 103 H 111 H Respiratory Rate 16 Blood Pressure 129/89 Pulse Oximetry 98 05/12/20 20:00 05/12/20 22:00 05/13/20 00:00 Temperature 98.2 F Pulse Rate 97 77 76 Respiratory Rate 20 Blood Pressure 85/52 L Pulse Oximetry 99 05/13/20 00:30 05/13/20 02:00 05/13/20 04:00 Temperature 97.7 F Pulse Rate 77 80 Respiratory Rate 18 Blood Pressure 131/42 L 153/68 H Pulse Oximetry 100 05/13/20 06:00 05/13/20 08:00 05/13/20 10:00 Temperature 97.3 F L Pulse Rate 83 80 82 Respiratory Rate 16 Blood Pressure 156/50 H Pulse Oximetry 98 Intake/Output Intake/Output: Intake & Output 05/10/20 05/11/20 05/12/20 05/13/20 23:59 23:59 23:59 23:59 Intake Total 1950 570 480 820 Output Total 2400 1400 625 Balance -450 -830 -145 820 Meds/Results Medications: Active Medications Generic Name Dose Route Start Last Admin Trade Name Freq PRN Reason Stop Dose Admin Acetaminophen 650 mg 05/08/20 12:26 Acetaminophen 650 Mg Suppository RECTAL Q6H PRN Mild Pain (1-3) or Fever Amiodarone HCl 200 mg 05/14/20 09:00 Amiodarone Hcl 200 Mg Tablet PO DAILY [facility] Aspirin 81 mg 05/14/20 09:00 Aspirin 81 Mg Enteric Tablet PO DAILY [facility] Atorvastatin Calcium 40 mg 05/14/20 09:0
--- NOTE | 2020-05-13 12:55 | PM.IMPN ---
Progress Note: A&P Assessment and Plan (1) SBO (small bowel obstruction): Code(s): K56.609 - Unspecified intestinal obstruction, unspecified as to partial versus complete obstruction Status: Acute Assessment and Plan: Pt on clears to advancer to full liquid diet (2) Ventral hernia: Code(s): K43.9 - Ventral hernia without obstruction or gangrene Status: Acute Assessment and Plan: Reducible (3) Atrial fibrillation: Qualifiers: Atrial fibrillation type: unspecified Qualified Code(s): I48.91 - Unspecified atrial fibrillation Code(s): I48.91 - Unspecified atrial fibrillation Status: Chronic Assessment and Plan: Rate controlled. (4) Incisional hernia of anterior abdominal wall with obstruction: Code(s): K43.0 - Incisional hernia with obstruction, without gangrene Status: Acute Assessment and Plan: Surgery following. (5) End-stage renal disease (ESRD): Code(s): N18.6 - End stage renal disease Status: Chronic Assessment and Plan: Will get dialysis in hospital (6) Hyperkalemia: Code(s): E87.5 - Hyperkalemia Status: Resolved (7) Type 2 diabetes mellitus without complication, with no history of insulin use: Code(s): E11.9 - Type 2 diabetes mellitus without complications Status: Chronic Assessment and Plan: Accuchterri, SSI Subjective Date/time seen: 05/13/20 12:55 Interval history: Rommel is a 59 year old male with PMHx significant for colostomy which has been reversed, multiple surgical hernias, SBO recurrent, T2DM, ESRD on HD. Patient presented to ED due to abdominal distention, pt is found to have SBO. Pt had Ng clamp removed, pt is on clears advance to full hopeful DC tomorrow. Can transfer to medical floor Review of Systems Review of Systems: All systems reviewed & are unremarkable except as noted in HPI and below Exam Const: General: comfortable Orientation/consciousness: patient oriented x3 HENMT: Head: normal to inspection and normocephalic Ears: hearing grossly normal bilaterally General nose exam: Normal external nose present Neck: Neck: supple Resp: Effort & Inspection: normal respiratory effort Auscultation: clear to auscultation bilaterally Cardio: Jugular venous distension: no JVD Rate: regular rate Rhythm: regular rhythm GI: Inspection: other (Hernia present in the LLQ ) Auscultation: normal bowel sounds Skin: Rashes: no rashes Neuro: General: patient oriented x3 and CN's II-XI intact bilaterally Cranial nerves: Yes CN's II-XII intact bilaterally, Yes Equal, round and reactive pupils present and Yes Bilaterally intact EOM present Cognition (Neuro): normal cognition Speech: normal speech Gait exam (Neuro): Normal gait present Motor exam (neuro): 5/5 motor strength present throughout Sensory Exam: normal sensation Extrem: General: normal to inspection, no joint enlargement and no pedal edema Objective Data Vital Signs Vital Signs: Vital Signs - 24 hr 05/12/20 14:00 05/12/20 15:49 05/12/20 16:00 Temperature 36.1 C L Pulse Rate 105 H 106 H 117 H Respiratory Rate 16 Blood Pressure 108/53 L Pulse Oximetry 100 05/12/20 17:41 05/12/20 18:54 05/12/20 20:00 Temperature 36.4 C L Pulse Rate 103 H 111 H 97 Respiratory Rate 16 Blood Pressure 129/89 Pulse Oximetry 98 05/12/20 22:00 05/13/20 00:00 05/13/20 00:30 Temperature 36.8 C Pulse Rate 77 76 Respiratory Rate 20 Blood Pressure 85/52 L 131/42 L Pulse Oximetry 99 05/13/20 02:00 05/13/20 04:00 05/13/20 06:00 Temperature 36.5 C Pulse Rate 77 80 83 Respiratory Rate 18 Blood Pressure 153/68 H Pulse Oximetry 100 05/13/20 08:00 05/13/20 10:00 05/13/20 12:00 Temperature 36.3 C L 36.5 C Pulse Rate 80 82 78 Respiratory Rate 16 18 Blood Pressure 156/50 H 145/44 H Pulse Oximetry 98 99 Intake/Output Intake/Output: Intake & Output
[2020-05-13] MEDS: AMIODARONE HCL 200 MG TABLET PO ×2 (13:21→22:05)
--- NOTE | 2020-05-13 14:23 | PCDIET ---
Nutrition Follow-Up Complete: Nutrition Diagnosis: Inadequate oral intake related to SBO as evidenced by NPO status. Nutrition Goal: Patient to meet estimated nutritional needs. Goal in progress. Patient tolerated clear liquid trays with Ensure Clear x 3. Diet has since advanced to full liquid. Recommend phosphorus binder with all meals and snacks now that diet is advancing. Last recorded weight is 95.1 kg which is stable with last review. Bowel Motility: +BMs overnight. Labs Reviewed: BUN (55), Cr (9.4) Meds Noted: Hydralazine, Senakot, Lisinopril, Lopressor Additional Notes: Right foot laceration with Band-Aid. No documented pressure sores. Will continue to monitor with same goal. Nutrition Monitoring and Evaluation: Follow up every 5 days.
[2020-05-13] MEDS: LIDOCAINE/PRILOCAINE CREAM 2.5-2.5% TUBE 1 EACH TOPICAL (14:35)
--- NOTE | 2020-05-13 15:10 | PC.NURSE ---
Pt to dialysis via bed
--- NOTE | 2020-05-13 16:18 | PM.PNNEP ---
Progress Note: A&P Assessment and Plan (1) End-stage renal disease (ESRD): Code(s): N18.6 - End stage renal disease Status: Chronic Assessment and Plan: HD today and eventually transition him back to // schedule follow electrolytes, volume status, and clearance (2) Hyperkalemia: Code(s): E87.5 - Hyperkalemia Status: Acute Assessment and Plan: etiology?? HD Sunday and yesterday to correct this issue follow repeat labs (3) SBO (small bowel obstruction): Code(s): K56.609 - Unspecified intestinal obstruction, unspecified as to partial versus complete obstruction Status: Acute Assessment and Plan: as noted by admission imaging General Surgery following SBFT results noted NG clamped today (4) HTN (hypertension): Qualifiers: Hypertension type: essential hypertension Qualified Code(s): I10 - Essential (primary) hypertension Code(s): I10 - Essential (primary) hypertension Status: Chronic Assessment and Plan: reasonable control follow trend of hemodynamics (5) Anemia: Qualifiers: Anemia type: due to chronic kidney disease Chronic kidney disease stage: on chronic dialysis Qualified Code(s): N18.6 - End stage renal disease; D63.1 - Anemia in chronic kidney disease; Z99.2 - Dependence on renal dialysis Code(s): D64.9 - Anemia, unspecified Status: Chronic Assessment and Plan: due to ESRD follow trend of H/H Epogen with HD as needed Will continue to follow - ok to discharge from renal perspective; he is currently set-up to receive dialysis at his outpatient dialysis center on Sunday at 10:15AM and then will transition back to Sun/Sun/Sun next week. Subjective Date/time seen: 05/13/20 16:18 Tolerating hemodialysis treatment at the time of my visit (seen on HD at 4:00PM); no apparent distress voiced currently; feels reasonably well; eating and drinking okay; no events/issues overnight or earlier this AM; hoping for discharge soon. Exam Narrative: Exam Narrative: General: WD/WN male in NAD Heart: normal S1 and S2 Lungs: clear to auscultation Abdomen: soft, mild distension noted; hypoactive bowel sounds Extremities: no cyanosis or clubbing; no edema Skin: no rash or nodules Objective Data Vital Signs Vital Signs: Vital Signs Temp Pulse Resp BP Pulse Ox 02/11/21 15:16 37.1 C 87 20 187/61 H 05/13/20 13:21 78 05/13/20 12:00 36.5 C 78 18 145/44 H 99 05/13/20 10:00 82 05/13/20 08:00 36.3 C L 80 16 156/50 H 98 05/13/20 06:00 83 05/13/20 04:00 36.5 C 80 18 153/68 H 100 05/13/20 02:00 77 05/13/20 00:30 131/42 L 05/13/20 00:00 36.8 C 76 20 85/52 L 99 05/12/20 22:00 77 05/12/20 20:00 97 05/12/20 18:54 36.4 C L 111 H 16 129/89 98 05/12/20 17:41 103 H Intake/Output Intake/Output: Intake & Output 05/10/20 05/11/20 05/12/20 05/13/20 23:59 23:59 23:59 23:59 Intake Total 1950 558 672 9258 Output Total 2400 1400 625 Balance -450 -830 -145 1540 Meds/Results Medications: Active Medications Generic Name Dose Route Start Last Admin Trade Name Freq PRN Reason Stop Dose Admin Acetaminophen 650 mg 05/08/20 12:26 Acetaminophen 650 Mg Suppository RECTAL Q6H PRN Mild Pain (1-3) or Fever Amiodarone HCl 200 mg 05/13/20 12:15 05/13/20 13:21 Amiodarone Hcl 200 Mg Tablet PO 200 mg DAILY [facility] Administration Aspirin 81 mg 05/14/20 09:00 Aspirin 81 Mg Enteric Tablet PO DAILY COUNTS INCLUDE 234 BEDS AT [facility] Atorvastatin Calcium 40 mg 05/14/20 09:00 Atorvastatin 40 Mg Tablet PO DAILY COUNTS INCLUDE 234 BEDS AT THE [facility] Hydralazine HCl 10 mg 05/07/20 19:06 05/10/20 14:08 Hydralazine Hcl 20 Mg/Ml Vial IV PUSH 10 mg Q8H PRN Administration Blood Pressure - High Lidocaine/Prilocaine 1 each 05/10/20 09:46 05/11/20 09:00 Lidocaine/Prilocaine Cream 2.5-2.5% Tube TOPICAL 1 each ONCE PRN
[2020-05-13] MEDS: METOPROLOL TARTRATE 50 MG TAB 150 MG PO (18:59)
[2020-05-13] MEDS: SEVELAMER CARBONATE 800 MG TABLET 2400 MG PO (19:00)
--- NOTE | 2020-05-13 19:09 | PC.NURSE ---
Pt returned from dialysis.
[2020-05-13] MEDS: ATORVASTATIN 40 MG TABLET PO (20:15)
[2020-05-13] MEDS: SEVELAMER CARBONATE 800 MG TABLET 1600 MG PO (20:15)
[2020-05-13] MEDS: SENNA/DOCUSATE SODIUM TABLET 1 TAB PO (20:15)
--- NOTE | 2020-05-13 22:13 | PC.NURSE ---
This patient, Beck Carney, was transferred to [ [id number]] on 05/13/20 at 2213. Personal belongings sent with patient. Report given to [ Daina]. Appropriate documentation sent with patient.
--- NOTE | 2020-05-13 22:28 | PC.NURSE ---
2215: PT RCV'D IMU TRANSFER A&OX4. CONVERSANT. IN NO DISTRESS. ORIENTED TO UNIT AND REVIEWED SAFETY PRECAUTIONS. CALL LIGHT AND PERSONAL ITEMS IN REACH. VSS.
[2020-05-14 06:00] VITALS: BP 115/83; PULSE 63; RESP 16; TEMP 36.8; O2SAT 99
[2020-05-14] MEDS: SEVELAMER CARBONATE 800 MG TABLET 2400 MG PO ×2 (09:06→12:56)
[2020-05-14 09:07] VITALS: PULSE 64
[2020-05-14] MEDS: AMIODARONE HCL 200 MG TABLET PO (09:07)
[2020-05-14 09:08] VITALS: PULSE 64
[2020-05-14] MEDS: METOPROLOL TARTRATE 50 MG TAB 150 MG PO (09:08)
[2020-05-14] MEDS: lisinopriL 20 MG TABLET PO (09:08)
[2020-05-14] MEDS: ASPIRIN 81 MG ENTERIC TABLET PO (09:08)
--- NOTE | 2020-05-14 09:16 | PM.DS ---
DS: Admitting Diagnosis Admitting Diagnosis Admitting Diagnosis: Abdominal pain. DS: Discharge Diagnosis Discharge Diagnosis (1) SBO (small bowel obstruction): Code(s): K56.609 - Unspecified intestinal obstruction, unspecified as to partial versus complete obstruction Status: Acute Assessment and Plan: Pt on clears to advance to renal diet (2) Ventral hernia: Code(s): K43.9 - Ventral hernia without obstruction or gangrene Status: Acute Assessment and Plan: Reducible (3) Atrial fibrillation: Qualifiers: Atrial fibrillation type: unspecified Qualified Code(s): I48.91 - Unspecified atrial fibrillation Code(s): I48.91 - Unspecified atrial fibrillation Status: Chronic Assessment and Plan: Rate controlled. (4) Incisional hernia of anterior abdominal wall with obstruction: Code(s): K43.0 - Incisional hernia with obstruction, without gangrene Status: Acute Assessment and Plan: Surgery following. (5) End-stage renal disease (ESRD): Code(s): N18.6 - End stage renal disease Status: Chronic Assessment and Plan: Will get dialysis in hospital, pt to continue on dialysis as outpatient. (6) Hyperkalemia: Code(s): E87.5 - Hyperkalemia Status: Resolved Assessment and Plan: After dialysis (7) Type 2 diabetes mellitus without complication, with no history of insulin use: Code(s): E11.9 - Type 2 diabetes mellitus without complications Status: Chronic Assessment and Plan: Diet controlled DM pt is not on any DM medications DS: Summary Hospital Course Hospital Course: Long is a 59 year old male with PMHx significant for colostomy which has been reversed, multiple surgical hernias, SBO recurrent, T2DM, ESRD on HD. Patient presented to ED due to abdominal distention, pt is found to have SBO. Pt had NG clamped and removed, pt is on clears advance to full liquids and then to renal diet and DC today. Time Spent with Patient Time attestation: Total time spent providing and/or coordinating discharge services:40 minutes on day of discharge Exam Const: General: comfortable Nutritional Appearance: average body habitus Orientation/consciousness: patient oriented x3 HENMT: Head: normal to inspection and normocephalic Ears: hearing grossly normal bilaterally General nose exam: Normal external nose present Face and sinus: normal facial exam Neck: Neck: supple Resp: Effort & Inspection: normal respiratory effort Auscultation: clear to auscultation bilaterally Cardio: Jugular venous distension: no JVD Rate: regular rate Rhythm: regular rhythm GI: Inspection: other (Hernia present in the LLQ ) Auscultation: normal bowel sounds Skin: Rashes: no rashes Neuro: General: patient oriented x3 and CN's II-XI intact bilaterally Cranial nerves: Yes CN's II-XII intact bilaterally, Yes Equal, round and reactive pupils present and Yes Bilaterally intact EOM present Cognition (Neuro): normal cognition Speech: normal speech Gait exam (Neuro): Normal gait present Motor exam (neuro): 5/5 motor strength present throughout Sensory Exam: normal sensation Extrem: General: normal to inspection, no joint enlargement and no pedal edema Discharge Plan Discharge Attending physician on discharge: Jeannette Castro Consulting providers: Kel Graf Discharging Clinician: Jeannette Castro Anticipated Discharge Date/Time: 05/14/20 15:00 Patient Disposition: Home, Self-Care Activity: as tolerated Diet: renal Discharge Instructions: Continue with dialysis sessions as outpatient Patient Instructions: Antibiotic Form, Heart Failure (DC), Pain Management (DC), Bowel Obstruction (DC) Stand Alone Forms: General Discharge Information Follow-up/Referrals: Song Lindsey DO [Primary Care Provider] - Discharge Medications: New polyethylene glycol 3350 [Miralax] 17 g
[2020-05-14] MEDS: polyethylene glycoL 3350 17 GM POWD.PACK PO (09:45)
[2020-05-14 14:00] VITALS: BP 128/69; PULSE 80; RESP 16; TEMP 36.6; O2SAT 97
== END 2020-05-14 15:00 | disposition home or self-care (01) | DRG 393 ==
LOC: ANHED 09:42 → ANH2MED 12:14 → ANH3MEDSUR 05-14 09:16 → ANH2MED 05-18 15:58 → ANH3MEDSUR 05-18 15:58 → ANHIMU 05-18 15:58
PROVIDERS: Internal Medicine; Internal Medicine Nephrology; Admitting Provider Family Medicine; Emergency Provider Emergency Medicine; PCP Internal Medicine; Visit Provider Family Medicine
DX: K43.0 Incisional hernia with obstruction, without gangrene (principal); N18.6 End stage renal disease; I13.2 Hypertensive heart and chronic kidney disease with heart failure and with stage 5 chronic kidney disease, or end stage renal disease; D63.1 Anemia in chronic kidney disease; E11.22 Type 2 diabetes mellitus with diabetic chronic kidney disease; I50.9 Heart failure, unspecified; Z99.2 Dependence on renal dialysis; E87.5 Hyperkalemia; E78.5 Hyperlipidemia, unspecified; I25.10 Atherosclerotic heart disease of native coronary artery without angina pectoris; I48.91 Unspecified atrial fibrillation; I25.2 Old myocardial infarction; Z95.1 Presence of aortocoronary bypass graft; Z79.82 Long term (current) use of aspirin; Z79.899 Other long term (current) drug therapy
CPT/HCPCS: 36415; 74018; 74019; 74176; 74250; 80048; 80053; 80069; 82948; 83605; 83690; 85025; 85610; 85730; 93005; 96374; 96375; 99285; A9270; G0257; J0360; J0610; J1170; J1815; J2060; J2270; J2405; J3010; J7030; J7121

== ENCOUNTER 2020-07-27 08:04 | Outpatient (CLI) | payer MEDICARE, MEDICAID, SELFPAY ==
--- NOTE | ~2020-07-27 | CT_ITS ---
EXAMINATION: CTA abd aorta runoff EXAM DATE: 07/27/2020 09:22 INDICATION: Bilateral foot ulcers. TECHNIQUE: Spiral CTA abd aorta runoff was performed following intravenous injection of 150 mL Omnipa que 350. Maximum intensity projection 3-D reconstructions of the abdominal aorta and iliac arteries, leg arteries were created by the technologist on dedicated workstation. The dose-length product (DL P) for this examination was 1586.42 mGy-cm. The exposure was tailored according to patient size (aut o mA exposure control), and iterative reconstruction (ASIR) was used as additional dose reduction dolly hnique. Correlation is made to CT abdomen pelvis 05/07/2020. FINDINGS: ARTERIES: No abdominal aortic dissection or aneurysm. Small amount of renal artery origin stenosis bi laterally, may not be clinically significant in this patient on dialysis. No more than than mild sten osis origin of the superior mesenteric, celiac arteries arteries. Inferior mesenteric artery not iden tified, probably completely occluded. There is moderate circumferential diffuse abdominal aortic june riosclerosis without stenosis. Right side: Moderate aortoiliac circumferential arterial sclerosis without stenosis. Multiple regions of mild to moderate right superficial femoral arterial stenosis. Moderate popliteal arterial scleros is and stenosis. Extensive arteriosclerosis below the knee, with the interosseous and probably the po sterior tibial dominant supplies to the foot. Left side: Mild stenosis of the left common iliac artery for a short segment. There is short segment region of moderate to stenosis superficial femoral artery at its distal 3rd aspect, lumen measuring a bout 2 x 3 mm (see axial image 272). Several regions of moderate stenosis left popliteal artery. Exte nsive arterial sclerosis below the knee, suspect that the intraosseous and posterior tibial arteries are dominant supplies to the foot. INCIDENTAL FINDINGS: Multiple abdominal wall hernias containing nonobstructed bowel. Cholecystectomy. Renal atrophy. Splenule. Rectosigmoid anastomosis. Right tibial plateau and left tibial plafond hard alicea. IMPRESSION: 1. Extensive bilateral knee arteriosclerosis, with the interosseous and posterior tibial artery susp ected to be dominant supply to the feet. 2. Regions of moderate left superficial femoral, moderate bilateral popliteal arterial stenosis. 3. Incidental findings. Reviewed, dictated and finalized at location A. IMPRESSION: 1. Extensive bilateral knee arteriosclerosis, with the interosseous and security management specialist ior tibial artery suspected to be dominant supply to the feet. 2. Regions of moderate left superficial femoral, moderate bilateral popliteal arterial stenosis. 3. Incidental findings.
== END 2020-07-27 08:05 | disposition home or self-care (01) ==
PROVIDERS: PCP Internal Medicine; Visit Provider Internal Medicine Cardiovascular Disease
DX: L97.519 Non-pressure chronic ulcer of other part of right foot with unspecified severity (principal); L97.529 Non-pressure chronic ulcer of other part of left foot with unspecified severity; M79.89 Other specified soft tissue disorders
CPT/HCPCS: 75635; Q9967

== ENCOUNTER 2020-09-26 00:38 | Inpatient (IN) | payer MEDICARE, MEDICAID, SELFPAY ==
[2020-09-26] VITALS (26 sets, daily range): BP systolic 112–192; BP diastolic 54–122; PULSE 73–116; RESP 14–24; TEMP 36.7–37.2; O2SAT 94–100; BMI 31.1
--- NOTE | ~2020-09-26 | XR_ITS ---
EXAMINATION: XR abdomen obstructive series DATE: 09/26/2020 10:46 INDICATION: Nausea and vomiting TECHNIQUE: Supine and upright views of the abdomen. FINDINGS: Comparison to 05/12/2020 The visualized lung parenchyma is normal.. There are mildly distended small bowel and large bowel loo ps, likely ileus. No definite obstruction.. Gas and stool are seen throughout the colon to the level of the rectum. There is no free air. Cardiomegaly. No free air. There are cholecystectomy clips. The re are median sternotomy wires. IMPRESSION: 1. Mildly dilated small bowel and colon, likely adynamic ileus. Reviewed, dictated and finalized at location A.
--- NOTE | ~2020-09-26 | XR_ITS ---
EXAMINATION: XR abdomen NG/feed tube insert DATE: 09/26/2020 14:30 INDICATION: Nasogastric tube placement. TECHNIQUE: An upright view of the abdomen was obtained on 3 radiographs. COMPARISON: Abdomen radiographs 06/26/2020 FINDINGS: The lower abdomen is excluded. There are no dilated loops of bowel. The nasogastric tube ti p is in the stomach. Median sternotomy wires and mediastinal surgical clips are seen, likely from [place] or coronary artery bypass grafting. Retained epicardial pacer wires are noted. Cardiomegaly is noted. IMPRESSION: 1. Nasogastric tube tip in the stomach. Reviewed, dictated and finalized at location A.
--- NOTE | ~2020-09-26 | XR_ITS ---
XR chest 1V portable 09/26/2020 01:17 Indication: Chest pain. History of triple bypass surgery 3 years ago. Procedure: AP portable chest Comparison: Comparison to multiple prior studies sequentially, with oldest reviewed study dated 06/28. Findings: Status post median sternotomy for CABG. Moderate cardiomegaly with interstitial edema. No s ignificant effusion. No pneumothorax. No acute osseous abnormality. Impression: 1: Cardiomegaly with mild interstitial edema. Reviewed, dictated and finalized at location A. Impression: 1: Cardiomegaly with mild interstitial edema.
--- NOTE | 2020-09-26 00:42 | ECG_ITS ---
Measurements Intervals [place] Rate: 105 P: VA: 0 QRS: -14 QRSD: 137 T: 91 QT: 409 QTc: 542 Interpretive Statements ATRIAL FLUTTER/TACHYCARDIA WITH RAPID VENTRICULAR RESPONSE LEFT BUNDLE BRANCH BLOCK CANNOT RULE OUT SEPTAL INFARCT, AGE INDETERMINATE ABNORMAL ECG Electronically Signed On 09-26-2020 6:03:35 CDT by Ben Patton D.O.
--- NOTE | 2020-09-26 00:50 | ECG_ITS ---
Measurements Intervals [place] Rate: 103 P: NM: 0 QRS: 9 QRSD: 135 T: 89 QT: 417 QTc: 547 Interpretive Statements ATRIAL FLUTTER/TACHYCARDIA WITH RAPID VENTRICULAR RESPONSE VENTRICULAR PREMATURE COMPLEX LEFT BUNDLE BRANCH BLOCK CANNOT RULE OUT SEPTAL INFARCT, AGE INDETERMINATE ABNORMAL ECG Electronically Signed On 09-26-2020 7:47:41 CDT by Ben Patton D.O.
[2020-09-26] MEDS: NITROGLYCERIN SL 0.4 MG TABLET SUBLINGUAL (00:55)
[2020-09-26] MEDS: ASPIRIN 81 MG CHEWABLE TABLET 324 MG PO (00:55)
[2020-09-26 00:57] LABS: Basophils Percent Auto 0.1 % (0.2-1.2); Eosinophils Absolute Auto 0.2 K/mm3 (0-0.3); Eosinophils Percent Auto 2.3 % (0-4.4); Hematocrit 28.6 % (42.0-52.0); Hemoglobin 8.7 g/dL (14.0-18.0); Immature Granulocyte Absolute 0.03 K/mm3 (0.00-0.031); Immature Granulocyte Percent A 0.4 % (0-0.5); Lymphocytes Absolute Auto 1.19 K/mm3 (0.9-3.2); Lymphocytes Percent Auto 17.2 % (18.3-44.2); Mean Corpuscular HGB Conc 30.4 g/dl (32-36); Mean Corpuscular Hemoglobin 31.2 pg (26-34); Mean Corpuscular Volume 102.5 fl (80-100); Mean Platelet Volume 10.3 fl (7.4-10.4); Monocytes Absolute Auto 0.7 K/mm3 (0.1-0.6); Monocytes Percent Auto 9.4 % (2.6-8.5); Neutrophils Absolute Auto 4.9 K/mm3 (1.3-6.7); Neutrophils Percent Auto 70.6 % (45.5-73.1); Platelet Count Result 241 k/mm3 (150-375); Red Blood Count 2.79 M/mm3 (4.6-6.20); Red Cell Distribution Width 14.9 % (11.5-14.5); White Blood Count 6.9 K/mm3 (4.5-10.0)
--- NOTE | 2020-09-26 00:59 | PC.NURSE ---
Pt presents to ED with complaints of left sided chest pain that onset while he was at rest. Pt states nausea was present at that time and denies radiation of pain. Pt noted with hx of triple bypass and heart attack approx 3 years ago. Pt noted to be alert and oriented x4 and able to converse appropriately with staff. is present at bedside. Pt placed on pacer pads and crash cart at bedside. EKG completed upon arrival to ED. Pt skin pale and diaphoretic. Vitals are stable. Will continue to monitor. EDMD presented to bedside to assess. Call button and personal items within reach. Pt advised to press call button for assistance. Interlocking Machine Operator remains at bedside.
--- NOTE | 2020-09-26 01:05 | ED.CHESTPAIN ---
HPI - Chest Pain General Chief Complaint: Chest Pain Stated Complaint: chest pain Time Seen by Provider: 09/26/20 00:42 History of Present Illness HPI narrative: 59 yo male w/ h/ CAD s/p CABG, ESRD on dialysis presents to the ED for chest pain. Intermittent substernal chest pain since 2199. radiates to neck. Feels like gas. Associated with SOB. He has never had this type of pain before. Related Data Home Medications Medication Instructions Recorded Confirmed aspirin 81 mg PO DAILY 04/20/19 09/17/20 atorvastatin 40 mg PO HS 04/20/19 09/17/20 lidocaine-prilocaine 1 applic TOPICAL DIRECTED PRN 04/20/19 09/17/20 sennosides-docusate sodium 1 tab-cap PO HS 04/20/19 09/17/20 [Senna-S] amiodarone 200 mg tablet 200 mg PO Q12H 06/06/19 09/17/20 sevelamer carbonate See Rx Instructions .ROUTE .COMPLEX 10/08/19 09/17/20 cholecalciferol (vitamin D3) 50 mcg PO DAILY 05/07/20 09/17/20 metoprolol tartrate 150 mg PO DAILY 05/07/20 09/17/20 acetaminophen 500 mg capsule 500 mg PO Q6H PRN 09/17/20 09/17/20 clopidogrel 75 mg tablet 75 mg PO DAILY 09/17/20 09/17/20 oxycodone 5 mg capsule 5 mg PO Q4H PRN 09/17/20 09/17/20 temazepam 15 mg capsule 15 mg PO QHS 09/17/20 09/17/20 vitamin E mixed 1,000 unit capsule unit PO 09/17/20 09/17/20 Allergies Allergy/AdvReac Type Severity Reaction Status Date / Time salmon oil Allergy Severe Anaphylaxis Verified 09/26/20 00:45 Review of Systems Review of Systems: All systems reviewed & are unremarkable except as noted in HPI and below Constitutional: Constitutional: Denies fever(s) Cardiovascular: Cardiovascular: Reports as per HPI Respiratory: Respiratory: Reports as per HPI Gastrointestinal: Gastrointestinal: Reports nausea Neurologic: Reports system reviewed and no additional complaints, except as documented [facility] Past Medical History Medical History Anemia Anxiety Arthritis CAD (coronary artery disease) CHF (congestive heart failure) EF 47% Depression Diabetes Diet controlled Dialysis patient MWF Distal radius fracture, right 11/02/19 Diverticulitis End-stage renal disease (ESRD) Fistula HLD (hyperlipidemia) HTN (hypertension) Leg fracture bilateral, 2016 Myocardial infarct Seasonal allergies Surgical History Surgical History H/O heart bypass surgery end of July 2018 History of cholecystectomy History of colostomy reversal History of incisional hernia repair History of orthopedic surgery 2016 bilateral legs that were fractured. History of partial colectomy Hx of arteriovenostomy for renal dialysis Hx of colostomy Family History Family History Mother Family history of diabetes mellitus in first degree relative Family history of malignant neoplasm of breast in first degree relative Father Patient's father is Diabetes mellitus Social History Social History Social History: The patient lives alone. He has two sons who check in on him. He designates his ex- Keke as his surrogate decision maker. He would like to be a full code. 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 Smoking status: Never smoker Second hand tobacco smoke exposure: Yes Additional smoking assessment comments: patient smokes marijuana occasionally Alcohol intake: current Drinks per week: 2 Substance use: current Substance use type: marijuana Other substance usage details: A couple of shots of burboun a day but not everyday Last use: 05/05/20 Gender identity (if verbalized by the patient): Male Sexual Orientation (if Verbalized by the Patient): Straight or Heterosexual Spiritual care concerns: No Agree to blood products: Yes Exam Const: General: no acute distress, alert and ill appearing Nutritional Gadiel
[2020-09-26 01:07] LABS: INR 1.2; Prothrombin Time 15.8 Seconds (11.1-14.7)
[2020-09-26 01:08] LABS: Anion Gap 12 mmol/L (8-16); Blood Urea Nitrogen 19 mg/dL (9-20); Calcium 9.4 mg/dL (8.4-10.2); Carbon Dioxide 38 mmol/L (22-30); Chloride 92 mmol/L (98-107); Estimated CRCL calculation 10 ml/min; Estimated Glomerular Filt Rate 7; Glucose 137 mg/dL (75-110); Partial Thromboplastin Time 34.3 SECONDS (22.3-36.8); Potassium 4.1 mmol/L (3.4-5.0); Sodium 142 mmol/L (137-145)
[2020-09-26 01:12] LABS: Alanine Aminotransferase 9 U/L (4-50); Alkaline Phosphatase 347 U/L (38-126); Aspartate Amino Transferase 33 U/L (17-59)
--- NOTE | 2020-09-26 01:13 | PC.NURSE ---
Medications administered and pt states nitro has helped improve chest pain. CXR completed at bedside. Pt remains alert and oriented x4. at bedside. Rv Service Technician remains at bedside.
[2020-09-26 01:23] LABS: Lactic Acid Reflex 3.6 mmol/L (0.7-2.1)
[2020-09-26] MEDS: NITROGLYCERIN/D5W 200 MCG/ML 50 MG/250 ML BTL IV CONT ×2 (01:37→04:31)
[2020-09-26] MEDS: HEPARIN SODIUM 5,000 UNITS/ML VIAL 4000 UNITS IV PUSH (01:40)
--- NOTE | 2020-09-26 01:44 | PC.NURSE ---
Called lab and spoke to Lavern to add on hepatic at 0100
--- NOTE | 2020-09-26 02:03 | PC.NURSE ---
Multiple IV infiltrations. ED charge at bedside for peripheral line placement.
--- NOTE | 2020-09-26 02:06 | PC.NURSE ---
Pt states chest pain has improved. Attending is present at bedside. Pt remains alert and oriented x4 and in no obvious distress. Vitals are stable and remains present at bedside. Call button and personal items within reach. Pt advised to press call button for assistance.
[2020-09-26] MEDS: HEPARIN SOD/D5W 100 UNITS/ML 25,000 UNITS/250 ML BAG 9 UNITS IV CONT (02:12)
--- NOTE | 2020-09-26 02:28 | PM.IMHP ---
H&P: HPI History of Present Illness Date/Time: 09/26/20 02:29 Chief Complaint: CHEST PAIN Narrative: This is a 59-year-old male with past medical history significant for coronary artery disease status post coronary artery bypass graft, end-stage renal disease on hemodialysis, severe peripheral vascular disease, atrial fibrillation atrial flutter, hypertension. patient was recently discharged from outside facility where he went for repair of arterial damage on his left lower extremity after complications of procedure at [facility]. Patient was at home sitting he has been sleeping in a recliner as he has not been able to sleep in bed due to pain, he also has a right 4th necrotic toe which is very painful and healing bilateral growing surgical incisions. Patient states that he was sitting when he developed acute onset retrosternal pain no radiating pulsating and drove him to the emergency room. patient denies any nausea vomiting rigors chills fevers cough sputum production shortness of breath diarrhea abdominal pain has had some lightheadedness with the pain is non radiating. preliminary workup was significant for ECG with some ST segment T-wave changes. Patient has been placed on heparin drip and nitro drip and will be admitted to intensive care unit. Review of Systems Review of Systems: Narrative: RETROSTERNAL CHEST PAIN Constitutional: Constitutional: Denies chills, Denies fatigue, Denies fever(s) and Denies lethargy Eyes: Eyes: Denies diplopia ENT: Denies nasal congestion, Denies nasal discharge and Denies nasal obstruction Cardiovascular: Cardiovascular: Reports chest pain at rest, Denies radiating jaw, neck or arm pain, Denies palpitations, Denies dyspnea and Denies orthopnea Respiratory: Respiratory: Denies cough, Denies dyspnea and Denies wheezing Gastrointestinal: Gastrointestinal: Denies diarrhea, Denies nausea and Denies vomiting Genitourinary: Genitourinary: Reports no additional male genitourinary complaints Musculoskeletal: Comments: RIGHT 4TH TOE NECROSIS AND PAIN Integumentary/Breasts: Skin/Breast: Reports wounds ( SURGICAL WOUNDS BILATERAL GROIN AREA) Neurologic: Denies vertigo, Denies dizziness, Denies syncope, Denies headache(s), Denies focal weakness, Denies Sensory deficit (Neuro) and Denies tremor(s) Psychiatric: Psychiatric: Reports no additional psychiatric complaints Endocrine: Endocrine: Reports no additional endocrine complaints Hematologic/Lymphatic: Hematologic/Lymphatic: Reports no additional hematologic/lymphatic complaints Allergic/Immunologic: Allergic/Immunologic: Reports no additional allergic/immunologic complaints PMFSH Past Medical History Medical History Anemia Anxiety Arthritis CAD (coronary artery disease) CHF (congestive heart failure) EF 47% Depression Diabetes Diet controlled Dialysis patient MWF Distal radius fracture, right 11/02/19 Diverticulitis End-stage renal disease (ESRD) Fistula HLD (hyperlipidemia) HTN (hypertension) Leg fracture bilateral, 2016 Myocardial infarct Seasonal allergies Surgical History Surgical History H/O heart bypass surgery end of July 2018 History of cholecystectomy History of colostomy reversal History of incisional hernia repair History of orthopedic surgery 2016 bilateral legs that were fractured. History of partial colectomy Hx of arteriovenostomy for renal dialysis Hx of colostomy Family History Family History Mother Family history of diabetes mellitus in first degree relative Family history of malignant neoplasm of breast in first degree relative Father Patient's father is Diabetes mellitus Social History Social History Social History: The patient lives alone. He has
[2020-09-26] MEDS: MORPHINE SULFATE (*CRX) 4 MG/ML INJ IV PUSH ×6 (02:30→17:05)
[2020-09-26] MEDS: SODIUM CHLORIDE 0.9% IV 500 ML 999 ML IV CONT (02:50)
--- NOTE | 2020-09-26 03:18 | PC.NURSE ---
ICU called and nurse made aware that SBAR cannot be printed and to look through pt's chart.
--- NOTE | 2020-09-26 03:20 | ECG_ITS ---
Measurements Intervals [place] Rate: 87 P: [place]: 0 QRS: -21 QRSD: 118 T: 95 QT: 434 QTc: 523 Interpretive Statements ATRIAL FLUTTER/TACHYCARDIA VENTRICULART COUPLET AND VENTRICULAR PREMATURE COMPLEX INCOMPLETE LEFT BUNDLE BRANCH BLOCK CANNOT RULE OUT SEPTAL INFARCT, AGE INDETERMINATE BORDERLINE ST-T WAVE ABNORMALITY- LAT/HIGH LAT LEADS BASELINE ARTIFACT- AVR, AVL ABNORMAL ECG Electronically Signed On 09-26-2020 8:41:49 CDT by Ben Patton D.O.
--- NOTE | 2020-09-26 03:57 | PC.NURSE ---
Report called and nurse states ok to send pt to floor.
[2020-09-26 04:07] LABS: Reflex Lactic Acid Yes or No Add Lactic
--- NOTE | 2020-09-26 05:47 | ADMIMU ---
This patient, Beck Carney, was admitted to ICU status, and placed in Intensive Care Unit-8 on 09/26/20 at 0450. Patient/family oriented to hospital policies and general routines including ID bracelet, bed and alarms, visiting hours, pain management, procedures, bathroom and other care routines, personal items, smoking policy, room service/diet, and visiting hours. Information on how to activate the Rapid Response Team has been discussed. Patient/Family are encouraged to report perceived risks to care and to ask questions if they do not understand what they are told or what they should do.
[2020-09-26 07:05] LABS: Lactic Acid 1.4 mmol/L (0.7-2.1)
[2020-09-26 07:08] LABS: Partial Thromboplastin Time 63.2 SECONDS (22.3-36.8)
[2020-09-26] MEDS: METOPROLOL TARTRATE INJ 5 MG/5 ML VIAL 2.5 MG IV PUSH (08:41)
[2020-09-26] MEDS: HEPARIN SODIUM 5,000 UNITS/ML VIAL 3000 UNITS IV PUSH (08:54)
[2020-09-26] MEDS: ONDANSETRON INJ 4 MG/2 ML VIAL IV PUSH (08:58)
--- NOTE | 2020-09-26 09:43 | WPDCNINT ---
Assessment and Plan Assessment and plan (1) Non-ST elevation IA (NSTEMI): Code(s): I21.4 - Non-ST elevation (NSTEMI) myocardial infarction Status: Acute Assessment and Plan: patient presented with chest pain, started on heparin and nitroglycerin infusion. Currently chest pain-free - continues to have nausea which could be concerned for anginal pain - troponin trending down - Appreciate cardiology evaluation recommendation - patient has been accepted to [facility] - started IV metoprolol for NSTEMI - continue nitroglycerin for chest pain and BP control (2) CAD (coronary artery disease): Code(s): I25.10 - Atherosclerotic heart disease of [place] coronary artery without angina pectoris Status: Acute Assessment and Plan: will resume aspirin, statin and clopidogrel when able to take p.o. since he is having 11 of nausea (3) ESRD on hemodialysis: Code(s): N18.6 - End stage renal disease; Z99.2 - Dependence on renal dialysis Status: Acute Assessment and Plan: patient has a history of end-stage renal disease on hemodialysis - nephrology to follow - dialysis per Nephrology (4) PAD (peripheral artery disease): Code(s): I73.9 - Peripheral vascular disease, unspecified Status: Acute Assessment and Plan: patient recently had aorto, iliac and femoral intervention which was complicated by retained sheath and foreign body for which patient required a surgical extraction and patch angioplasty and thrombectomy at [place] (5) Atrial flutter: Code(s): I48.92 - Unspecified atrial flutter Status: Acute Assessment and Plan: currently rate controlled - patient is on amiodarone and metoprolol p.o. - have started IV metoprolol - will start amiodarone once he starts taking p.o. - not on anticoagulation due to history of anemia. Currently on heparin infusion (6) Toe necrosis: Code(s): I96 - Gangrene, not elsewhere classified Status: Acute Assessment and Plan: necrosis of the 3rd toe on the right foot - patient states he supposed to have that amputated. (7) Anemia: Qualifiers: Anemia type: due to chronic kidney disease Chronic kidney disease stage: on chronic dialysis Qualified Code(s): N18.6 - End stage renal disease; D63.1 - Anemia in chronic kidney disease; Z99.2 - Dependence on renal dialysis Code(s): D64.9 - Anemia, unspecified Status: Chronic Assessment and Plan: Hemoglobin has been stable will continue to follow CBC - transfuse if hemoglobin is less than 7.0 (8) Diabetes: Qualifiers: Diabetes mellitus type: type 2 Diabetes mellitus half-way insulin use: without equipment operator intermodal yard use Diabetes mellitus complication status: with kidney complications Diabetes mellitus complication detail: with chronic kidney disease Chronic kidney disease stage: on chronic dialysis Qualified Code(s): E11.22 - Type 2 diabetes mellitus with diabetic chronic kidney disease; N18.6 - End stage renal disease; Z99.2 - Dependence on renal dialysis Code(s): E11.9 - Type 2 diabetes mellitus without complications Status: Acute Assessment and Plan: continue Accu-Cheks and sliding scale insulin - last hemoglobin A1c was 4.7 in November 2019 (9) Ileus: Code(s): K56.7 - Ileus, unspecified Status: Acute Assessment and Plan: patient complained of abdominal pain, nausea, vomiting, obstructive series shows adynamic ileus - insert NG tube to low intermittent suction Additional Plan discussed with patient And his at bedside and updated them with his condition and plan of care. They aware that patient be transferred to [facility] code status: Full code Critical care time spent: 43 minutes This dictation may have been done utilizing a voice recognition system. Attempts have been made to correct errors. However, there may be uncorrected grammatic
--- NOTE | 2020-09-26 09:47 | PM.CNCAR ---
Assessment and Plan Assessment and plan (1) Non-ST elevation CT (NSTEMI): Code(s): I21.4 - Non-ST elevation (NSTEMI) myocardial infarction Status: Acute Assessment and Plan: patient presents with unstable angina. Chest pain free after intravenous heparin and nitroglycerin infusion. Persistent nausea concern for anginal equivalent, although Trop I downward trending since admission. patient is a very complicated history including 3 vessel bypass, vasculopathy with severe diffuse calcification with recent extensive complication with peripheral angiography and intervention. He has bilateral groin sutures which are reddened with slight yellowish drainage concern for local infection. Arterial access limited due to right upper extremity AV fistula for hemodialysis leaving left upper extremity as primary arterial conduit if coronary angiography required on urgent / emergent basis. Focus on conservative medical therapy for now if possible yet if intervention require patient be high risk and complicated with resources that are not available at this institution. Discussed transfer to outside hospital such as [facility] and or [facility] which has full complement of services he may require. Patient and his are in agreement to transferred to [facility]. This will be their preference and if no bed available transfer to [facility] 2nd option. IV metoprolol antianginal benefit. Continue heparin infusion, nitroglycerin for BP and anginal control. Antiemetics. Discussed case with Dr. Dc Interventional Cardiology at length who agrees with plan of care to transfer patient given his high complexity. Spent 72 minutes in the care of this patient including at bedside, discussions with pt and his , chart review, physician consultation, transfer arrangements, and medical decision making. (2) CAD (coronary artery disease): Code(s): I25.10 - Atherosclerotic heart disease of nez perce coronary artery without angina pectoris Status: Acute Assessment and Plan: Resume aspirin and clopidogrel when able to take p.o.. Statin. (3) ESRD on hemodialysis: Code(s): N18.6 - End stage renal disease; Z99.2 - Dependence on renal dialysis Status: Acute Assessment and Plan: Per Nephrology. (4) PAD (peripheral artery disease): Code(s): I73.9 - Peripheral vascular disease, unspecified Status: Acute Assessment and Plan: As above, very complicated recent history with complications with sheath foreign body retained due to extensive vascular calcification requiring surgical extraction and patch angioplasty with thrombectomy at [facility]. (5) Atrial flutter: Code(s): I48.92 - Unspecified atrial flutter Status: Acute Assessment and Plan: Rate control, was previously on amiodarone and metoprolol. Not on anticoagulation due to history of anemia but without identified bleeding source. Follow H&H on heparin infusion. (6) Anemia: Qualifiers: Anemia type: due to chronic kidney disease Chronic kidney disease stage: on chronic dialysis Qualified Code(s): N18.6 - End stage renal disease; D63.1 - Anemia in chronic kidney disease; Z99.2 - Dependence on renal dialysis Code(s): D64.9 - Anemia, unspecified Status: Chronic Assessment and Plan: As above, follow H& H. No evidence of active bleed at this time. [place] in stable from prior discharge from [facility]. (7) Diabetes: Qualifiers: Diabetes mellitus type: type 2 Diabetes mellitus shelter insulin use: without shelter use Diabetes mellitus complication status: with kidney complications Diabetes mellitus complication detail: with chronic kidney disease Chronic kidney disease stage: on chronic dialysis Qualified Code(s): E11.22 - Type 2 diabetes mellitus with diabetic chronic kidney disease; N18.6 - End stage renal disease; Z99.2 - Dependence on renal dialysis Code(s
[2020-09-26] MEDS: PROCHLORPERAZINE EDISYLATE 10 MG/2 ML VIAL IV PUSH (12:22)
[2020-09-26] MEDS: METOPROLOL TARTRATE INJ 5 MG/5 ML VIAL IV PUSH ×2 (12:22→17:39)
--- NOTE | 2020-09-26 12:22 | PM.TDS ---
Transfer Discharge Sum: Prov Provider Date of admission: 09/26/20 01:55 Primary care physician: Song Lindsey DO Admitting clinician: Rom Medrano MD Consults: 09/26/20 Consult to Physician Routine Comment: Consulting Provider: Kelli Bush phlebotomy technologist/MD group to consult: nEPHROLOGY Reason for consultation: HD Has provider been notified: Yes Consult to Physician Routine Comment: Consulting Provider: Tru Bhakta Reason for consultation: NSTEMI on nitroglycerine drip Has provider been notified: Yes 09/26/20 01:56 Consult to Physician Routine Comment: Consulting Provider: Cale Dc Reason for consultation: NSTEMI Has provider been notified: Yes DS: Admitting Diagnosis Admitting Diagnosis Admitting Diagnosis: chest pain DS: Discharge Diagnosis Discharge Diagnosis (1) Non-ST elevation [place] (NSTEMI): Code(s): I21.4 - Non-ST elevation (NSTEMI) myocardial infarction Status: Acute Assessment and Plan: ADMIT TO INTENSIVE CARE UNIT ON NITRO AND HEPARIN DRIP NPO SUPPORTIVE CARE MORPHINE P.R.N. CARDIOLOGY CONSULT ECHOCARDIOGRAM IN A.M. (2) Atrial fibrillation: Qualifiers: Atrial fibrillation type: unspecified Qualified Code(s): I48.91 - Unspecified atrial fibrillation Code(s): I48.91 - Unspecified atrial fibrillation Status: Chronic Assessment and Plan: PATIENT IS ON METOPROLOL AND AMIODARONE RESTART HOME MEDS CONTINUE TO MONITOR (3) CHF (congestive heart failure): Code(s): I50.9 - Heart failure, unspecified Status: Chronic Assessment and Plan: PATIENT APPEARS TO BE EUVOLEMIC CONTINUE TO MONITOR DAILY WEIGHTS PATIENT ON HEMODIALYSIS (4) HTN (hypertension): Qualifiers: Hypertension type: essential hypertension Qualified Code(s): I10 - Essential (primary) hypertension Code(s): I10 - Essential (primary) hypertension Status: Chronic Assessment and Plan: CONTINUE TO MONITOR STABLE (5) End-stage renal disease (ESRD): Code(s): N18.6 - End stage renal disease Status: Chronic Assessment and Plan: NEPHROLOGY CONSULT CONTINUE HEMODIALYSIS (6) Toe necrosis: Code(s): I96 - Gangrene, not elsewhere classified Status: Acute Assessment and Plan: PATIENT WAS SCHEDULED FOR AMPUTATION ON THIS WEEK CONTINUE TO MONITOR (7) Surgical wound present: Code(s): T14.8XXA - Other injury of unspecified body region, initial encounter Status: Acute Assessment and Plan: BILATERAL GROWING AREA WITH SURGICAL WOUNDS WOUND CARE CONSULT WET TO DRY DRESSING CHANGES CONTINUE TO MONITOR (8) Ventral hernia: Code(s): K43.9 - Ventral hernia without obstruction or gangrene Status: Acute Assessment and Plan: UNCHANGED Transfer Discharge Sum: Med Medications Active and Home Medications: Home Medications aspirin 81 mg PO DAILY 04/20/19 [History Confirmed 09/26/20] atorvastatin 40 mg PO HS 04/20/19 [History Confirmed 09/26/20] lidocaine-prilocaine 1 applic TOPICAL DIRECTED PRN 04/20/19 [History Confirmed 09/26/20] sennosides-docusate sodium [Senna-S] 1 tab-cap PO BID 04/20/19 [History Confirmed 09/26/20] amiodarone 200 mg tablet 200 mg PO Q12H 06/06/19 [History Confirmed 09/26/20] lisinopril 20 mg tablet 20 mg PO DAILY #90 tablet 06/06/19 [Rx Confirmed 09/26/20] sevelamer carbonate See Rx Instructions .ROUTE .COMPLEX 10/08/19 [History Confirmed 09/26/20] cholecalciferol (vitamin D3) 50 mcg PO DAILY 05/07/20 [History Confirmed 09/26/20] metoprolol tartrate 150 mg PO DAILY 05/07/20 [History Confirmed 09/26/20] polyethylene glycol 3350 [Miralax] 17 g PO QAM #30 ea 05/14/20 [Rx Confirmed 09/26/20] clopidogrel 75 mg tablet 75 mg PO DAILY 09/17/20 [History Confirmed 09/26/20] oxycodone 5 mg capsule 5 mg PO Q4H PRN 09/17/20 [History Confirmed 09/26/20] temazepam 15 mg capsule 15 mg PO QHS 09/17/20 [History
[2020-09-26] MEDS: hydrALAZINE HCL 20 MG/ML VIAL 10 MG IV PUSH (13:52)
--- NOTE | 2020-09-26 14:00 | PM.CNNEP ---
Assessment and Plan Assessment and plan (1) End-stage renal disease (ESRD): Code(s): N18.6 - End stage renal disease Status: Chronic Assessment and Plan: HD tomorrow and continue M/W/ dialysis schedule electrolytes, volume status, and clearance stable (2) Non-ST elevation [place] (NSTEMI): Code(s): I21.4 - Non-ST elevation (NSTEMI) myocardial infarction Status: Acute Assessment and Plan: on heparin and NTG infusion Cardiology following noted plans for transfer to [facility] versus [place] for further therapy (3) HTN (hypertension): Qualifiers: Hypertension type: essential hypertension Qualified Code(s): I10 - Essential (primary) hypertension Code(s): I10 - Essential (primary) hypertension Status: Chronic Assessment and Plan: elevated still but pain issues also playing a role continue home BP medications follow trend of hemodynamics (4) PAD (peripheral artery disease): Code(s): I73.9 - Peripheral vascular disease, unspecified Status: Chronic Assessment and Plan: quite severe and complicated as noted by history continue supportive therapy (5) Ileus: Code(s): K56.7 - Ileus, unspecified Status: Acute Assessment and Plan: as noted by abdominal x-rays [employer] tube in place (6) Diabetes: Code(s): E11.9 - Type 2 diabetes mellitus without complications Status: Chronic Assessment and Plan: follow accuchecks glycemic control Long and extensive discussion (> 20minutes) with patient and at bedside regarding above medical issues -- noted plans for transfer to [facility] versus [place] depending on bed availability for medical therapy given limitation here at [facility] particularly with the patient significant/extensive vascular disease issues. Will continue to follow. History of Present Illness Reason for Consult Consult date: 09/26/20 Reason for consult: end stage renal disease Chief Complaint Chief complaint: NSTEMI History of Present Illness Narrative: The patient is a 59-year-old male with the extensive past medical history as outlined below who presented to [facility] Emergency room with complaints chest pain. Apparently, the patient has not been feeling very well for last few days. He has had increasing pain in his right foot requiring use of pain medications in association with some nausea and poor appetite. On the evening of admission, he developed substernal lower to mid chest pain that he described as someone sitting on his chest. Initially, he thought this was related to gastroesophageal reflux disease since it occurred after he had a large meal that evening. However, despite conservative therapy the symptoms persisted which eventually led to his presentation to the emergency room. Workup and evaluation emergency room demonstrated the patient to be hemodynamically stable (he was actually hypertensive in the 170s the 190 systolic) with routine blood test demonstrated labs consistent with his known history of end-stage renal disease although his troponins were mildly elevated. His EKG revealed ST depressions but no ST elevation in association with atrial flutter with variable AV block. Given his symptoms as well as his complex medical history with regard to coronary artery disease and vascular disease, he was started on IV heparin and IV nitroglycerin which did seem to improve his chest pain symptoms with subsequent admission to the intensive care unit for closer monitoring. It should be noted the patient has a somewhat complex medical history with regard to vascular disease as he was recently discharged from [facility] for this issue. Apparently, in early August, he underwent AAIF at [facility] for further evaluation of his extensive peripheral vascular / arterial disease. Apparently the sheath/wire became lodged in the extensive calcifications in his vas
[2020-09-26 14:48] LABS: Partial Thromboplastin Time 71.5 SECONDS (22.3-36.8)
--- NOTE | 2020-09-26 18:05 | PC.NURSE ---
Patient discharge to [facility], room 9233. Patient left floor with [facility] staff. No complaints of chest pain/shortness of breath at the time of discharge. Patient oriented x3. Patient belongings and discharge packet sent with patient.
== END 2020-09-26 18:00 | disposition short-term general hospital (02) | DRG 280 ==
LOC: ANHED 02:09 → ANHICU 05:33
PROVIDERS: Internal Medicine; Admitting Provider Internal Medicine; Emergency Provider Emergency Medicine; PCP Internal Medicine; Visit Provider Family Medicine
DX: I21.4 Non-ST elevation (NSTEMI) myocardial infarction (principal); N18.6 End stage renal disease; I13.2 Hypertensive heart and chronic kidney disease with heart failure and with stage 5 chronic kidney disease, or end stage renal disease; K56.7 Ileus, unspecified; I48.20 Chronic atrial fibrillation, unspecified; I48.92 Unspecified atrial flutter; E11.52 Type 2 diabetes mellitus with diabetic peripheral angiopathy with gangrene; I96 Gangrene, not elsewhere classified; I50.9 Heart failure, unspecified; E11.22 Type 2 diabetes mellitus with diabetic chronic kidney disease; I25.2 Old myocardial infarction; I25.10 Atherosclerotic heart disease of native coronary artery without angina pectoris; M19.90 Unspecified osteoarthritis, unspecified site; E78.5 Hyperlipidemia, unspecified; K43.9 Ventral hernia without obstruction or gangrene; D63.1 Anemia in chronic kidney disease; F41.9 Anxiety disorder, unspecified; Z90.49 Acquired absence of other specified parts of digestive tract; Z95.1 Presence of aortocoronary bypass graft; Z99.2 Dependence on renal dialysis
CPT/HCPCS: 36415; 71045; 74019; 80048; 80076; 83605; 84484; 85025; 85610; 85730; 86850; 86900; 86901; 93005; 96374; 96375; 99291; A9270; J0360; J0780; J1644; J2270; J2405; J7030; J7040